=== PATIENT | female | born 1940 | race Caucasian/White ===

== ENCOUNTER 2016-08-23 09:09 | Emergency (ER) | payer MEDICARE ==
[2016-08-23 09:23] VITALS: BP 162/71
[2016-08-23] MEDS ORDERED: Albuterol/Ipratropium 3.0-0.5 MG/3 ML Neb Soln NEB ONE ×2 (09:48→12:46)
[2016-08-23] MEDS ORDERED: Sodium Chloride 0.9% 10 ML Syringe FLUSH PRN ×2 (10:19→11:18)
--- NOTE | 2016-08-23 10:22 | EDM.PDOC ---
ED HISTORY OF PRESENT ILLNESS - General Chief Complaint: Respiratory Problem Stated Complaint: SOB/HEART RACING Time Seen by Provider: 08/23/16 10:11 Source of Information: Reports: Patient History Limitations: Reports: No limitations - History of Present Illness INITIAL COMMENTS - FREE TEXT/NARRATIVE: Patient presents for evaluation and treatment of chest palpitations and shortness of breath. Patient reports that her symptoms started this morning. She also reports some tightness in her chest. She states that this has mostly resolved. She has a history of COPD and is normal at 2 L via nasal cannula at home. Upon arrival to the air oxygen sats of 75 on 2 L of oxygen. She was increased to 4 L which is on her oxygen sats into the low 90s. Patient also reports that she has been coughing for the last week. Her current symptoms include chest tightness, cough, shortness of breath, chest palpitations/ tachycardia. She denies any fevers, chills, nausea, vomiting, diaphoresis, waking or lower leg edema. Patient did have her influenza shot this year. She has not been seen thus far for her symptoms. - Related Data Allergies/ADRs: Allergies Allergy/AdvReac Type Severity Reaction Status Date / Time doxycycline Allergy Cannot Verified 08/23/16 09:23 Remember tiotropium Allergy Cannot Verified 08/23/16 09:23 [From Spiriva with Remember HandiHaler] tramadol [From Ultracet] Allergy Cannot Verified 08/23/16 09:23 Remember Home Meds: Home Meds Albuterol [Proventil Neb Soln] 1.25 mg NEB Q4HRRT PRN 08/23/16 [History] Albuterol [Proventil Neb Soln] 1.25 mg NEB QIDRT 08/23/16 [History] Albuterol/Ipratropium [Take Home: Albuterol/Ipratropium 4 GM Inhaler] 1 puff INH QID 08/23/16 [History] Azithromycin [IJP: Azithromycin] 250 mg PO ASDIRECTED #6 tab 08/23/16 [Rx] Budesonide 1 ampule IH BID 08/23/16 [History] Budesonide/Formoterol Fumarate [Symbicort 160-4.5 Mcg Inhaler] 2 puff IH DAILY 08/23/16 [History] Hydrochlorothiazide 25 mg PO DAILY 08/23/16 [History] Hydrocodone/Acetaminophen [Hydrocodon-Acetaminophn 10-325] 1 tab PO Q6H PRN [History] Ibuprofen [Motrin] 800 mg PO Q8H PRN 08/23/16 [History] LORazepam [Ativan] 0.5 mg PO TID 08/23/16 [History] Levothyroxine [Synthroid] 100 mcg PO ACBREAKFAST 08/23/16 [History] Metoprolol Tartrate [Lopressor] 0.5 tab PO BID 08/23/16 [History] Nystatin 1 applic TOP TID PRN 08/23/16 [History] Potassium Chloride 20 meq PO DAILY 08/23/16 [History] Prednisone [IJD: predniSONE] 40 mg PO WITHBREAKFAST #12 tab 08/23/16 [Rx] Past Medical History Respiratory History: Reports: COPD Gastrointestinal History: Reports: Diverticulosis - Past Surgical History GI Surgical History: Reports: Hernia repair/other Neurological Surgical History: Reports: Lumbar spine Social & Family History - Tobacco Use Smoking Status *Q: Former Smoker - Caffeine Use Caffeine Use: Reports: Coffee, Soda - Recreational Drug Use Recreational Drug Use: No ED ROS GENERAL - Review of Systems Review Of Systems: See Below Constitutional: Denies: fever, chills, diaphoresis Respiratory: Reports: Shortness of Breath, Cough. Denies: Sputum Cardiovascular: Reports: Chest pain, Palpitations. Denies: Edema GI/Abdominal: Denies: Nausea, Vomiting ED EXAM, GENERAL - Physical Exam Exam: See Below Exam Limited By: No limitations General Appearance: alert, WD/WN, no apparent distress, obese Respiratory/Chest: decreased breath sounds, wheezing (diffuse bilateral) Cardiovascular: normal peripheral pulses, regular rate, rhythm, no murmur Neurological: alert, oriented, normal cognition Psychiatric: normal affect, normal mood Skin Exam: Warm, Dry, Normal color EKG INTERPRETATION EKG Date: 08/23/16 Time: 22:00 Rhythm: NSR Rate (beats/min): 83 Cullen: normal P-wave: present QRS: normal ST-T: elevated (minimal in II and AVF) QT: normal EKG Interpretation Comments: NSR at 83 bpm. Left atrial enlargement. Decreased voltage in limb and precordial leads. Q waves in V1 and V2 - consider old aneroseptal LA. Minimal ST elevation in II and AVF. Reviewed by myself and Dr. Neves. Course - Vital Signs Last Recorded V/S: Last Vital Signs Temp 36.4 C 08/23/16 09:17 Pulse 90 08/23/16 09:17 Resp 14 08/23/16 09:17 BP 162/71 H 08/23/16 09:17 Pulse Ox 95 08/23/16 12:46 - Orders/Labs/Meds Labs: Laboratory Tests 08/23/16 08/23/16 08/23/16 Range/Units 09:40 09:40 09:40 WBC 15.59 H (3.98-10.04) K/mm3 RBC 4.34 (3.98-5.22) M/mm3 Hgb 12.8 (11.2-15.7) gm/L Hct 40.4 (34.1-44.9) % MCV 93.1 (79.4-94.8) fl MCH 29.5 (25.6-32.2) pg MCHC 31.7 L (32.2-35.5) g/dl RDW Std Deviation 56.5 H (36.4-46.3) fL Plt Count 780 H (182-369) K/mm3 MPV 9.6 (9.4-12.3) fl Neutrophils % (Manual) 73 H (40-60) % Band Neutrophils % 1 (0-10) % Lymphocytes % (Manual) 19 L (20-40) % Atypical Lymphs % 0 % Monocytes % (Manual) 4 (2-10) % Eosinophils % (Manual) 2 (0.7-5.8) % Basophils % (Manual) 1 (0.1-1.2) Platelet Estimate See note RBC Morph Comment Normal D-Dimer, Quantitative 1.20 H (0.19-0.59) mg/L Puncture Site ABG pH (7.35-7.45) ABG pCO2 (35.0-45.0) mmHg ABG pO2 (80.0-100.0) mmHg ABG HCO3 (22.0-26.0) meq/L ABG O2 Saturation (96.0-97.0) % ABG Base Excess (-2-2.0) Edgar Test A-a Gradient mmHg O2 Delivery Device Oxygen Flow Rate FiO2 (21.00-100.00) % Sodium 139 (136-145) mEq/L Potassium 3.8 (3.5-5.1) mEq/L Chloride 102 (98-107) mEq/L Carbon Dioxide 30 (21-32) mEq/L Anion Gap 10.8 (5-15) BUN 21 H (7-18) mg/dL Creatinine 1.2 H (0.55-1.02) mg/dL Est Cr Clr Drug Dosing 32.04 mL/min Estimated GFR (MDRD) 44 (>60) mL/min BUN/Creatinine Ratio 17.5 (14-18) Glucose 108 (83-115) mg/dL Calcium 10.1 (8.5-10.1) mg/dL Total Bilirubin 0.4 (0.2-1.0) mg/dL AST 25 (15-37) U/L ALT 34 (14-59) U/L Alkaline Phosphatase 75 (46-116) U/L CK-MB (CK-2) 1.8 (0-3.6) ng/ml Troponin I < 0.017 (0.00-0.056) ng/mL C-Reactive Protein 0.5 (<1.0) mg/dL B-Natriuretic Peptide (0-100) pg/mL Total Protein 7.9 (6.4-8.2) g/dl Albumin 3.5 (3.4-5.0) g/dl Globulin 4.4 gm/dL Albumin/Globulin Ratio 0.8 L (1-2) 08/23/16 08/23/16 Range/Units 09:40 13:34 WBC (3.98-10.04) K/mm3 RBC (3.98-5.22) M/mm3 Hgb (11.2-15.7) gm/L Hct (34.1-44.9) % MCV (79.4-94.8) fl MCH (25.6-32.2) pg MCHC (32.2-35.5) g/dl RDW Std Deviation (36.4-46.3) fL Plt Count (182-369) K/mm3 MPV (9.4-12.3) fl Neutrophils % (Manual) (40-60) % Band Neutrophils % (0-10) % Lymphocytes % (Manual) (20-40) % Atypical Lymphs % % Monocytes % (Manual) (2-10) % Eosinophils % (Manual) (0.7-5.8) % Basophils % (Manual) (0.1-1.2) Platelet Estimate RBC Morph Comment D-Dimer, Quantitative (0.19-0.59) mg/L Puncture Site Rt radial ABG pH 7.43 (7.35-7.45) ABG pCO2 42.2 (35.0-45.0) mmHg ABG pO2 64.0 L (80.0-100.0) mmHg ABG HCO3 27.3 H (22.0-26.0) meq/L ABG O2 Saturation 93.8 L (96.0-97.0) % ABG Base Excess 3.0 H (-2-2.0) Edgar Test Positive A-a Gradient 112 mmHg O2 Delivery Device Nasal cannula Oxygen Flow Rate 3.5 FiO2 34.00 (21.00-100.00) % Sodium (136-145) mEq/L Potassium (3.5-5.1) mEq/L Chloride (98-107) mEq/L Carbon Dioxide (21-32) mEq/L Anion Gap (5-15) BUN (7-18) mg/dL Creatinine (0.55-1.02) mg/dL Est Cr Clr Drug Dosing mL/min Estimated GFR (MDRD) (>60) mL/min BUN/Creatinine Ratio (14-18) Glucose (83-115) mg/dL Calcium (8.5-10.1) mg/dL Total Bilirubin (0.2-1.0) mg/dL AST (15-37) U/L ALT (14-59) U/L Alkaline Phosphatase (46-116) U/L CK-MB (CK-2) (0-3.6) ng/ml Troponin I (0.00-0.056) ng/mL C-Reactive Protein (<1.0) mg/dL B-Natriuretic Peptide 34 (0-100) pg/mL Total Protein (6.4-8.2) g/dl Albumin (3.4-5.0) g/dl Globulin gm/dL Albumin/Globulin Ratio (1-2) Meds: Medications Discontinued Medications Generic Name Dose Route Start Last Admin Trade Name Freq PRN Reason Stop Dose Admin Albuterol/Ipratropium 3 ml 08/23/16 09:48 08/23/16 09:52 Duoneb 3.0-0.5 Mg/3 Ml NEB 08/23/16 09:49 3 ml ONETIME ONE Administration Albuterol/Ipratropium 3 ml 08/23/16 12:46 08/23/16 13:28 Duoneb 3.0-0.5 Mg/3 Ml NEB 08/23/16 12:47 3 ml ONETIME ONE Administration Sodium Chloride 100 mls @ 80 mls/hr 08/23/16 11:30 08/23/16 11:40 Normal Saline IV 80 mls/hr ASDIRECTED RYAN Administration Sodium Chloride 500 mls @ 125 mls/hr 08/23/16 11:36 08/23/16 11:55 Normal Saline IV 08/23/16 15:35 125 mls/hr ONETIME ONE Administration Iopamidol 100 ml 08/23/16 11:18 08/23/16 11:40 Isovue-370 (76%) IVPUSH 08/23/16 11:19 100 ml ONETIME ONE Administration Prednisone 40 mg 08/23/16 14:11 08/23/16 14:53 Prednisone PO 08/23/16 14:12 40 mg ONETIME ONE Administration Sodium Chloride 10 ml 08/23/16 10:19 08/23/16 11:00 Saline Flush FLUSH 10 ml ASDIRECTED PRN Administration Keep Vein Open Sodium Chloride 10 ml 08/23/16 11:18 08/23/16 11:41 Saline Flush FLUSH 10 ml ONETIME PRN Administration IV FLUSH - Radiology Interpretation Free Text/Narrative:: chest xray shows cardiomegaly. No pulmonary congestion or consolidations appreciated Ct chest with contrast, PE study per Dr. Suggs: 1. No findings of PE 2. Incidental findings. CT Results Date: 08/23/16 - Re-Assessments/Exams Free Text/Narrative Re-Assessment/Exam: 08/23/16 14:52 ABGs are: pH of 7.43, pO2 of 64, pCO2 of 42.2 and HCO3 of 27.3 08/23/16 15:22 Patient's labs have returned. Influenza is negative White blood cell count is 15.59, hemoglobin is 12.8 platelets are 780. Sodium is 138, potassium 3.8 chloride is 102. Creatinine is 1.2.Glucose is 108. Troponin is less than 0.017. BNP is 34. CK-MB is 1.8. D-dimer is 1.2. CT pulmonary exam was obtained to further evaluate elevated d- dimer I reviewed the labs, EKG and imaging studies with the patient. She does not want to spend the night in the hospital. She would like to try outpatient therapy first. I do believe that she is having exacerbation of her COPD. Will prescribe some azithromycin and some prednisone. She may have to increase her oxygen temporarily. She has nebulizers and I will have her continue on these. Close followup with her primary care provider. Departure - Departure Time of Disposition: 15:22 Disposition: Home, Self-Care 01 Condition: fair Clinical Impression: COPD exacerbation Prescriptions: Azithromycin [IJP: Azithromycin] 250 mg PO ASDIRECTED #6 tab Prednisone [IJD: predniSONE] 40 mg PO WITHBREAKFAST #12 tab Instructions: Chronic Obstructive Pulmonary Disease Exacerbation, [id number] Referrals: Yesica Gutierrez VICE PRESIDENT OF COMMUNICATIONS [Primary Care Provider] - Forms: ED Department Discharge Additional Instructions: Take the azithromycin as prescribed. Take 2 tabs today followed by one tab days 2-5 for 5 days medication total. Take prednisone as prescribed. First dose was given here in the ER. Take 2 tablets or 40 mg daily for the next 6 days for 7 days the medication total. You may have to increase your oxygen to 3 or 4 liters while at home. Recommend he pick up driver a pulse oximeter. these are available at [employer] Oxygen saturation be around 92. Follow-up with your primary care provider on Sunday or Sunday. Please return to the ER immediately should your symptoms change or worsen.
[2016-08-23] MEDS ORDERED: Iopamidol 755 Mg/ML 100 ML Bottle IVPUSH ONE (11:18)
[2016-08-23] MEDS ORDERED: Sodium Chloride 0.9% 100 ML IV SCH (11:30)
[2016-08-23] MEDS ORDERED: Sodium Chloride 0.9% 500 ML IV ONE (11:36)
--- NOTE | 2016-08-23 13:27 | CT ---
CT chest Technique: Multiple axial sections were obtained through the chest. Intravenous contrast was utilized. Study has been performed as a pulmonary angiogram protocol. Findings: Pulmonary arteries are moderately well-opacified. No filling defects are appreciated to indicate pulmonary embolism. Normal size mediastinal lymph nodes are seen. Mild increased fat within the mediastinum is seen as a normal variant. Mild coronary artery calcification is seen. Heart is mildly enlarged. Small portion of the visualized upper abdominal structures shows questionable partially visualized gallstones. Lungs shows mild haziness most likely due to subsegmental areas of atelectasis. Lungs otherwise are clear. Bone window settings show scattered degenerative endplate spurring within the spine. Degenerative change noted within both shoulders. Impression: 1. No findings of pulmonary embolism. 2. Other incidental findings as described above. Diagnostic code #2
[2016-08-23] MEDS ORDERED: predniSONE 20 MG Tab PO ONE (14:11)
--- NOTE | 2016-08-24 09:51 | CR ---
Chest: Frontal and lateral views of the chest were obtained. Comparison: No previous chest x-ray except for subsequent chest CT performed later on the same day. Heart is mildly enlarged. Mild tortuosity of the thoracic aorta is seen. Lungs are clear. Mild degenerative change is scattered within the spine. Impression: 1. Nothing acute is seen. Other findings as noted above. Diagnostic code #2
== END 2016-08-23 16:15 | disposition home or self-care (01) ==
LOC: JD.ED 09:09
DX: J44.1 Chronic obstructive pulmonary disease with (acute) exacerbation (principal); Z98.890 Other specified postprocedural states; Z87.891 Personal history of nicotine dependence; Z79.899 Other long term (current) drug therapy; Z88.1 Allergy status to other antibiotic agents; Z88.5 Allergy status to narcotic agent; Z88.8 Allergy status to other drugs, medicaments and biological substances
CPT/HCPCS: 36415; 36600; 71020; 71275; 80053; 82553; 82803; 83880; 84484; 85025; 85379; 86140; 87804; 93005; 94640; 94664; 96360; 96361; 99285; A9270; J7030; J7040; J7050; Q9967; 99284

== ENCOUNTER 2016-09-17 21:58 | Inpatient (IN) | payer MEDICARE ==
--- NOTE | 2016-09-17 22:21 | EDM.PDOC ---
ED HISTORY OF PRESENT ILLNESS - General Chief Complaint: Respiratory Problem Stated Complaint: SOB Time Seen by Provider: 09/17/16 22:15 Source of Information: Reports: Patient History Limitations: Reports: No limitations - History of Present Illness INITIAL COMMENTS - FREE TEXT/NARRATIVE: 76-year-old female presents to the ED with increased dyspnea on minimal exertion over the last two days. Non productive cough. No chest pains. Uses 02 at home 3 L/min at all times. Uses multiple inhlares and nebulizer machine. Used Albuterol neb about 90 min prior to coming to the Ed with no real improvement. Has known mild CHF. Is on Lasix 20mg po od. Appetite is is good. No fever or chills. Dyspnea on minimal exertion. 02 sats were down to 86% just getting into the bed. 95% at rest on 3L/min per nasal cannula. She was fearful of lying down to sleep last night. Symptom Onset Date: 09/16/16 Timing/Duration: Reports: Hour(s):, Getting worse, Gradual onset Severity: moderate Location, General: Reports: chest Quality: Reports: Other (difficulty getting her air. ) Improves with: Reports: Rest Worsens with: Reports: Movement ( geting to the bathroom or geting dressed. ) Context, General: Denies: Lifting, Sick contact, Trauma, Other Associated Symptoms (General): Reports: cough (dry . ), malaise, shortness of breath, weakness. Denies: confusion, chest pain, cough w sputum, diaphoresis, fever/chills, headaches, loss of appetite, nausea/vomiting, rash, seizure, syncope Treatments AEROPHYSICIST: Reports: Breathing treatments - Related Data Allergies/ADRs: Allergies Allergy/AdvReac Type Severity Reaction Status Date / Time doxycycline Allergy Cannot Verified 09/17/16 22:07 Remember tiotropium Allergy Cannot Verified 09/17/16 22:07 [From Spiriva with Remember HandiHaler] tramadol [From Ultracet] Allergy Cannot Verified 09/17/16 22:07 Remember Home Meds: Home Meds Albuterol [Proventil Neb Soln] 1.25 mg NEB Q4HRRT PRN 08/23/16 [History] Albuterol [Proventil Neb Soln] 1.25 mg NEB QID 08/23/16 [History] Budesonide/Formoterol Fumarate [Symbicort 160-4.5 Mcg Inhaler] 2 puff IH DAILY 08/23/16 [History] Hydrocodone/Acetaminophen [Hydrocodon-Acetaminophn 10-325] 1 tab PO Q6H PRN [History] Levothyroxine [Synthroid] 100 mcg PO ACBREAKFAST 08/23/16 [History] Metoprolol Tartrate [Lopressor] 25 mg PO BID 08/23/16 [History] Potassium Chloride 20 meq PO DAILY 08/23/16 [History] Furosemide [Lasix] 20 mg PO DAILY 09/17/16 [History] Ipratropium/Albuterol Sulfate [Combivent Respimat Inhal [place]] 4 gm IH DAILY [History] Umeclidinium [place] [Incruse Ellipta] 62.5 mcg IH DAILY 09/17/16 [History] Past Medical History Respiratory History: Reports: COPD Gastrointestinal History: Reports: Diverticulosis Endocrine/Metabolic History: Reports: Hypothyroidism, Obesity/BMI 30+ - Past Surgical History GI Surgical History: Reports: Hernia repair/other Neurological Surgical History: Reports: Lumbar spine Social & Family History - Tobacco Use Smoking Status *Q: Former Smoker Used Tobacco, but Quit: Yes Month Tobacco Last Used: many years ago - Caffeine Use Caffeine Use: Reports: Coffee, Soda - Recreational Drug Use Recreational Drug Use: No - Living Situation & Occupation Living situation: Reports: alone Occupation: retired ED ROS GENERAL - Review of Systems Review Of Systems: See Below Constitutional: Reports: malaise, weakness, fatigue. Denies: fever, chills, decreased appetite, weight loss HEENT: Reports: No symptoms Respiratory: Reports: Shortness of Breath, Wheezing (occassional), Cough ( non productive. ). Denies: Pleuritic Chest Pain, Sputum, Hemoptysis Cardiovascular: Reports: Blood pressure problem (hypertension. ), Dyspnea on exertion, Edema (mild in her feet. ), Orthopnea. Denies: Chest pain, Claudication, Lightheadedness, Palpitations Endocrine: Reports: fatigue. Denies: high glucose GI/Abdominal: Reports: Decreased appetite, Distension. Denies: Abdominal pain, Anorexia, Black stool, Bloody stool, Difficulty swallowing, Flatus, Hematemesis , Hematochezia, Melena : Reports: frequency, incontinence (urge and stress components. ) Musculoskeletal: Reports: neck pain, shoulder pain, back pain, joint pain Skin: Reports: no symptoms Neurological: Reports: No Symptoms Psychiatric: Reports: No symptoms Hematologic/Lymphatic: Reports: no symptoms Immunologic: Reports: no symptoms ED EXAM, GENERAL - Physical Exam Exam: See Below Exam Limited By: No limitations General Appearance: alert, WD/WN, moderate distress (working fairly hard to get her air. ) Eye Exam: bilateral eye: normal inspection Ears: normal TMs Throat/Mouth: Normal inspection, Normal lips, Normal oropharynx Head: atraumatic, normocephalic Neck: normal inspection, supple, non-tender, full range of motion. No: carotid bruit, lymphadenopathy (L), lymphadenopathy (R) Respiratory/Chest: lungs clear, no accessory muscle use, decreased breath sounds (decreased to khang lowr 30 % of lung filelds. ), rales ( few Lt base. ). No: normal breath sounds, rhonchi, wheezing Cardiovascular: regular rate, rhythm, no murmur, no rub. No: no edema, JVD Peripheral Pulses: 1+: posterior tibial (L), posterior tibial (R), dorsalis pedis (L), dorsalis pedis (R) GI/Abdominal: soft, distended, other (t ) Back Exam: normal inspection, full range of motion. No: CVA tenderness (L), CVA tenderness (R) Extremities: normal inspection, normal range of motion, non-tender, pedal edema (1), joint swelling Neurological: alert, oriented, CN II-XII intact, normal cognition, normal gait Psychiatric: normal affect, normal mood Skin Exam: Warm, Dry, Intact, Normal color, No rash EKG INTERPRETATION EKG Date: 09/17/16 Time: 22:30 Rhythm: other (Occasional PVCs. Wandering baseline.) Rate (beats/min): 80 [place]: normal P-wave: enlarged (Biatrial enlargement.) QRS: other (Were way progression throughout. Decreased voltage in both limb and precordial leads.) ST-T: other (Wandering baseline precludes ability to utilize the ST segments for diagnosis.) QT: normal EKG Interpretation Comments: Disagree with the computer reading of acute inferior wall infarct. No evidence of infarction exists. Course - Vital Signs Last Recorded V/S: Last Vital Signs Temp 36.1 C 09/17/16 22:02 Pulse 84 09/17/16 22:02 Resp 17 09/17/16 22:02 BP 157/91 H 09/17/16 22:02 Pulse Ox 91 L 09/17/16 22:23 - Orders/Labs/Meds Orders: Active Orders 24 hr Category Date Time Status Admission Status [Patient Status] [ADT] Routine ADT 09/18/16 00:25 Active EKG Documentation Completion [RC] STAT Care 09/17/16 22:22 Active Oxygen Therapy [RC] ASDIRECTED Care 09/17/16 22:22 Active Peripheral IV Care [RC] . DIRECTED Care 09/17/16 22:22 Active RT Aerosol Therapy [RC] ASDIRECTED Care 09/17/16 22:23 Active Chest 1V Frontal [CR] Stat Exams 09/17/16 22:21 Taken Chest 1V Frontal [CR] Stat Exams 09/17/16 22:56 Taken Chest PE [Ang Chest] [CT] Stat Exams 09/17/16 23:00 Ordered Peripheral IV Insertion Adult [OM.PC] Stat Oth 09/17/16 22:22 Ordered Labs: Laboratory Tests 09/17/16 09/17/16 09/17/16 Range/Units 22:10 22:10 22:10 WBC 15.77 H (3.98-10.04) K/mm3 RBC 4.17 (3.98-5.22) M/mm3 Hgb 12.5 (11.2-15.7) gm/L Hct 39.1 (34.1-44.9) % MCV 93.8 (79.4-94.8) fl MCH 30.0 (25.6-32.2) pg MCHC 32.0 L (32.2-35.5) g/dl RDW Std Deviation 58.3 H (36.4-46.3) fL Plt Count 683 H (182-369) K/mm3 MPV 9.6 (9.4-12.3) fl Neutrophils % (Manual) 58 (40-60) % Band Neutrophils % 0 (0-10) % Lymphocytes % (Manual) 30 (20-40) % Atypical Lymphs % 0 % Monocytes % (Manual) 8 (2-10) % Eosinophils % (Manual) 4 (0.7-5.8) % Basophils % (Manual) 0 L (0.1-1.2) Platelet Estimate Increased Plt Morphology Comment See note Polychromasia 1+ slight Ovalocytes Rare Acanthocytes (Spur) Few Schistocytes Rare RBC Morph Comment Not Reportable PT 10.4 (8.0-13.0) SECONDS INR 0.96 D-Dimer, Quantitative (0.19-0.59) mg/L Sodium 139 (136-145) mEq/L Potassium 4.0 (3.5-5.1) mEq/L Chloride 103 (98-107) mEq/L Carbon Dioxide 27 (21-32) mEq/L Anion Gap 13.0 (5-15) BUN 18 (7-18) mg/dL Creatinine 1.2 H (0.55-1.02) mg/dL Est Cr Clr Drug Dosing TNP Estimated GFR (MDRD) 44 (>60) mL/min BUN/Creatinine Ratio 15.0 (14-18) Glucose 98 (83-115) mg/dL Calcium 9.9 (8.5-10.1) mg/dL Magnesium 1.9 (1.8-2.4) mg/dl Total Bilirubin 0.4 (0.2-1.0) mg/dL AST 18 (15-37) U/L ALT 25 (14-59) U/L Alkaline Phosphatase 84 (46-116) U/L CK-MB (CK-2) 2.0 (0-3.6) ng/ml Troponin I < 0.017 (0.00-0.056) ng/mL C-Reactive Protein 0.9 (<1.0) mg/dL B-Natriuretic Peptide (0-100) pg/mL Total Protein 7.7 (6.4-8.2) g/dl Albumin 3.5 (3.4-5.0) g/dl Globulin 4.2 gm/dL Albumin/Globulin Ratio 0.8 L (1-2) Urine Color (Yellow) Urine Appearance (Clear) Urine pH (5.0-8.0) Ur Specific [place] (1.005-1.030) Urine Protein (Negative) Urine Glucose (UA) (Negative) Urine Ketones (Negative) Urine Occult Blood (Negative) Urine Nitrite (Negative) Urine Bilirubin (Negative) Urine Urobilinogen (0.2-1.0) Ur Leukocyte Esterase (Negative) Urine RBC (0-5) /hpf Urine WBC (0-5) /hpf Ur Epithelial Cells (0-5) /hpf Urine Bacteria (FEW) /hpf Urine Mucus (FEW) /hpf 09/17/16 09/17/16 09/17/16 Range/Units 22:10 22:10 23:10 WBC (3.98-10.04) K/mm3 RBC (3.98-5.22) M/mm3 Hgb (11.2-15.7) gm/L Hct (34.1-44.9) % MCV (79.4-94.8) fl MCH (25.6-32.2) pg MCHC (32.2-35.5) g/dl RDW Std Deviation (36.4-46.3) fL Plt Count (182-369) K/mm3 MPV (9.4-12.3) fl Neutrophils % (Manual) (40-60) % Band Neutrophils % (0-10) % Lymphocytes % (Manual) (20-40) % Atypical Lymphs % % Monocytes % (Manual) (2-10) % Eosinophils % (Manual) (0.7-5.8) % Basophils % (Manual) (0.1-1.2) Platelet Estimate Plt Morphology Comment Polychromasia Ovalocytes Acanthocytes (Spur) Schistocytes RBC Morph Comment PT (8.0-13.0) SECONDS INR D-Dimer, Quantitative 0.99 H (0.19-0.59) mg/L Sodium (136-145) mEq/L Potassium (3.5-5.1) mEq/L Chloride (98-107) mEq/L Carbon Dioxide (21-32) mEq/L Anion Gap (5-15) BUN (7-18) mg/dL Creatinine (0.55-1.02) mg/dL Est Cr Clr Drug Dosing Estimated GFR (MDRD) (>60) mL/min BUN/Creatinine Ratio (14-18) Glucose (83-115) mg/dL Calcium (8.5-10.1) mg/dL Magnesium (1.8-2.4) mg/dl Total Bilirubin (0.2-1.0) mg/dL AST (15-37) U/L ALT (14-59) U/L Alkaline Phosphatase (46-116) U/L CK-MB (CK-2) (0-3.6) ng/ml Troponin I (0.00-0.056) ng/mL C-Reactive Protein (<1.0) mg/dL B-Natriuretic Peptide 38 (0-100) pg/mL Total Protein (6.4-8.2) g/dl Albumin (3.4-5.0) g/dl Globulin gm/dL Albumin/Globulin Ratio (1-2) Urine Color Light yellow (Yellow) Urine Appearance Clear (Clear) Urine pH 6.5 (5.0-8.0) Ur Specific [place] 1.015 (1.005-1.030) Urine Protein Negative (Negative) Urine Glucose (UA) Negative (Negative) Urine Ketones Negative (Negative) Urine Occult Blood Negative (Negative) Urine Nitrite Negative (Negative) Urine Bilirubin Negative (Negative) Urine Urobilinogen 0.2 (0.2-1.0) Ur Leukocyte Esterase Trace H (Negative) Urine RBC Not seen (0-5) /hpf Urine WBC 0-5 (0-5) /hpf Ur Epithelial Cells 0-5 (0-5) /hpf Urine Bacteria Rare (FEW) /hpf Urine Mucus Not seen (FEW) /hpf Meds: Medications Discontinued Medications Generic Name Dose Route Start Last Admin Trade Name Freq PRN Reason Stop Dose Admin Albuterol/Ipratropium 3 ml 09/17/16 22:23 09/17/16 22:39 Duoneb 3.0-0.5 Mg/3 Ml NEB 09/17/16 22:24 3 ml ONETIME ONE Administration Furosemide 40 mg 09/17/16 22:23 09/17/16 22:27 Lasix IVPUSH 09/17/16 22:24 40 mg NOW ONE Administration Sodium Chloride 1,000 mls @ 100 mls/hr 09/17/16 23:30 Normal Saline IV ASDIRECTED RYAN Iopamidol 100 ml 09/17/16 23:22 Isovue-370 (76%) IVPUSH 09/17/16 23:23 ONETIME ONE Methylprednisolone Sodium Succinate 125 mg 09/18/16 00:26 Solu-Medrol IVPUSH 09/18/16 00:27 ONETIME ONE Sodium Chloride 10 ml 09/17/16 22:22 09/17/16 22:23 Saline Flush FLUSH 10 ml ASDIRECTED PRN Administration Keep Vein Open - Radiology Interpretation Free Text/Narrative:: 76-year-old female presents to the ED with increased dyspnea on exertion the last two days. non productive cough. Perhaps slightly increased edema in her lower extremities. Dyspnea is much worse on minimal exertion. Lungs are clear on exam. Morbidluy obeses. 02 sts are 95% on 3L/min at rest. Desturates to 86% on minimal exertion--getting up from wheel chair to get into bed. Plan; CXR. Duoneb. Peripheral IV lock. Lasix 40mg IV. Routine labs to include cardiac markers and BNP and D-Dimer. - Re-Assessments/Exams Free Text/Narrative Re-Assessment/Exam: 09/17/16 22:54 chest x-ray done portably is of poor quality. It is underpenetrated. It appears that she has cardiomegaly and diffuse vascular congestion. An x-ray is going to attempt to repeat the x-ray. 09/17/16 23:05 second chest x-ray is no better the first. Hits is limited ability to visualize the lung mehta probably due to very large breasts I. soft tissue obstruction. D-dimer is positive at 0.99. And therefore going to have CT pulmonary angiogram carried out as no other reason to explain her elevated white count and she has an elevated platelet count which would place her at a slightly increased risk of clotting as well. White count is mildly elevated at 15.77 the differential is normal. Tends to be more stress response. Chemistry is otherwise completely normal. CRP is less than 0.9. BNP is normal at 38 with no signs of congestive failure cardiac markers are all normal. Then using is normal as well. Her chief problem is morbid obesity with aerophagia. 09/17/16 23:[address] pulmonary angiogram failed. Patient could not lie down long enough to to such a strong sense of dyspnea on the rbrandon. She did have a CT pulmonary angiogram done the end of August with a d-dimer of 1.2 and it proved to be negative for clot. She's never had a known DVT. I suspect she is short of breath because she is working hard to breathe in her abdomen is very distended with air as well as morbidly obese. I suspect she can' t lay down because the numbness persists or diaphragms up further making her increasingly short of breath at rest. Difficult to try and manage. She has no significant congestive heart failure changes. Steroids may help relieve some upper airway inflammation. I will speak to the hospitalist in this regard. 09/18/16 00:27 Dr. Vargas has accepted care of this patient and she will therefore be transferred to to med surgery floor as an inpatient. I will give her the initial dose of Solu-Medrol 125 mg IV in the department. She will need to be placed on Lovenox while hospitalized. Departure - Departure Time of Disposition: 00:27 Disposition: Admitted As Inpatient 67 Condition: poor Clinical Impression: Exacerbation of chronic obstructive pulmonary disease associated with volcanic smog exposure, Aerophagia Morbid obesity Qualifiers: Obesity type: due to excess calories Qualified Code(s): E66.01 - Morbid (severe ) obesity due to excess calories Referrals: Yesica Gutierrez TRAFFIC SURVEY TECHNICIAN [Primary Care Provider] - Forms: ED Department Discharge - My Orders Last 24 Hours: My Active Orders 09/17/16 22:21 Chest 1V Frontal [CR] Stat 09/17/16 22:22 EKG Documentation Completion [RC] STAT Oxygen Therapy [RC] ASDIRECTED Peripheral IV Care [RC] . DIRECTED Peripheral IV Insertion Adult [OM.PC] Stat 09/17/16 22:23 RT Aerosol Therapy [RC] ASDIRECTED 09/17/16 22:56 Chest 1V Frontal [CR] Stat 09/17/16 23:00 Chest PE [Ang Chest] [CT] Stat 09/18/16 00:25 Admission Status [Patient Status] [ADT] Routine - Assessment/Plan Last 24 Hours: My Active Orders 09/17/16 22:21 Chest 1V Frontal [CR] Stat 09/17/16 22:22 EKG Documentation Completion [RC] STAT Oxygen Therapy [RC] ASDIRECTED Peripheral IV Care [RC] . DIRECTED Peripheral IV Insertion Adult [OM.PC] Stat 09/17/16 22:23 RT Aerosol Therapy [RC] ASDIRECTED 09/17/16 22:56 Chest 1V Frontal [CR] Stat 09/17/16 23:00 Chest PE [Ang Chest] [CT] Stat 09/18/16 00:25 Admission Status [Patient Status] [ADT] Routine
[2016-09-17] MEDS ORDERED: Sodium Chloride 0.9% 10 ML Syringe FLUSH PRN (22:22)
[2016-09-17] MEDS ORDERED: Furosemide 40 MG/4 ML VIAL IVPUSH ONE (22:23)
[2016-09-17] MEDS ORDERED: Albuterol/Ipratropium 3.0-0.5 MG/3 ML Neb Soln NEB ONE (22:23)
[2016-09-17] MEDS ORDERED: Iopamidol 755 Mg/ML 100 ML Bottle IVPUSH ONE (23:22)
[2016-09-17] MEDS ORDERED: Sodium Chloride 0.9% 1,000 ML IV SCH (23:30)
[2016-09-18] MEDS ORDERED: methylPREDNISolone Sodium Succinate 125 MG/2 ML SDV IVPUSH ONE (00:26)
[2016-09-18] MEDS ORDERED: Sodium Chloride 0.9% 10 ML Syringe FLUSH PRN (01:42)
[2016-09-18] MEDS ORDERED: Temazepam 7.5 MG Cap PO PRN (01:42)
[2016-09-18] MEDS ORDERED: Albuterol 0.042% 1.25 MG/3 ML Neb Soln NEB PRN ×2 (04:04→10:53)
[2016-09-18] MEDS: Albuterol/Ipratropium 3.0-0.5 MG/3 ML Neb Soln NEB SCH ×4 (05:53→21:35)
[2016-09-18] MEDS ORDERED: Albuterol 0.042% 1.25 MG/3 ML Neb Soln NEB SCH ×5 (06:00→13:00)
--- NOTE | 2016-09-18 07:16 | CR ---
Chest: Frontal view of the chest was obtained. Comparison: Previous chest x-ray of 08/23/[address] of 08/23/16. Heart size and mediastinum are grossly unremarkable. Lungs not optimally seen but grossly clear. Bony structures are grossly intact. Impression: 1. Suboptimal study secondary to patient body habitus. Nothing acute is definitely seen. Diagnostic code #2
--- NOTE | 2016-09-18 07:16 | CR ---
Chest: Frontal view of the chest was obtained. Comparison: Previous chest x-ray performed earlier on the same day (10:26 PM). Study slightly better in quality but still suboptimal due to patient body habitus. Lungs are grossly clear. Heart size and mediastinum are grossly intact. Bony structures show no discrete abnormality. Impression: 1. Suboptimal study due to patient body habitus. Nothing acute is definitely seen. Diagnostic code #2
[2016-09-18] MEDS: methylPREDNISolone Sodium Succinate 125 MG/2 ML SDV IVPUSH SCH ×3 (08:10→20:38)
[2016-09-18] MEDS: Enoxaparin 40 MG/0.4 ML Syringe SUBCUT SCH (08:10)
[2016-09-18] MEDS: Acetaminophen/HYDROcodone 325-10 MG Tab PO PRN ×2 (11:51→20:39)
[2016-09-18] MEDS: Metoprolol Tartrate 25 MG Tab PO SCH ×2 (11:52→20:39)
[2016-09-18] MEDS: Furosemide 20 MG Tab PO SCH (11:52)
[2016-09-18] MEDS ORDERED: Albuterol/Ipratropium 3.0-0.5 MG/3 ML Neb Soln NEB SCH (13:00)
--- NOTE | 2016-09-18 13:44 | PCM.HP ---
H&P History of Present Illness - General Date of Service: 09/18/16 Admit Problem/Dx: Admission Diagnosis/Problem Admission Diagnosis/Problem COPD, Severe chronic obstructive pulmonary disease Source of Information: Patient, Provider History Limitations: Reports: No limitations - History of Present Illness Initial Comments - Free Text/Narative: 76 year old female who has had progressive shortness of breath with minimal activity. She reports a non productive cough, but denies fever and chills. She has noticed wheezing and becomes tired more quickly with minimal activity. Admits to orthopnea, but denies PND. Is extremely inactive and uses her walker to prop he up when she ambulates. Becomes tearful very quickly without being able to identify what has precipitated the response Onset of Symptoms: Reports: unknown/unsure Duration of Symptoms: Reports: Week(s):, Getting worse Location: Reports: chest Quality: Reports: Same as previous episode Severity: moderate Improves with: Reports: Medication Worsens with: Reports: None Associated Symptoms: Reports: cough, shortness of breath, weakness Low Back Pain Score (Numeric/FACES): 8 - Related Data Allergies/Adverse Reactions: Allergies Allergy/AdvReac Type Severity Reaction Status Date / Time doxycycline Allergy Cannot Verified 09/18/16 07:45 Remember tiotropium Allergy Cannot Verified 09/18/16 07:45 [From Spiriva with Remember HandiHaler] tramadol [From Ultracet] Allergy Cannot Verified 09/18/16 07:45 Remember Home Medications: Home Meds Albuterol [Proventil Neb Soln] 1.25 mg NEB Q4HRRT PRN 08/23/16 [History] Albuterol [Proventil Neb Soln] 1.25 mg NEB QID 08/23/16 [History] Budesonide/Formoterol Fumarate [Symbicort 160-4.5 Mcg Inhaler] 2 puff IH DAILY 08/23/16 [History] Hydrocodone/Acetaminophen [Hydrocodon-Acetaminophn 10-325] 1 tab PO Q6H PRN [History] Levothyroxine [Synthroid] 100 mcg PO ACBREAKFAST 08/23/16 [History] Metoprolol Tartrate [Lopressor] 25 mg PO BID 08/23/16 [History] Potassium Chloride 20 meq PO DAILY 08/23/16 [History] Furosemide [Lasix] 20 mg PO DAILY 09/17/16 [History] Ipratropium/Albuterol Sulfate [Combivent Respimat Inhal [place]] 4 gm IH DAILY [History] Umeclidinium Cookson [Incruse Ellipta] 62.5 mcg IH DAILY 09/17/16 [History] Past Medical History HEENT History: Reports: Impaired vision, Other (see below) Other HEENT History: wears glasses Respiratory History: Reports: COPD Gastrointestinal History: Reports: Diverticulosis Endocrine/Metabolic History: Reports: Hypothyroidism, Obesity/BMI 30+ - Past Surgical History HEENT Surgical History: Reports: None Respiratory Surgical History: Reports: None GI Surgical History: Reports: Hernia repair/other Neurological Surgical History: Reports: Lumbar spine Dermatological Surgical History: Reports: None Social & Family History - Family History Family Medical History: Noncontributory - Tobacco Use Smoking Status *Q: Former Smoker Packs/Tins Daily: 1 Used Tobacco, but Quit: No Month Tobacco Last Used: many years ago Tobacco Use Comment: pt states she started smoking at age 18 and has no idea how long ago she quit/ Second Hand Smoke Exposure: No - Caffeine Use Caffeine Use: Reports: None - Recreational Drug Use Recreational Drug Use: No - Living Situation & Occupation Living situation: Reports: alone Occupation: retired H&P Review of Systems - Review of Systems: Review Of Systems: See Below General: Reports: malaise, weakness, fatigue, weight gain HEENT: Reports: no symptoms Pulmonary: Reports: Shortness of Breath Cardiovascular: Reports: dyspnea on exertion, edema Gastrointestinal: Reports: No symptoms Genitourinary: Reports: no symptoms Musculoskeletal: Reports: no symptoms Skin: Reports: no symptoms Psychiatric: Reports: no symptoms Neurological: Reports: No Symptoms Hematologic/Lymphatic: Reports: no symptoms Immunologic: Reports: no symptoms Exam - Exam Exam: See Below - Vital Signs Vital Signs: Last Vital Signs Temp 36.5 C 09/18/16 11:50 Pulse 120 H 09/18/16 11:52 Resp 16 09/18/16 11:50 BP 121/55 L 09/18/16 11:52 Pulse Ox 93 L 09/18/16 11:50 Weight: 122.198 kg - Exam Quality Assessment: supplemental oxygen, DVT prophylaxis General: alert, oriented, cooperative, other (tearful) HEENT: Nares patent, Normal nasal septum, Posterior pharynx clear, Pupils equal , Pupils reactive Neck: supple, trachea midline Lungs: Normal respiratory effort Cardiovascular: regular rate Abdomen: normal bowel sounds, soft (Female) Exam: Deferred Rectal (Female) Exam: Deferred Back Exam: normal inspection Extremities: normal inspection Skin: warm Neurological: cranial nerves intact Neuro Extensive - Mental Status: alert, oriented x3 Neuro Extensive - Motor, Sensory, Reflexes: CN II-XII intact Psychiatric: alert, anxious, depressed - Patient Data Result Diagrams: 09/17/16 22:10 09/17/16 22:10 *Q Meaningful Use (ADM) - VTE *Q VTE Criteria *Q: - Stroke *Q Stroke Criteria *Q: - AMI *Q AMI Criteria *Q: - Problem List (1) Aerophagia SNOMED Code(s): 30202423 ICD Code: F45.8 - OTHER SOMATOFORM DISORDERS Status: Acute Current Visit : Yes (2) Exacerbation of chronic obstructive pulmonary disease associated with volcanic smog exposure SNOMED Code(s): 043419937 ICD Code: J44.1 - CHRONIC OBSTRUCTIVE PULMONARY DISEASE W (ACUTE) EXACERBATION; Z77.110 - CONTACT WITH AND (SUSPECTED) EXPOSURE TO AIR POLLUTION Status: Acute Current Visit: Yes (3) Morbid obesity SNOMED Code(s): 907061749, 60696623863785 ICD Code: E66.01 - MORBID (SEVERE) OBESITY DUE TO EXCESS CALORIES Status: Acute Current Visit: Yes Qualifiers: Obesity type: due to excess calories Qualified Code(s): E66.01 - Morbid ( severe) obesity due to excess calories (4) COPD exacerbation SNOMED Code(s): 531637273, 099375944 ICD Code: J44.1 - CHRONIC OBSTRUCTIVE PULMONARY DISEASE W (ACUTE) EXACERBATION Status: Acute Current Visit: No Problem List Initiated/Reviewed/Updated: Yes Orders Last 24hrs: Active Orders 24 hr Category Date Time Status CPAP Adult [RT BiPAP/CPAP] [RC] ASDIRECTED Care 09/18/16 01:31 Active Peripheral IV Care [RC] Q2HR Care 09/18/16 01:42 Active Consult to Pulmonary Rehabilitation [CONS] Routine Cons 09/18/16 10:40 Active Consult to Director Operating Room [CONS] Routine Cons 09/18/16 10:40 Active OT Evaluation and Treatment [CONS] Routine Cons 09/18/16 10:39 Active PT Evaluation and Treatment [CONS] Routine Cons 09/18/16 10:39 Active Consistent Carbohydrate Diet [DIET] Diet 09/18/16 Dinner Active Full Liquid Diet [DIET] Diet 09/18/16 Lunch Active CBC W/O DIFF,HEMOGRAM [HEME] MOTH@0700 Lab 09/21/16 07:00 Ordered CBC W/O DIFF,HEMOGRAM [HEME] MOTH@0700 Lab 09/25/16 07:00 Ordered CBC W/O DIFF,HEMOGRAM [HEME] MOTH@0700 Lab 09/28/16 07:00 Ordered CBC W/O DIFF,HEMOGRAM [HEME] MOTH@0700 Lab 10/02/16 07:00 Ordered CBC W/O DIFF,HEMOGRAM [HEME] MOTH@0700 Lab 10/05/16 07:00 Ordered CBC W/O DIFF,HEMOGRAM [HEME] MOTH@0700 Lab 10/09/16 07:00 Ordered CRP [C-REACTIVE PROTEIN] [CHEM] DAILY Lab 09/19/16 05:00 Ordered CRP [C-REACTIVE PROTEIN] [CHEM] DAILY Lab 09/20/16 05:00 Ordered CRP [C-REACTIVE PROTEIN] [CHEM] DAILY Lab 09/21/16 05:00 Ordered INFLUENZA A+B AG SCREEN [RM] Routine Lab 09/18/16 14:00 Uncollected LIPID PANEL [CHEM] Routine Lab 09/19/16 05:00 Ordered MAGNESIUM [CHEM] DAILY Lab 09/19/16 05:00 Ordered MAGNESIUM [CHEM] DAILY Lab 09/20/16 05:00 Ordered MAGNESIUM [CHEM] DAILY Lab 09/21/16 05:00 Ordered MYCOPLASMA PNEUMONIAE IGM AB [CHEM] Routine Lab 09/18/16 14:00 Ordered TSH [CHEM] DAILY Lab 09/19/16 05:00 Ordered TSH [CHEM] DAILY Lab 09/20/16 05:00 Ordered TSH [CHEM] DAILY Lab 09/21/16 05:00 Ordered Acetaminophen/HYDROcodone [Shirley 325-10 MG] Med 09/18/16 10:53 Active 1 tab PO Q6H PRN Albuterol [Proventil Neb Soln] Med 09/18/16 10:53 Active 1.25 mg NEB Q4HR PRN Albuterol/Ipratropium [DuoNeb 3.0-0.5 MG/3 ML] Med 09/18/16 16:00 Active 3 ml NEB QIDRT Enoxaparin [Lovenox] Med 09/18/16 09:00 Active 40 mg SUBCUT DAILY Furosemide [Lasix] Med 09/18/16 12:00 Active 20 mg PO DAILY Levothyroxine [Synthroid] Med 09/19/16 06:00 Active 100 mcg PO ACBREAKFAST Metoprolol Tartrate [Lopressor] Med 09/18/16 11:45 Active 25 mg PO BID Mometasone/Formoterol [Dulera 200-5 MCG] Med 09/19/16 09:00 Active 0 puff IH DAILY Pantoprazole [ProTONIX] Med 09/19/16 09:00 Active 40 mg PO DAILY Patient's Own Medication [Ptom] Med 09/19/16 09:00 Active 0 each INH DAILY Sodium Chloride 0.9% [Saline Flush] Med 09/18/16 01:42 Active 10 ml FLUSH ASDIRECTED PRN Temazepam [Restoril] Med 09/18/16 01:42 Active 7.5 mg PO BEDTIME PRN methylPREDNISolone Sod Succ [Solu-MEDROL] Med 09/18/16 08:00 Active 125 mg IVPUSH Q6H Peripheral IV Insertion Adult [OM.PC] Routine Oth 09/18/16 01:42 Ordered Code Status [Resuscitation Status] Routine Resus Stat 09/18/16 01:30 Ordered Medication Orders Hydrocodone Bitart/Acetaminophen (Shirley 325-10 Mg) 1 tab PO Q6H PRN PRN Reason: Pain Last Admin: 09/18/16 11:51 Dose: 1 tab Albuterol (Proventil Neb Soln) 1.25 mg NEB Q4HR PRN PRN Reason: Shortness of Breath Albuterol/Ipratropium (Duoneb 3.0-0.5 Mg/3 Ml) 3 ml NEB QIDRT RYAN Enoxaparin Sodium (Lovenox) 40 mg SUBCUT DAILY [facility] Last Admin: 09/18/16 08:10 Dose: 40 mg Furosemide (Lasix) 20 mg PO DAILY [facility] Last Admin: 09/18/16 11:52 Dose: 20 mg Levothyroxine Sodium (Synthroid) 100 mcg PO ACBREAKFAST RYAN Methylprednisolone Sodium Succinate (Solu-Medrol) 125 mg IVPUSH Q6H [facility] Last Admin: 09/18/16 08:10 Dose: 125 mg Metoprolol Tartrate (Lopressor) 25 mg PO BID [facility] Last Admin: 09/18/16 11:52 Dose: 25 mg Mometasone Furoate/Formoterol Fumar (Dulera 200-5 Mcg) 0 puff IH DAILY RYAN Pantoprazole Sodium (Protonix) 40 mg PO DAILY RYAN Umeclidinium Cookson (62.5 Mcg) 0 each INH DAILY RYAN Sodium Chloride (Saline Flush) 10 ml FLUSH ASDIRECTED PRN PRN Reason: Keep Vein Open Temazepam (Restoril) 7.5 mg PO BEDTIME PRN PRN Reason: Sleep Assessment/Plan Comment:: Impression: CHF, probable diastolic; needs clarification COPD exacerbation, on home O2 Morbid Obesity Deconditioned Anxiety Depression Chronic Hypothyroidism Plan: IV steroids/O2/ATBs Diurese Dietary Consult 2D echo re LVEF Review EMR DC plan for Assisted Living Psych Consult DVT/GI prophylaxis
[2016-09-19] MEDS: methylPREDNISolone Sodium Succinate 125 MG/2 ML SDV IVPUSH SCH ×4 (03:23→21:18)
[2016-09-19] MEDS: Albuterol/Ipratropium 3.0-0.5 MG/3 ML Neb Soln NEB SCH ×4 (06:14→20:44)
[2016-09-19] MEDS: Levothyroxine 100 MCG Tab PO SCH (06:47)
[2016-09-19] MEDS: Pantoprazole 40 MG Tab.CR PO SCH (08:02)
[2016-09-19] MEDS: Furosemide 20 MG Tab PO SCH (08:02)
[2016-09-19] MEDS: Enoxaparin 40 MG/0.4 ML Syringe SUBCUT SCH (08:02)
[2016-09-19] MEDS: Metoprolol Tartrate 25 MG Tab PO SCH ×2 (08:03→21:19)
[2016-09-19] MEDS: Formoterol/Mometasone 200-5 MCG 8.8 GM Inhaler IH SCH (10:27)
[2016-09-19] MEDS: UMECLIDINIUM BROMIDE 62.5 MCG INH SCH (11:41)
--- NOTE | 2016-09-19 12:39 | PCM.PN ---
- General Info Date of Service: 09/19/16 Subjective Update: Can not express her concerns and gets very tearful about anything that is asked. Functional Status: Reports: tolerating diet, ambulating (minimal), urinating - Review of Systems General: Reports: Weakness, Fatigue HEENT: Reports: no symptoms Pulmonary: Reports: shortness of breath Cardiovascular: Reports: No Symptoms Gastrointestinal: Reports: No symptoms Genitourinary: Reports: no symptoms Musculoskeletal: Reports: back pain Skin: Reports: no symptoms Neurological: Reports: No Symptoms Psychiatric: Reports: no symptoms - Patient Data Vitals - most recent: Last Vital Signs Temp 36.9 C 09/19/16 11:55 Pulse 103 H 09/19/16 11:55 Resp 16 09/19/16 11:55 BP 135/73 09/19/16 11:55 Pulse Ox 93 L 09/19/16 11:55 Weight - most recent: 122.198 kg I&O - last 24 hours: Intake & Output 09/18/16 09/19/16 09/19/16 22:59 06:59 14:59 Intake Total 930 500 120 Output Total 500 400 Balance 430 100 120 Lab Results last 24 hrs: Laboratory Results - last 24 hr 09/18/16 09/19/16 Range/Units 14:05 06:45 Magnesium 2.1 (1.8-2.4) mg/dl C-Reactive Protein 0.6 (<1.0) mg/dL Triglycerides 48 (<150) mg/dL Cholesterol 242 H (<200) mg/dL LDL Cholesterol Direct 166 H* (<100) mg/dL HDL Cholesterol 68.0 H (40-59) mg/dL TSH 3rd Generation 0.332 L (0.358-3.74) uIU/mL Mycoplasma pneumon IgM Negative (NEGATIVE) [place]awaf Results last 24 hrs: Microbiology 09/18/16 18:50 Influenza Type A Antigen Screen - Final Nasopharyngeal Swab - Nare, Right NEGATIVE INFLUENZA A VIRUS AG Influenza Type B Antigen Screen - Final NEGATIVE INFLUENZA B VIRUS AG Med Orders - Current: Current Medications Hydrocodone Bitart/Acetaminophen (Erin 325-10 Mg) 1 tab PO Q6H PRN PRN Reason: Pain Last Admin: 09/18/16 20:39 Dose: 1 tab Albuterol (Proventil Neb Soln) 1.25 mg NEB Q4HR PRN PRN Reason: Shortness of Breath Albuterol/Ipratropium (Duoneb 3.0-0.5 Mg/3 Ml) 3 ml NEB QIDRT [facility] Last Admin: 09/19/16 10:13 Dose: 3 ml Enoxaparin Sodium (Lovenox) 40 mg SUBCUT DAILY [facility] Last Admin: 09/19/16 08:02 Dose: 40 mg Furosemide (Lasix) 20 mg PO DAILY [facility] Last Admin: 09/19/16 08:02 Dose: 20 mg Levothyroxine Sodium (Synthroid) 100 mcg PO ACBREAKFAST [facility] Last Admin: 09/19/16 06:47 Dose: 100 mcg Methylprednisolone Sodium Succinate (Solu-Medrol) 125 mg IVPUSH Q6H [facility] Last Admin: 09/19/16 08:02 Dose: 125 mg Metoprolol Tartrate (Lopressor) 25 mg PO BID [facility] Last Admin: 09/19/16 08:03 Dose: 25 mg Mometasone Furoate/Formoterol Fumar (Dulera 200-5 Mcg) 0 puff IH DAILY [facility] Last Admin: 09/19/16 10:27 Dose: 2 puff Pantoprazole Sodium (Protonix) 40 mg PO DAILY [facility] Last Admin: 09/19/16 08:02 Dose: 40 mg Umeclidinium [place] (62.5 Mcg) 0 each INH DAILY [facility] Last Admin: 09/19/16 11:41 Dose: Not Given Simvastatin (Zocor) 20 mg PO BEDTIME [facility] Sodium Chloride (Saline Flush) 10 ml FLUSH ASDIRECTED PRN PRN Reason: Keep Vein Open Temazepam (Restoril) 7.5 mg PO BEDTIME PRN PRN Reason: Sleep Discontinued Medications Albuterol (Proventil Neb Soln) 1.25 mg NEB Q6HRRT [facility] Albuterol (Proventil Neb Soln) 1.25 mg NEB Q6HRRT [facility] Albuterol (Proventil Neb Soln) 1.25 mg NEB QIDRT [facility] Albuterol (Proventil Neb Soln) 1.25 mg NEB QIDRT RYAN Albuterol (Proventil Neb Soln) 1.25 mg NEB Q6HRRT PRN PRN Reason: Shortness of Breath Albuterol (Proventil Neb Soln) 1.25 mg NEB QID [facility] Albuterol/Ipratropium (Duoneb 3.0-0.5 Mg/3 Ml) 3 ml NEB ONETIME ONE Stop: 09/17/16 22:24 Last Admin: 09/17/16 22:39 Dose: 3 ml Albuterol/Ipratropium (Duoneb 3.0-0.5 Mg/3 Ml) 3 ml NEB Q4HR [facility] Last Admin: 09/18/16 09:20 Dose: 3 ml Albuterol/Ipratropium (Duoneb 3.0-0.5 Mg/3 Ml) 3 ml NEB QID [facility] Furosemide (Lasix) 40 mg IVPUSH NOW ONE Stop: 09/17/16 22:24 Last Admin: 09/17/16 22:27 Dose: 40 mg Sodium Chloride (Normal Saline) 1,000 mls @ 100 mls/hr IV ASDIRECTED [facility] Iopamidol (Isovue-370 (76%)) 100 ml IVPUSH ONETIME ONE Stop: 09/17/16 23:23 Last Admin: 09/18/16 02:21 Dose: Not Given Methylprednisolone Sodium Succinate (Solu-Medrol) 125 mg IVPUSH ONETIME ONE Stop: 09/18/16 00:27 Last Admin: 09/18/16 01:39 Dose: 125 mg Sodium Chloride (Saline Flush) 10 ml FLUSH ASDIRECTED PRN PRN Reason: Keep Vein Open Last Admin: 09/17/16 22:23 Dose: 10 ml - Exam Quality Assessment: supplemental oxygen, DVT prophylaxis General: alert, oriented, cooperative, no acute distress HEENT: Pupils equal, Pupils reactive, EOMI Neck: supple, trachea midline Lungs: Normal respiratory effort, Decreased breath sounds Cardiovascular: Regular Rate Abdomen: bowel sounds present, soft, no tenderness, no distension, other (obese) Back Exam: normal inspection Extremities: normal pulses Skin: warm Neurological: no new focal deficit Psy/Mental Status: alert, anxious, depressed - Problem List & Annotations (1) Aerophagia SNOMED Code(s): 86963030 Code(s): F45.8 - OTHER SOMATOFORM DISORDERS Status: Acute Current Visit: Yes (2) Exacerbation of chronic obstructive pulmonary disease associated with volcanic smog exposure SNOMED Code(s): 627908716 Code(s): J44.1 - CHRONIC OBSTRUCTIVE PULMONARY DISEASE W (ACUTE) EXACERBATION ; Z77.110 - CONTACT WITH AND (SUSPECTED) EXPOSURE TO AIR POLLUTION Status: Acute Current Visit: Yes (3) Morbid obesity SNOMED Code(s): 854949100, 39816714305227 Code(s): E66.01 - MORBID (SEVERE) OBESITY DUE TO EXCESS CALORIES Status: Acute Current Visit: Yes Qualifiers: Obesity type: due to excess calories Qualified Code(s): E66.01 - Morbid ( severe) obesity due to excess calories (4) COPD exacerbation SNOMED Code(s): 474848490, 768190590 Code(s): J44.1 - CHRONIC OBSTRUCTIVE PULMONARY DISEASE W (ACUTE) EXACERBATION Status: Acute Current Visit: No - Problem List Review Problem List Initiated/Reviewed/Updated: Yes - My Orders Last 24 Hours: My Active Orders 09/18/16 11:45 Metoprolol Tartrate [Lopressor] 25 mg PO BID 09/18/16 12:00 Furosemide [Lasix] 20 mg PO DAILY 09/18/16 14:16 [employer] Evaluation and Treatment [CONS] Routine 09/18/16 16:00 Albuterol/Ipratropium [DuoNeb 3.0-0.5 MG/3 ML] 3 ml NEB QIDRT 09/18/16 Dinner Consistent Carbohydrate Diet [DIET] 09/19/16 06:00 Levothyroxine [Synthroid] 100 mcg PO ACBREAKFAST 09/19/16 09:00 Mometasone/Formoterol [Dulera 200-5 MCG] 0 puff IH DAILY Pantoprazole [ProTONIX] 40 mg PO DAILY Patient's Own Medication [Ptom] 0 each INH DAILY 09/19/16 12:12 Consult to Physician [CONS] Routine 09/19/16 12:15 Notify Provider Consults [RC] ASDIRECTED 09/19/16 14:00 Echo Comp wo Cont [US] Routine 09/19/16 21:00 Simvastatin [Zocor] 20 mg PO BEDTIME 09/20/16 05:00 BASIC METABOLIC PANEL,BMP [CHEM] DAILY CBC WITH AUTO DIFF [HEME] DAILY CRP [C-REACTIVE PROTEIN] [CHEM] DAILY MAGNESIUM [CHEM] DAILY 09/21/16 05:00 BASIC METABOLIC PANEL,BMP [CHEM] DAILY CBC WITH AUTO DIFF [HEME] DAILY CRP [C-REACTIVE PROTEIN] [CHEM] DAILY MAGNESIUM [CHEM] DAILY 09/22/16 05:00 BASIC METABOLIC PANEL,BMP [CHEM] DAILY CBC WITH AUTO DIFF [HEME] DAILY - Plan Plan:: Impression: CHF, probable diastolic; needs clarification COPD exacerbation, on home O2 Morbid Obesity Deconditioned Anxiety Depression Chronic Hypothyroidism Plan: IV steroids/O2/ATBs Diurese Dietary Consult 2D echo re LVEF Review EMR Add Zithromax/Rocephin DC plan for Assisted Living Psych Consult re: Depression DVT/GI prophylaxis
[2016-09-19] MEDS: Acetaminophen/HYDROcodone 325-10 MG Tab PO PRN ×2 (14:32→21:18)
[2016-09-19] MEDS: cefTRIAXone 1 GM in Sodium Chloride 0.9% 100 ML IV SCH (16:13)
[2016-09-19] MEDS: Azithromycin 250 MG Tab PO SCH (16:13)
[2016-09-19] MEDS ORDERED: Simvastatin 20 MG Tab PO SCH (21:00)
[2016-09-20] MEDS: methylPREDNISolone Sodium Succinate 125 MG/2 ML SDV IVPUSH SCH (02:32)
[2016-09-20] MEDS: Albuterol/Ipratropium 3.0-0.5 MG/3 ML Neb Soln NEB SCH ×3 (05:55→15:52)
[2016-09-20] MEDS: Levothyroxine 100 MCG Tab PO SCH (06:13)
[2016-09-20] MEDS ORDERED: methylPREDNISolone Sodium Succinate 40 MG/1 ML SDV IVPUSH SCH (07:15)
[2016-09-20] MEDS ORDERED: Enoxaparin 30 MG/0.3 ML Syringe SUBCUT SCH (09:00)
[2016-09-20] MEDS ORDERED: FLUoxetine 10 MG Cap PO SCH (09:00)
[2016-09-20] MEDS ORDERED: Acetaminophen 325 MG Tab PO PRN (09:05)
[2016-09-20] MEDS: Metoprolol Tartrate 25 MG Tab PO SCH (09:09)
[2016-09-20] MEDS: Furosemide 20 MG Tab PO SCH (09:09)
[2016-09-20] MEDS: Pantoprazole 40 MG Tab.CR PO SCH (09:09)
[2016-09-20] MEDS: Azithromycin 250 MG Tab PO SCH (09:09)
--- NOTE | 2016-09-20 09:27 | PCM.PN ---
- General Info Date of Service: 09/20/16 - Patient Data Vitals - most recent: Last Vital Signs Temp 97.7 F 09/20/16 08:04 Pulse 92 09/20/16 09:09 Resp 18 09/20/16 08:04 BP 141/60 H 09/20/16 09:09 Pulse Ox 91 L 09/20/16 08:04 Weight - most recent: 270 lb 4.8 oz I&O - last 24 hours: Intake & Output 09/19/16 09/20/16 09/20/16 22:59 06:59 14:59 Intake Total 1420 300 Output Total 1500 900 Balance -80 -600 Lab Results last 24 hrs: Laboratory Results - last 24 hr 09/20/16 09/20/16 Range/Units 05:49 05:49 WBC 28.64 H (3.98-10.04) K/mm3 RBC 4.15 (3.98-5.22) M/mm3 Hgb 12.4 (11.2-15.7) gm/L Hct 38.5 (34.1-44.9) % MCV 92.8 (79.4-94.8) fl MCH 29.9 (25.6-32.2) pg MCHC 32.2 (32.2-35.5) g/dl RDW Std Deviation 59.1 H (36.4-46.3) fL Plt Count 688 H (182-369) K/mm3 MPV 9.7 (9.4-12.3) fl Neut % (Auto) 89.9 H (34.0-71.1) % Lymph % (Auto) 5.3 L (19.3-51.7) % [place] % (Auto) 4.4 L (4.7-12.5) % Eos % (Auto) 0 L (0.7-5.8) Baso % (Auto) 0.1 (0.1-1.2) % Neut # (Auto) 25.73 H (1.56-6.13) K/mm3 Lymph # (Auto) 1.53 (1.18-3.74) K/mm3 [place] # (Auto) 1.26 H (0.24-0.36) K/mm3 Eos # (Auto) 0.01 L (0.04-0.36) K/mm3 Baso # (Auto) 0.02 (0.01-0.08) K/mm3 Manual Slide Review Abnormal smear Sodium 137 (136-145) mEq/L Potassium 4.5 (3.5-5.1) mEq/L Chloride 102 (98-107) mEq/L Carbon Dioxide 28 (21-32) mEq/L Anion Gap 11.5 (5-15) BUN 41 H (7-18) mg/dL Creatinine 1.3 H (0.55-1.02) mg/dL Est Cr Clr Drug Dosing 29.57 mL/min Estimated GFR (MDRD) 40 (>60) mL/min BUN/Creatinine Ratio 31.5 H (14-18) Glucose 135 H (83-115) mg/dL Calcium 10.5 H (8.5-10.1) mg/dL Magnesium 2.3 (1.8-2.4) mg/dl C-Reactive Protein < 0.2 (<1.0) mg/dL Med Orders - Current: Current Medications Acetaminophen (Tylenol) 650 mg PO Q4H PRN PRN Reason: Pain Last Admin: 09/20/16 09:25 Dose: 650 mg Hydrocodone Bitart/Acetaminophen ([place] 325-10 Mg) 1 tab PO Q6H PRN PRN Reason: Pain Last Admin: 09/19/16 21:18 Dose: 1 tab Albuterol (Proventil Neb Soln) 1.25 mg NEB Q4HR PRN PRN Reason: Shortness of Breath Albuterol/Ipratropium (Duoneb 3.0-0.5 Mg/3 Ml) 3 ml NEB QIDRT [facility] Last Admin: 09/20/16 05:55 Dose: 3 ml Azithromycin (Zithromax) 500 mg PO DAILY [facility] Last Admin: 09/20/16 09:09 Dose: 500 mg Enoxaparin Sodium (Lovenox) 30 mg SUBCUT DAILY [facility] Last Admin: 09/20/16 08:59 Dose: 30 mg Fluoxetine HCl (Prozac) 10 mg PO DAILY [facility] Last Admin: 09/20/16 09:09 Dose: 10 mg Furosemide (Lasix) 20 mg PO DAILY [facility] Last Admin: 09/20/16 09:09 Dose: 20 mg Ceftriaxone Sodium 1 gm/ (Sodium Chloride) 100 mls @ 200 mls/hr IV Q24H [facility] Last Admin: 09/19/16 16:13 Dose: 200 mls/hr Levothyroxine Sodium (Synthroid) 100 mcg PO ACBREAKFAST [facility] Last Admin: 09/20/16 06:13 Dose: 100 mcg Methylprednisolone Sodium Succinate (Solu-Medrol) 80 mg IVPUSH Q12H [facility] Last Admin: 09/20/16 08:58 Dose: 80 mg Metoprolol Tartrate (Lopressor) 25 mg PO BID [facility] Last Admin: 09/20/16 09:09 Dose: 25 mg Mometasone Furoate/Formoterol Fumar (Dulera 200-5 Mcg) 0 puff IH DAILY [facility] Last Admin: 09/19/16 10:27 Dose: 2 puff Pantoprazole Sodium (Protonix) 40 mg PO DAILY [facility] Last Admin: 09/20/16 09:09 Dose: 40 mg Umeclidinium [place]ector (62.5 Mcg) 0 each INH DAILY [facility] Last Admin: 09/19/16 11:41 Dose: Not Given Simvastatin (Zocor) 20 mg PO BEDTIME [facility] Last Admin: 09/19/16 21:17 Dose: 20 mg Sodium Chloride (Saline Flush) 10 ml FLUSH ASDIRECTED PRN PRN Reason: Keep Vein Open Temazepam (Restoril) 7.5 mg PO BEDTIME PRN PRN Reason: Sleep Discontinued Medications Albuterol (Proventil Neb Soln) 1.25 mg NEB Q6HRRT [facility] Albuterol (Proventil Neb Soln) 1.25 mg NEB Q6HRRT [facility] Albuterol (Proventil Neb Soln) 1.25 mg NEB QIDRT [facility] Albuterol (Proventil Neb Soln) 1.25 mg NEB QIDRT [facility] Albuterol (Proventil Neb Soln) 1.25 mg NEB Q6HRRT PRN PRN Reason: Shortness of Breath Albuterol (Proventil Neb Soln) 1.25 mg NEB QID [facility] Albuterol/Ipratropium (Duoneb 3.0-0.5 Mg/3 Ml) 3 ml NEB ONETIME ONE Stop: 09/17/16 22:24 Last Admin: 09/17/16 22:39 Dose: 3 ml Albuterol/Ipratropium (Duoneb 3.0-0.5 Mg/3 Ml) 3 ml NEB Q4HR [facility] Last Admin: 09/18/16 09:20 Dose: 3 ml Albuterol/Ipratropium (Duoneb 3.0-0.5 Mg/3 Ml) 3 ml NEB QID [facility] Enoxaparin Sodium (Lovenox) 40 mg SUBCUT DAILY [facility] Last Admin: 09/19/16 08:02 Dose: 40 mg Furosemide (Lasix) 40 mg IVPUSH NOW ONE Stop: 09/17/16 22:24 Last Admin: 09/17/16 22:27 Dose: 40 mg Sodium Chloride (Normal Saline) 1,000 mls @ 100 mls/hr IV ASDIRECTED [facility] Iopamidol (Isovue-370 (76%)) 100 ml IVPUSH ONETIME ONE Stop: 09/17/16 23:23 Last Admin: 09/18/16 02:21 Dose: Not Given Methylprednisolone Sodium Succinate (Solu-Medrol) 125 mg IVPUSH ONETIME ONE Stop: 09/18/16 00:27 Last Admin: 09/18/16 01:39 Dose: 125 mg Methylprednisolone Sodium Succinate (Solu-Medrol) 125 mg IVPUSH Q6H [facility] Last Admin: 09/20/16 02:32 Dose: 125 mg Sodium Chloride (Saline Flush) 10 ml FLUSH ASDIRECTED PRN PRN Reason: Keep Vein Open Last Admin: 09/17/16 22:23 Dose: 10 ml - My Orders Last 24 Hours: My Active Orders 09/20/16 07:15 Chest 2V [CR] Routine methylPREDNISolone Sod Succ [Solu-MEDROL] 80 mg IVPUSH Q12H - Plan Plan:: Impression: CHF, probable diastolic; needs clarification COPD exacerbation, on home O2 Morbid Obesity Deconditioned Anxiety Depression Chronic Hypothyroidism Plan: IV steroids/O2/ATBs Diurese Dietary Consult 2D echo re LVEF Review EMR Add Zithromax/Rocephin DC plan for Assisted Living Psych Consult re: Depression DVT/GI prophylaxis
[2016-09-20] MEDS: Formoterol/Mometasone 200-5 MCG 8.8 GM Inhaler IH SCH (09:48)
--- NOTE | 2016-09-20 11:50 | CR ---
Chest: Two views of the chest were obtained. Comparison: Previous chest x-ray from 09/17/16. Heart is enlarged. Mild tortuosity of the thoracic aorta is seen. Pulmonary vessels may be slightly congested. Lungs otherwise are clear. Impression: 1. Cardiomegaly. Questionable mild pulmonary vascular congestion. Diagnostic code #3
--- NOTE | 2016-09-20 12:49 | CONS ---
CONSULTING PHYSICIAN: Andres Randle MD DATE OF CONSULTATION: 09/20/2016 This is a 60-minute inpatient clinical event. IDENTIFICATION: The patient is a 76-year-old female who was admitted through the inpatient Med/Surg Unit at [facility] in [place], [place], on 09/18/2016, secondary to COPD complications. She is seen for a psychiatric evaluation per consult. CHIEF COMPLAINT: "It was the breathing." HISTORY OF PRESENT ILLNESS: The patient is a 76-year-old female who reports that she has been struggling with increased breathing difficulties for the "past few months." She states also, beginning around that time, she has been experiencing some anxiety and panic. She is not sure whether to attribute this to her breathing complications or if it is borne out of something entirely different. The patient also is endorsing symptoms of depression and increased urges and tendencies to cry noting "I can cry at the drop of a hat." She states part of it is the fact that she is struggling with some loneliness, noting that her daughter and her son-in- law are often "gone to work and busy," and the patient is left at home with the 3 dogs, although, she does enjoy the dogs. She states that she recently received news from the psychosocial rehabilitation counselor that they are looking at perhaps putting her into a transitional living situation at "[facility]," there in [place], and this has been also upsetting to the patient. The patient is reporting good energy levels, good interest, good sleep patterns, and good appetite. She denies that she is isolative when she is back in the community, but she does acknowledge she has been feeling depressed and is open to any solutions that might help with this situation. She does feel that depression is worse than the anxiety and the panic. She denies that she is suicidal or homicidal. She denies any psychotic, delusional, or paranoid symptoms. She denies any illicit substance use complicating her clinical picture. She denies any excessive alcohol use complicating her clinical picture. MEDICATIONS: Psychiatric medications prior to admission, none. ALLERGIES: 1. Doxycycline. 2. Ipratropium bromide. 3. Tramadol. PAST MEDICAL HISTORY: COPD. REVIEW OF SYSTEMS: Aside from pulmonary, all other major organ systems are negative at this point in time for acute difficulties or complications. FAMILY PSYCHIATRIC AND CD HISTORY: The patient denies. PAST PSYCHIATRIC AND CD HISTORY: The patient denies any previous psychiatric hospitalizations or chemical dependency treatments. She is a nonsmoker for the past 15 years. Denies any past psychiatric medication history. SOCIAL HISTORY: The patient was born and raised in [facility]. She was , but has been a for the past number of years. She has 2 children from the marriage. She has been living in [place], [place], with her daughter and son-in-law. She has been in the [facility] area for the past 7 years total. Her daughter works out at [employer]. Her son-in-law works in the [employer]. Her biological son is back in [place], and he is also very supportive of the patient. The patient enjoys shopping, spending time with her dogs, and she identifies as Buddhism in terms of her zuleyma formation. MENTAL STATUS EXAM: The patient is a 76-year-old white female, in no apparent distress. Speech is of regular rate and rhythm. The patient is cognitively oriented x3. Psychomotor activities within normal limits. There are no abnormal motor movements or tics observed. Gait and station are not observed. This patient is seated for the inpatient psychiatric consult. Mood is depressed and anxious. Affect is cooperative overall for the purposes of the inpatient psychiatric consult, but consistent with stated mood. The patient does almost become tearful a couple of times at points during the consult. There is no behavioral or stated evidence of acute suicidal or homicidal ideation or acute psychotic delusional or paranoid symptoms. Thought processes are organized. There are no acute manic symptoms or loose associations evident. Judgment and insight appear unimpaired at this point in time. Motivation for help appears good. PHYSICAL EXAMINATION: VITAL SIGNS: 132/72, 96, 14, 98.1 degrees. IMPRESSION: [place] I: 1. Major depressive disorder, F32.2. 2. Anxiety disorder, not otherwise specified, F41.9. [place] II: None. [place] III: Chronic obstructive pulmonary disease. [place] IV: Severe. [place] V: 55 to 60. PLAN: 1. Begin trial of Prozac 10 mg q.a.m. to help with symptoms of depression and anxiety. 2. Recommend other medications and treatment planning per primary medical treatment team. 3. We will continue to follow up with the patient while she remains on the medical unit on an as-needed basis. 4. We will follow up with the patient sooner if there are any complications in the interim. 5. Recommend that when the patient is discharged to the community that she is scheduled for an outpatient psychiatric followup to assess her overall function and efficacy of her newly initiated psychiatric medication regimen. 6. The patient was apprised of benefits and side effects of her newly prescribed psychiatric medication regimen, and she acknowledges understanding of these facts and has no further questions by the end of the interview session. 7. Crisis plan is in place. [facility] /[id number]
--- NOTE | 2016-09-20 13:11 | PCM.DCSUM1 ---
<Jackleine June M - Last Filed: 09/20/16 13:20> Discharge Summary - Hospital Course Free Text/Narrative:: 76 year old female who has had progressive shortness of breath with minimal activity. She reports a non productive cough, but denies fever and chills. She has noticed wheezing and becomes tired more quickly with minimal activity. Admits to orthopnea, but denies PND. Is extremely inactive and uses her walker to prop he up when she ambulates. Becomes tearful very quickly without being able to identify what has precipitated the response. Hospitalist service is asked to admit for COPD exacerbation. Patient was admitted, hydrated, started on IV rocephin and zithromax for prophylactic CAP coverage and IV solumedrol, aggressive pulmonary toilet. Serial CXR's were obtained without development of PNA. Patient symptomatically improved, labs improved aside from WBC which jumped up, due to steroid treatment. Initially upon admission family requested patient be evaluated for SNF or SENIOR CARE however this decision changed during course of stay and patient and family plan for dc/return home with family at this time. During course of her stay, she was very tearful and frequently with sad and flat affect. Psychiatry, Dr. Randle was consulted who started her on Prozac 10mg daily. She was found to have elevated cholesterol, specifically with LDL of 166, she was started on Zocor. Echocardiogram was obtained, results pending at time of this document; will be forwarded to PCP for review at follow up visit. She has follow up scheduled with her Rn Review on Sunday of this week for recheck and test review. She should follow up with her PCP, JAIDA Joya early next week. - Discharge Data Discharge Date: 09/20/16 (admit date 09/18/16) Discharge Disposition: Home, Self-Care 01 Condition: Good - Patient Summary/Data Operative Procedure(s) Performed: None Complications: None Consults: Consultations 09/18/16 10:39 OT Evaluation and Treatment [CONS] Routine PT Evaluation and Treatment [CONS] Routine 09/18/16 10:40 Consult to Pulmonary Rehabilitation [CONS] Routine Consult to Assembly Line Robot Operator [CONS] Routine 09/18/16 14:16 SENIOR STRATEGY MANAGER Evaluation and Treatment [CONS] Routine 09/19/16 12:12 Consult to Physician [CONS] Routine Labs Pending at D/C: Echocardiogram results; will be forwarded to PCP for review at follow up visit Recommended Follow-up Testing/Procedures: Follow up with Pulmonology as scheduled; 09/22/16 Follow up with PCP, JAIDA Joya within 5-7 days of discharge. Planned Operative Procedure(s) after DC: None Hospital Course: As above - Patient Instructions Diet: Heart Healthy Diet Activity: As Tolerated Showering/Bathing: May Shower Notify Provider of: Fever, Increased Pain, Swelling and Redness, Nausea and/or Vomiting (worsening or increased shortness of breath, coughing, chest pain, palpitations, weakness) - Discharge Plan Prescriptions/Med Rec: Azithromycin [Zithromax] 250 mg PO DAILY #4 tablet FLUoxetine [PROzac] 10 mg PO DAILY #30 cap Prednisone [IJD: Prednisone] 10 mg PO DAILY #30 tab Simvastatin [Zocor] 20 mg PO BEDTIME #30 tablet Home Medications: Home Meds Albuterol [Proventil Neb Soln] 1.25 mg NEB Q4HRRT PRN 08/23/16 [History] Albuterol [Proventil Neb Soln] 1.25 mg NEB QID 08/23/16 [History] Budesonide/Formoterol Fumarate [Symbicort 160-4.5 Mcg Inhaler] 2 puff IH DAILY 08/23/16 [History] Hydrocodone/Acetaminophen [Hydrocodon-Acetaminophn 10-325] 1 tab PO Q6H PRN [History] Levothyroxine [Synthroid] 100 mcg PO ACBREAKFAST 08/23/16 [History] Metoprolol Tartrate [Lopressor] 25 mg PO BID 08/23/16 [History] Potassium Chloride 20 meq PO DAILY 08/23/16 [History] Furosemide [Lasix] 20 mg PO DAILY 09/17/16 [History] Ipratropium/Albuterol Sulfate [Combivent Respimat Inhal [place]] 4 gm IH DAILY [History] Umeclidinium [place] [Incruse Ellipta] 62.5 mcg IH DAILY 09/17/16 [History] Azithromycin [Zithromax] 250 mg PO DAILY #4 tablet 09/20/16 [Rx] FLUoxetine [PROzac] 10 mg PO DAILY #30 cap 09/20/16 [Rx] Prednisone [IJD: Prednisone] 10 mg PO DAILY #30 tab 09/20/16 [Rx] Simvastatin [Zocor] 20 mg PO BEDTIME #30 tablet 09/20/16 [Rx] Patient Handouts: Smoking Cessation, Tips for Success, [id number], Chronic Obstructive Pulmonary Disease, [id number], CPAP and BIPAP Information, Obesity , [id number] Forms: ED Department Discharge Referrals: Yesica Gutierrez NP [Primary Care Provider] - 09/25/16 8:30 am (Please see Yesica Gutierrez on Sunday at 8:30 AM on 09/26/16.) Leidy Copeland MD [Ordering Only Provider] - 09/22/16 11:00 am () - Discharge Summary/Plan Comment DC Time >30 min.: Yes (40 min) - Review of Systems General: Reports: No Symptoms HEENT: Reports: no symptoms Pulmonary: Reports: no symptoms, shortness of breath (chronic and at baseline), cough (improved to resolved) Cardiovascular: Reports: No Symptoms, Dyspnea on Exertion (chronic and at baseline) Gastrointestinal: Reports: No symptoms Genitourinary: Reports: no symptoms Musculoskeletal: Reports: no symptoms Skin: Reports: no symptoms Neurological: Reports: No Symptoms Psychiatric: Reports: no symptoms, depression (seems improved today; flat affect ) - Patient Data Vitals - Most Recent: Last Vital Signs Temp 97.9 F 09/20/16 11:47 Pulse 80 09/20/16 11:47 Resp 20 09/20/16 11:47 BP 129/61 09/20/16 11:47 Pulse Ox 93 L 09/20/16 11:47 Weight - Most Recent: 122.606 kg I&O - Last 24 hours: Intake & Output 09/19/16 09/20/16 09/20/16 22:59 06:59 14:59 Intake Total 1420 300 210 Output Total 1500 900 Balance -80 -600 210 Lab Results - Last 24 hrs: Laboratory Results - last 24 hr 09/20/16 09/20/16 Range/Units 05:49 05:49 WBC 28.64 H (3.98-10.04) K/mm3 RBC 4.15 (3.98-5.22) M/mm3 Hgb 12.4 (11.2-15.7) gm/L Hct 38.5 (34.1-44.9) % MCV 92.8 (79.4-94.8) fl MCH 29.9 (25.6-32.2) pg MCHC 32.2 (32.2-35.5) g/dl RDW Std Deviation 59.1 H (36.4-46.3) fL Plt Count 688 H (182-369) K/mm3 MPV 9.7 (9.4-12.3) fl Neut % (Auto) 89.9 H (34.0-71.1) % Lymph % (Auto) 5.3 L (19.3-51.7) % [place] % (Auto) 4.4 L (4.7-12.5) % Eos % (Auto) 0 L (0.7-5.8) Baso % (Auto) 0.1 (0.1-1.2) % Neut # (Auto) 25.73 H (1.56-6.13) K/mm3 Lymph # (Auto) 1.53 (1.18-3.74) K/mm3 [place] # (Auto) 1.26 H (0.24-0.36) K/mm3 Eos # (Auto) 0.01 L (0.04-0.36) K/mm3 Baso # (Auto) 0.02 (0.01-0.08) K/mm3 Manual Slide Review Abnormal smear Sodium 137 (136-145) mEq/L Potassium 4.5 (3.5-5.1) mEq/L Chloride 102 (98-107) mEq/L Carbon Dioxide 28 (21-32) mEq/L Anion Gap 11.5 (5-15) BUN 41 H (7-18) mg/dL Creatinine 1.3 H (0.55-1.02) mg/dL Est Cr Clr Drug Dosing 29.57 mL/min Estimated GFR (MDRD) 40 (>60) mL/min BUN/Creatinine Ratio 31.5 H (14-18) Glucose 135 H (83-115) mg/dL Calcium 10.5 H (8.5-10.1) mg/dL Magnesium 2.3 (1.8-2.4) mg/dl C-Reactive Protein < 0.2 (<1.0) mg/dL Med Orders - Current: Current Medications Acetaminophen (Tylenol) 650 mg PO Q4H PRN PRN Reason: Pain Last Admin: 09/20/16 09:25 Dose: 650 mg Hydrocodone Bitart/Acetaminophen ([place] 325-10 Mg) 1 tab PO Q6H PRN PRN Reason: Pain Last Admin: 09/19/16 21:18 Dose: 1 tab Albuterol (Proventil Neb Soln) 1.25 mg NEB Q4HR PRN PRN Reason: Shortness of Breath Albuterol/Ipratropium (Duoneb 3.0-0.5 Mg/3 Ml) 3 ml NEB QIDRT [facility] Last Admin: 09/20/16 09:48 Dose: 3 ml Azithromycin (Zithromax) 500 mg PO DAILY [facility] Last Admin: 09/20/16 09:09 Dose: 500 mg Enoxaparin Sodium (Lovenox) 30 mg SUBCUT DAILY [facility] Last Admin: 09/20/16 08:59 Dose: 30 mg Fluoxetine HCl (Prozac) 10 mg PO DAILY [facility] Last Admin: 09/20/16 09:09 Dose: 10 mg Furosemide (Lasix) 20 mg PO DAILY [facility] Last Admin: 09/20/16 09:09 Dose: 20 mg Ceftriaxone Sodium 1 gm/ (Sodium Chloride) 100 mls @ 200 mls/hr IV Q24H [facility] Last Admin: 09/19/16 16:13 Dose: 200 mls/hr Levothyroxine Sodium (Synthroid) 100 mcg PO ACBREAKFAST [facility] Last Admin: 09/20/16 06:13 Dose: 100 mcg Methylprednisolone Sodium Succinate (Solu-Medrol) 80 mg IVPUSH Q12H [facility] Last Admin: 09/20/16 08:58 Dose: 80 mg Metoprolol Tartrate (Lopressor) 25 mg PO BID [facility] Last Admin: 09/20/16 09:09 Dose: 25 mg Mometasone Furoate/Formoterol Fumar (Dulera 200-5 Mcg) 0 puff IH DAILY [facility] Last Admin: 09/20/16 09:48 Dose: 2 puff Pantoprazole Sodium (Protonix) 40 mg PO DAILY [facility] Last Admin: 09/20/16 09:09 Dose: 40 mg Umeclidinium [place] (62.5 Mcg) 0 each INH DAILY [facility] Last Admin: 09/19/16 11:41 Dose: Not Given Simvastatin (Zocor) 20 mg PO BEDTIME [facility] Last Admin: 09/19/16 21:17 Dose: 20 mg Sodium Chloride (Saline Flush) 10 ml FLUSH ASDIRECTED PRN PRN Reason: Keep Vein Open Temazepam (Restoril) 7.5 mg PO BEDTIME PRN PRN Reason: Sleep Discontinued Medications Albuterol (Proventil Neb Soln) 1.25 mg NEB Q6HRRT RYAN Albuterol (Proventil Neb Soln) 1.25 mg NEB Q6HRRT RYAN Albuterol (Proventil Neb Soln) 1.25 mg NEB QIDRT RYAN Albuterol (Proventil Neb Soln) 1.25 mg NEB QIDRT RYAN Albuterol (Proventil Neb Soln) 1.25 mg NEB Q6HRRT PRN PRN Reason: Shortness of Breath Albuterol (Proventil Neb Soln) 1.25 mg NEB QID RYAN Albuterol/Ipratropium (Duoneb 3.0-0.5 Mg/3 Ml) 3 ml NEB ONETIME ONE Stop: 09/17/16 22:24 Last Admin: 09/17/16 22:39 Dose: 3 ml Albuterol/Ipratropium (Duoneb 3.0-0.5 Mg/3 Ml) 3 ml NEB Q4HR [facility] Last Admin: 09/18/16 09:20 Dose: 3 ml Albuterol/Ipratropium (Duoneb 3.0-0.5 Mg/3 Ml) 3 ml NEB QID RYAN Enoxaparin Sodium (Lovenox) 40 mg SUBCUT DAILY [facility] Last Admin: 09/19/16 08:02 Dose: 40 mg Furosemide (Lasix) 40 mg IVPUSH NOW ONE Stop: 09/17/16 22:24 Last Admin: 09/17/16 22:27 Dose: 40 mg Sodium Chloride (Normal Saline) 1,000 mls @ 100 mls/hr IV ASDIRECTED [facility] Iopamidol (Isovue-370 (76%)) 100 ml IVPUSH ONETIME ONE Stop: 09/17/16 23:23 Last Admin: 09/18/16 02:21 Dose: Not Given Methylprednisolone Sodium Succinate (Solu-Medrol) 125 mg IVPUSH ONETIME ONE Stop: 09/18/16 00:27 Last Admin: 09/18/16 01:39 Dose: 125 mg Methylprednisolone Sodium Succinate (Solu-Medrol) 125 mg IVPUSH Q6H RYAN Last Admin: 09/20/16 02:32 Dose: 125 mg Sodium Chloride (Saline Flush) 10 ml FLUSH ASDIRECTED PRN PRN Reason: Keep Vein Open Last Admin: 09/17/16 22:23 Dose: 10 ml - Exam Quality Assessment: Reports: supplemental oxygen, DVT prophylaxis General: Reports: alert, oriented, cooperative, no acute distress HEENT: Reports: Pupils equal, Pupils reactive, EOMI, Mucous membr. moist/pink Neck: Reports: supple Lungs: Reports: Normal respiratory effort, Decreased breath sounds (throughout) , Wheezing (end expiration, scattered throughout). Denies: Crackles, Rales, Rhonchi Cardiovascular: Reports: Regular Rate, Regular Rhythm Abdomen: Reports: bowel sounds present, soft, no tenderness, no distension (Female) Exam: Deferred Rectal (Female) Exam: Deferred Back Exam: Reports: normal inspection Extremities: Reports: no calf tenderness, edema (trace to 1+ to ankles/pedal) Neurological: Reports: no new focal deficit Psy/Mental Status: Reports: alert, normal affect, normal mood, depressed (flat affect but improved today; not tearful and did not cry when talking today) *Q Meaningful Use (DIS) - VTE *Q VTE Criteria *Q: - Stroke *Q Stroke Criteria *Q: - AMI *Q AMI Criteria *Q: <Tracey Vargas - Last Filed: 09/20/16 18:44> Discharge Summary - Hospital Course Free Text/Narrative:: Depressed COPD patient improved during hospital; had a psych consult for depression. - Discharge Diagnosis/Problem(s) (1) Aerophagia SNOMED Code(s): 67987538 ICD Code: F45.8 - OTHER SOMATOFORM DISORDERS Status: Acute (2) Exacerbation of chronic obstructive pulmonary disease associated with volcanic smog exposure SNOMED Code(s): 730903905 ICD Code: J44.1 - CHRONIC OBSTRUCTIVE PULMONARY DISEASE W (ACUTE) EXACERBATION; Z77.110 - CONTACT WITH AND (SUSPECTED) EXPOSURE TO AIR POLLUTION Status: Acute (3) Morbid obesity SNOMED Code(s): 671586150, 27139718242607 ICD Code: E66.01 - MORBID (SEVERE) OBESITY DUE TO EXCESS CALORIES Status: Acute Qualifiers: Obesity type: due to excess calories Qualified Code(s): E66.01 - Morbid ( severe) obesity due to excess calories (4) COPD exacerbation SNOMED Code(s): 331867345, 514592897 ICD Code: J44.1 - CHRONIC OBSTRUCTIVE PULMONARY DISEASE W (ACUTE) EXACERBATION Status: Acute - Patient Summary/Data Consults: Consultations 09/18/16 10:39 OT Evaluation and Treatment [CONS] Routine PT Evaluation and Treatment [CONS] Routine 09/18/16 10:40 Consult to Pulmonary Rehabilitation [CONS] Routine Consult to Assembly Line Robot Operator [CONS] Routine 09/18/16 14:16 SENIOR STRATEGY MANAGER Evaluation and Treatment [CONS] Routine 09/19/16 12:12 Consult to Physician [CONS] Routine - Patient Data Vitals - Most Recent: Last Vital Signs Temp 36.6 C 09/20/16 15:48 Pulse 88 09/20/16 15:48 Resp 18 09/20/16 15:48 BP 144/57 H 09/20/16 15:48 Pulse Ox 93 L 09/20/16 15:52 I&O - Last 24 hours: Intake & Output 09/20/16 09/20/16 09/20/16 06:59 14:59 22:59 Intake Total 300 210 500 Output Total 900 750 Balance -600 210 -250 Lab Results - Last 24 hrs: Laboratory Results - last 24 hr 09/20/16 09/20/16 Range/Units 05:49 05:49 WBC 28.64 H (3.98-10.04) K/mm3 RBC 4.15 (3.98-5.22) M/mm3 Hgb 12.4 (11.2-15.7) gm/L Hct 38.5 (34.1-44.9) % MCV 92.8 (79.4-94.8) fl MCH 29.9 (25.6-32.2) pg MCHC 32.2 (32.2-35.5) g/dl RDW Std Deviation 59.1 H (36.4-46.3) fL Plt Count 688 H (182-369) K/mm3 MPV 9.7 (9.4-12.3) fl Neut % (Auto) 89.9 H (34.0-71.1) % Lymph % (Auto) 5.3 L (19.3-51.7) % [place] % (Auto) 4.4 L (4.7-12.5) % Eos % (Auto) 0 L (0.7-5.8) Baso % (Auto) 0.1 (0.1-1.2) % Neut # (Auto) 25.73 H (1.56-6.13) K/mm3 Lymph # (Auto) 1.53 (1.18-3.74) K/mm3 [place] # (Auto) 1.26 H (0.24-0.36) K/mm3 Eos # (Auto) 0.01 L (0.04-0.36) K/mm3 Baso # (Auto) 0.02 (0.01-0.08) K/mm3 Manual Slide Review Abnormal smear Sodium 137 (136-145) mEq/L Potassium 4.5 (3.5-5.1) mEq/L Chloride 102 (98-107) mEq/L Carbon Dioxide 28 (21-32) mEq/L Anion Gap 11.5 (5-15) BUN 41 H (7-18) mg/dL Creatinine 1.3 H (0.55-1.02) mg/dL Est Cr Clr Drug Dosing 29.57 mL/min Estimated GFR (MDRD) 40 (>60) mL/min BUN/Creatinine Ratio 31.5 H (14-18) Glucose 135 H (83-115) mg/dL Calcium 10.5 H (8.5-10.1) mg/dL Magnesium 2.3 (1.8-2.4) mg/dl C-Reactive Protein < 0.2 (<1.0) mg/dL Med Orders - Current: Current Medications Discontinued Medications Acetaminophen (Tylenol) 650 mg PO Q4H PRN PRN Reason: Pain Last Admin: 09/20/16 09:25 Dose: 650 mg Hydrocodone Bitart/Acetaminophen ([place] 325-10 Mg) 1 tab PO Q6H PRN PRN Reason: Pain Last Admin: 09/20/16 15:14 Dose: 1 tab Albuterol (Proventil Neb Soln) 1.25 mg NEB Q6HRRT RYAN Albuterol (Proventil Neb Soln) 1.25 mg NEB Q6HRRT RYAN Albuterol (Proventil Neb Soln) 1.25 mg NEB QIDRT [facility]YAN Albuterol (Proventil Neb Soln) 1.25 mg NEB QIDRT [facility]YAN Albuterol (Proventil Neb Soln) 1.25 mg NEB Q6HRRT PRN PRN Reason: Shortness of Breath Albuterol (Proventil Neb Soln) 1.25 mg NEB QID RAYN Albuterol (Proventil Neb Soln) 1.25 mg NEB Q4HR PRN PRN Reason: Shortness of Breath Albuterol/Ipratropium (Duoneb 3.0-0.5 Mg/3 Ml) 3 ml NEB ONETIME ONE Stop: 09/17/16 22:24 Last Admin: 09/17/16 22:39 Dose: 3 ml Albuterol/Ipratropium (Duoneb 3.0-0.5 Mg/3 Ml) 3 ml NEB Q4HR [facility] Last Admin: 09/18/16 09:20 Dose: 3 ml Albuterol/Ipratropium (Duoneb 3.0-0.5 Mg/3 Ml) 3 ml NEB QID [facility] Albuterol/Ipratropium (Duoneb 3.0-0.5 Mg/3 Ml) 3 ml NEB QIDRT [facility] Last Admin: 09/20/16 15:52 Dose: 3 ml Azithromycin (Zithromax) 500 mg PO DAILY [facility] Last Admin: 09/20/16 09:09 Dose: 500 mg Enoxaparin Sodium (Lovenox) 40 mg SUBCUT DAILY [facility] Last Admin: 09/19/16 08:02 Dose: 40 mg Enoxaparin Sodium (Lovenox) 30 mg SUBCUT DAILY [facility] Last Admin: 09/20/16 08:59 Dose: 30 mg Fluoxetine HCl (Prozac) 10 mg PO DAILY [facility] Last Admin: 09/20/16 09:09 Dose: 10 mg Furosemide (Lasix) 40 mg IVPUSH NOW ONE Stop: 09/17/16 22:24 Last Admin: 09/17/16 22:27 Dose: 40 mg Furosemide (Lasix) 20 mg PO DAILY [facility] Last Admin: 09/20/16 09:09 Dose: 20 mg Sodium Chloride (Normal Saline) 1,000 mls @ 100 mls/hr IV ASDIRECTED [facility] Ceftriaxone Sodium 1 gm/ (Sodium Chloride) 100 mls @ 200 mls/hr IV Q24H [facility] Last Admin: 09/20/16 15:14 Dose: 200 mls/hr Iopamidol (Isovue-370 (76%)) 100 ml IVPUSH ONETIME ONE Stop: 09/17/16 23:23 Last Admin: 09/18/16 02:21 Dose: Not Given Levothyroxine Sodium (Synthroid) 100 mcg PO ACBREAKFAST [facility] Last Admin: 09/20/16 06:13 Dose: 100 mcg Methylprednisolone Sodium Succinate (Solu-Medrol) 125 mg IVPUSH ONETIME ONE Stop: 09/18/16 00:27 Last Admin: 09/18/16 01:39 Dose: 125 mg Methylprednisolone Sodium Succinate (Solu-Medrol) 125 mg IVPUSH Q6H [facility] Last Admin: 09/20/16 02:32 Dose: 125 mg Methylprednisolone Sodium Succinate (Solu-Medrol) 80 mg IVPUSH Q12H [facility] Last Admin: 09/20/16 08:58 Dose: 80 mg Metoprolol Tartrate (Lopressor) 25 mg PO BID [facility] Last Admin: 09/20/16 09:09 Dose: 25 mg Mometasone Furoate/Formoterol Fumar (Dulera 200-5 Mcg) 0 puff IH DAILY [facility] Last Admin: 09/20/16 09:48 Dose: 2 puff Pantoprazole Sodium (Protonix) 40 mg PO DAILY [facility] Last Admin: 09/20/16 09:09 Dose: 40 mg Umeclidinium [place] (62.5 Mcg) 0 each INH DAILY [facility] Last Admin: 09/20/16 15:20 Dose: Not Given Simvastatin (Zocor) 20 mg PO BEDTIME [facility] Last Admin: 09/19/16 21:17 Dose: 20 mg Sodium Chloride (Saline Flush) 10 ml FLUSH ASDIRECTED PRN PRN Reason: Keep Vein Open Last Admin: 09/17/16 22:23 Dose: 10 ml Sodium Chloride (Saline Flush) 10 ml FLUSH ASDIRECTED PRN PRN Reason: Keep Vein Open Temazepam (Restoril) 7.5 mg PO BEDTIME PRN PRN Reason: Sleep *Q Meaningful Use (DIS) - VTE *Q VTE Criteria *Q: - Stroke *Q Stroke Criteria *Q: - AMI *Q AMI Criteria *Q:
[2016-09-20] MEDS: Acetaminophen/HYDROcodone 325-10 MG Tab PO PRN (15:14)
[2016-09-20] MEDS: cefTRIAXone 1 GM in Sodium Chloride 0.9% 100 ML IV SCH (15:14)
[2016-09-20] MEDS: UMECLIDINIUM BROMIDE 62.5 MCG INH SCH (15:20)
[2016-09-20 16:09] VITALS: BP 144/57
== END 2016-09-20 17:27 | disposition home or self-care (01) | DRG 191 ==
LOC: JD.ED 21:58 → JD.MS 09-18 00:25
PROVIDERS: ADMIT Internal Medicine Cardiovascular Disease; ATTEND Internal Medicine Cardiovascular Disease
DX: J44.1 Chronic obstructive pulmonary disease with (acute) exacerbation (principal); I50.30 Unspecified diastolic (congestive) heart failure; T75.89XA Other specified effects of external causes, initial encounter; X58.XXXA Exposure to other specified factors, initial encounter; F45.8 Other somatoform disorders; I50.9 Heart failure, unspecified; E66.01 Morbid (severe) obesity due to excess calories; Z68.30 Body mass index [BMI] 30.0-30.9, adult; F32.9 Major depressive disorder, single episode, unspecified; F41.9 Anxiety disorder, unspecified; E03.9 Hypothyroidism, unspecified; M62.81 Muscle weakness (generalized); Z87.891 Personal history of nicotine dependence; Z99.81 Dependence on supplemental oxygen; Z79.899 Other long term (current) drug therapy; Z88.1 Allergy status to other antibiotic agents; Z88.6 Allergy status to analgesic agent; Z88.8 Allergy status to other drugs, medicaments and biological substances
CPT/HCPCS: 36415; 71010 ×2; 80053; 81001; 82553; 83735; 83880; 84484; 85025; 85379; 85610; 86140; 93005; 94664; 99285; J1940; J7050; 71020; 71020-26; 80048; 80061; 84443; 86738; 87804; 93306; 94640; 94640-76; 94660; 94761; 96125-GN; 97110-GO; 97110-GP; 97116-GP; 97161-GP; 97166-GO; 97530-GO; 97535-GO; A9270-GY; J0696; J1650; J2920; J2930; J7030

== ENCOUNTER 2017-07-03 20:26 | Inpatient (IN) | payer MEDICARE, MEDICAID ==
[2017-07-03] MEDS ORDERED: HYDROmorphone 0.5 MG/0.5 ML Syringe IVPUSH ONE ×2 (20:47→22:42)
[2017-07-03] MEDS ORDERED: Sodium Chloride 0.9% 10 ML Syringe FLUSH PRN (20:47)
[2017-07-03] MEDS ORDERED: Sodium Chloride 0.9% 1,000 ML IV SCH (21:00)
--- NOTE | 2017-07-03 21:43 | EDM.PDOC ---
ED HPI GENERAL MEDICAL PROBLEM - General Chief Complaint: Upper Extremity Injury/Pain Stated Complaint: [facility] Time Seen by Provider: 07/03/17 20:31 Source of Information: Reports: Patient, RN Notes Reviewed - History of Present Illness INITIAL COMMENTS - FREE TEXT/NARRATIVE: 77-year-old lady fell this evening about 40 minutes ago injuring her left arm and right knee. It sounds like she caught her foot on a rug or carpet either entering or exiting her room, then tripped and fell. She lives at [facility]. Upon EMS arrival she was on the floor with very severe left upper arm pain, also right knee discomfort. She did not injure her head. No Headache nausea vomiting. No neck or major back discomfort. No chest pain or difficulty breathing. No pelvic or hip pain. She does have difficulty with obesity, history hypertension, hypothyroidism, COPD and she does use oxygen chronically. She also typically does use a walker to get around, apparently when she fell she had not been using her walker. Left Shoulder Pain Score (Numeric/FACES): 7 - Related Data Allergies Allergy/AdvReac Type Severity Reaction Status Date / Time doxycycline Allergy Cannot Verified 07/03/17 20:34 Remember tiotropium Allergy Cannot Verified 07/03/17 20:34 [From Spiriva with Remember HandiHaler] tramadol [From Ultracet] Allergy Cannot Verified 07/03/17 20:34 Remember Home Meds: Home Meds Budesonide/Formoterol Fumarate [Symbicort 160-4.5 Mcg Inhaler] 2 puff IH DAILY 08/23/16 [History] Hydrocodone/Acetaminophen [Hydrocodon-Acetaminophn 10-325] 1 tab PO TID [History] Potassium Chloride 20 meq PO DAILY 08/23/16 [History] Ipratropium/Albuterol Sulfate [Combivent Respimat Inhal [place]] 1 puff INH QID [History] FLUoxetine [PROzac] 10 mg PO DAILY #30 cap 09/20/16 [Rx] Albuterol [Proventil Neb Soln] 3 ml INH QID PRN 07/03/17 [History] Cholecalciferol (Vitamin D3) [Vitamin D3] 2,000 unit PO DAILY 07/03/17 [History] Cyanocobalamin (Vitamin B-12) [Vitamin B-12] 1,000 mcg PO DAILY 07/03/17 [ History] Furosemide [Lasix] 40 mg PO DAILY 07/03/17 [History] Gabapentin [Neurontin] 300 mg PO TID 07/03/17 [History] Hydrocodone/Acetaminophen [Hydrocodon-Acetaminophn 10-325] 1 tab PO BID PRN [History] Ibuprofen [Motrin] 800 mg PO DAILY PRN 07/03/17 [History] LORazepam [Ativan] 0.5 mg PO TID 07/03/17 [History] Levothyroxine [Synthroid] 88 mcg PO DAILY 07/03/17 [History] Nystatin 1 applic TOP TID PRN 07/03/17 [History] Orphenadrine [Norflex] 100 mg PO Q12H 07/03/17 [History] Propranolol [Inderal LA] 80 mg PO DAILY 07/03/17 [History] Roflumilast [Daliresp] 500 mcg PO DAILY 07/03/17 [History] Rosuvastatin [Crestor] 5 mg PO DAILY 07/03/17 [History] Umeclidinium [place] [Incruse Ellipta] 1 puff INH DAILY 07/03/17 [History] Past Medical History HEENT History: Reports: Impaired Vision, Other (See Below) Other HEENT History: wears glasses Respiratory History: Reports: COPD Gastrointestinal History: Reports: Diverticulosis Endocrine/Metabolic History: Reports: Hypothyroidism, Obesity/BMI 30+ - Past Surgical History Respiratory Surgical History: Reports: None GI Surgical History: Reports: Hernia Repair/Other Neurological Surgical History: Reports: Lumbar Spine Dermatological Surgical History: Reports: None Social & Family History - Family History Family Medical History: Noncontributory - Tobacco Use Smoking Status *Q: Former Smoker Packs/Tins Daily: 1 Used Tobacco, but Quit: No Month Tobacco Last Used: many years ago Second Hand Smoke Exposure: No - Caffeine Use Caffeine Use: Reports: None - Recreational Drug Use Recreational Drug Use: No - Living Situation & Occupation Living situation: Reports: Alone Occupation: Retired Review of Systems - Review of Systems Review Of Systems: See Below Constitutional: Denies: Chills, Fever Eyes: Reports: No Symptoms Ears: Reports: No Symptoms Nose: Reports: No Symptoms Mouth/Throat: Reports: No Symptoms Respiratory: Reports: Shortness of Breath (Chronically but not worse than usual) . Denies: Pleuritic Chest Pain, Cough Cardiovascular: Denies: Chest Pain GI/Abdominal: Denies: Abdominal Pain, Nausea, Vomiting Musculoskeletal: Reports: Shoulder Pain, Arm Pain (Left shoulder severe pain left upper arm), Joint Pain. Denies: Back Pain, Leg Pain (Right knee) Skin: Reports: No Symptoms Neurological: Denies: Numbness, Tingling, Weakness ED EXAM, GENERAL - Physical Exam Exam: See Below General Appearance: Alert, Moderate Distress Eye Exam: Bilateral Eye: PERRL Ears: Normal External Exam Nose: Normal Inspection Throat/Mouth: Normal Inspection, Normal Oropharynx Head: Atraumatic. No: Facial Swelling Neck: Supple, Non-Tender Respiratory/Chest: No Respiratory Distress, Lungs Clear. No: Rhonchi, Wheezing Cardiovascular: Regular Rate, Rhythm GI/Abdominal: Soft, Non-Tender Extremities: Leg Pain (There is tenderness of the right knee, moderate lateral tenderness, mild medial tenderness, she does have some pain with motion, knee joint is stable, no visible deformity), Other (There is tenderness of the right shoulder, shoulder is not swollen or bruised, quite severe tenderness of the left mid upper arm with palpable swelling and quite severe tenderness. Increased pain with any type of motion of the upper arm or shoulder.) Neurological: No Motor/Sensory Deficits Skin Exam: Warm, Intact, Normal Color Course - Vital Signs Last Recorded V/S: Last Vital Signs Temp 96.7 F 07/03/17 20:34 Pulse 71 07/03/17 20:34 Resp 15 07/03/17 20:34 BP 117/55 L 07/03/17 20:34 Pulse Ox 88 L 07/03/17 20:34 - Orders/Labs/Meds Orders: Active Orders 24 hr Category Date Time Status Peripheral IV Care [RC] . DIRECTED Care 07/03/17 20:47 Active Humerus Lt [CR] Stat Exams 07/03/17 20:49 Taken Knee Min 4V Rt [CR] Stat Exams 07/03/17 20:48 Taken Sodium Chloride 0.9% [Normal Saline] 1,000 ml Med 07/03/17 21:00 Active IV ASDIRECTED Sodium Chloride 0.9% [Saline Flush] Med 07/03/17 20:47 Active 10 ml FLUSH ASDIRECTED PRN Peripheral IV Insertion Adult [OM.PC] Stat Oth 07/03/17 20:47 Ordered Medication Orders Sodium Chloride (Normal Saline) 1,000 mls @ 150 mls/hr IV ASDIRECTED RYAN Last Admin: 07/03/17 21:22 Dose: 150 mls/hr Sodium Chloride (Saline Flush) 10 ml FLUSH ASDIRECTED PRN PRN Reason: Keep Vein Open Last Admin: 07/03/17 21:27 Dose: 10 ml Meds: Medications Generic Name Dose Route Start Last Admin Trade Name Freq PRN Reason Stop Dose Admin Sodium Chloride 1,000 mls @ 150 mls/hr 07/03/17 21:00 07/03/17 21:22 Normal Saline IV 150 mls/hr ASDIRECTED RYAN Administration Sodium Chloride 10 ml 07/03/17 20:47 07/03/17 21:27 Saline Flush FLUSH 10 ml ASDIRECTED PRN Administration Keep Vein Open Discontinued Medications Generic Name Dose Route Start Last Admin Trade Name Freq PRN Reason Stop Dose Admin Hydromorphone HCl 0.5 mg 07/03/17 20:47 07/03/17 21:24 Dilaudid IVPUSH 07/03/17 20:48 0.5 mg ONETIME ONE Administration - Re-Assessments/Exams Free Text/Narrative Re-Assessment/Exam: 07/03/17 22:14. X-rays of the left humerus do show midshaft fracture with some angulation and extension of fracture upward toward the neck of the humerus but not quite reaching that area. I have discussed this with Dr. Rainey, Orthopedist foundation relations manager. Treatment with be with shoulder Immobilizer. She is having too much pain and at this point unable to move, get up, walk without a lot of assistance. She needs to be somewhat independent to go back to the [facility] which is assisted living, not a Skilled Nursing. Will admit Observation status. Dr Rainey will be able to do an Ortho Consult tomorrow. Will need to see how she does to determine what type of ongoing care will be required. Departure - Departure Time of Disposition: 21:45 Disposition: Admitted As Inpatient 67 Condition: Fair Clinical Impression: Fall Qualifiers: Encounter type: initial encounter Qualified Code(s): W19.XXXA - Unspecified fall, initial encounter Fracture of humeral shaft, left, closed Qualifiers: Encounter type: initial encounter Fracture morphology: oblique Fracture alignment: displaced Qualified Code(s): S42.332A - Displaced oblique fracture of shaft of humerus, left arm, initial encounter for closed fracture - Discharge Information ED Communication - Discussed Case With (1) Discussed Case With (1): Admitting Provider (Meron, decision to admit at about 21:45.) - My Orders Last 24 Hours: My Active Orders 07/03/17 20:47 Peripheral IV Care [RC] . DIRECTED Sodium Chloride 0.9% [Saline Flush] 10 ml FLUSH ASDIRECTED PRN Peripheral IV Insertion Adult [OM.PC] Stat 07/03/17 20:48 Knee Min 4V Rt [CR] Stat 07/03/17 20:49 Humerus Lt [CR] Stat 07/03/17 21:00 Sodium Chloride 0.9% [Normal Saline] 1,000 ml IV ASDIRECTED - Assessment/Plan Last 24 Hours: My Active Orders 07/03/17 20:47 Peripheral IV Care [RC] . DIRECTED Sodium Chloride 0.9% [Saline Flush] 10 ml FLUSH ASDIRECTED PRN Peripheral IV Insertion Adult [OM.PC] Stat 07/03/17 20:48 Knee Min 4V Rt [CR] Stat 07/03/17 20:49 Humerus Lt [CR] Stat 07/03/17 21:00 Sodium Chloride 0.9% [Normal Saline] 1,000 ml IV ASDIRECTED
--- NOTE | 2017-07-03 22:29 | PCM.HP ---
H&P History of Present Illness - General Date of Service: 07/03/17 Admit Problem/Dx: Admission Diagnosis/Problem Admission Diagnosis/Problem Fracture of shaft of humerus Source of Information: Patient, Old Records, Provider, RN Notes Reviewed, Significant Other History Limitations: Reports: Altered Mental Status (lethargy), Physical Impairment - History of Present Illness Initial Comments - Free Text/Narative: This is a 77 yo elderly patient with past medical hx/o COPD, Hypothyroidism, Peripheral Neuropathy, Vitamin D Deficiency, Vitamin B12 Deficiency, BLAYNE, on CPAP, Chronic Pain Syndrome, Anxiety, and MDD who comes in for evaluation after a mechanical fall and was found to have left humerus mid-shaft fracture. Patient carries a history of impaired vision, morbid obesity with BMI of 47, on multiple opioid medications along with psychotropic agents. Patient denies any prodromal symptoms. She also carries a history of chronic pain syndrome but currently complaints mostly pain localized to her left shoulder. Patient lives at [facility] [place]. She was brought over by EMS after her traumatic fall. No labs were drawn upon presentation to the emergency department but her left shoulder x-ray shows middle and proximal diaphysis fracture of the humerus with angulation and displacement. Her right knee x-ray however reveals no acute abnormal findings. Dr. Rainey has been consulted by ED provider prior to coming to the floor for admission. Patient is being admitted for medical management of her left humerus fracture. She is full code. Left Shoulder Pain Score (Numeric/FACES): 7 - Related Data Allergies/Adverse Reactions: Allergies Allergy/AdvReac Type Severity Reaction Status Date / Time doxycycline Allergy Cannot Verified 07/03/17 20:34 Remember tiotropium Allergy Cannot Verified 07/03/17 20:34 [From Spiriva with Remember HandiHaler] tramadol [From Ultracet] Allergy Cannot Verified 07/03/17 20:34 Remember Home Medications: Home Meds Budesonide/Formoterol Fumarate [Symbicort 160-4.5 Mcg Inhaler] 2 puff IH BID [History] Hydrocodone/Acetaminophen [Hydrocodon-Acetaminophn 10-325] 1 tab PO TID [History] Potassium Chloride 20 meq PO DAILY 08/23/16 [History] Ipratropium/Albuterol Sulfate [Combivent Respimat Inhal [place]] 1 puff INH QID [History] FLUoxetine [PROzac] 10 mg PO DAILY #30 cap 09/20/16 [Rx] Albuterol [Proventil Neb Soln] 3 ml INH QID PRN 07/03/17 [History] Cholecalciferol (Vitamin D3) [Vitamin D3] 2,000 unit PO DAILY 07/03/17 [History] Cyanocobalamin (Vitamin B-12) [Vitamin B-12] 1,000 mcg PO DAILY 07/03/17 [ History] Furosemide [Lasix] 40 mg PO DAILY 07/03/17 [History] Gabapentin [Neurontin] 300 mg PO TID 07/03/17 [History] Hydrocodone/Acetaminophen [Hydrocodon-Acetaminophn 10-325] 1 tab PO BID PRN [History] Ibuprofen [Motrin] 800 mg PO DAILY PRN 07/03/17 [History] LORazepam [Ativan] 0.5 mg PO TID 07/03/17 [History] Levothyroxine [Synthroid] 88 mcg PO DAILY 07/03/17 [History] Nystatin 1 applic TOP TID PRN 07/03/17 [History] Orphenadrine [Norflex] 100 mg PO Q12H 07/03/17 [History] Propranolol [Inderal LA] 80 mg PO DAILY 07/03/17 [History] Roflumilast [Daliresp] 500 mcg PO DAILY 07/03/17 [History] Rosuvastatin [Crestor] 5 mg PO DAILY 07/03/17 [History] Umeclidinium [place] [Incruse Ellipta] 1 puff INH DAILY 07/03/17 [History] Past Medical History HEENT History: Reports: Impaired Vision, Other (See Below) Other HEENT History: wears glasses Respiratory History: Reports: COPD Gastrointestinal History: Reports: Diverticulosis Endocrine/Metabolic History: Reports: Hypothyroidism, Obesity/BMI 30+ - Past Surgical History Respiratory Surgical History: Reports: None GI Surgical History: Reports: Hernia Repair/Other Neurological Surgical History: Reports: Lumbar Spine Dermatological Surgical History: Reports: None Social & Family History - Family History Family Medical History: Noncontributory - Tobacco Use Smoking Status *Q: Former Smoker Packs/Tins Daily: 1 Used Tobacco, but Quit: No Month Tobacco Last Used: many years ago Second Hand Smoke Exposure: No - Caffeine Use Caffeine Use: Reports: None - Recreational Drug Use Recreational Drug Use: No - Living Situation & Occupation Living situation: Reports: Alone Occupation: Retired H&P Review of Systems - Review of Systems: Review Of Systems: See Below General: Denies: Fever, Chills, Malaise, Weakness, Fatigue HEENT: Reports: No Symptoms Pulmonary: Reports: Shortness of Breath (chronic). Denies: Pleuritic Chest Pain , Cough Cardiovascular: Denies: Chest Pain, Edema, Lightheadedness Gastrointestinal: Denies: Abdominal Pain, Nausea, Vomiting Genitourinary: Reports: No Symptoms Musculoskeletal: Reports: Shoulder Pain (left ), Back Pain, Other (right knee tenderness) Skin: Denies: Cyanosis, Mottled, Pallor, Diaphoresis, Rash Psychiatric: Denies: Depression, Anxiety, Hallucinations Neurological: Denies: Confusion, Difficulty Walking, Weakness, Gait Disturbance Hematologic/Lymphatic: Reports: No Symptoms Immunologic: Reports: No Symptoms Exam - Exam Exam: See Below - Vital Signs Vital Signs: Last Vital Signs Temp 35.9 C 07/03/17 20:34 Pulse 71 07/03/17 20:34 Resp 15 07/03/17 20:34 BP 117/55 L 07/03/17 20:34 Pulse Ox 88 L 07/03/17 20:34 Weight: 116.573 kg - Exam Quality Assessment: Supplemental Oxygen General: Alert, Oriented, Cooperative, Mild Distress, Lethargic, Other ( Morbidly Obese) HEENT: Conjunctiva Clear, Hearing Intact, Mucosa Moist & [place], Normal Nasal Septum, Posterior Pharynx Clear, Pupils Equal, Pupils Reactive Neck: Supple, Trachea Midline, +2 Carotid Pulse wo Bruit, Full Range of Motion, Other (short and thick) Lungs: Clear to Auscultation, Normal Respiratory Effort Cardiovascular: Regular Rate, Regular Rhythm GI/Abdominal Exam: Normal Bowel Sounds, Soft, Non-Tender, No Organomegaly, No Distention, No Abnormal Bruit, No Mass, Other (Obese) (Female) Exam: Deferred Rectal (Female) Exam: Deferred Back Exam: Normal Inspection, Decreased Range of Motion Extremities: Normal Inspection, Normal Range of Motion, Non-Tender, No Pedal Edema, Normal Capillary Refill, Other (right knee tenderness but good ROM; could not appreciate edema or erythema) Peripheral Pulses: 2+: Posterior Tibial (L), Posterior Tibial (R), Dorsalis Pedis (L), Dorsalis Pedis (R) Skin: Warm, Dry, Intact Neuro Extensive - Mental Status: Oriented x3, Normal Cognition, Memory Intact Neuro Extensive - Motor, Sensory, Reflexes: CN II-XII Intact (limited but grossly intact), Abnormal Gait Psychiatric: Alert, Normal Affect, Normal Mood - Patient Data Result Diagrams: 07/04/17 05:45 07/04/17 05:45 *Q Meaningful Use (ADM) - VTE *Q VTE Criteria *Q: - Stroke *Q Stroke Criteria *Q: - AMI *Q AMI Criteria *Q: Problem List Initiated/Reviewed/Updated: Yes Orders Last 24hrs: Active Orders 24 hr Category Date Time Status Admission Status [Patient Status] [ADT] Routine ADT 07/03/17 22:16 Active Medication Orders Sodium Chloride (Normal Saline) 1,000 mls @ 150 mls/hr IV ASDIRECTED RYAN Last Admin: 07/03/17 21:22 Dose: 150 mls/hr Sodium Chloride (Saline Flush) 10 ml FLUSH ASDIRECTED PRN PRN Reason: Keep Vein Open Last Admin: 07/03/17 21:27 Dose: 10 ml Assessment/Plan Comment:: Assessment/Plan: Acute: AMS/Lethargy - Received pain medication in ED +/- if she took her own home night time meds - Aspiration and Fall Precautions Left Humerus Fracture - 2/2 Mechanical Fall but most likely fell from over sedation (see routine home meds) - Risk Factors: Impaired Vision, Morbid Obesity, Abnormal Gait and On Numerous Hyptonic-Sedating Drugs - She is on the following home medications for chronic pain syndrome: [place] 10-325 mg 1 tab po TID, Gabapentin 300 mg po TID, Percocet 10-325 mg po BID PRN, Ativan 0.5 mg po TID PRN, Norflex 100 mg po Q12H and +/- Prozac 10 mg po daily - XR shows mid and proximal diaphysis fracture with some angulation and displacement by about a half shaft width - Case discussed with Dr. Rainey by ED provider - Dr. Rainey recommended immobilizer (sling and swathe) and will see her in AM - PT/OT consult in AM - Scheduled and PRN Pain Medications Very High Fall Risk - She is on multiple Opioids + Psychotropic Meds as noted above - Morbidly Obese affecting her functional status - Consider trimming down her pain regimen Morbid Obesity with BMI of 45.5 - Dietary consult for weight management Opioid Dependence - 2/2 Chronic Pain Syndrome - Consider Narcan on discharge Chronic: Impaired Vision COPD, Proventil, Daliresp, and Incruse Ellipta Hypothyroidism, on Synthroid Peripheral Neuropathy, on Neurontin Vitamin D Deficiency Vitamin B12 Deficiency BLAYNE, On CPAP Chronic Pain Syndrome Anxiety on Ativan MDD, on Prozac Plan: Admit to the floor Resume Some Home Meds Routine AM Labs Aspiration (Lethargy) and Fall Precautions PT/OT eval Daughter to bring in CPAP DVT/GI PPx: SCDs and H2B CM/SW for d/c planning Code status: full
[2017-07-03] MEDS ORDERED: Promethazine 12.5 MG in Sodium Chloride 0.9% 50 ML IV PRN (22:45)
[2017-07-03] MEDS ORDERED: Ondansetron 4 MG/2 ML SDV IV PRN (22:45)
[2017-07-03] MEDS ORDERED: LORazepam 2 MG/ML MDV IV PRN (22:45)
[2017-07-03] MEDS ORDERED: Bisacodyl 5 MG Tab PO PRN (22:45)
[2017-07-03] MEDS ORDERED: Albuterol/Ipratropium 3.0-0.5 MG/3 ML Neb Soln NEB PRN (22:45)
[2017-07-03] MEDS ORDERED: Acetaminophen 325 MG Tab PO PRN (22:45)
[2017-07-03] MEDS ORDERED: Temazepam 7.5 MG Cap PO PRN (22:45)
[2017-07-03] MEDS ORDERED: Polyethylene Glycol 3350 Powder 17 GM Packet PO PRN (22:45)
[2017-07-03] MEDS ORDERED: HYDROmorphone 0.5 MG/0.5 ML Syringe IVPUSH PRN (22:45)
[2017-07-03] MEDS ORDERED: Docusate Sodium 100 MG Cap PO PRN (22:45)
[2017-07-03] MEDS ORDERED: Nystatin Topical Powder 15 GM Bottle TOP PRN (22:52)
[2017-07-03] MEDS ORDERED: ALBUTEROL INH PRN (22:52)
--- NOTE | 2017-07-04 06:36 | CR ---
Left humerus: Two views of the left humerus were obtained. Fracture is identified within the mid and proximal diaphysis of the humerus with angulation and displacement by about one half shaft width. Bony structures are somewhat osteopenic. No additional abnormality is appreciated. Impression: 1. Mid and proximal humeral shaft fracture. Diagnostic code #3
--- NOTE | 2017-07-04 06:36 | CR ---
Right knee: Three views of the right knee were obtained. Comparison: No prior study. Fairly severe medial joint space narrowing is seen. Lateral joint space is preserved. Osteophytes are noted off the medial joint. No joint effusion is seen. No acute fracture or other bony abnormality is identified. Impression: 1. Medial joint degenerative change. 2. Nothing acute is appreciated on right knee exam. Diagnostic code #2
--- NOTE | 2017-07-04 07:27 | PCM.PN ---
- General Info Date of Service: 07/04/17 Admission Dx/Problem (Free Text): Admission Diagnosis/Problem Admission Diagnosis/Problem Fracture of shaft of humerus Subjective Update: Follow Up - Patient Data Vitals - Most Recent: Last Vital Signs Temp 36.2 C 07/04/17 05:25 Pulse 79 07/04/17 05:25 Resp 20 07/04/17 05:25 BP 140/81 07/04/17 05:25 Pulse Ox 93 L 07/04/17 05:25 Weight - Most Recent: 116.573 kg I&O - Last 24 Hours: Intake & Output 07/03/17 07/04/17 07/04/17 22:59 06:59 14:59 Intake Total 100 Balance 100 Lab Results Last 24 Hours: Laboratory Results - last 24 hr 07/03/17 07/04/17 07/04/17 Range/Units 22:55 05:45 05:45 WBC 21.27 H (3.98-10.04) K/mm3 RBC 4.06 (3.98-5.22) M/mm3 Hgb 12.1 (11.2-15.7) gm/L Hct 39.1 (34.1-44.9) % MCV 96.3 H (79.4-94.8) fl MCH 29.8 (25.6-32.2) pg MCHC 30.9 L (32.2-35.5) g/dl RDW Std Deviation 54.2 H (36.4-46.3) fL Plt Count 643 H (182-369) K/mm3 MPV 9.7 (9.4-12.3) fl Neut % (Auto) 75.3 H (34.0-71.1) % Lymph % (Auto) 13.4 L (19.3-51.7) % [place] % (Auto) 10.2 (4.7-12.5) % Eos % (Auto) 0.3 L (0.7-5.8) Baso % (Auto) 0.4 (0.1-1.2) % Neut # (Auto) 16.01 H (1.56-6.13) K/mm3 Lymph # (Auto) 2.86 (1.18-3.74) K/mm3 [place] # (Auto) 2.17 H (0.24-0.36) K/mm3 Eos # (Auto) 0.06 (0.04-0.36) K/mm3 Baso # (Auto) 0.09 H (0.01-0.08) K/mm3 Manual Slide Review Abnormal smear Sodium 141 (136-145) mEq/L Potassium 4.1 (3.5-5.1) mEq/L Chloride 106 (98-107) mEq/L Carbon Dioxide 29 (21-32) mEq/L Anion Gap 10.1 (5-15) BUN 14 (7-18) mg/dL Creatinine 1.1 H (0.55-1.02) mg/dL Est Cr Clr Drug Dosing 34.41 mL/min Estimated GFR (MDRD) 48 (>60) mL/min BUN/Creatinine Ratio 12.7 L (14-18) Glucose 117 H (83-115) mg/dL Calcium 9.8 (8.5-10.1) mg/dL Magnesium 2.2 (1.8-2.4) mg/dl MRSA (PCR) Negative Med Orders - Current: Current Medications Acetaminophen (Tylenol) 650 mg PO Q4H PRN PRN Reason: Pain (Mild 1-3)/fever Albuterol/Ipratropium (Duoneb 3.0-0.5 Mg/3 Ml) 3 ml NEB Q4H PRN PRN Reason: Shortness Of Breath/wheezing Bisacodyl (Dulcolax) 5 mg PO DAILY PRN PRN Reason: Constipation Docusate Sodium (Colace) 100 mg PO BID PRN PRN Reason: Constipation Hydromorphone HCl (Dilaudid) 0.5 mg IVPUSH Q2H PRN PRN Reason: Pain (severe 7-10) Promethazine HCl 12.5 mg/ (Sodium Chloride) 50.5 mls @ 100 mls/hr IV Q6H PRN PRN Reason: Nausea/Vomiting Lorazepam (Ativan) 0.5 mg IV Q6H PRN PRN Reason: Anxiety Non-Formulary Medication (Acetaminophen/Hydrocodone) 1 tab PO TID RYAN Non-Formulary Medication (Albuterol [Proventil Neb Soln]) 3 ml INH QID PRN PRN Reason: Shortness of Breath Non-Formulary Medication (Albuterol/Ipratropium) 1 puff INH QID RYAN Non-Formulary Medication (Budesonide/Formoterol Fumarate [Symbicort 160-4.5 Mcg Inhaler]) 2 puff IH DAILY RYAN Non-Formulary Medication (Cholecalciferol (Vitamin D3) [Vitamin D3]) 2,000 unit PO DAILY RYAN Non-Formulary Medication (Cyanocobalamin (Vitamin B-12) [Vitamin B-12]) 1,000 mcg PO DAILY RYAN Non-Formulary Medication (Fluoxetine [Prozac]) 10 mg PO DAILY RYAN Non-Formulary Medication (Furosemide [Lasix]) 40 mg PO DAILY RYAN Non-Formulary Medication (Gabapentin [Neurontin]) 300 mg PO TID RYAN Non-Formulary Medication (Lorazepam [Ativan]) 0.5 mg PO TID RYAN Non-Formulary Medication (Nystatin [Nystatin]) 1 applic TOP TID PRN PRN Reason: Itching Non-Formulary Medication (Orphenadrine [Norflex]) 100 mg PO Q12H RYAN Non-Formulary Medication (Potassium Chloride [Potassium Chloride]) 20 meq PO DAILY RYAN Non-Formulary Medication (Propranolol [Inderal La]) 80 mg PO DAILY RYAN Non-Formulary Medication (Roflumilast) 500 mcg PO DAILY RYAN Non-Formulary Medication (Rosuvastatin [Crestor]) 5 mg PO DAILY RYAN Non-Formulary Medication (Umeclidinium [place]) 1 puff INH DAILY RYAN Ondansetron HCl (Zofran) 4 mg IV Q6H PRN PRN Reason: Nausea/Vomiting Oxycodone/Acetaminophen (Percocet 325-5 Mg) 1 tab PO Q4H PRN PRN Reason: Pain (moderate 4-6) Polyethylene Glycol (Miralax) 17 gm PO DAILY PRN PRN Reason: Constipation Senna/Docusate Sodium (Senna Plus) 1 tab PO BID PRN PRN Reason: Constipation Sodium Chloride (Saline Flush) 10 ml FLUSH ASDIRECTED PRN PRN Reason: Keep Vein Open Last Admin: 07/03/17 21:27 Dose: 10 ml Temazepam (Restoril) 7.5 mg PO BEDTIME PRN PRN Reason: Sleep Discontinued Medications Hydromorphone HCl (Dilaudid) 0.5 mg IVPUSH ONETIME ONE Stop: 07/03/17 20:48 Last Admin: 07/03/17 21:24 Dose: 0.5 mg Hydromorphone HCl (Dilaudid) 0.5 mg IVPUSH ONETIME ONE Stop: 07/03/17 22:43 Last Admin: 07/03/17 22:48 Dose: 0.5 mg Sodium Chloride (Normal Saline) 1,000 mls @ 150 mls/hr IV ASDIRECTED [facility] Last Admin: 07/03/17 21:22 Dose: 150 mls/hr - My Orders Last 24 Hours: My Active Orders 07/03/17 22:45 Height and Weight [RC] 04 Intake and Output [RC] 04,16 Oxygen Therapy [RC] PRN Pulse Oximetry [RC] PRN Up With Assistance [RC] ASDIRECTED Up ad Trini [RC] ASDIRECTED VTE/DVT Education [RC] DAILY Vital Signs [RC] 09,15,21,03 Acetaminophen [Tylenol] 650 mg PO Q4H PRN Acetaminophen/oxyCODONE [Percocet 325-5 MG] 1 tab PO Q4H PRN Albuterol/Ipratropium [DuoNeb 3.0-0.5 MG/3 ML] 3 ml NEB Q4H PRN Bisacodyl [Dulcolax] 5 mg PO DAILY PRN Docusate Sodium [Colace] 100 mg PO BID PRN Docusate Sodium/Sennosides [Senna Plus] 1 tab PO BID PRN HYDROmorphone [Dilaudid] 0.5 mg IVPUSH Q2H PRN LORazepam [Ativan] 0.5 mg IV Q6H PRN Ondansetron [Zofran] 4 mg IV Q6H PRN Polyethylene Glycol 3350 [MiraLAX] 17 gm PO DAILY PRN Promethazine [Phenergan] 12.5 mg Sodium Chloride 0.9% [Normal Saline] 50 ml IV Q6H Temazepam [Restoril] 7.5 mg PO BEDTIME PRN Resuscitation Status Routine 07/03/17 22:47 Sequential Compression Device [OM.PC] Per Unit Routine 07/03/17 22:48 Antiembolic Devices [RC] QSHIFT RT Aerosol Therapy [RC] ASDIRECTED 07/03/17 22:49 Consult to Case Management [CONS] Routine Consult to Sandblaster Glass [CONS] Routine Consult to Physician [CONS] Routine Consult to Varnish Inspector [CONS] Routine Consult to Spiritual Care [CONS] Routine OT Evaluation and Treatment [CONS] Routine PT Evaluation and Treatment [CONS] Routine 07/03/17 22:51 Notify Provider Consults [RC] ASDIRECTED 07/03/17 22:52 Albuterol [Proventil Neb Soln] 3 ml INH QID PRN Nystatin [Nystatin] 1 applic TOP TID PRN 07/03/17 23:00 Orphenadrine [Norflex] 100 mg PO Q12H 07/03/17 Breakfast Heart Healthy Diet [DIET] 07/04/17 09:00 Acetaminophen/HYDROcodone 1 tab PO TID Albuterol/Ipratropium 1 puff INH QID Budesonide/Formoterol Fumarate [Symbicort 160-4.5 Mcg Inhaler] 2 puff IH DAILY Cholecalciferol (Vitamin D3) [Vitamin D3] 2,000 unit PO DAILY Cyanocobalamin (Vitamin B-12) [Vitamin B-12] 1,000 mcg PO DAILY FLUoxetine [PROzac] 10 mg PO DAILY Furosemide [Lasix] 40 mg PO DAILY Gabapentin [Neurontin] 300 mg PO TID LORazepam [Ativan] 0.5 mg PO TID Potassium Chloride [Potassium Chloride] 20 meq PO DAILY Propranolol [Inderal LA] 80 mg PO DAILY Roflumilast 500 mcg PO DAILY Rosuvastatin [Crestor] 5 mg PO DAILY Umeclidinium [place] 1 puff INH DAILY 07/05/17 05:11 BASIC METABOLIC PANEL,BMP [CHEM] AM CBC WITH AUTO DIFF [HEME] AM MAGNESIUM [CHEM] AM 07/06/17 05:11 BASIC METABOLIC PANEL,BMP [CHEM] AM CBC WITH AUTO DIFF [HEME] AM MAGNESIUM [CHEM] AM 07/07/17 05:11 BASIC METABOLIC PANEL,BMP [CHEM] AM CBC WITH AUTO DIFF [HEME] AM MAGNESIUM [CHEM] AM - Plan Plan:: Assessment/Plan: Acute: AMS/Lethargy - Received pain medication in ED +/- if she took her own home night time meds - Aspiration and Fall Precautions Left Humerus Fracture - 2/2 Mechanical Fall but most likely fell from over sedation (see routine home meds) - Risk Factors: Impaired Vision, Morbid Obesity, Abnormal Gait and On Numerous Hyptonic-Sedating Drugs - She is on the following home medications for chronic pain syndrome: [place] 10-325 mg 1 tab po TID, Gabapentin 300 mg po TID, Percocet 10-325 mg po BID PRN, Ativan 0.5 mg po TID PRN, Norflex 100 mg po Q12H and +/- Prozac 10 mg po daily - XR shows mid-shaft fracture with some angulation and extension of fracture upward toward the neck of the humerus - Case discussed with Dr. Rainey by ED provider - Dr. Rainey recommended immobilizer (sling and swathe) and will see her in AM - PT/OT consult in AM - Scheduled and PRN Pain Medications Very High Fall Risk - She is on multiple Opioids + Psychotropic Meds as noted above - Morbidly Obese affecting her functional status - Consider trimming down her pain regimen Morbid Obesity with BMI of 45.5 - Dietary consult for weight management Opioid Dependence - 2/2 Chronic Pain Syndrome - Consider Narcan on discharge Chronic: Impaired Vision COPD, Proventil, Daliresp, and Incruse Ellipta Hypothyroidism, on Synthroid Peripheral Neuropathy, on Neurontin Vitamin D Deficiency Vitamin B12 Deficiency BLAYNE, On CPAP Chronic Pain Syndrome Anxiety on Ativan MDD, on Prozac Plan: Admit to the floor Resume Some Home Meds Routine AM Labs Aspiration (Lethargy) and Fall Precautions PT/OT eval Daughter to bring in CPAP DVT/GI PPx: SCDs and H2B CM/SW for d/c planning Code status: full
[2017-07-04] MEDS: Orphenadrine 100 MG Tab.ER PO SCH ×3 (07:39→20:17)
[2017-07-04] MEDS: Cholecalciferol (Vitamin D3) 1,000 Unit Tab PO SCH (08:12)
[2017-07-04] MEDS: FLUOXETINE 10 MG PO SCH (08:13)
[2017-07-04] MEDS: Cyanocobalamin (Vitamin B12) 1,000 MCG Tab PO SCH (08:13)
[2017-07-04] MEDS: GABAPENTIN 300 MG PO SCH ×3 (08:14→20:29)
[2017-07-04] MEDS: LORazepam 0.5 MG Tab PO SCH ×3 (08:14→20:30)
[2017-07-04] MEDS: Furosemide 40 MG Tab PO SCH (08:14)
[2017-07-04] MEDS: Acetaminophen/oxyCODONE 325-5 MG Tab PO PRN (08:14)
[2017-07-04] MEDS: Potassium Chloride 20 MEQ Tab.ER (PTOM) PO SCH (08:15)
[2017-07-04] MEDS ORDERED: Rosuvastatin 10 MG Tab PO SCH (09:00)
[2017-07-04] MEDS: PROPRANOLOL 80 MG PO SCH (09:24)
--- NOTE | 2017-07-04 09:25 | PCM.PN ---
- General Info Date of Service: 07/04/17 Admission Dx/Problem (Free Text): Admission Diagnosis/Problem Admission Diagnosis/Problem Fracture of shaft of humerus Nancy is seen this morning resting comfortably in bed. States pain is tolerable if she does not move, she has sling and swath to lt arm. She is rt hand dominant. Pain medications are controlling pain at this time. She is up to BR with assist, pain increases to lt arm when up and moving about. Dr. Rainey has been consulted for Orthopedic input re: lt humeral shaft fx. Functional Status: Reports: Pain Controlled, Tolerating Diet, Ambulating, Urinating, Incentive Spirometry - Review of Systems General: Reports: Weakness HEENT: Reports: No Symptoms Pulmonary: Reports: No Symptoms. Denies: Shortness of Breath, Cough Cardiovascular: Reports: No Symptoms. Denies: Chest Pain Gastrointestinal: Reports: No Symptoms. Denies: Diarrhea, Nausea, Vomiting Genitourinary: Reports: No Symptoms Musculoskeletal: Reports: Shoulder Pain, Arm Pain Neurological: Reports: No Symptoms Psychiatric: Reports: No Symptoms - Patient Data Vitals - Most Recent: Last Vital Signs Temp 97.2 F 07/04/17 05:25 Pulse 79 07/04/17 05:25 Resp 20 07/04/17 05:25 BP 140/81 07/04/17 05:25 Pulse Ox 93 L 07/04/17 05:25 Weight - Most Recent: 257 lb I&O - Last 24 Hours: Intake & Output 07/03/17 07/04/17 07/04/17 22:59 06:59 14:59 Intake Total 100 Output Total 150 Balance 100 -150 Lab Results Last 24 Hours: Laboratory Results - last 24 hr 07/03/17 07/04/17 07/04/17 Range/Units 22:55 05:45 05:45 WBC 21.27 H (3.98-10.04) K/mm3 RBC 4.06 (3.98-5.22) M/mm3 Hgb 12.1 (11.2-15.7) gm/L Hct 39.1 (34.1-44.9) % MCV 96.3 H (79.4-94.8) fl MCH 29.8 (25.6-32.2) pg MCHC 30.9 L (32.2-35.5) g/dl RDW Std Deviation 54.2 H (36.4-46.3) fL Plt Count 643 H (182-369) K/mm3 MPV 9.7 (9.4-12.3) fl Neut % (Auto) 75.3 H (34.0-71.1) % Lymph % (Auto) 13.4 L (19.3-51.7) % [place] % (Auto) 10.2 (4.7-12.5) % Eos % (Auto) 0.3 L (0.7-5.8) Baso % (Auto) 0.4 (0.1-1.2) % Neut # (Auto) 16.01 H (1.56-6.13) K/mm3 Lymph # (Auto) 2.86 (1.18-3.74) K/mm3 [place] # (Auto) 2.17 H (0.24-0.36) K/mm3 Eos # (Auto) 0.06 (0.04-0.36) K/mm3 Baso # (Auto) 0.09 H (0.01-0.08) K/mm3 Manual Slide Review Abnormal smear Sodium 141 (136-145) mEq/L Potassium 4.1 (3.5-5.1) mEq/L Chloride 106 (98-107) mEq/L Carbon Dioxide 29 (21-32) mEq/L Anion Gap 10.1 (5-15) BUN 14 (7-18) mg/dL Creatinine 1.1 H (0.55-1.02) mg/dL Est Cr Clr Drug Dosing 34.41 mL/min Estimated GFR (MDRD) 48 (>60) mL/min BUN/Creatinine Ratio 12.7 L (14-18) Glucose 117 H (83-115) mg/dL Calcium 9.8 (8.5-10.1) mg/dL Magnesium 2.2 (1.8-2.4) mg/dl MRSA (PCR) Negative Med Orders - Current: Current Medications Acetaminophen (Tylenol) 650 mg PO Q4H PRN PRN Reason: Pain (Mild 1-3)/fever Hydrocodone Bitart/Acetaminophen ([place] 325-10 Mg) 1 tab PO TID RYAN Albuterol (Proventil Neb Soln) 2.5 mg INH QID PRN PRN Reason: Shortness of Breath Albuterol/Ipratropium (Duoneb 3.0-0.5 Mg/3 Ml) 3 ml NEB Q4H PRN PRN Reason: Shortness Of Breath/wheezing Bisacodyl (Dulcolax) 5 mg PO DAILY PRN PRN Reason: Constipation Budesonide/Formoterol Fumarate (Symbicort 160-4.5 Mcg) 0 gm INH DAILY [facility] Cholecalciferol (Vitamin D3) 2,000 units PO DAILY [facility] Last Admin: 07/04/17 08:12 Dose: 2,000 units Cyanocobalamin (Vitamin B12) 1,000 mcg PO DAILY [facility] Last Admin: 07/04/17 08:13 Dose: 1,000 mcg Docusate Sodium (Colace) 100 mg PO BID PRN PRN Reason: Constipation Fluoxetine HCl (Prozac) 10 mg PO DAILY [facility] Last Admin: 07/04/17 08:13 Dose: 10 mg Furosemide (Lasix) 40 mg PO DAILY [facility] Last Admin: 07/04/17 08:14 Dose: 40 mg Gabapentin (Neurontin) 300 mg PO TID [facility] Last Admin: 07/04/17 08:14 Dose: 300 mg Hydromorphone HCl (Dilaudid) 0.5 mg IVPUSH Q2H PRN PRN Reason: Pain (severe 7-10) Promethazine HCl 12.5 mg/ (Sodium Chloride) 50.5 mls @ 100 mls/hr IV Q6H PRN PRN Reason: Nausea/Vomiting Levothyroxine Sodium (Synthroid) 88 mcg PO DAILY [facility] Lorazepam (Ativan) 0.5 mg IV Q6H PRN PRN Reason: Anxiety Lorazepam (Ativan) 0.5 mg PO TID [facility] Last Admin: 07/04/17 08:14 Dose: 0.5 mg Nystatin (Nystop) 0 gm TOP TID PRN PRN Reason: Itching Ondansetron HCl (Zofran) 4 mg IV Q6H PRN PRN Reason: Nausea/Vomiting Orphenadrine Citrate (Norflex) 100 mg PO Q12H [facility] Last Admin: 07/04/17 08:13 Dose: 100 mg Oxycodone/Acetaminophen (Percocet 325-5 Mg) 1 tab PO Q4H PRN PRN Reason: Pain (moderate 4-6) Last Admin: 07/04/17 08:14 Dose: 1 tab Propranolol La 80mg ((Ptom)) 80 each PO DAILY [facility] Roflumilast 500 Mcg 0 each PO DAILY [facility] Incruse Ellipta 62. (5mg (Umeclidinium)) 0 each INH DAILY [facility] Polyethylene Glycol (Miralax) 17 gm PO DAILY PRN PRN Reason: Constipation Potassium Chloride (Klor-Con M20) 20 meq PO DAILY [facility] Last Admin: 07/04/17 08:15 Dose: 20 meq Rosuvastatin Calcium (Crestor) 5 mg PO DAILY [facility] Last Admin: 07/04/17 08:13 Dose: 5 mg Senna/Docusate Sodium (Senna Plus) 1 tab PO BID PRN PRN Reason: Constipation Sodium Chloride (Saline Flush) 10 ml FLUSH ASDIRECTED PRN PRN Reason: Keep Vein Open Last Admin: 07/03/17 21:27 Dose: 10 ml Temazepam (Restoril) 7.5 mg PO BEDTIME PRN PRN Reason: Sleep Discontinued Medications Hydromorphone HCl (Dilaudid) 0.5 mg IVPUSH ONETIME ONE Stop: 07/03/17 20:48 Last Admin: 07/03/17 21:24 Dose: 0.5 mg Hydromorphone HCl (Dilaudid) 0.5 mg IVPUSH ONETIME ONE Stop: 07/03/17 22:43 Last Admin: 07/03/17 22:48 Dose: 0.5 mg Sodium Chloride (Normal Saline) 1,000 mls @ 150 mls/hr IV ASDIRECTED [facility] Last Admin: 07/03/17 21:22 Dose: 150 mls/hr Albuterol/ (Ipratropium Inhaler) 0 each INH QID [facility] - Exam Quality Assessment: Supplemental Oxygen, DVT Prophylaxis General: Alert, Oriented, Cooperative, No Acute Distress HEENT: Pupils Equal, EOMI, Mucous Membr. Moist/[place] Neck: Supple Lungs: Normal Respiratory Effort, Decreased Breath Sounds Cardiovascular: Regular Rate, Regular Rhythm GI/Abdominal Exam: Normal Bowel Sounds, Soft, Non-Tender, Other (round/obese) (Female) Exam: Deferred Extremities: Other (left arm in sling/swath- CMS + and = bilat) Neurological: No New Focal Deficit Psy/Mental Status: Alert, Normal Affect, Normal Mood - Problem List & Annotations (1) Fall SNOMED Code(s): 7897933 Code(s): W19.XXXA - UNSPECIFIED FALL, INITIAL ENCOUNTER Status: Acute Priority: High Current Visit: Yes Qualifiers: Encounter type: initial encounter Qualified Code(s): W19.XXXA - Unspecified fall, initial encounter (2) Fracture of humeral shaft, left, closed SNOMED Code(s): 91483033 Code(s): S42.302A - UNSP FRACTURE OF SHAFT OF HUMERUS, LEFT ARM, INIT Status: Acute Priority: High Current Visit: Yes Qualifiers: Encounter type: initial encounter Fracture morphology: spiral Fracture alignment: displaced Qualified Code(s): S42.342A - Displaced spiral fracture of shaft of humerus, left arm, initial encounter for closed fracture (3) Morbid obesity SNOMED Code(s): 981000637 Code(s): E66.01 - MORBID (SEVERE) OBESITY DUE TO EXCESS CALORIES Status: Chronic Priority: Medium Current Visit: No (4) COPD (chronic obstructive pulmonary disease) SNOMED Code(s): 97924234 Code(s): J44.9 - CHRONIC OBSTRUCTIVE PULMONARY DISEASE, UNSPECIFIED Status : Chronic Priority: Medium Current Visit: No Qualifiers: COPD type: unspecified COPD Qualified Code(s): J44.9 - Chronic obstructive pulmonary disease, unspecified - Problem List Review Problem List Initiated/Reviewed/Updated: Yes - My Orders Last 24 Hours: My Active Orders 07/04/17 09:30 Levothyroxine [Synthroid] 88 mcg PO DAILY - Plan Plan:: Assessment/Plan: Acute: AMS/Lethargy---resolving, clear mentation this morning during our discussion - Received pain medication in ED +/- if she took her own home night time meds - Aspiration and Fall Precautions Left Humerus Fracture- spiral - 2/2 Mechanical Fall but most likely fell from over sedation (see routine home meds) - Risk Factors: Impaired Vision, Morbid Obesity, Abnormal Gait and On Numerous Hyptonic-Sedating Drugs; She is on the following home medications for chronic pain syndrome: [place] 10-325 mg 1 tab po TID, Gabapentin 300 mg po TID, Percocet 10-325 mg po BID PRN, Ativan 0.5 mg po TID PRN, Norflex 100 mg po Q12H and +/- Prozac 10 mg po daily - XR shows mid and proximal diaphysis fracture with some angulation and displacement by about a half shaft width - Case discussed with Dr. Rainey by ED provider; Dr. Rainey recommended immobilizer (sling and swathe) and will see her today. - PT/OT consult in AM - Scheduled and PRN Pain Medications--pain under good control at this time. Very High Fall Risk - She is on multiple Opioids + Psychotropic Meds as noted above - Morbidly Obese affecting her functional status - Consider trimming down her pain regimen Morbid Obesity with BMI of 45.5 - Dietary consult for weight management Opioid Dependence - 2/2 Chronic Pain Syndrome - Consider Narcan on discharge Chronic: Impaired Vision COPD, Proventil, Daliresp, and Incruse Ellipta, 3L/NC today at 99% this morning - wean when able Hypothyroidism, on Synthroid--TSH -.279, will check FT4 Peripheral Neuropathy, on Neurontin Vitamin D Deficiency Vitamin B12 Deficiency BLAYNE, On CPAP Chronic Pain Syndrome Anxiety on Ativan MDD, on Prozac Plan: Admit to the floor Resume Some Home Meds Routine AM Labs Aspiration (Lethargy) and Fall Precautions PT/OT eval Daughter to bring in CPAP DVT/GI PPx: SCDs and H2B CM/SW for d/c planning---Rehab vs home, awaiting recommendations and awaiting Orthopedic opinion from Dr. Rainey. Code status: full
[2017-07-04] MEDS: HYDROCODONE PO SCH ×3 (09:26→20:17)
[2017-07-04] MEDS: ACETAMINOPHEN PO SCH ×3 (09:26→20:17)
[2017-07-04] MEDS: BUDESONIDE INH SCH (09:40)
[2017-07-04] MEDS: FORMOTEROL INH SCH (09:40)
[2017-07-04] MEDS: INCRUSE ELLIPTA 62.5 MG INH SCH (09:40)
[2017-07-04] MEDS: Levothyroxine 88 MCG Tab (PTOM) PO SCH (10:05)
[2017-07-05] MEDS: Levothyroxine 88 MCG Tab (PTOM) PO SCH (06:35)
[2017-07-05] MEDS: HYDROCODONE PO SCH ×4 (08:12→20:18)
[2017-07-05] MEDS: ACETAMINOPHEN PO SCH ×4 (08:12→20:18)
[2017-07-05] MEDS: LORazepam 0.5 MG Tab PO SCH ×4 (08:16→20:19)
[2017-07-05] MEDS: Potassium Chloride 20 MEQ Tab.ER (PTOM) PO SCH (08:18)
[2017-07-05] MEDS: GABAPENTIN 300 MG PO SCH ×4 (08:19→20:20)
[2017-07-05] MEDS: Furosemide 40 MG Tab PO SCH (08:19)
[2017-07-05] MEDS: Orphenadrine 100 MG Tab.ER PO SCH ×2 (08:20→20:20)
[2017-07-05] MEDS: FLUOXETINE 10 MG PO SCH (08:21)
[2017-07-05] MEDS: PROPRANOLOL 80 MG PO SCH (08:22)
[2017-07-05] MEDS: ROSUVASTATIN 5 MG PO SCH (08:23)
[2017-07-05] MEDS: Cholecalciferol (Vitamin D3) 1,000 Unit Tab PO SCH (08:30)
[2017-07-05] MEDS: Cyanocobalamin (Vitamin B12) 1,000 MCG Tab PO SCH (08:30)
[2017-07-05] MEDS: FORMOTEROL INH SCH (08:34)
[2017-07-05] MEDS: INCRUSE ELLIPTA 62.5 MG INH SCH (08:34)
[2017-07-05] MEDS: BUDESONIDE INH SCH (08:34)
--- NOTE | 2017-07-05 10:52 | PCM.PN ---
- General Info Date of Service: 07/05/17 Admission Dx/Problem (Free Text): Nancy is seen this morning; resting comfortably in chair. She has just finished with PT/OT--recommeneds SNF at this time. Pain to lt arm is under good control and minimal "if I don't move my arm". No other new complaints today. VSS, afebrile, continues on supplemental oxygen. Functional Status: Reports: Pain Controlled, Tolerating Diet, Ambulating, Urinating, Incentive Spirometry - Review of Systems General: Reports: Weakness, Fatigue. Denies: Fever HEENT: Reports: No Symptoms Pulmonary: Reports: No Symptoms. Denies: Cough Cardiovascular: Reports: No Symptoms. Denies: Chest Pain, Palpitations Gastrointestinal: Reports: No Symptoms. Denies: Abdominal Pain, Diarrhea, Nausea, Vomiting Musculoskeletal: Reports: Shoulder Pain, Arm Pain Neurological: Reports: No Symptoms - Patient Data Vitals - Most Recent: Last Vital Signs Temp 98.1 F 07/05/17 08:51 Pulse 81 07/05/17 08:51 Resp 22 H 07/05/17 08:51 BP 125/74 07/05/17 08:51 Pulse Ox 92 L 07/05/17 08:51 Weight - Most Recent: 256 lb 3.2 oz I&O - Last 24 Hours: Intake & Output 07/04/17 07/05/17 07/05/17 22:59 06:59 14:59 Intake Total 920 450 Output Total 800 500 Balance 120 -50 Lab Results Last 24 Hours: Laboratory Results - last 24 hr 07/04/17 07/05/17 07/05/17 Range/Units 14:00 06:00 06:00 WBC 21.57 H (3.98-10.04) K/mm3 RBC 4.09 (3.98-5.22) M/mm3 Hgb 12.3 (11.2-15.7) gm/L Hct 38.9 (34.1-44.9) % MCV 95.1 H (79.4-94.8) fl MCH 30.1 (25.6-32.2) pg MCHC 31.6 L (32.2-35.5) g/dl RDW Std Deviation 53.2 H (36.4-46.3) fL Plt Count 623 H (182-369) K/mm3 MPV 10.1 (9.4-12.3) fl Neut % (Auto) 72.7 H (34.0-71.1) % Lymph % (Auto) 12.7 L (19.3-51.7) % [place] % (Auto) 13.3 H (4.7-12.5) % Eos % (Auto) 0.5 L (0.7-5.8) Baso % (Auto) 0.4 (0.1-1.2) % Neut # (Auto) 15.68 H (1.56-6.13) K/mm3 Lymph # (Auto) 2.74 (1.18-3.74) K/mm3 [place] # (Auto) 2.87 H (0.24-0.36) K/mm3 Eos # (Auto) 0.11 (0.04-0.36) K/mm3 Baso # (Auto) 0.08 (0.01-0.08) K/mm3 Manual Slide Review Abnormal smear Sodium 140 (136-145) mEq/L Potassium 3.9 (3.5-5.1) mEq/L Chloride 103 (98-107) mEq/L Carbon Dioxide 29 (21-32) mEq/L Anion Gap 11.9 (5-15) BUN 14 (7-18) mg/dL Creatinine 1.1 H (0.55-1.02) mg/dL Est Cr Clr Drug Dosing 34.41 mL/min Estimated GFR (MDRD) 48 (>60) mL/min BUN/Creatinine Ratio 12.7 L (14-18) Glucose 102 (83-115) mg/dL Calcium 9.9 (8.5-10.1) mg/dL Magnesium 2.1 (1.8-2.4) mg/dl Free T4 (0.76-1.46) ng/dL Urine Color Yellow (Yellow) Urine Appearance Clear (Clear) Urine pH 7.0 (5.0-8.0) Ur Specific [place] 1.020 (1.005-1.030) Urine Protein Negative (Negative) Urine Glucose (UA) Negative (Negative) Urine Ketones Negative (Negative) Urine Occult Blood Negative (Negative) Urine Nitrite Negative (Negative) Urine Bilirubin Negative (Negative) Urine Urobilinogen 1.0 (0.2-1.0) Ur Leukocyte Esterase Trace H (Negative) Urine RBC 0-5 (0-5) /hpf Urine WBC 0-5 (0-5) /hpf Ur Epithelial Cells 0-5 (0-5) /hpf Urine Bacteria Few (FEW) /hpf Hyaline Casts 0-5 (0-5) /lpf Urine Mucus Few (FEW) /hpf 07/05/17 Range/Units 09:48 WBC (3.98-10.04) K/mm3 RBC (3.98-5.22) M/mm3 Hgb (11.2-15.7) gm/L Hct (34.1-44.9) % MCV (79.4-94.8) fl MCH (25.6-32.2) pg MCHC (32.2-35.5) g/dl RDW Std Deviation (36.4-46.3) fL Plt Count (182-369) K/mm3 MPV (9.4-12.3) fl Neut % (Auto) (34.0-71.1) % Lymph % (Auto) (19.3-51.7) % [place] % (Auto) (4.7-12.5) % Eos % (Auto) (0.7-5.8) Baso % (Auto) (0.1-1.2) % Neut # (Auto) (1.56-6.13) K/mm3 Lymph # (Auto) (1.18-3.74) K/mm3 [place] # (Auto) (0.24-0.36) K/mm3 Eos # (Auto) (0.04-0.36) K/mm3 Baso # (Auto) (0.01-0.08) K/mm3 Manual Slide Review Sodium (136-145) mEq/L Potassium (3.5-5.1) mEq/L Chloride (98-107) mEq/L Carbon Dioxide (21-32) mEq/L Anion Gap (5-15) BUN (7-18) mg/dL Creatinine (0.55-1.02) mg/dL Est Cr Clr Drug Dosing mL/min Estimated GFR (MDRD) (>60) mL/min BUN/Creatinine Ratio (14-18) Glucose (83-115) mg/dL Calcium (8.5-10.1) mg/dL Magnesium (1.8-2.4) mg/dl Free T4 1.43 (0.76-1.46) ng/dL Urine Color (Yellow) Urine Appearance (Clear) Urine pH (5.0-8.0) Ur Specific [place] (1.005-1.030) Urine Protein (Negative) Urine Glucose (UA) (Negative) Urine Ketones (Negative) Urine Occult Blood (Negative) Urine Nitrite (Negative) Urine Bilirubin (Negative) Urine Urobilinogen (0.2-1.0) Ur Leukocyte Esterase (Negative) Urine RBC (0-5) /hpf Urine WBC (0-5) /hpf Ur Epithelial Cells (0-5) /hpf Urine Bacteria (FEW) /hpf Hyaline Casts (0-5) /lpf Urine Mucus (FEW) /hpf Med Orders - Current: Current Medications Acetaminophen (Tylenol) 650 mg PO Q4H PRN PRN Reason: Pain (Mild 1-3)/fever Hydrocodone Bitart/Acetaminophen (Enid 325-10 Mg) 1 tab PO TID [facility] Last Admin: 07/05/17 08:12 Dose: 1 tab Albuterol (Proventil Neb Soln) 2.5 mg INH QID PRN PRN Reason: Shortness of Breath Albuterol/Ipratropium (Duoneb 3.0-0.5 Mg/3 Ml) 3 ml NEB Q4H PRN PRN Reason: Shortness Of Breath/wheezing Bisacodyl (Dulcolax) 5 mg PO DAILY PRN PRN Reason: Constipation Budesonide/Formoterol Fumarate (Symbicort 160-4.5 Mcg) 0 gm INH DAILY [facility] Last Admin: 07/05/17 08:34 Dose: 2 puff Cholecalciferol (Vitamin D3) 2,000 units PO DAILY [facility] Last Admin: 07/05/17 08:30 Dose: 2,000 units Cyanocobalamin (Vitamin B12) 1,000 mcg PO DAILY [facility] Last Admin: 07/05/17 08:30 Dose: 1,000 mcg Docusate Sodium (Colace) 100 mg PO BID PRN PRN Reason: Constipation Last Admin: 07/05/17 08:24 Dose: 100 mg Fluoxetine HCl (Prozac) 10 mg PO DAILY [facility] Last Admin: 07/05/17 08:21 Dose: 10 mg Furosemide (Lasix) 40 mg PO DAILY [facility] Last Admin: 07/05/17 08:19 Dose: 40 mg Gabapentin (Neurontin) 300 mg PO TID [facility] Last Admin: 07/05/17 08:19 Dose: 300 mg Hydromorphone HCl (Dilaudid) 0.5 mg IVPUSH Q2H PRN PRN Reason: Pain (severe 7-10) Promethazine HCl 12.5 mg/ (Sodium Chloride) 50.5 mls @ 100 mls/hr IV Q6H PRN PRN Reason: Nausea/Vomiting Levothyroxine Sodium (Synthroid) 88 mcg PO ACBREAKFAST [facility] Last Admin: 07/05/17 06:35 Dose: 88 mcg Lorazepam (Ativan) 0.5 mg IV Q6H PRN PRN Reason: Anxiety Lorazepam (Ativan) 0.5 mg PO TID [facility] Last Admin: 07/05/17 08:16 Dose: 0.5 mg Nystatin (Nystop) 0 gm TOP TID PRN PRN Reason: Itching Ondansetron HCl (Zofran) 4 mg IV Q6H PRN PRN Reason: Nausea/Vomiting Orphenadrine Citrate (Norflex) 100 mg PO Q12H [facility] Last Admin: 07/05/17 08:20 Dose: 100 mg Oxycodone/Acetaminophen (Percocet 325-5 Mg) 1 tab PO Q4H PRN PRN Reason: Pain (moderate 4-6) Last Admin: 07/04/17 08:14 Dose: 1 tab Roflumilast 500 Mcg 0 each PO DAILY [facility] Last Admin: 07/05/17 08:23 Dose: 1 each Incruse Ellipta 62. (5mg (Umeclidinium)) 0 each INH DAILY [facility] Last Admin: 07/05/17 08:34 Dose: 1 each Rosuvastatin 5mg ( (Ptom)) 1 each PO DAILY [facility] Last Admin: 07/05/17 08:23 Dose: 1 each Propranolol La 80mg ((Ptom)) 1 each PO DAILY [facility] Polyethylene Glycol (Miralax) 17 gm PO DAILY PRN PRN Reason: Constipation Potassium Chloride (Klor-Con M20) 20 meq PO DAILY [facility] Last Admin: 07/05/17 08:18 Dose: 20 meq Senna/Docusate Sodium (Senna Plus) 1 tab PO BID PRN PRN Reason: Constipation Sodium Chloride (Saline Flush) 10 ml FLUSH ASDIRECTED PRN PRN Reason: Keep Vein Open Last Admin: 07/03/17 21:27 Dose: 10 ml Temazepam (Restoril) 7.5 mg PO BEDTIME PRN PRN Reason: Sleep Discontinued Medications Hydromorphone HCl (Dilaudid) 0.5 mg IVPUSH ONETIME ONE Stop: 07/03/17 20:48 Last Admin: 07/03/17 21:24 Dose: 0.5 mg Hydromorphone HCl (Dilaudid) 0.5 mg IVPUSH ONETIME ONE Stop: 07/03/17 22:43 Last Admin: 07/03/17 22:48 Dose: 0.5 mg Sodium Chloride (Normal Saline) 1,000 mls @ 150 mls/hr IV ASDIRECTED [facility] Last Admin: 07/03/17 21:22 Dose: 150 mls/hr Albuterol/ (Ipratropium Inhaler) 0 each INH QID [facility] Last Admin: 07/04/17 09:44 Dose: Not Given Propranolol La 80mg ((Ptom)) 80 each PO DAILY [facility] Last Admin: 07/05/17 08:22 Dose: 80 each Rosuvastatin Calcium (Crestor) 5 mg PO DAILY [facility] Last Admin: 07/04/17 08:13 Dose: 5 mg - Exam Quality Assessment: Supplemental Oxygen, DVT Prophylaxis General: Alert, Oriented, Cooperative, No Acute Distress HEENT: Pupils Equal, EOMI, Mucous Membr. Moist/[place] Neck: Supple Lungs: Normal Respiratory Effort, Decreased Breath Sounds Cardiovascular: Regular Rate, Regular Rhythm GI/Abdominal Exam: Normal Bowel Sounds, Soft, Other (round/obese) (Female) Exam: Deferred Extremities: Other (lt arm in sling/swathe. CMS is + and = bilat. Good yard inspector strength bilat, 4/5 and =. ) Peripheral Pulses: 2+: Radial (L), Radial (R) Neurological: No New Focal Deficit Psy/Mental Status: Alert, Normal Affect, Normal Mood - Problem List & Annotations (1) Fall SNOMED Code(s): 2431486 Code(s): W19.XXXA - UNSPECIFIED FALL, INITIAL ENCOUNTER Status: Acute Priority: High Current Visit: Yes Qualifiers: Encounter type: initial encounter Qualified Code(s): W19.XXXA - Unspecified fall, initial encounter (2) Fracture of humeral shaft, left, closed SNOMED Code(s): 82909974 Code(s): S42.302A - UNSP FRACTURE OF SHAFT OF HUMERUS, LEFT ARM, INIT Status: Acute Priority: High Current Visit: Yes Qualifiers: Encounter type: initial encounter Fracture morphology: spiral Fracture alignment: displaced Qualified Code(s): S42.342A - Displaced spiral fracture of shaft of humerus, left arm, initial encounter for closed fracture (3) Morbid obesity SNOMED Code(s): 665074572 Code(s): E66.01 - MORBID (SEVERE) OBESITY DUE TO EXCESS CALORIES Status: Chronic Priority: Medium Current Visit: No (4) COPD (chronic obstructive pulmonary disease) SNOMED Code(s): 72672880 Code(s): J44.9 - CHRONIC OBSTRUCTIVE PULMONARY DISEASE, UNSPECIFIED Status : Chronic Priority: Medium Current Visit: No Qualifiers: COPD type: unspecified COPD Qualified Code(s): J44.9 - Chronic obstructive pulmonary disease, unspecified (5) Leukocytosis SNOMED Code(s): 235751632 Code(s): D72.829 - ELEVATED WHITE BLOOD CELL COUNT, UNSPECIFIED Status: Acute Priority: High Current Visit: Yes Qualifiers: Leukocytosis type: unspecified Qualified Code(s): D72.829 - Elevated white blood cell count, unspecified - Problem List Review Problem List Initiated/Reviewed/Updated: Yes - My Orders Last 24 Hours: My Active Orders 07/05/17 09:21 Chest 1V Frontal [CR] Routine 07/05/17 09:22 Blood Culture x2 Reflex Set [OM.PC] Stat 07/05/17 09:35 CULTURE BLOOD [BC] Stat 07/05/17 09:48 CULTURE BLOOD [BC] Stat - Plan Plan:: Assessment/Plan: Acute: Left Humerus Fracture- spiral - 2/2 Mechanical Fall but most likely fell from over sedation (see routine home meds) - Risk Factors: Impaired Vision, Morbid Obesity, Abnormal Gait and On Numerous Hyptonic-Sedating Drugs; She is on the following home medications for chronic pain syndrome: Enid 10-325 mg 1 tab po TID, Gabapentin 300 mg po TID, Percocet 10-325 mg po BID PRN, Ativan 0.5 mg po TID PRN, Norflex 100 mg po Q12H and +/- Prozac 10 mg po daily - XR shows mid and proximal diaphysis fracture with some angulation and displacement by about a half shaft width - Case discussed with Dr. Rainey by ED provider; Dr. Rainey recommended immobilizer (sling and swathe) Per discussion with Ortho Team; recommendations is for nonsurgical treatment as above; follow up with orthopedics in 2 weeks for recheck. - PT/OT consult -- recommendations for SNF as of this morning. - Scheduled and PRN Pain Medications--pain under good control at this time. Leukocytosis -WBC 21.27-->21.57 -? stress reaction, afebrile, other VSS. No c/o dysuria; UA negative yesterday, no cough or URI s/s. -Evaluate for infectious causes: BC x 2 this morning and CXR to be obtained. -Cont to follow with am labs Very High Fall Risk - She is on multiple Opioids + Psychotropic Meds as noted above - Morbidly Obese affecting her functional status - Consider trimming down her pain regimen Morbid Obesity with BMI of 45.5 - Dietary consult for weight management Opioid Dependence - 2/2 Chronic Pain Syndrome - Consider Narcan on discharge Resolved: AMS/Lethargy---resolving/resolved - Received pain medication in ED +/- if she took her own home night time meds - Aspiration and Fall Precautions Chronic: Impaired Vision COPD, Proventil, Daliresp, and Incruse Ellipta, Supplemental O2 PRN Hypothyroidism, on Synthroid--TSH -0.279, FT4 obtained and is normal at 1.43; recommend recheck thyroid function studies in 1-2 months with PCP. Peripheral Neuropathy, on Neurontin Vitamin D Deficiency- cont supplement Vitamin B12 Deficiency- cont supplement BLAYNE, On CPAP Chronic Pain Syndrome Anxiety on Ativan- stable MDD, on Prozac- stable Plan: Admit to the floor Resume Some Home Meds Routine AM Labs Aspiration (Lethargy) and Fall Precautions PT/OT eval Daughter to bring in CPAP DVT/GI PPx: SCDs and H2B CM/SW for d/c planning---Rehab vs home, therapy recommends SNF at this time; SW to discuss with patient. LOS 1-2 more days then DC. Code status: full PCP is JAIDA Gilliland with [facility]
--- NOTE | 2017-07-05 12:09 | CR ---
Chest: Portable view of the chest was obtained. Comparison: Prior chest x-ray of 09/20/16. Slight scarring is seen within the left base. Heart is mildly enlarged. Tortuous thoracic aorta is seen. Atherosclerotic change is noted within the aorta. No acute pulmonary densities are seen. Bony structures are osteopenic. Impression: 1. Incidental findings. Nothing acute is appreciated on portable chest x-ray. Diagnostic code #2
[2017-07-06] MEDS: Levothyroxine 88 MCG Tab (PTOM) PO SCH (06:20)
--- NOTE | 2017-07-06 07:10 | PCM.PN ---
- General Info Date of Service: 07/06/17 Admission Dx/Problem (Free Text): Pain to lt arm is under good control and minimal "if I don't move my arm". No other new complaints today. VSS, afebrile, continues on supplemental oxygen. Functional Status: Reports: Pain Controlled, Tolerating Diet, Ambulating, Urinating, Incentive Spirometry - Review of Systems General: Reports: No Symptoms HEENT: Reports: No Symptoms Pulmonary: Reports: No Symptoms Cardiovascular: Reports: No Symptoms Gastrointestinal: Reports: No Symptoms Genitourinary: Reports: No Symptoms Musculoskeletal: Reports: Shoulder Pain, Arm Pain Neurological: Reports: No Symptoms - Patient Data Vitals - Most Recent: Last Vital Signs Temp 98.6 F 07/06/17 04:30 Pulse 82 07/06/17 04:30 Resp 19 07/06/17 04:30 BP 134/80 07/06/17 04:30 Pulse Ox 93 L 07/06/17 04:30 Weight - Most Recent: 252 lb 6.4 oz I&O - Last 24 Hours: Intake & Output 07/05/17 07/06/17 07/06/17 22:59 06:59 14:59 Intake Total 200 350 Output Total 900 Balance -700 350 Lab Results Last 24 Hours: Laboratory Results - last 24 hr 07/06/17 07/06/17 Range/Units 06:05 06:05 WBC 24.42 H (3.98-10.04) K/mm3 RBC 4.04 (3.98-5.22) M/mm3 Hgb 12.2 (11.2-15.7) gm/L Hct 38.4 (34.1-44.9) % MCV 95.0 H (79.4-94.8) fl MCH 30.2 (25.6-32.2) pg MCHC 31.8 L (32.2-35.5) g/dl RDW Std Deviation 53.2 H (36.4-46.3) fL Plt Count 565 H (182-369) K/mm3 MPV 10.1 (9.4-12.3) fl Neut % (Auto) 71.5 H (34.0-71.1) % Lymph % (Auto) 12.9 L (19.3-51.7) % [place] % (Auto) 13.4 H (4.7-12.5) % Eos % (Auto) 1.1 (0.7-5.8) Baso % (Auto) 0.4 (0.1-1.2) % Neut # (Auto) 17.46 H (1.56-6.13) K/mm3 Lymph # (Auto) 3.15 (1.18-3.74) K/mm3 [place] # (Auto) 3.28 H (0.24-0.36) K/mm3 Eos # (Auto) 0.26 (0.04-0.36) K/mm3 Baso # (Auto) 0.09 H (0.01-0.08) K/mm3 Sodium 138 (136-145) mEq/L Potassium 4.1 (3.5-5.1) mEq/L Chloride 102 (98-107) mEq/L Carbon Dioxide 30 (21-32) mEq/L Anion Gap 10.1 (5-15) BUN 20 H (7-18) mg/dL Creatinine 1.2 H (0.55-1.02) mg/dL Est Cr Clr Drug Dosing 31.54 mL/min Estimated GFR (MDRD) 44 (>60) mL/min BUN/Creatinine Ratio 16.7 (14-18) Glucose 98 (83-115) mg/dL Calcium 10.0 (8.5-10.1) mg/dL Magnesium 2.2 (1.8-2.4) mg/dl Med Orders - Current: Current Medications Acetaminophen (Tylenol) 650 mg PO Q4H PRN PRN Reason: Pain (Mild 1-3)/fever Hydrocodone Bitart/Acetaminophen ([place] 325-10 Mg) 1 tab PO TID [facility] Last Admin: 07/05/17 20:18 Dose: 1 tab Albuterol (Proventil Neb Soln) 2.5 mg INH QID PRN PRN Reason: Shortness of Breath Albuterol/Ipratropium (Duoneb 3.0-0.5 Mg/3 Ml) 3 ml NEB Q4H PRN PRN Reason: Shortness Of Breath/wheezing Bisacodyl (Dulcolax) 5 mg PO DAILY PRN PRN Reason: Constipation Budesonide/Formoterol Fumarate (Symbicort 160-4.5 Mcg) 0 gm INH DAILY [facility] Last Admin: 07/05/17 08:34 Dose: 2 puff Cholecalciferol (Vitamin D3) 2,000 units PO DAILY [facility] Last Admin: 07/05/17 08:30 Dose: 2,000 units Cyanocobalamin (Vitamin B12) 1,000 mcg PO DAILY [facility] Last Admin: 07/05/17 08:30 Dose: 1,000 mcg Docusate Sodium (Colace) 100 mg PO BID PRN PRN Reason: Constipation Last Admin: 07/05/17 08:24 Dose: 100 mg Fluoxetine HCl (Prozac) 10 mg PO DAILY [facility] Last Admin: 07/05/17 08:21 Dose: 10 mg Furosemide (Lasix) 40 mg PO DAILY [facility] Last Admin: 07/05/17 08:19 Dose: 40 mg Gabapentin (Neurontin) 300 mg PO TID [facility] Last Admin: 07/05/17 20:20 Dose: 300 mg Hydromorphone HCl (Dilaudid) 0.5 mg IVPUSH Q2H PRN PRN Reason: Pain (severe 7-10) Promethazine HCl 12.5 mg/ (Sodium Chloride) 50.5 mls @ 100 mls/hr IV Q6H PRN PRN Reason: Nausea/Vomiting Levothyroxine Sodium (Synthroid) 88 mcg PO ACBREAKFAST [facility] Last Admin: 07/06/17 06:20 Dose: 88 mcg Lorazepam (Ativan) 0.5 mg IV Q6H PRN PRN Reason: Anxiety Lorazepam (Ativan) 0.5 mg PO TID [facility] Last Admin: 07/05/17 20:19 Dose: 0.5 mg Nystatin (Nystop) 0 gm TOP TID PRN PRN Reason: Itching Ondansetron HCl (Zofran) 4 mg IV Q6H PRN PRN Reason: Nausea/Vomiting Orphenadrine Citrate (Norflex) 100 mg PO Q12H [facility] Last Admin: 07/05/17 20:20 Dose: 100 mg Oxycodone/Acetaminophen (Percocet 325-5 Mg) 1 tab PO Q4H PRN PRN Reason: Pain (moderate 4-6) Last Admin: 07/04/17 08:14 Dose: 1 tab Roflumilast 500 Mcg 0 each PO DAILY [facility] Last Admin: 07/05/17 08:23 Dose: 1 each Incruse Ellipta 62. (5mg (Umeclidinium)) 0 each INH DAILY [facility] Last Admin: 07/05/17 08:34 Dose: 1 each Rosuvastatin 5mg ( (Ptom)) 1 each PO DAILY [facility] Last Admin: 07/05/17 08:23 Dose: 1 each Propranolol La 80mg ((Ptom)) 1 each PO DAILY [facility] Polyethylene Glycol (Miralax) 17 gm PO DAILY PRN PRN Reason: Constipation Potassium Chloride (Klor-Con M20) 20 meq PO DAILY [facility] Last Admin: 07/05/17 08:18 Dose: 20 meq Senna/Docusate Sodium (Senna Plus) 1 tab PO BID PRN PRN Reason: Constipation Sodium Chloride (Saline Flush) 10 ml FLUSH ASDIRECTED PRN PRN Reason: Keep Vein Open Last Admin: 07/03/17 21:27 Dose: 10 ml Temazepam (Restoril) 7.5 mg PO BEDTIME PRN PRN Reason: Sleep Discontinued Medications Hydromorphone HCl (Dilaudid) 0.5 mg IVPUSH ONETIME ONE Stop: 07/03/17 20:48 Last Admin: 07/03/17 21:24 Dose: 0.5 mg Hydromorphone HCl (Dilaudid) 0.5 mg IVPUSH ONETIME ONE Stop: 07/03/17 22:43 Last Admin: 07/03/17 22:48 Dose: 0.5 mg Sodium Chloride (Normal Saline) 1,000 mls @ 150 mls/hr IV ASDIRECTED [facility] Last Admin: 07/03/17 21:22 Dose: 150 mls/hr Albuterol/ (Ipratropium Inhaler) 0 each INH QID [facility] Last Admin: 07/04/17 09:44 Dose: Not Given Propranolol La 80mg ((Ptom)) 80 each PO DAILY [facility] Last Admin: 07/05/17 08:22 Dose: 80 each Rosuvastatin Calcium (Crestor) 5 mg PO DAILY [facility] Last Admin: 07/04/17 08:13 Dose: 5 mg - Exam Quality Assessment: Supplemental Oxygen, DVT Prophylaxis General: Alert, Oriented, Cooperative, No Acute Distress HEENT: Pupils Equal, EOMI, Mucous Membr. Moist/[place] Neck: Supple Lungs: Normal Respiratory Effort, Decreased Breath Sounds Cardiovascular: Regular Rate, Regular Rhythm GI/Abdominal Exam: Normal Bowel Sounds, Soft, Non-Tender (Female) Exam: Deferred Extremities: Other (early ecchymosis forming to lt humerus; shouler immobilizer in place to lt arm, states is more comfortable than sling and swathe) Peripheral Pulses: 2+: Radial (L), Radial (R), Dorsalis Pedis (L), Dorsalis Pedis (R) Neurological: No New Focal Deficit Psy/Mental Status: Alert, Normal Affect, Normal Mood - Problem List & Annotations (1) Fall SNOMED Code(s): 2654484 Code(s): W19.XXXA - UNSPECIFIED FALL, INITIAL ENCOUNTER Status: Acute Priority: High Current Visit: Yes Qualifiers: Encounter type: initial encounter Qualified Code(s): W19.XXXA - Unspecified fall, initial encounter (2) Fracture of humeral shaft, left, closed SNOMED Code(s): 22342988 Code(s): S42.302A - UNSP FRACTURE OF SHAFT OF HUMERUS, LEFT ARM, INIT Status: Acute Priority: High Current Visit: Yes Qualifiers: Encounter type: initial encounter Fracture morphology: spiral Fracture alignment: displaced Qualified Code(s): S42.342A - Displaced spiral fracture of shaft of humerus, left arm, initial encounter for closed fracture (3) Morbid obesity SNOMED Code(s): 844708246 Code(s): E66.01 - MORBID (SEVERE) OBESITY DUE TO EXCESS CALORIES Status: Chronic Priority: Medium Current Visit: No (4) COPD (chronic obstructive pulmonary disease) SNOMED Code(s): 54087442 Code(s): J44.9 - CHRONIC OBSTRUCTIVE PULMONARY DISEASE, UNSPECIFIED Status : Chronic Priority: Medium Current Visit: No Qualifiers: COPD type: unspecified COPD Qualified Code(s): J44.9 - Chronic obstructive pulmonary disease, unspecified (5) Leukocytosis SNOMED Code(s): 196369008 Code(s): D72.829 - ELEVATED WHITE BLOOD CELL COUNT, UNSPECIFIED Status: Acute Priority: High Current Visit: Yes Qualifiers: Leukocytosis type: unspecified Qualified Code(s): D72.829 - Elevated white blood cell count, unspecified - Problem List Review Problem List Initiated/Reviewed/Updated: Yes - Plan Plan:: Assessment/Plan: Acute: Left Humerus Fracture- spiral - 2/2 Mechanical Fall but most likely fell from over sedation (see routine home meds) - Risk Factors: Impaired Vision, Morbid Obesity, Abnormal Gait and On Numerous Hyptonic-Sedating Drugs; She is on the following home medications for chronic pain syndrome: [place] 10-325 mg 1 tab po TID, Gabapentin 300 mg po TID, Percocet 10-325 mg po BID PRN, Ativan 0.5 mg po TID PRN, Norflex 100 mg po Q12H and +/- Prozac 10 mg po daily - XR shows mid and proximal diaphysis fracture with some angulation and displacement by about a half shaft width - Case discussed with Dr. Rainey by ED provider; Dr. Rainey recommended immobilizer (sling and swathe) Per discussion with Ortho Team; recommendations is for nonsurgical treatment as above; follow up with orthopedics in 2 weeks for recheck. - PT/OT consult -- recommendations for SNF as of this morning. - Scheduled and PRN Pain Medications--pain under good control at this time. Leukocytosis -WBC 21.27-->21.57--25K -? stress reaction, afebrile, other VSS. No c/o dysuria; UA negative yesterday, no cough or URI s/s. -Evaluate for infectious causes: BC x 2 and CXR to be obtained. Both negative -Add CRP today, is 11.5, will trend over the weekend -Reviewed case with Dr. Chance this morning; may need Hematology eval as outpatient after discharge -Cont to follow with am labs Very High Fall Risk - She is on multiple Opioids + Psychotropic Meds as noted above - Morbidly Obese affecting her functional status - Consider trimming down her pain regimen Morbid Obesity with BMI of 45.5 - Dietary consult for weight management Opioid Dependence - 2/2 Chronic Pain Syndrome - Consider Narcan on discharge Resolved: AMS/Lethargy---resolving/resolved - Received pain medication in ED +/- if she took her own home night time meds - Aspiration and Fall Precautions Chronic: Impaired Vision COPD, Proventil, Daliresp, and Incruse Ellipta, Supplemental O2 PRN Hypothyroidism, on Synthroid--TSH -0.279, FT4 obtained and is normal at 1.43; recommend recheck thyroid function studies in 1-2 months with PCP. Peripheral Neuropathy, on Neurontin Vitamin D Deficiency- cont supplement Vitamin B12 Deficiency- cont supplement BLAYNE, On CPAP Chronic Pain Syndrome Anxiety on Ativan--chronic- stable, no increased anxiety thus far during her stay MDD--chronic, on Prozac- stable--moods have been pleasant, stable, not sad or weepy thus far during her stay. Plan: Admit to the floor Resume Some Home Meds Routine AM Labs Aspiration (Lethargy) and Fall Precautions PT/OT eval Daughter to bring in CPAP DVT/GI PPx: SCDs and H2B CM/SW for d/c planning---Rehab vs home, therapy recommends SNF at this time; SW to discuss with patient. Applications to local SNF's as patient in agreement. LOS >96 hours pending SNF acceptance and now triggered level 2 screening for MDD history--- this is a stable problem and not of concern as of yet during this admission. Code status: full PCP is JAIDA Gilliland with [facility]
[2017-07-06] MEDS: HYDROCODONE PO SCH ×3 (08:24→21:59)
[2017-07-06] MEDS: ACETAMINOPHEN PO SCH ×3 (08:24→21:59)
[2017-07-06] MEDS: LORazepam 0.5 MG Tab PO SCH ×3 (08:27→22:00)
[2017-07-06] MEDS: GABAPENTIN 300 MG PO SCH ×3 (08:28→22:00)
[2017-07-06] MEDS: Orphenadrine 100 MG Tab.ER PO SCH ×2 (08:28→21:59)
[2017-07-06] MEDS: Cholecalciferol (Vitamin D3) 1,000 Unit Tab PO SCH (08:28)
[2017-07-06] MEDS: Cyanocobalamin (Vitamin B12) 1,000 MCG Tab PO SCH (08:28)
[2017-07-06] MEDS: FLUOXETINE 10 MG PO SCH (08:28)
[2017-07-06] MEDS: Furosemide 40 MG Tab PO SCH (08:28)
[2017-07-06] MEDS: Potassium Chloride 20 MEQ Tab.ER (PTOM) PO SCH (08:28)
[2017-07-06] MEDS: INCRUSE ELLIPTA 62.5 MG INH SCH (08:31)
[2017-07-06] MEDS: FORMOTEROL INH SCH (08:32)
[2017-07-06] MEDS: BUDESONIDE INH SCH (08:32)
[2017-07-06] MEDS: PROPRANOLOL 80 MG PO SCH (08:34)
[2017-07-06] MEDS: ROSUVASTATIN 5 MG PO SCH (08:35)
[2017-07-06] MEDS ORDERED: Levofloxacin/Dextrose 5%-Water 500 MG in Premix Bag 1 BAG IV ONE (13:30)
--- NOTE | 2017-07-06 17:33 | PCM.SN ---
- Free Text/Narrative Note: Lab informed us that her blood cultures are pos for GC with 25% pairs and clusters and could not r/o contamination. In the setting of leukocytosis with increased WBC level fo 24k and CRP of 11.5, we will go head presumed she has bacteremia until proven otherwise. She does no look septic on clinical examination. We will start broad spectrum antibiotic of IV Levaquin 500 mg daily first dose now to cover for both GPC and GN organism and repeat blood cultures after 24 hrs of initial treatment.
[2017-07-06] MEDS ORDERED: Vancomycin 1 GM, Vancomycin 500 MG in Sodium Chloride 0.9% 500 ML IV SCH (17:45)
[2017-07-06] MEDS ORDERED: Vancomycin 1 GM, Vancomycin 500 MG in Sodium Chloride 0.9% 500 ML IV ONE (18:00)
[2017-07-06] MEDS ORDERED: Vancomycin 1 GM, Vancomycin 250 MG in Sodium Chloride 0.9% 250 ML IV SCH (18:00)
[2017-07-06] MEDS ORDERED: Sodium Chloride 0.9% 1,000 ML IV SCH (18:30)
[2017-07-07] MEDS: Levothyroxine 88 MCG Tab (PTOM) PO SCH (05:24)
--- NOTE | 2017-07-07 08:18 | PCM.PN ---
- General Info Date of Service: 07/07/17 Admission Dx/Problem (Free Text): Right Humerus Fracture Subjective Update: Follow Up Functional Status: Reports: Pain Controlled, Tolerating Diet, Ambulating, Urinating. Denies: New Symptoms - Review of Systems General: Denies: Fever, Weakness, Fatigue, Malaise, Chills HEENT: Reports: No Symptoms Pulmonary: Denies: Shortness of Breath Cardiovascular: Denies: Chest Pain Gastrointestinal: Denies: Abdominal Pain, Nausea, Vomiting Genitourinary: Reports: No Symptoms Musculoskeletal: Reports: No Symptoms Skin: Denies: Cyanosis, Mottled, Pallor, Diaphoresis Neurological: Reports: Gait Disturbance. Denies: Confusion, Difficulty Walking , Weakness Psychiatric: Denies: Depression, Anxiety, Agitation, Hallucinations Systems Review Comment:: No overnight or acute issues. She slept pretty goos. Her pain is controlled and reports no new complaints. She remains afebrile and her WBC is now down to 21. 72 from 24.42. - Patient Data Vitals - Most Recent: Last Vital Signs Temp 36.6 C 07/07/17 07:46 Pulse 81 07/07/17 07:46 Resp 24 H 07/07/17 07:46 BP 131/78 07/07/17 07:46 Pulse Ox 90 L 07/07/17 07:46 Weight - Most Recent: 114.85 kg I&O - Last 24 Hours: Intake & Output 07/06/17 07/07/17 07/07/17 22:59 06:59 14:59 Intake Total 650 1222 Output Total 500 400 Balance 150 822 Lab Results Last 24 Hours: Laboratory Results - last 24 hr 07/06/17 07/07/17 07/07/17 Range/Units 06:05 05:53 05:53 WBC 21.72 H (3.98-10.04) K/mm3 RBC 3.75 L (3.98-5.22) M/mm3 Hgb 11.3 (11.2-15.7) gm/L Hct 35.9 (34.1-44.9) % MCV 95.7 H (79.4-94.8) fl MCH 30.1 (25.6-32.2) pg MCHC 31.5 L (32.2-35.5) g/dl RDW Std Deviation 53.4 H (36.4-46.3) fL Plt Count 535 H (182-369) K/mm3 MPV 10.4 (9.4-12.3) fl Neut % (Auto) 67.9 (34.0-71.1) % Lymph % (Auto) 15.0 L (19.3-51.7) % [place] % (Auto) 14.1 H (4.7-12.5) % Eos % (Auto) 1.4 (0.7-5.8) Baso % (Auto) 0.5 (0.1-1.2) % Neut # (Auto) 14.74 H (1.56-6.13) K/mm3 Lymph # (Auto) 3.26 (1.18-3.74) K/mm3 [place] # (Auto) 3.07 H (0.24-0.36) K/mm3 Eos # (Auto) 0.31 (0.04-0.36) K/mm3 Baso # (Auto) 0.11 H (0.01-0.08) K/mm3 Manual Slide Review Abnormal smear Sodium 139 (136-145) mEq/L Potassium 3.7 (3.5-5.1) mEq/L Chloride 103 (98-107) mEq/L Carbon Dioxide 27 (21-32) mEq/L Anion Gap 12.7 (5-15) BUN 25 H (7-18) mg/dL Creatinine 1.1 H (0.55-1.02) mg/dL Est Cr Clr Drug Dosing 34.41 mL/min Estimated GFR (MDRD) 48 (>60) mL/min BUN/Creatinine Ratio 22.7 H (14-18) Glucose 90 (83-115) mg/dL Calcium 9.9 (8.5-10.1) mg/dL Magnesium 2.1 (1.8-2.4) mg/dl C-Reactive Protein 11.5 H* 12.0 H* (<1.0) mg/dL Med Orders - Current: Current Medications Acetaminophen (Tylenol) 650 mg PO Q4H PRN PRN Reason: Pain (Mild 1-3)/fever Hydrocodone Bitart/Acetaminophen ([place] 325-10 Mg) 1 tab PO TID [facility] Last Admin: 07/06/17 21:59 Dose: 1 tab Albuterol (Proventil Neb Soln) 2.5 mg INH QID PRN PRN Reason: Shortness of Breath Albuterol/Ipratropium (Duoneb 3.0-0.5 Mg/3 Ml) 3 ml NEB Q4H PRN PRN Reason: Shortness Of Breath/wheezing Bisacodyl (Dulcolax) 5 mg PO DAILY PRN PRN Reason: Constipation Budesonide/Formoterol Fumarate (Symbicort 160-4.5 Mcg) 0 gm INH DAILY [facility] Last Admin: 07/06/17 08:32 Dose: 2 puff Cholecalciferol (Vitamin D3) 2,000 units PO DAILY [facility] Last Admin: 07/06/17 08:28 Dose: 2,000 units Cyanocobalamin (Vitamin B12) 1,000 mcg PO DAILY [facility] Last Admin: 07/06/17 08:28 Dose: 1,000 mcg Docusate Sodium (Colace) 100 mg PO BID PRN PRN Reason: Constipation Last Admin: 07/05/17 08:24 Dose: 100 mg Fluoxetine HCl (Prozac) 10 mg PO DAILY [facility] Last Admin: 07/06/17 08:28 Dose: 10 mg Furosemide (Lasix) 40 mg PO DAILY [facility] Last Admin: 07/06/17 08:28 Dose: 40 mg Gabapentin (Neurontin) 300 mg PO TID [facility] Last Admin: 07/06/17 22:00 Dose: 300 mg Hydromorphone HCl (Dilaudid) 0.5 mg IVPUSH Q2H PRN PRN Reason: Pain (severe 7-10) Promethazine HCl 12.5 mg/ (Sodium Chloride) 50.5 mls @ 100 mls/hr IV Q6H PRN PRN Reason: Nausea/Vomiting Levofloxacin/Dextrose 250 mg/ (Premix) 50 mls @ 50 mls/hr IV Q24H [facility] Vancomycin HCl 1 gm/Vancomycin HCl 250 mg/ Sodium Chloride 250 mls @ 166.667 mls/hr IV Q24H [facility] Levothyroxine Sodium (Synthroid) 88 mcg PO ACBREAKFAST [facility] Last Admin: 07/07/17 05:24 Dose: 88 mcg Lorazepam (Ativan) 0.5 mg IV Q6H PRN PRN Reason: Anxiety Lorazepam (Ativan) 0.5 mg PO TID [facility] Last Admin: 07/06/17 22:00 Dose: 0.5 mg Nystatin (Nystop) 0 gm TOP TID PRN PRN Reason: Itching Ondansetron HCl (Zofran) 4 mg IV Q6H PRN PRN Reason: Nausea/Vomiting Orphenadrine Citrate (Norflex) 100 mg PO Q12H [facility] Last Admin: 07/06/17 21:59 Dose: 100 mg Oxycodone/Acetaminophen (Percocet 325-5 Mg) 1 tab PO Q4H PRN PRN Reason: Pain (moderate 4-6) Last Admin: 07/04/17 08:14 Dose: 1 tab Roflumilast 500 Mcg 0 each PO DAILY [facility] Last Admin: 07/06/17 08:40 Dose: 1 each Incruse Ellipta 62. (5mg (Umeclidinium)) 0 each INH DAILY [facility] Last Admin: 07/06/17 08:31 Dose: 1 each Rosuvastatin 5mg ( (Ptom)) 1 each PO DAILY [facility] Last Admin: 07/06/17 08:35 Dose: 1 each Propranolol La 80mg ((Ptom)) 1 each PO DAILY [facility] Last Admin: 07/06/17 08:34 Dose: 1 each Polyethylene Glycol (Miralax) 17 gm PO DAILY PRN PRN Reason: Constipation Potassium Chloride (Klor-Con M20) 20 meq PO DAILY [facility] Last Admin: 07/06/17 08:28 Dose: 20 meq Senna/Docusate Sodium (Senna Plus) 1 tab PO BID PRN PRN Reason: Constipation Sodium Chloride (Saline Flush) 10 ml FLUSH ASDIRECTED PRN PRN Reason: Keep Vein Open Last Admin: 07/03/17 21:27 Dose: 10 ml Temazepam (Restoril) 7.5 mg PO BEDTIME PRN PRN Reason: Sleep Vancomycin HCl (Pharmacy To Dose - Vancomycin) 1 dose .XX ASDIRECTED [facility] Discontinued Medications Hydromorphone HCl (Dilaudid) 0.5 mg IVPUSH ONETIME ONE Stop: 07/03/17 20:48 Last Admin: 07/03/17 21:24 Dose: 0.5 mg Hydromorphone HCl (Dilaudid) 0.5 mg IVPUSH ONETIME ONE Stop: 07/03/17 22:43 Last Admin: 07/03/17 22:48 Dose: 0.5 mg Sodium Chloride (Normal Saline) 1,000 mls @ 150 mls/hr IV ASDIRECTED [facility] Last Admin: 07/03/17 21:22 Dose: 150 mls/hr Levofloxacin/Dextrose 500 mg/ (Premix) 100 mls @ 100 mls/hr IV ONETIME ONE Stop: 07/06/17 14:29 Last Admin: 07/06/17 14:05 Dose: 100 mls/hr Vancomycin HCl 1 gm/Vancomycin HCl 500 mg/ Sodium Chloride 500 mls @ 125 mls/ hr IV Q24H [facility] Vancomycin HCl 1 gm/Vancomycin HCl 250 mg/ Sodium Chloride 250 mls @ 166.667 mls/hr IV Q24H [facility] Vancomycin HCl 1 gm/Vancomycin HCl 500 mg/ Sodium Chloride 500 mls @ 250 mls/ hr IV ONETIME ONE Stop: 07/06/17 19:59 Last Admin: 07/06/17 19:34 Dose: 250 mls/hr Sodium Chloride (Normal Saline) 1,000 mls @ 75 mls/hr IV ASDIRECTED [facility] Stop: 07/07/17 07:49 Last Admin: 07/06/17 19:35 Dose: 75 mls/hr Albuterol/ (Ipratropium Inhaler) 0 each INH QID [facility] Last Admin: 07/04/17 09:44 Dose: Not Given Propranolol La 80mg ((Ptom)) 80 each PO DAILY [facility] Last Admin: 07/05/17 08:22 Dose: 80 each Rosuvastatin Calcium (Crestor) 5 mg PO DAILY [facility] Last Admin: 07/04/17 08:13 Dose: 5 mg - Exam General: Alert, Oriented, Cooperative, No Acute Distress, Other (Morbidly Obese) HEENT: Pupils Equal, Pupils Reactive, EOMI, Mucous Membr. Moist/[place] Neck: Supple, Trachea Midline, No JVD, No Thyromegaly, Other (short and thick) Lungs: Clear to Auscultation, Normal Respiratory Effort Cardiovascular: Regular Rate, Regular Rhythm GI/Abdominal Exam: Normal Bowel Sounds, Soft, Non-Tender, No Organomegaly, No Distention, No Abnormal Bruit, No Mass, Other (Obese) (Female) Exam: Deferred Back Exam: Normal Inspection, Decreased Range of Motion Extremities: Normal Inspection, Normal Range of Motion, Non-Tender, No Pedal Edema, Normal Capillary Refill, Limited Range of Motion (right arm), Other ( right arm immobilizer) Peripheral Pulses: 2+: Dorsalis Pedis (L), Dorsalis Pedis (R) Skin: Warm, Dry, Intact Neurological: No New Focal Deficit. No: Normal Gait Psy/Mental Status: Alert, Normal Affect, Normal Mood - Problem List Review Problem List Initiated/Reviewed/Updated: Yes - My Orders Last 24 Hours: My Active Orders 07/06/17 17:45 Vancomycin Pharmacy to Dose [Pharmacy to Dose - Vancomycin] 1 dose .XX ASDIRECTED 07/07/17 13:30 Levofloxacin/Dextrose 5%-Water [Levaquin in D5W 250 MG/50 ML] 250 mg Premix Bag 1 bag IV Q24H 07/07/17 18:00 Vancomycin 1 gm Vancomycin 250 mg Sodium Chloride 0.9% [Normal Saline] 250 ml IV Q24H 07/08/17 05:11 CRP [C-REACTIVE PROTEIN] [CHEM] AM 07/09/17 05:11 CRP [C-REACTIVE PROTEIN] [CHEM] AM 07/10/17 05:11 CRP [C-REACTIVE PROTEIN] [CHEM] AM 07/11/17 05:11 CRP [C-REACTIVE PROTEIN] [CHEM] AM - Plan Plan:: Assessment/Plan: Acute: Left Humerus Fracture- spiral, Stable - 2/2 Mechanical Fall but most likely fell from over sedation (see routine home meds) - Risk Factors: Impaired Vision, Morbid Obesity, Abnormal Gait and On Numerous Hyptonic-Sedating Drugs; She is on the following home medications for chronic pain syndrome: [place] 10-325 mg 1 tab po TID, Gabapentin 300 mg po TID, Percocet 10-325 mg po BID PRN, Ativan 0.5 mg po TID PRN, Norflex 100 mg po Q12H and +/- Prozac 10 mg po daily - XR shows mid and proximal diaphysis fracture with some angulation and displacement by about a half shaft width - Case discussed with Dr. Rainey by ED provider; Dr. Rainey recommended immobilizer (sling and swathe) Per discussion with Ortho Team; recommendations is for nonsurgical treatment as above; follow up with orthopedics in 2 weeks for recheck. - PT/OT consult -- recommendations for SNF - Scheduled and PRN Pain Medications--pain under good control at this time. Probable Bacteremia - Pos for GPC; cannot r/o contamination per Microbiology - Afebrile with improved WBC level -Continue IV Levaquin/Vancomycin for antibiotic coverage - Will do skin/whole body survey and repeat UA - No need for repeat CXR-she is asymptomatic - Repeat blood culture x2 today Leukocytosis, Improved - WBC 21.27-->21.57--25K--> 21.72 - She is not on steroids - ? stress reaction, afebrile, other VSS. No c/o dysuria; UA negative yesterday, no cough or URI s/s. - Evaluate for infectious causes: BC x 2 and CXR to be obtained. Both negative - Add CRP today, is 11.5--> 12, continue to monitor - Reviewed case with Dr. Chance this morning; may need Hematology eval as outpatient after discharge - Cont to follow with am labs Very High Fall Risk - She is on multiple Opioids + Psychotropic Meds as noted above - Morbidly Obese affecting her functional status - Consider trimming down her pain regimen Morbid Obesity with BMI of 45.5 - Dietary consult for weight management Opioid Dependence - 2/2 Chronic Pain Syndrome - Consider Narcan on discharge Resolved: AMS/Lethargy---resolving/resolved - Received pain medication in ED +/- if she took her own home night time meds - Aspiration and Fall Precautions Chronic: Impaired Vision COPD, Proventil, Daliresp, and Incruse Ellipta, Supplemental O2 PRN Hypothyroidism, on Synthroid--TSH -0.279, FT4 obtained and is normal at 1.43; recommend recheck thyroid function studies in 1-2 months with PCP. Peripheral Neuropathy, on Neurontin Vitamin D Deficiency- cont supplement Vitamin B12 Deficiency- cont supplement BLAYNE, On CPAP Chronic Pain Syndrome Anxiety on Ativan--chronic- stable, no increased anxiety thus far during her stay MDD--chronic, on Prozac- stable--moods have been pleasant, stable, not sad or weepy thus far during her stay. Plan: She remains clinically stable Continue current treatment Routine AM Labs Aspiration and Fall Precautions Continue PT/OT Encourage to ambulate as tolerated DVT/GI PPx: SCDs and H2B CM/SW for d/c planning---SNF placement with level 2 screening 2/2 hx/o MDD Code status: full PCP is JAIDA Gilliland with [facility]. LOS >96 hours pending SNF acceptance and resolution of probable bacteremia
[2017-07-07] MEDS: GABAPENTIN 300 MG PO SCH ×3 (08:20→21:14)
[2017-07-07] MEDS: FLUOXETINE 10 MG PO SCH (08:20)
[2017-07-07] MEDS: Furosemide 40 MG Tab PO SCH (08:21)
[2017-07-07] MEDS: HYDROCODONE PO SCH ×3 (08:21→21:15)
[2017-07-07] MEDS: ACETAMINOPHEN PO SCH ×3 (08:21→21:15)
[2017-07-07] MEDS: Cyanocobalamin (Vitamin B12) 1,000 MCG Tab PO SCH (08:21)
[2017-07-07] MEDS: Orphenadrine 100 MG Tab.ER PO SCH ×2 (08:21→21:15)
[2017-07-07] MEDS: Cholecalciferol (Vitamin D3) 1,000 Unit Tab PO SCH (08:22)
[2017-07-07] MEDS: Potassium Chloride 20 MEQ Tab.ER (PTOM) PO SCH (08:22)
[2017-07-07] MEDS: LORazepam 0.5 MG Tab PO SCH ×3 (08:23→21:14)
[2017-07-07] MEDS: PROPRANOLOL 80 MG PO SCH (08:25)
[2017-07-07] MEDS: ROSUVASTATIN 5 MG PO SCH (08:26)
[2017-07-07] MEDS: INCRUSE ELLIPTA 62.5 MG INH SCH (10:05)
[2017-07-07] MEDS: FORMOTEROL INH SCH (10:06)
[2017-07-07] MEDS: BUDESONIDE INH SCH (10:06)
[2017-07-07] MEDS: Levofloxacin/Dextrose 5%-Water 250 MG in Premix Bag 1 BAG IV SCH (12:50)
[2017-07-07] MEDS ORDERED: Vancomycin 1 GM, Vancomycin 250 MG in Sodium Chloride 0.9% 250 ML IV SCH (18:00)
--- NOTE | 2017-07-08 00:09 | PCM.PN ---
- General Info Date of Service: 07/08/17 Admission Dx/Problem (Free Text): Right Humerus Fracture Subjective Update: Follow Up Functional Status: Reports: Pain Controlled, Tolerating Diet, Urinating. Denies : New Symptoms - Review of Systems General: Denies: Fever, Weakness, Fatigue, Malaise, Chills HEENT: Reports: No Symptoms Pulmonary: Denies: Shortness of Breath Cardiovascular: Denies: Chest Pain Gastrointestinal: Denies: Abdominal Pain, Nausea, Vomiting Genitourinary: Reports: No Symptoms Musculoskeletal: Reports: No Symptoms Skin: Denies: Cyanosis, Mottled, Pallor, Diaphoresis, Bruising Neurological: Reports: Gait Disturbance. Denies: Confusion, Difficulty Walking , Weakness Psychiatric: Denies: Depression, Anxiety, Agitation, Hallucinations Systems Review Comment:: No overnight or acute issues. She slept pretty good last night. She is essentially the same clinically. Her WBC is now at 20.42 and remains afebrile. She has no complaints this morning. - Patient Data Vitals - Most Recent: Last Vital Signs Temp 36.6 C 07/07/17 19:35 Pulse 72 07/07/17 19:35 Resp 19 07/07/17 19:35 BP 108/53 L 07/07/17 19:35 Pulse Ox 95 07/07/17 22:00 Weight - Most Recent: 114.85 kg I&O - Last 24 Hours: Intake & Output 07/07/17 07/07/17 07/08/17 14:59 22:59 06:59 Intake Total 120 1520 Output Total 600 Balance 120 920 Lab Results Last 24 Hours: Laboratory Results - last 24 hr 07/07/17 07/07/17 07/07/17 Range/Units 05:53 05:53 13:30 WBC 21.72 H (3.98-10.04) K/mm3 RBC 3.75 L (3.98-5.22) M/mm3 Hgb 11.3 (11.2-15.7) gm/L Hct 35.9 (34.1-44.9) % MCV 95.7 H (79.4-94.8) fl MCH 30.1 (25.6-32.2) pg MCHC 31.5 L (32.2-35.5) g/dl RDW Std Deviation 53.4 H (36.4-46.3) fL Plt Count 535 H (182-369) K/mm3 MPV 10.4 (9.4-12.3) fl Neut % (Auto) 67.9 (34.0-71.1) % Lymph % (Auto) 15.0 L (19.3-51.7) % [place] % (Auto) 14.1 H (4.7-12.5) % Eos % (Auto) 1.4 (0.7-5.8) Baso % (Auto) 0.5 (0.1-1.2) % Neut # (Auto) 14.74 H (1.56-6.13) K/mm3 Lymph # (Auto) 3.26 (1.18-3.74) K/mm3 [place] # (Auto) 3.07 H (0.24-0.36) K/mm3 Eos # (Auto) 0.31 (0.04-0.36) K/mm3 Baso # (Auto) 0.11 H (0.01-0.08) K/mm3 Manual Slide Review Abnormal smear Sodium 139 (136-145) mEq/L Potassium 3.7 (3.5-5.1) mEq/L Chloride 103 (98-107) mEq/L Carbon Dioxide 27 (21-32) mEq/L Anion Gap 12.7 (5-15) BUN 25 H (7-18) mg/dL Creatinine 1.1 H (0.55-1.02) mg/dL Est Cr Clr Drug Dosing 34.41 mL/min Estimated GFR (MDRD) 48 (>60) mL/min BUN/Creatinine Ratio 22.7 H (14-18) Glucose 90 (83-115) mg/dL Calcium 9.9 (8.5-10.1) mg/dL Magnesium 2.1 (1.8-2.4) mg/dl C-Reactive Protein 12.0 H* (<1.0) mg/dL Urine Color Yellow (Yellow) Urine Appearance Clear (Clear) Urine pH 6.0 (5.0-8.0) Ur Specific [place] 1.020 (1.005-1.030) Urine Protein Negative (Negative) Urine Glucose (UA) Negative (Negative) Urine Ketones Negative (Negative) Urine Occult Blood Negative (Negative) Urine Nitrite Negative (Negative) Urine Bilirubin Negative (Negative) Urine Urobilinogen 1.0 (0.2-1.0) Ur Leukocyte Esterase Trace H (Negative) Urine RBC 0-5 (0-5) /hpf Urine WBC 0-5 (0-5) /hpf Ur Epithelial Cells 10-20 H (0-5) /hpf Urine Bacteria Few (FEW) /hpf Hyaline Casts 5-10 H (0-5) /lpf Urine Mucus Not seen (FEW) /hpf Med Orders - Current: Current Medications Acetaminophen (Tylenol) 650 mg PO Q4H PRN PRN Reason: Pain (Mild 1-3)/fever Hydrocodone Bitart/Acetaminophen ([place] 325-10 Mg) 1 tab PO TID [facility] Last Admin: 07/07/17 21:15 Dose: 1 tab Albuterol (Proventil Neb Soln) 2.5 mg INH QID PRN PRN Reason: Shortness of Breath Albuterol/Ipratropium (Duoneb 3.0-0.5 Mg/3 Ml) 3 ml NEB Q4H PRN PRN Reason: Shortness Of Breath/wheezing Bisacodyl (Dulcolax) 5 mg PO DAILY PRN PRN Reason: Constipation Budesonide/Formoterol Fumarate (Symbicort 160-4.5 Mcg) 0 gm INH DAILY [facility] Last Admin: 07/07/17 10:06 Dose: 2 puff Cholecalciferol (Vitamin D3) 2,000 units PO DAILY [facility] Last Admin: 07/07/17 08:22 Dose: 2,000 units Cyanocobalamin (Vitamin B12) 1,000 mcg PO DAILY [facility] Last Admin: 07/07/17 08:21 Dose: 1,000 mcg Docusate Sodium (Colace) 100 mg PO BID PRN PRN Reason: Constipation Last Admin: 07/05/17 08:24 Dose: 100 mg Fluoxetine HCl (Prozac) 10 mg PO DAILY [facility] Last Admin: 07/07/17 08:20 Dose: 10 mg Furosemide (Lasix) 40 mg PO DAILY [facility] Last Admin: 07/07/17 08:21 Dose: 40 mg Gabapentin (Neurontin) 300 mg PO TID [facility] Last Admin: 07/07/17 21:14 Dose: 300 mg Hydromorphone HCl (Dilaudid) 0.5 mg IVPUSH Q2H PRN PRN Reason: Pain (severe 7-10) Promethazine HCl 12.5 mg/ (Sodium Chloride) 50.5 mls @ 100 mls/hr IV Q6H PRN PRN Reason: Nausea/Vomiting Levofloxacin/Dextrose 250 mg/ (Premix) 50 mls @ 50 mls/hr IV Q24H [facility] Last Admin: 07/07/17 12:50 Dose: 50 mls/hr Vancomycin HCl 1 gm/Vancomycin HCl 250 mg/ Sodium Chloride 250 mls @ 166.667 mls/hr IV Q24H [facility] Last Admin: 07/07/17 18:52 Dose: 166.667 mls/hr Levothyroxine Sodium (Synthroid) 88 mcg PO ACBREAKFAST [facility] Last Admin: 07/07/17 05:24 Dose: 88 mcg Lorazepam (Ativan) 0.5 mg IV Q6H PRN PRN Reason: Anxiety Lorazepam (Ativan) 0.5 mg PO TID [facility] Last Admin: 07/07/17 21:14 Dose: 0.5 mg Nystatin (Nystop) 0 gm TOP TID PRN PRN Reason: Itching Ondansetron HCl (Zofran) 4 mg IV Q6H PRN PRN Reason: Nausea/Vomiting Orphenadrine Citrate (Norflex) 100 mg PO Q12H [facility] Last Admin: 07/07/17 21:15 Dose: 100 mg Oxycodone/Acetaminophen (Percocet 325-5 Mg) 1 tab PO Q4H PRN PRN Reason: Pain (moderate 4-6) Last Admin: 07/04/17 08:14 Dose: 1 tab Roflumilast 500 Mcg 0 each PO DAILY [facility] Last Admin: 07/07/17 08:25 Dose: 1 each Incruse Ellipta 62. (5mg (Umeclidinium)) 0 each INH DAILY [facility] Last Admin: 07/07/17 10:05 Dose: 1 each Rosuvastatin 5mg ( (Ptom)) 1 each PO DAILY [facility] Last Admin: 07/07/17 08:26 Dose: 1 each Propranolol [place] 80mg ((Ptom)) 1 each PO DAILY [facility] Last Admin: 07/07/17 08:25 Dose: 1 each Polyethylene Glycol (Miralax) 17 gm PO DAILY PRN PRN Reason: Constipation Potassium Chloride (Klor-Con M20) 20 meq PO DAILY [facility] Last Admin: 07/07/17 08:22 Dose: 20 meq Senna/Docusate Sodium (Senna Plus) 1 tab PO BID PRN PRN Reason: Constipation Sodium Chloride (Saline Flush) 10 ml FLUSH ASDIRECTED PRN PRN Reason: Keep Vein Open Last Admin: 07/03/17 21:27 Dose: 10 ml Temazepam (Restoril) 7.5 mg PO BEDTIME PRN PRN Reason: Sleep Vancomycin HCl (Pharmacy To Dose - Vancomycin) 1 dose .XX ASDIRECTED [facility] Discontinued Medications Hydromorphone HCl (Dilaudid) 0.5 mg IVPUSH ONETIME ONE Stop: 07/03/17 20:48 Last Admin: 07/03/17 21:24 Dose: 0.5 mg Hydromorphone HCl (Dilaudid) 0.5 mg IVPUSH ONETIME ONE Stop: 07/03/17 22:43 Last Admin: 07/03/17 22:48 Dose: 0.5 mg Sodium Chloride (Normal Saline) 1,000 mls @ 150 mls/hr IV ASDIRECTED [facility] Last Admin: 07/03/17 21:22 Dose: 150 mls/hr Levofloxacin/Dextrose 500 mg/ (Premix) 100 mls @ 100 mls/hr IV ONETIME ONE Stop: 07/06/17 14:29 Last Admin: 07/06/17 14:05 Dose: 100 mls/hr Vancomycin HCl 1 gm/Vancomycin HCl 500 mg/ Sodium Chloride 500 mls @ 125 mls/ hr IV Q24H [facility] Vancomycin HCl 1 gm/Vancomycin HCl 250 mg/ Sodium Chloride 250 mls @ 166.667 mls/hr IV Q24H [facility] Vancomycin HCl 1 gm/Vancomycin HCl 500 mg/ Sodium Chloride 500 mls @ 250 mls/ hr IV ONETIME ONE Stop: 07/06/17 19:59 Last Admin: 07/06/17 19:34 Dose: 250 mls/hr Sodium Chloride (Normal Saline) 1,000 mls @ 75 mls/hr IV ASDIRECTED [facility] Stop: 07/07/17 07:49 Last Admin: 07/06/17 19:35 Dose: 75 mls/hr Vancomycin HCl 1 gm/ Sodium (Chloride) 250 mls @ 250 mls/hr IV Q24H [facility] Albuterol/ (Ipratropium Inhaler) 0 each INH QID [facility] Last Admin: 07/04/17 09:44 Dose: Not Given Propranolol [place] 80mg ((Ptom)) 80 each PO DAILY [facility] Last Admin: 07/05/17 08:22 Dose: 80 each Rosuvastatin Calcium (Crestor) 5 mg PO DAILY [facility] Last Admin: 07/04/17 08:13 Dose: 5 mg - Exam General: Alert, Oriented, Cooperative, No Acute Distress, Other (Morbidly Obese) HEENT: Pupils Equal, Pupils Reactive, EOMI, Mucous Membr. Moist/[place]: Supple, Trachea Midline, No JVD, No Thyromegaly, Other (short and thick) Lungs: Clear to Auscultation, Normal Respiratory Effort Cardiovascular: Regular Rate, Regular Rhythm GI/Abdominal Exam: Normal Bowel Sounds, Soft, Non-Tender, No Organomegaly, No Distention, No Abnormal Bruit, No Mass, Other (Obese) (Female) Exam: Deferred Back Exam: Normal Inspection, Decreased Range of Motion Extremities: Normal Inspection, Normal Range of Motion, Non-Tender, No Pedal Edema, Normal Capillary Refill, Other (Ringht hand with immobilizer) Peripheral Pulses: 2+: Dorsalis Pedis (L), Dorsalis Pedis (R) Skin: Warm, Dry, Intact Neurological: No New Focal Deficit Psy/Mental Status: Alert, Normal Affect, Normal Mood - Problem List Review Problem List Initiated/Reviewed/Updated: Yes - My Orders Last 24 Hours: My Active Orders 07/07/17 12:47 Blood Culture x2 Reflex Set [OM.PC] Stat 07/07/17 13:30 CULTURE URINE [RM] Routine Levofloxacin/Dextrose 5%-Water [Levaquin in D5W 250 MG/50 ML] 250 mg Premix Bag 1 bag IV Q24H 07/07/17 17:22 CULTURE BLOOD [BC] Timed 07/07/17 17:36 CULTURE BLOOD [BC] Timed 07/07/17 18:00 Vancomycin 1 gm Vancomycin 250 mg Sodium Chloride 0.9% [Normal Saline] 250 ml IV Q24H 07/08/17 05:11 CRP [C-REACTIVE PROTEIN] [CHEM] AM 07/09/17 05:11 CRP [C-REACTIVE PROTEIN] [CHEM] AM 07/10/17 05:11 CRP [C-REACTIVE PROTEIN] [CHEM] AM 07/11/17 05:11 CRP [C-REACTIVE PROTEIN] [CHEM] AM - Plan Plan:: Assessment/Plan: Acute: Left Humerus Fracture- spiral, Stable - 2/2 Mechanical Fall but most likely fell from over sedation (see routine home meds) - Risk Factors: Impaired Vision, Morbid Obesity, Abnormal Gait and On Numerous Hyptonic-Sedating Drugs; She is on the following home medications for chronic pain syndrome: [place] 10-325 mg 1 tab po TID, Gabapentin 300 mg po TID, Percocet 10-325 mg po BID PRN, Ativan 0.5 mg po TID PRN, Norflex 100 mg po Q12H and +/- Prozac 10 mg po daily - XR shows mid and proximal diaphysis fracture with some angulation and displacement by about a half shaft width - Case discussed with Dr. Rainey by ED provider; Dr. Rainey recommended immobilizer (sling and swathe) Per discussion with Ortho Team; recommendations is for nonsurgical treatment as above; follow up with orthopedics in 2 weeks for recheck. - PT/OT consult -- recommendations for SNF - Scheduled and PRN Pain Medications--pain under good control at this time. Probable Bacteremia - Pos for GPC; cannot r/o contamination per Microbiology - Afebrile with improved WBC level - Continue IV Levaquin/Vancomycin for antibiotic coverage - Skin/whole body survey- was benign and repeat UA was negative - No need for repeat CXR-she is asymptomatic - Repeat blood culture x 2: awaiting final results Leukocytosis, Improved - WBC 21.27-->21.57--25K--> 21.72---> 20.42 - She is not on steroids - ? stress reaction, afebrile, other VSS. No c/o dysuria; UA negative yesterday, no cough or URI s/s. - Evaluate for infectious causes: BC x 2 and CXR to be obtained. Both negative - CRP 11.5--> 12--> now 8.8, continue to monitor - Reviewed case with Dr. Chance this morning; may need Hematology eval as outpatient after discharge - Cont to follow with am labs Very High Fall Risk - She is on multiple Opioids + Psychotropic Meds as noted above - Morbidly Obese affecting her functional status - Consider trimming down her pain regimen Morbid Obesity with BMI of 45.5 - Dietary consult for weight management Opioid Dependence - 2/2 Chronic Pain Syndrome - Consider Narcan on discharge Resolved: AMS/Lethargy---resolving/resolved - Received pain medication in ED +/- if she took her own home night time meds - Aspiration and Fall Precautions Chronic: Impaired Vision COPD, Proventil, Daliresp, and Incruse Ellipta, Supplemental O2 PRN Hypothyroidism, on Synthroid--TSH -0.279, FT4 obtained and is normal at 1.43; recommend recheck thyroid function studies in 1-2 months with PCP. Peripheral Neuropathy, on Neurontin Vitamin D Deficiency- cont supplement Vitamin B12 Deficiency- cont supplement BLAYNE, On CPAP Chronic Pain Syndrome Anxiety on Ativan--chronic- stable, no increased anxiety thus far during her stay MDD--chronic, on Prozac- stable--moods have been pleasant, stable, not sad or weepy thus far during her stay. Plan: She is essentially the same as yesterday Continue current treatment Routine AM Labs Aspiration and Fall Precautions Continue PT/OT Encourage to ambulate as tolerated DVT/GI PPx: SCDs and H2B CM/SW for d/c planning---SNF placement with level 2 screening 2/2 hx/o MDD Code status: full PCP is JAIDA Gilliland with [facility]. LOS > 96 hours pending SNF acceptance and resolution of probable bacteremia
[2017-07-08] MEDS: Levothyroxine 88 MCG Tab (PTOM) PO SCH (06:11)
[2017-07-08] MEDS ORDERED: Magnesium Hydroxide 400 MG/5 ML Susp 30 ML Cup PO ONE (06:25)
[2017-07-08] MEDS: FORMOTEROL INH SCH (09:02)
[2017-07-08] MEDS: BUDESONIDE INH SCH (09:02)
[2017-07-08] MEDS: INCRUSE ELLIPTA 62.5 MG INH SCH (09:02)
[2017-07-08] MEDS: Cyanocobalamin (Vitamin B12) 1,000 MCG Tab PO SCH (09:35)
[2017-07-08] MEDS: Potassium Chloride 20 MEQ Tab.ER (PTOM) PO SCH (09:35)
[2017-07-08] MEDS: FLUOXETINE 10 MG PO SCH (09:35)
[2017-07-08] MEDS: GABAPENTIN 300 MG PO SCH ×3 (09:35→20:42)
[2017-07-08] MEDS: Cholecalciferol (Vitamin D3) 1,000 Unit Tab PO SCH (09:35)
[2017-07-08] MEDS: Orphenadrine 100 MG Tab.ER PO SCH ×2 (09:35→20:42)
[2017-07-08] MEDS: LORazepam 0.5 MG Tab PO SCH ×3 (09:36→20:41)
[2017-07-08] MEDS: Furosemide 40 MG Tab PO SCH (09:36)
[2017-07-08] MEDS: ACETAMINOPHEN PO SCH ×3 (09:37→20:42)
[2017-07-08] MEDS: HYDROCODONE PO SCH ×3 (09:37→20:42)
[2017-07-08] MEDS: ROSUVASTATIN 5 MG PO SCH (09:38)
[2017-07-08] MEDS: PROPRANOLOL 80 MG PO SCH (09:38)
[2017-07-08] MEDS: Levofloxacin/Dextrose 5%-Water 250 MG in Premix Bag 1 BAG IV SCH (13:02)
[2017-07-08] MEDS ORDERED: Vancomycin 1 GM, Vancomycin 250 MG in Sodium Chloride 0.9% 250 ML IV SCH (18:00)
[2017-07-09] MEDS: Levothyroxine 88 MCG Tab (PTOM) PO SCH (05:31)
[2017-07-09] MEDS: Furosemide 40 MG Tab PO SCH (08:23)
[2017-07-09] MEDS: Orphenadrine 100 MG Tab.ER PO SCH ×2 (08:23→20:50)
[2017-07-09] MEDS: ACETAMINOPHEN PO SCH ×3 (08:24→20:51)
[2017-07-09] MEDS: Cholecalciferol (Vitamin D3) 1,000 Unit Tab PO SCH (08:24)
[2017-07-09] MEDS: GABAPENTIN 300 MG PO SCH ×3 (08:24→20:50)
[2017-07-09] MEDS: Cyanocobalamin (Vitamin B12) 1,000 MCG Tab PO SCH (08:24)
[2017-07-09] MEDS: HYDROCODONE PO SCH ×3 (08:24→20:51)
[2017-07-09] MEDS: Potassium Chloride 20 MEQ Tab.ER (PTOM) PO SCH (08:25)
[2017-07-09] MEDS: FLUOXETINE 10 MG PO SCH (08:25)
[2017-07-09] MEDS: LORazepam 0.5 MG Tab PO SCH ×3 (08:31→20:51)
[2017-07-09] MEDS: PROPRANOLOL 80 MG PO SCH (08:33)
[2017-07-09] MEDS: ROSUVASTATIN 5 MG PO SCH (08:34)
[2017-07-09] MEDS: INCRUSE ELLIPTA 62.5 MG INH SCH (09:18)
[2017-07-09] MEDS: FORMOTEROL INH SCH (09:18)
[2017-07-09] MEDS: BUDESONIDE INH SCH (09:18)
--- NOTE | 2017-07-09 09:23 | PCM.PN ---
- General Info Date of Service: 07/09/17 Admission Dx/Problem (Free Text): Right Humerus Fracture Nancy is seen this morning sitting up in chair eating breakfast this morning. Left arm is in immobilizer. States pain is "there", pain medications is helping. No other new concerns. DC plan is pending SNF placement. Functional Status: Reports: Pain Controlled, Tolerating Diet, Ambulating, Urinating - Review of Systems General: Reports: No Symptoms HEENT: Reports: No Symptoms Pulmonary: Reports: No Symptoms, Other (chronic O2 therapy) Cardiovascular: Reports: No Symptoms Gastrointestinal: Reports: No Symptoms Genitourinary: Reports: No Symptoms Musculoskeletal: Reports: Arm Pain (left humerus) - Patient Data Vitals - Most Recent: Last Vital Signs Temp 97.5 F 07/09/17 07:43 Pulse 77 07/09/17 07:43 Resp 18 07/09/17 07:43 BP 100/73 07/09/17 07:43 Pulse Ox 96 07/09/17 07:43 Weight - Most Recent: 253 lb 14.4 oz I&O - Last 24 Hours: Intake & Output 07/08/17 07/09/17 07/09/17 22:59 06:59 14:59 Intake Total 797 1250 Output Total 800 800 Balance -3 450 Lab Results Last 24 Hours: Laboratory Results - last 24 hr 07/08/17 07/08/17 07/09/17 Range/Units 05:41 05:41 06:11 WBC 20.42 H (3.98-10.04) K/mm3 RBC 3.72 L (3.98-5.22) M/mm3 Hgb 11.2 (11.2-15.7) gm/L Hct 35.4 (34.1-44.9) % MCV 95.2 H (79.4-94.8) fl MCH 30.1 (25.6-32.2) pg MCHC 31.6 L (32.2-35.5) g/dl RDW Std Deviation 53.0 H (36.4-46.3) fL Plt Count 555 H (182-369) K/mm3 MPV 10.6 (9.4-12.3) fl Neut % (Auto) 68.5 (34.0-71.1) % Lymph % (Auto) 13.4 L (19.3-51.7) % [place] % (Auto) 12.7 H (4.7-12.5) % Eos % (Auto) 3.3 (0.7-5.8) Baso % (Auto) 0.7 (0.1-1.2) % Neut # (Auto) 13.97 H (1.56-6.13) K/mm3 Lymph # (Auto) 2.74 (1.18-3.74) K/mm3 [place] # (Auto) 2.60 H (0.24-0.36) K/mm3 Eos # (Auto) 0.68 H (0.04-0.36) K/mm3 Baso # (Auto) 0.14 H (0.01-0.08) K/mm3 Manual Slide Review Abnormal smear Sodium 135 L 140 (136-145) mEq/L Potassium 3.7 3.6 (3.5-5.1) mEq/L Chloride 102 104 (98-107) mEq/L Carbon Dioxide 26 29 (21-32) mEq/L Anion Gap 10.7 10.6 (5-15) BUN 24 H 20 H (7-18) mg/dL Creatinine 1.1 H 1.1 H (0.55-1.02) mg/dL Est Cr Clr Drug Dosing 34.41 34.41 mL/min Estimated GFR (MDRD) 48 48 (>60) mL/min BUN/Creatinine Ratio 21.8 H 18.2 H (14-18) Glucose 103 102 (83-115) mg/dL Calcium 9.5 9.8 (8.5-10.1) mg/dL C-Reactive Protein 6.1 H* (<1.0) mg/dL 07/09/17 Range/Units 06:11 WBC 19.35 H (3.98-10.04) K/mm3 RBC 3.65 L (3.98-5.22) M/mm3 Hgb 11.0 L (11.2-15.7) gm/L Hct 34.9 (34.1-44.9) % MCV 95.6 H (79.4-94.8) fl MCH 30.1 (25.6-32.2) pg MCHC 31.5 L (32.2-35.5) g/dl RDW Std Deviation 53.7 H (36.4-46.3) fL Plt Count 598 H (182-369) K/mm3 MPV 10.3 (9.4-12.3) fl Neut % (Auto) 63.7 (34.0-71.1) % Lymph % (Auto) 17.3 L (19.3-51.7) % [place] % (Auto) 12.9 H (4.7-12.5) % Eos % (Auto) 3.7 (0.7-5.8) Baso % (Auto) 0.8 (0.1-1.2) % Neut # (Auto) 12.34 H (1.56-6.13) K/mm3 Lymph # (Auto) 3.35 (1.18-3.74) K/mm3 [place] # (Auto) 2.49 H (0.24-0.36) K/mm3 Eos # (Auto) 0.71 H (0.04-0.36) K/mm3 Baso # (Auto) 0.15 H (0.01-0.08) K/mm3 Manual Slide Review Abnormal smear Sodium (136-145) mEq/L Potassium (3.5-5.1) mEq/L Chloride (98-107) mEq/L Carbon Dioxide (21-32) mEq/L Anion Gap (5-15) BUN (7-18) mg/dL Creatinine (0.55-1.02) mg/dL Est Cr Clr Drug Dosing mL/min Estimated GFR (MDRD) (>60) mL/min BUN/Creatinine Ratio (14-18) Glucose (83-115) mg/dL Calcium (8.5-10.1) mg/dL C-Reactive Protein (<1.0) mg/dL Nawaf Results Last 24 Hours: Microbiology 07/07/17 13:30 Urine Culture - Final Urine, Clean Catch MIXED SIDDHARTHA SUGGESTIVE OF CONTAMINATION. 07/07/17 17:36 Aerobic Blood Culture - Preliminary Blood - Venous - Lab Draw NO GROWTH AFTER 1 DAY Anaerobic Blood Culture - Preliminary NO GROWTH AFTER 1 DAY 07/07/17 17:22 Aerobic Blood Culture - Preliminary Blood - Venous NO GROWTH AFTER 1 DAY Anaerobic Blood Culture - Preliminary NO GROWTH AFTER 1 DAY Med Orders - Current: Current Medications Acetaminophen (Tylenol) 650 mg PO Q4H PRN PRN Reason: Pain (Mild 1-3)/fever Hydrocodone Bitart/Acetaminophen (Cuney 325-10 Mg) 1 tab PO TID [facility] Last Admin: 07/09/17 08:24 Dose: 1 tab Albuterol (Proventil Neb Soln) 2.5 mg INH QID PRN PRN Reason: Shortness of Breath Albuterol/Ipratropium (Duoneb 3.0-0.5 Mg/3 Ml) 3 ml NEB Q4H PRN PRN Reason: Shortness Of Breath/wheezing Bisacodyl (Dulcolax) 5 mg PO DAILY PRN PRN Reason: Constipation Budesonide/Formoterol Fumarate (Symbicort 160-4.5 Mcg) 0 gm INH DAILY [facility] Last Admin: 07/08/17 09:02 Dose: 2 puff Cholecalciferol (Vitamin D3) 2,000 units PO DAILY [facility] Last Admin: 07/09/17 08:24 Dose: 2,000 units Cyanocobalamin (Vitamin B12) 1,000 mcg PO DAILY [facility] Last Admin: 07/09/17 08:24 Dose: 1,000 mcg Docusate Sodium (Colace) 100 mg PO BID PRN PRN Reason: Constipation Last Admin: 07/05/17 08:24 Dose: 100 mg Fluoxetine HCl (Prozac) 10 mg PO DAILY [facility] Last Admin: 07/09/17 08:25 Dose: 10 mg Furosemide (Lasix) 40 mg PO DAILY [facility] Last Admin: 07/09/17 08:23 Dose: 40 mg Gabapentin (Neurontin) 300 mg PO TID [facility] Last Admin: 07/09/17 08:24 Dose: 300 mg Hydromorphone HCl (Dilaudid) 0.5 mg IVPUSH Q2H PRN PRN Reason: Pain (severe 7-10) Promethazine HCl 12.5 mg/ (Sodium Chloride) 50.5 mls @ 100 mls/hr IV Q6H PRN PRN Reason: Nausea/Vomiting Levofloxacin (Levaquin) 250 mg PO Q24H [facility] Levothyroxine Sodium (Synthroid) 88 mcg PO ACBREAKFAST [facility] Last Admin: 07/09/17 05:31 Dose: 88 mcg Lorazepam (Ativan) 0.5 mg IV Q6H PRN PRN Reason: Anxiety Lorazepam (Ativan) 0.5 mg PO TID [facility] Last Admin: 07/09/17 08:31 Dose: 0.5 mg Nystatin (Nystop) 0 gm TOP TID PRN PRN Reason: Itching Ondansetron HCl (Zofran) 4 mg IV Q6H PRN PRN Reason: Nausea/Vomiting Orphenadrine Citrate (Norflex) 100 mg PO Q12H [facility] Last Admin: 07/09/17 08:23 Dose: 100 mg Oxycodone/Acetaminophen (Percocet 325-5 Mg) 1 tab PO Q4H PRN PRN Reason: Pain (moderate 4-6) Last Admin: 07/04/17 08:14 Dose: 1 tab Roflumilast 500 Mcg 0 each PO DAILY [facility] Last Admin: 07/09/17 08:33 Dose: 1 each Incruse Ellipta 62. (5mg (Umeclidinium)) 0 each INH DAILY [facility] Last Admin: 07/08/17 09:02 Dose: 1 each Rosuvastatin 5mg ( (Ptom)) 1 each PO DAILY [facility] Last Admin: 07/09/17 08:34 Dose: 1 each Propranolol La 80mg ((Ptom)) 1 each PO DAILY [facility] Last Admin: 07/09/17 08:33 Dose: 1 each Polyethylene Glycol (Miralax) 17 gm PO DAILY PRN PRN Reason: Constipation Potassium Chloride (Klor-Con M20) 20 meq PO DAILY [facility] Last Admin: 07/09/17 08:25 Dose: 20 meq Senna/Docusate Sodium (Senna Plus) 1 tab PO BID PRN PRN Reason: Constipation Sodium Chloride (Saline Flush) 10 ml FLUSH ASDIRECTED PRN PRN Reason: Keep Vein Open Last Admin: 07/03/17 21:27 Dose: 10 ml Temazepam (Restoril) 7.5 mg PO BEDTIME PRN PRN Reason: Sleep Discontinued Medications Hydromorphone HCl (Dilaudid) 0.5 mg IVPUSH ONETIME ONE Stop: 07/03/17 20:48 Last Admin: 07/03/17 21:24 Dose: 0.5 mg Hydromorphone HCl (Dilaudid) 0.5 mg IVPUSH ONETIME ONE Stop: 07/03/17 22:43 Last Admin: 07/03/17 22:48 Dose: 0.5 mg Sodium Chloride (Normal Saline) 1,000 mls @ 150 mls/hr IV ASDIRECTED [facility] Last Admin: 07/03/17 21:22 Dose: 150 mls/hr Levofloxacin/Dextrose 500 mg/ (Premix) 100 mls @ 100 mls/hr IV ONETIME ONE Stop: 07/06/17 14:29 Last Admin: 07/06/17 14:05 Dose: 100 mls/hr Levofloxacin/Dextrose 250 mg/ (Premix) 50 mls @ 50 mls/hr IV Q24H [facility] Last Admin: 07/08/17 13:02 Dose: 50 mls/hr Vancomycin HCl 1 gm/Vancomycin HCl 500 mg/ Sodium Chloride 500 mls @ 125 mls/ hr IV Q24H [facility] Vancomycin HCl 1 gm/Vancomycin HCl 250 mg/ Sodium Chloride 250 mls @ 166.667 mls/hr IV Q24H [facility] Vancomycin HCl 1 gm/Vancomycin HCl 250 mg/ Sodium Chloride 250 mls @ 166.667 mls/hr IV Q24H [facility] Last Admin: 07/07/17 18:52 Dose: 166.667 mls/hr Vancomycin HCl 1 gm/Vancomycin HCl 500 mg/ Sodium Chloride 500 mls @ 250 mls/ hr IV ONETIME ONE Stop: 07/06/17 19:59 Last Admin: 07/06/17 19:34 Dose: 250 mls/hr Sodium Chloride (Normal Saline) 1,000 mls @ 75 mls/hr IV ASDIRECTED [facility] Stop: 07/07/17 07:49 Last Admin: 07/06/17 19:35 Dose: 75 mls/hr Vancomycin HCl 1 gm/ Sodium (Chloride) 250 mls @ 250 mls/hr IV Q24H [facility] Vancomycin HCl 1 gm/Vancomycin HCl 250 mg/ Sodium Chloride 250 mls @ 166.667 mls/hr IV Q24H [facility] Last Admin: 07/08/17 17:48 Dose: 166.667 mls/hr Magnesium Hydroxide (Milk Of Magnesia) 30 ml PO ONETIME ONE Stop: 07/08/17 06:26 Last Admin: 07/08/17 06:32 Dose: 30 ml Albuterol/ (Ipratropium Inhaler) 0 each INH QID [facility] Last Admin: 07/04/17 09:44 Dose: Not Given Propranolol La 80mg ((Ptom)) 80 each PO DAILY [facility] Last Admin: 02/01/18 08:22 Dose: 80 each Rosuvastatin Calcium (Crestor) 5 mg PO DAILY [facility] Last Admin: 07/04/17 08:13 Dose: 5 mg Vancomycin HCl (Pharmacy To Dose - Vancomycin) 1 dose .XX ASDIRECTED RYAN - Exam Quality Assessment: Supplemental Oxygen, DVT Prophylaxis General: Alert, Oriented, Cooperative, No Acute Distress HEENT: Pupils Equal, EOMI, Mucous Membr. Moist/[place] Neck: Supple Lungs: Clear to Auscultation, Normal Respiratory Effort, Decreased Breath Sounds (bases) Cardiovascular: Regular Rate, Regular Rhythm GI/Abdominal Exam: Normal Bowel Sounds, Soft, Non-Tender, Other (round/obese) (Female) Exam: Deferred Extremities: No Pedal Edema, Normal Capillary Refill, Other (SCD's present bilat ) Peripheral Pulses: 2+: Dorsalis Pedis (L), Dorsalis Pedis (R) Neurological: No New Focal Deficit Psy/Mental Status: Alert, Normal Affect, Normal Mood - Problem List & Annotations (1) Fall SNOMED Code(s): 4557919 Code(s): W19.XXXA - UNSPECIFIED FALL, INITIAL ENCOUNTER Status: Acute Priority: High Current Visit: Yes Qualifiers: Encounter type: initial encounter Qualified Code(s): W19.XXXA - Unspecified fall, initial encounter (2) Fracture of humeral shaft, left, closed SNOMED Code(s): 08308475 Code(s): S42.302A - UNSP FRACTURE OF SHAFT OF HUMERUS, LEFT ARM, INIT Status: Acute Priority: High Current Visit: Yes Qualifiers: Encounter type: initial encounter Fracture morphology: spiral Fracture alignment: displaced Qualified Code(s): S42.342A - Displaced spiral fracture of shaft of humerus, left arm, initial encounter for closed fracture (3) Morbid obesity SNOMED Code(s): 401044841 Code(s): E66.01 - MORBID (SEVERE) OBESITY DUE TO EXCESS CALORIES Status: Chronic Priority: Medium Current Visit: No (4) COPD (chronic obstructive pulmonary disease) SNOMED Code(s): 56351176 Code(s): J44.9 - CHRONIC OBSTRUCTIVE PULMONARY DISEASE, UNSPECIFIED Status : Chronic Priority: Medium Current Visit: No Qualifiers: COPD type: unspecified COPD Qualified Code(s): J44.9 - Chronic obstructive pulmonary disease, unspecified (5) Leukocytosis SNOMED Code(s): 810464306 Code(s): D72.829 - ELEVATED WHITE BLOOD CELL COUNT, UNSPECIFIED Status: Acute Priority: High Current Visit: Yes Qualifiers: Leukocytosis type: unspecified Qualified Code(s): D72.829 - Elevated white blood cell count, unspecified - Problem List Review Problem List Initiated/Reviewed/Updated: Yes - My Orders Last 24 Hours: My Active Orders 07/09/17 13:00 Levofloxacin [Levaquin] 250 mg PO Q24H - Plan Plan:: Assessment/Plan: Acute: Left Humerus Fracture- spiral, Stable - 2/2 Mechanical Fall but most likely fell from over sedation (see routine home meds) - Risk Factors: Impaired Vision, Morbid Obesity, Abnormal Gait and On Numerous Hyptonic-Sedating Drugs; She is on the following home medications for chronic pain syndrome: Cuney 10-325 mg 1 tab po TID, Gabapentin 300 mg po TID, Percocet 10-325 mg po BID PRN, Ativan 0.5 mg po TID PRN, Norflex 100 mg po Q12H and +/- Prozac 10 mg po daily - XR shows mid and proximal diaphysis fracture with some angulation and displacement by about a half shaft width - Case discussed with Dr. Rainey by ED provider; Dr. Rainey recommended immobilizer (sling and swathe) Per discussion with Ortho Team; recommendations is for nonsurgical treatment as above; follow up with orthopedics in 2 weeks for recheck. - PT/OT consult -- recommendations for SNF - Scheduled and PRN Pain Medications--pain under good control at this time. Probable Bacteremia - Pos for GPC; cannot r/o contamination per Microbiology - Afebrile with improved WBC level but still elevated - Continue IV Levaquin/Vancomycin for antibiotic coverage--Repeat BC negative , will DC vanco and transition to PO levaquin 250mg daily - Skin/whole body survey- was benign and repeat UA was negative - One view CXR obtained and is negative. - Repeat blood culture x 2: negative Leukocytosis, Improved - WBC 21.27-->21.57--25K--> 21.72---> 20.42--19K - She is not on steroids; she is aspleenic - ? stress reaction, afebrile, other VSS. No c/o dysuria; UA negative yesterday, no cough or URI s/s. - Evaluate for infectious causes: BC x 2 and CXR to be obtained. Both negative - CRP 11.5--> 12--> now 8.8, continue to monitor - Reviewed case with Dr. Chance this morning; may need Hematology eval as outpatient after discharge - Cont to follow with am labs Very High Fall Risk - She is on multiple Opioids + Psychotropic Meds as noted above - Morbidly Obese affecting her functional status - Consider trimming down her pain regimen Morbid Obesity with BMI of 45.5 - Dietary consult for weight management Opioid Dependence - 2/2 Chronic Pain Syndrome - Consider Narcan on discharge Resolved: AMS/Lethargy---resolving/resolved - Received pain medication in ED +/- if she took her own home night time meds - Aspiration and Fall Precautions Chronic: Impaired Vision COPD, Proventil, Daliresp, and Incruse Ellipta, Supplemental O2 PRN Hypothyroidism, on Synthroid--TSH -0.279, FT4 obtained and is normal at 1.43; recommend recheck thyroid function studies in 1-2 months with PCP. Peripheral Neuropathy, on Neurontin Vitamin D Deficiency- cont supplement Vitamin B12 Deficiency- cont supplement BLAYNE, On CPAP Chronic Pain Syndrome Anxiety on Ativan--chronic- stable, no increased anxiety thus far during her stay MDD--chronic, on Prozac- stable--moods have been pleasant, stable, not sad or weepy thus far during her stay. Plan: She is essentially the same - pain is controlled. Continue current treatment Routine AM Labs Aspiration and Fall Precautions Continue PT/OT Encourage to ambulate as tolerated DVT/GI PPx: SCDs and H2B CM/SW for d/c planning---SNF placement with level 2 screening 2/2 hx/o MDD Code status: full PCP is JAIDA Gilliland with [facility]. LOS > 96 hours pending SNF acceptance and resolution of probable bacteremia
[2017-07-09] MEDS: Acetaminophen/oxyCODONE 325-5 MG Tab PO PRN (09:41)
[2017-07-09] MEDS: Levofloxacin 250 MG Tab PO SCH (12:38)
[2017-07-10] MEDS: Levothyroxine 88 MCG Tab (PTOM) PO SCH (05:44)
[2017-07-10] MEDS: HYDROCODONE PO SCH ×3 (08:39→21:05)
[2017-07-10] MEDS: ACETAMINOPHEN PO SCH ×3 (08:39→21:05)
[2017-07-10] MEDS: Cyanocobalamin (Vitamin B12) 1,000 MCG Tab PO SCH (08:40)
[2017-07-10] MEDS: Cholecalciferol (Vitamin D3) 1,000 Unit Tab PO SCH (08:40)
[2017-07-10] MEDS: Furosemide 40 MG Tab PO SCH (08:41)
[2017-07-10] MEDS: GABAPENTIN 300 MG PO SCH ×3 (08:41→21:05)
[2017-07-10] MEDS: Orphenadrine 100 MG Tab.ER PO SCH ×2 (08:41→21:06)
[2017-07-10] MEDS: Potassium Chloride 20 MEQ Tab.ER (PTOM) PO SCH (08:41)
[2017-07-10] MEDS: PROPRANOLOL 80 MG PO SCH (08:42)
[2017-07-10] MEDS: FLUOXETINE 10 MG PO SCH (08:42)
[2017-07-10] MEDS: ROSUVASTATIN 5 MG PO SCH (08:43)
[2017-07-10] MEDS: LORazepam 0.5 MG Tab PO SCH ×3 (08:43→21:05)
[2017-07-10] MEDS: FORMOTEROL INH SCH (08:45)
[2017-07-10] MEDS: BUDESONIDE INH SCH (08:45)
[2017-07-10] MEDS: INCRUSE ELLIPTA 62.5 MG INH SCH (08:45)
--- NOTE | 2017-07-10 09:56 | PCM.CONS ---
H&P History of Present Illness - General Date of Service: 07/04/17 Admit Problem/Dx: Right Humerus Fracture Nancy is seen this morning sitting up in chair eating breakfast this morning. Left arm is in immobilizer. States pain is "there", pain medications is helping. No other new concerns. DC plan is pending SNF placement. Source of Information: Patient, Provider History Limitations: Reports: No Limitations - History of Present Illness Initial Comments - Free Text/Narative: This is a 77 year old right hand dominant female who comes in to the hospital after a fall at the assisted living center. Patient states she had right knee pain as well as immediate left humerus pain. Patient was brought to the ED where she was found to have a left humeral shaft fracture. She was subsequently admitted as she was unsafe to return to assisted living and having difficulty with pain. She denies previous pain or injury to the left arm before this fall. She states she is low demand and uses a walker for ambulation most of the time. She states her right knee pain is not as bad today. Left Shoulder Pain Score (Numeric/FACES): 7 - Related Data Allergies/Adverse Reactions: Allergies Allergy/AdvReac Type Severity Reaction Status Date / Time doxycycline Allergy Cannot Verified 07/03/17 20:34 Remember tiotropium Allergy Cannot Verified 07/03/17 20:34 [From Spiriva with Remember HandiHaler] tramadol [From Ultracet] Allergy Cannot Verified 07/03/17 20:34 Remember Home Medications: Home Meds Budesonide/Formoterol Fumarate [Symbicort 160-4.5 Mcg Inhaler] 2 puff IH BID [History] Hydrocodone/Acetaminophen [Hydrocodon-Acetaminophn 10-325] 1 tab PO TID [History] Potassium Chloride 20 meq PO DAILY 08/23/16 [History] Ipratropium/Albuterol Sulfate [Combivent Respimat Inhal [place]] 1 puff INH QID [History] FLUoxetine [PROzac] 10 mg PO DAILY #30 cap 09/20/16 [Rx] Albuterol [Proventil Neb Soln] 3 ml INH QID PRN 07/03/17 [History] Cholecalciferol (Vitamin D3) [Vitamin D3] 2,000 unit PO DAILY 07/03/17 [History] Cyanocobalamin (Vitamin B-12) [Vitamin B-12] 1,000 mcg PO DAILY 07/03/17 [ History] Furosemide [Lasix] 40 mg PO DAILY 07/03/17 [History] Gabapentin [Neurontin] 300 mg PO TID 07/03/17 [History] Hydrocodone/Acetaminophen [Hydrocodon-Acetaminophn 10-325] 1 tab PO BID PRN [History] Ibuprofen [Motrin] 800 mg PO DAILY PRN 07/03/17 [History] LORazepam [Ativan] 0.5 mg PO TID 07/03/17 [History] Levothyroxine [Synthroid] 88 mcg PO DAILY 07/03/17 [History] Nystatin 1 applic TOP TID PRN 07/03/17 [History] Orphenadrine [Norflex] 100 mg PO Q12H 07/03/17 [History] Propranolol [Inderal LA] 80 mg PO DAILY 07/03/17 [History] Roflumilast [Daliresp] 500 mcg PO DAILY 07/03/17 [History] Rosuvastatin [Crestor] 5 mg PO DAILY 07/03/17 [History] Umeclidinium [place] [Incruse Ellipta] 1 puff INH DAILY 07/03/17 [History] Past Medical History HEENT History: Reports: Impaired Vision, Other (See Below) Other HEENT History: wears glasses Cardiovascular History: Reports: Hypertension Respiratory History: Reports: COPD Gastrointestinal History: Reports: Diverticulosis Genitourinary History: Reports: None Musculoskeletal History: Reports: Arthritis, Back Pain, Chronic Neurological History: Reports: Migraines Psychiatric History: Reports: Anxiety, Depression Endocrine/Metabolic History: Reports: Hypothyroidism, Obesity/BMI 30+ Hematologic History: Reports: B12 Deficiency Immunologic History: Reports: None Dermatologic History: Reports: Other (See Below) Other Dermatologic History: dry skin - Infectious Disease History Infectious Disease History: Reports: Shingles - Past Surgical History Respiratory Surgical History: Reports: None GI Surgical History: Reports: Hernia Repair/Other Neurological Surgical History: Reports: Lumbar Spine Dermatological Surgical History: Reports: None Social & Family History - Family History Family Medical History: Noncontributory - Tobacco Use Smoking Status *Q: Former Smoker Years of Tobacco use: 30 Packs/Tins Daily: 1 Used Tobacco, but Quit: No Month Tobacco Last Used: many years ago Second Hand Smoke Exposure: No - Caffeine Use Caffeine Use: Reports: None - Recreational Drug Use Recreational Drug Use: No - Living Situation & Occupation Living situation: Reports: Alone Occupation: Retired H&P Review of Systems - Review of Systems: Review Of Systems: ROS reveals no pertinent complaints other than HPI. Exam - Exam Exam: See Below - Vital Signs Vital Signs: Last Vital Signs Temp 36.6 C 07/10/17 08:37 Pulse 84 07/10/17 08:37 Resp 21 H 07/10/17 08:37 BP 133/88 07/10/17 08:37 Pulse Ox 93 L 07/10/17 08:45 Weight: 115.53 kg - Exam Physical Exam Comments:: LUE: patient has no tenderness to palpation to the left clavicle, positive tenderness diffusely to the left humerus, no elbow tenderness, able to flex and extend the IP joint of thumb, abduct and adduct the fingers and oppose the thumb , NVI to the axillary, median ,ulnar and radial nerves, 2+ distal radial pulses RLE: no pain with log roll right hip, no tenderness at todays visit - Patient Data Lab Results Last 24 hrs: Laboratory Results - last 24 hr 07/10/17 07/10/17 Range/Units 05:39 05:39 WBC 18.18 H (3.98-10.04) K/mm3 RBC 3.64 L (3.98-5.22) M/mm3 Hgb 11.0 L (11.2-15.7) gm/L Hct 34.8 (34.1-44.9) % MCV 95.6 H (79.4-94.8) fl MCH 30.2 (25.6-32.2) pg MCHC 31.6 L (32.2-35.5) g/dl RDW Std Deviation 53.0 H (36.4-46.3) fL Plt Count 607 H (182-369) K/mm3 MPV 10.5 (9.4-12.3) fl Neut % (Auto) 63.0 (34.0-71.1) % Lymph % (Auto) 17.5 L (19.3-51.7) % [place] % (Auto) 12.3 (4.7-12.5) % Eos % (Auto) 4.6 (0.7-5.8) Baso % (Auto) 0.9 (0.1-1.2) % Neut # (Auto) 11.46 H (1.56-6.13) K/mm3 Lymph # (Auto) 3.19 (1.18-3.74) K/mm3 [place] # (Auto) 2.23 H (0.24-0.36) K/mm3 Eos # (Auto) 0.83 H (0.04-0.36) K/mm3 Baso # (Auto) 0.17 H (0.01-0.08) K/mm3 Manual Slide Review Abnormal smear Sodium 137 (136-145) mEq/L Potassium 3.7 (3.5-5.1) mEq/L Chloride 103 (98-107) mEq/L Carbon Dioxide 28 (21-32) mEq/L Anion Gap 9.7 (5-15) BUN 19 H (7-18) mg/dL Creatinine 1.0 (0.55-1.02) mg/dL Est Cr Clr Drug Dosing 37.85 mL/min Estimated GFR (MDRD) 54 (>60) mL/min BUN/Creatinine Ratio 19.0 H (14-18) Glucose 98 (83-115) mg/dL Calcium 9.8 (8.5-10.1) mg/dL C-Reactive Protein 5.8 H* (<1.0) mg/dL Result Diagrams: 07/10/17 05:39 07/10/17 05:39 Nawaf Results Last 24 hrs: Microbiology 07/07/17 17:36 Aerobic Blood Culture - Preliminary Blood - Venous - Lab Draw NO GROWTH AFTER 2 DAYS Anaerobic Blood Culture - Preliminary NO GROWTH AFTER 2 DAYS 07/07/17 17:22 Aerobic Blood Culture - Preliminary Blood - Venous NO GROWTH AFTER 2 DAYS Anaerobic Blood Culture - Preliminary NO GROWTH AFTER 2 DAYS 07/07/17 13:30 Urine Culture - Final Urine, Clean Catch MIXED SIDDHARTHA SUGGESTIVE OF CONTAMINATION. Consult PN Assessment/Plan Procedures: Procedures AIRWAY INHALATION TREATMENT (09/18/16) ASSAY OF MAGNESIUM (09/18/16) ASSAY OF NATRIURETIC PEPTIDE (09/18/16) ASSAY OF TROPONIN QUANT (09/18/16) ASSAY THYROID STIM HORMONE (09/18/16) BLOOD GASES ANY COMBINATION (08/23/16) C-REACTIVE PROTEIN (09/18/16) CHEST X-RAY 1 VIEW FRONTAL (09/18/16) CHEST X-RAY 2VW FRONTAL&LATL (09/18/16) COGNITIVE TEST BY HC PRO (09/18/16) COMPLETE CBC W/AUTO DIFF WBC (09/18/16) COMPREHEN METABOLIC PANEL (09/18/16) CREATINE MB FRACTION (09/18/16) CT ANGIOGRAPHY CHEST (08/23/16) ELECTROCARDIOGRAM TRACING (09/18/16) EMERGENCY DEPT VISIT (09/18/16) EVALUATE PT USE OF INHALER (09/18/16) FIBRIN DEGRADATION QUANT (09/18/16) GAIT TRAINING THERAPY (09/18/16) HYDRATE IV INFUSION ADD-ON (08/23/16) HYDRATION IV INFUSION INIT (08/23/16) INFLUENZA ASSAY W/OPTIC (09/18/16) LIPID PANEL (09/18/16) MEASURE BLOOD OXYGEN LEVEL (09/18/16) METABOLIC PANEL TOTAL CA (09/18/16) MYCOPLASMA ANTIBODY (09/18/16) OT EVAL MOD COMPLEX 45 MIN (09/18/16) POS AIRWAY PRESSURE CPAP (09/18/16) PROTHROMBIN TIME (09/18/16) PT EVAL LOW COMPLEX 20 MIN (09/18/16) ROUTINE VENIPUNCTURE (09/18/16) SELF CARE MNGMENT TRAINING (09/18/16) THERAPEUTIC ACTIVITIES (09/18/16) THERAPEUTIC EXERCISES (09/18/16) TTE W/DOPPLER COMPLETE (09/18/16) URINALYSIS AUTO W/SCOPE (09/18/16) WITHDRAWAL OF ARTERIAL BLOOD (08/23/16) Problem List Initiated/Reviewed/Updated: Yes Plan: A: left humeral shaft fracture P: At this time I discussed with the patient that she has a humeral shaft fracture and that secondary to her body habitus it can be difficult to treat these with a brace. I also discussed the extensive surgery that would be involved with fixation of this fracture. At this time patients states she does not want surgery if at all possible. At this time patient will be placed in a shoulder immobilizer and be fitted for a Patterson brace to the left humerus in the next week. Patient is in agreement with this plan and will follow up with us in clinic next Sunday and have her brace fitted then.
--- NOTE | 2017-07-10 11:14 | PCM.PN ---
- General Info Date of Service: 07/10/17 Admission Dx/Problem (Free Text): Right Humerus Fracture Nancy is seen this morning sitting up in chair doing well. Pain to lt arm is present but tolerable and improved since immobilizer placed. She will be fitted for special brace today as recommended by Dr. Rainey with Orthopedics. No new symptoms or findings otherwise today. Disposition is pending level 2 screening at this time for SNF. Functional Status: Reports: Pain Controlled, Tolerating Diet, Ambulating, Urinating, Incentive Spirometry - Review of Systems General: Reports: Weakness, Fatigue HEENT: Reports: No Symptoms Pulmonary: Reports: No Symptoms, Shortness of Breath (chronic but unchanged) Cardiovascular: Reports: No Symptoms Gastrointestinal: Reports: No Symptoms Musculoskeletal: Reports: Arm Pain Neurological: Reports: No Symptoms Psychiatric: Reports: No Symptoms - Patient Data Vitals - Most Recent: Last Vital Signs Temp 97.9 F 07/10/17 08:37 Pulse 84 07/10/17 08:37 Resp 21 H 07/10/17 08:37 BP 133/88 07/10/17 08:37 Pulse Ox 93 L 07/10/17 08:45 Weight - Most Recent: 254 lb 11.2 oz I&O - Last 24 Hours: Intake & Output 07/09/17 07/10/17 07/10/17 22:59 06:59 14:59 Intake Total 800 200 Output Total 1200 400 Balance -400 -200 Lab Results Last 24 Hours: Laboratory Results - last 24 hr 07/10/17 07/10/17 Range/Units 05:39 05:39 WBC 18.18 H (3.98-10.04) K/mm3 RBC 3.64 L (3.98-5.22) M/mm3 Hgb 11.0 L (11.2-15.7) gm/L Hct 34.8 (34.1-44.9) % MCV 95.6 H (79.4-94.8) fl MCH 30.2 (25.6-32.2) pg MCHC 31.6 L (32.2-35.5) g/dl RDW Std Deviation 53.0 H (36.4-46.3) fL Plt Count 607 H (182-369) K/mm3 MPV 10.5 (9.4-12.3) fl Neut % (Auto) 63.0 (34.0-71.1) % Lymph % (Auto) 17.5 L (19.3-51.7) % Owen % (Auto) 12.3 (4.7-12.5) % Eos % (Auto) 4.6 (0.7-5.8) Baso % (Auto) 0.9 (0.1-1.2) % Neut # (Auto) 11.46 H (1.56-6.13) K/mm3 Lymph # (Auto) 3.19 (1.18-3.74) K/mm3 Owen # (Auto) 2.23 H (0.24-0.36) K/mm3 Eos # (Auto) 0.83 H (0.04-0.36) K/mm3 Baso # (Auto) 0.17 H (0.01-0.08) K/mm3 Manual Slide Review Abnormal smear Sodium 137 (136-145) mEq/L Potassium 3.7 (3.5-5.1) mEq/L Chloride 103 (98-107) mEq/L Carbon Dioxide 28 (21-32) mEq/L Anion Gap 9.7 (5-15) BUN 19 H (7-18) mg/dL Creatinine 1.0 (0.55-1.02) mg/dL Est Cr Clr Drug Dosing 37.85 mL/min Estimated GFR (MDRD) 54 (>60) mL/min BUN/Creatinine Ratio 19.0 H (14-18) Glucose 98 (83-115) mg/dL Calcium 9.8 (8.5-10.1) mg/dL C-Reactive Protein 5.8 H* (<1.0) mg/dL Nawaf Results Last 24 Hours: Microbiology 07/07/17 17:36 Aerobic Blood Culture - Preliminary Blood - Venous - Lab Draw NO GROWTH AFTER 2 DAYS Anaerobic Blood Culture - Preliminary NO GROWTH AFTER 2 DAYS 07/07/17 17:22 Aerobic Blood Culture - Preliminary Blood - Venous NO GROWTH AFTER 2 DAYS Anaerobic Blood Culture - Preliminary NO GROWTH AFTER 2 DAYS 07/07/17 13:30 Urine Culture - Final Urine, Clean Catch MIXED SIDDHARTHA SUGGESTIVE OF CONTAMINATION. Med Orders - Current: Current Medications Acetaminophen (Tylenol) 650 mg PO Q4H PRN PRN Reason: Pain (Mild 1-3)/fever Hydrocodone Bitart/Acetaminophen ([place] 325-10 Mg) 1 tab PO TID [facility] Last Admin: 07/10/17 08:39 Dose: 1 tab Albuterol (Proventil Neb Soln) 2.5 mg INH QID PRN PRN Reason: Shortness of Breath Albuterol/Ipratropium (Duoneb 3.0-0.5 Mg/3 Ml) 3 ml NEB Q4H PRN PRN Reason: Shortness Of Breath/wheezing Bisacodyl (Dulcolax) 5 mg PO DAILY PRN PRN Reason: Constipation Budesonide/Formoterol Fumarate (Symbicort 160-4.5 Mcg) 0 gm INH DAILY [facility] Last Admin: 07/10/17 08:45 Dose: 2 puff Cholecalciferol (Vitamin D3) 2,000 units PO DAILY [facility] Last Admin: 07/10/17 08:40 Dose: 2,000 units Cyanocobalamin (Vitamin B12) 1,000 mcg PO DAILY [facility] Last Admin: 07/10/17 08:40 Dose: 1,000 mcg Docusate Sodium (Colace) 100 mg PO BID PRN PRN Reason: Constipation Last Admin: 07/05/17 08:24 Dose: 100 mg Fluoxetine HCl (Prozac) 10 mg PO DAILY [facility] Last Admin: 07/10/17 08:42 Dose: 10 mg Furosemide (Lasix) 40 mg PO DAILY [facility] Last Admin: 07/10/17 08:41 Dose: 40 mg Gabapentin (Neurontin) 300 mg PO TID [facility] Last Admin: 07/10/17 08:41 Dose: 300 mg Hydromorphone HCl (Dilaudid) 0.5 mg IVPUSH Q2H PRN PRN Reason: Pain (severe 7-10) Promethazine HCl 12.5 mg/ (Sodium Chloride) 50.5 mls @ 100 mls/hr IV Q6H PRN PRN Reason: Nausea/Vomiting Levofloxacin (Levaquin) 250 mg PO Q24H [facility] Last Admin: 07/09/17 12:38 Dose: 250 mg Levothyroxine Sodium (Synthroid) 88 mcg PO ACBREAKFAST [facility] Last Admin: 07/10/17 05:44 Dose: 88 mcg Lorazepam (Ativan) 0.5 mg IV Q6H PRN PRN Reason: Anxiety Lorazepam (Ativan) 0.5 mg PO TID [facility] Last Admin: 07/10/17 08:43 Dose: 0.5 mg Nystatin (Nystop) 0 gm TOP TID PRN PRN Reason: Itching Ondansetron HCl (Zofran) 4 mg IV Q6H PRN PRN Reason: Nausea/Vomiting Orphenadrine Citrate (Norflex) 100 mg PO Q12H [facility] Last Admin: 07/10/17 08:41 Dose: 100 mg Oxycodone/Acetaminophen (Percocet 325-5 Mg) 1 tab PO Q4H PRN PRN Reason: Pain (moderate 4-6) Last Admin: 07/09/17 09:41 Dose: 1 tab Roflumilast 500 Mcg 0 each PO DAILY [facility] Last Admin: 07/10/17 08:42 Dose: 1 each Incruse Ellipta 62. (5mg (Umeclidinium)) 0 each INH DAILY [facility] Last Admin: 07/10/17 08:45 Dose: 1 each Rosuvastatin 5mg ( (Ptom)) 1 each PO DAILY [facility] Last Admin: 07/10/17 08:43 Dose: 1 each Propranolol La 80mg ((Ptom)) 1 each PO DAILY [facility] Last Admin: 07/10/17 08:42 Dose: 1 each Polyethylene Glycol (Miralax) 17 gm PO DAILY PRN PRN Reason: Constipation Potassium Chloride (Klor-Con M20) 20 meq PO DAILY [facility] Last Admin: 07/10/17 08:41 Dose: 20 meq Senna/Docusate Sodium (Senna Plus) 1 tab PO BID PRN PRN Reason: Constipation Sodium Chloride (Saline Flush) 10 ml FLUSH ASDIRECTED PRN PRN Reason: Keep Vein Open Last Admin: 07/03/17 21:27 Dose: 10 ml Temazepam (Restoril) 7.5 mg PO BEDTIME PRN PRN Reason: Sleep Discontinued Medications Hydromorphone HCl (Dilaudid) 0.5 mg IVPUSH ONETIME ONE Stop: 07/03/17 20:48 Last Admin: 07/03/17 21:24 Dose: 0.5 mg Hydromorphone HCl (Dilaudid) 0.5 mg IVPUSH ONETIME ONE Stop: 07/03/17 22:43 Last Admin: 07/03/17 22:48 Dose: 0.5 mg Sodium Chloride (Normal Saline) 1,000 mls @ 150 mls/hr IV ASDIRECTED [facility] Last Admin: 07/03/17 21:22 Dose: 150 mls/hr Levofloxacin/Dextrose 500 mg/ (Premix) 100 mls @ 100 mls/hr IV ONETIME ONE Stop: 07/06/17 14:29 Last Admin: 07/06/17 14:05 Dose: 100 mls/hr Levofloxacin/Dextrose 250 mg/ (Premix) 50 mls @ 50 mls/hr IV Q24H [facility] Last Admin: 07/08/17 13:02 Dose: 50 mls/hr Vancomycin HCl 1 gm/Vancomycin HCl 500 mg/ Sodium Chloride 500 mls @ 125 mls/ hr IV Q24H [facility] Vancomycin HCl 1 gm/Vancomycin HCl 250 mg/ Sodium Chloride 250 mls @ 166.667 mls/hr IV Q24H [facility] Vancomycin HCl 1 gm/Vancomycin HCl 250 mg/ Sodium Chloride 250 mls @ 166.667 mls/hr IV Q24H [facility] Last Admin: 07/07/17 18:52 Dose: 166.667 mls/hr Vancomycin HCl 1 gm/Vancomycin HCl 500 mg/ Sodium Chloride 500 mls @ 250 mls/ hr IV ONETIME ONE Stop: 07/06/17 19:59 Last Admin: 07/06/17 19:34 Dose: 250 mls/hr Sodium Chloride (Normal Saline) 1,000 mls @ 75 mls/hr IV ASDIRECTED [facility] Stop: 07/07/17 07:49 Last Admin: 07/06/17 19:35 Dose: 75 mls/hr Vancomycin HCl 1 gm/ Sodium (Chloride) 250 mls @ 250 mls/hr IV Q24H [facility] Vancomycin HCl 1 gm/Vancomycin HCl 250 mg/ Sodium Chloride 250 mls @ 166.667 mls/hr IV Q24H [facility] Last Admin: 07/08/17 17:48 Dose: 166.667 mls/hr Magnesium Hydroxide (Milk Of Magnesia) 30 ml PO ONETIME ONE Stop: 07/08/17 06:26 Last Admin: 07/08/17 06:32 Dose: 30 ml Albuterol/ (Ipratropium Inhaler) 0 each INH QID [facility] Last Admin: 07/04/17 09:44 Dose: Not Given Propranolol La 80mg ((Ptom)) 80 each PO DAILY [facility] Last Admin: 07/05/17 08:22 Dose: 80 each Rosuvastatin Calcium (Crestor) 5 mg PO DAILY [facility] Last Admin: 07/04/17 08:13 Dose: 5 mg Vancomycin HCl (Pharmacy To Dose - Vancomycin) 1 dose .XX ASDIRECTED RYAN - Exam Quality Assessment: Supplemental Oxygen (chronic 2-3 L/NC), DVT Prophylaxis General: Alert, Oriented, Cooperative, No Acute Distress HEENT: Pupils Equal, EOMI, Mucous Membr. Moist/[place] Neck: Supple Lungs: Normal Respiratory Effort, Decreased Breath Sounds (bases) Cardiovascular: Regular Rate, Regular Rhythm GI/Abdominal Exam: Normal Bowel Sounds, Soft, Other (round, obese) (Female) Exam: Deferred Extremities: Other (immobilizer present to lt arm, fading deep purple ecchymosis present to lt mid humerus. CMS + and = bilat to UE) Peripheral Pulses: 2+: Radial (L), Radial (R) Neurological: No New Focal Deficit Psy/Mental Status: Alert, Normal Affect, Normal Mood - Problem List & Annotations (1) Fall SNOMED Code(s): 5351037 Code(s): W19.XXXA - UNSPECIFIED FALL, INITIAL ENCOUNTER Status: Acute Priority: High Current Visit: Yes Qualifiers: Encounter type: initial encounter Qualified Code(s): W19.XXXA - Unspecified fall, initial encounter (2) Fracture of humeral shaft, left, closed SNOMED Code(s): 02923372 Code(s): S42.302A - UNSP FRACTURE OF SHAFT OF HUMERUS, LEFT ARM, INIT Status: Acute Priority: High Current Visit: Yes Qualifiers: Encounter type: initial encounter Fracture morphology: spiral Fracture alignment: displaced Qualified Code(s): S42.342A - Displaced spiral fracture of shaft of humerus, left arm, initial encounter for closed fracture (3) Morbid obesity SNOMED Code(s): 547554521 Code(s): E66.01 - MORBID (SEVERE) OBESITY DUE TO EXCESS CALORIES Status: Chronic Priority: Medium Current Visit: No (4) COPD (chronic obstructive pulmonary disease) SNOMED Code(s): 31097728 Code(s): J44.9 - CHRONIC OBSTRUCTIVE PULMONARY DISEASE, UNSPECIFIED Status : Chronic Priority: Medium Current Visit: No Qualifiers: COPD type: unspecified COPD Qualified Code(s): J44.9 - Chronic obstructive pulmonary disease, unspecified (5) Leukocytosis SNOMED Code(s): 125493191 Code(s): D72.829 - ELEVATED WHITE BLOOD CELL COUNT, UNSPECIFIED Status: Acute Priority: High Current Visit: Yes Qualifiers: Leukocytosis type: unspecified Qualified Code(s): D72.829 - Elevated white blood cell count, unspecified - Problem List Review Problem List Initiated/Reviewed/Updated: Yes - My Orders Last 24 Hours: My Active Orders 07/09/17 13:00 Levofloxacin [Levaquin] 250 mg PO Q24H - Plan Plan:: Assessment/Plan: Acute: Left Humerus Fracture- spiral, Stable - 2/2 Mechanical Fall but most likely fell from over sedation (see routine home meds) - Risk Factors: Impaired Vision, Morbid Obesity, Abnormal Gait and On Numerous Hyptonic-Sedating Drugs; She is on the following home medications for chronic pain syndrome: [place] 10-325 mg 1 tab po TID, Gabapentin 300 mg po TID, Percocet 10-325 mg po BID PRN, Ativan 0.5 mg po TID PRN, Norflex 100 mg po Q12H and +/- Prozac 10 mg po daily - XR shows mid and proximal diaphysis fracture with some angulation and displacement by about a half shaft width - Case discussed with Dr. Rainey by ED provider; Dr. Rainey recommended immobilizer (sling and swathe) Per discussion with Ortho Team; recommendations is for nonsurgical treatment as above; follow up with orthopedics in 2 weeks for recheck. Will be fitted with custom brace by prosthetics today per discussion with Dr. Rainey earlier this morning. - PT/OT consult -- recommendations for SNF - Scheduled and PRN Pain Medications--pain under good control at this time. Probable Bacteremia---resolved - Pos for GPC; cannot r/o contamination per Microbiology---Repeat BC negative. - Afebrile with improved WBC level but still elevated - Continue IV Levaquin/Vancomycin for antibiotic coverage--Repeat BC negative , will DC vanco and transition to PO levaquin 250mg daily - Skin/whole body survey- was benign and repeat UA was negative - One view CXR obtained and is negative. - Repeat blood culture x 2: negative Leukocytosis, Improved - WBC 21.27-->21.57--25K--> 21.72---> 20.42--19K-->18K - She is not on steroids; she is aspleenic - ? stress reaction, afebrile, other VSS. No c/o dysuria; UA negative yesterday, no cough or URI s/s. - Evaluate for infectious causes: BC x 2 and CXR to be obtained. Both negative - CRP 11.5--> 12--> now 8.8, continue to monitor -->trending down, is 5 today but still elevated. Will cont with PO levaquin 250mg daily. - Reviewed case with Dr. Chance this morning; may need Hematology eval as outpatient after discharge - Cont to follow with am labs Very High Fall Risk - She is on multiple Opioids + Psychotropic Meds as noted above - Morbidly Obese affecting her functional status - Consider trimming down her pain regimen Morbid Obesity with BMI of 45.5 - Dietary consult for weight management Opioid Dependence - 2/2 Chronic Pain Syndrome - Consider Narcan on discharge Resolved: AMS/Lethargy---resolving/resolved - Received pain medication in ED +/- if she took her own home night time meds - Aspiration and Fall Precautions Chronic: Impaired Vision COPD, Proventil, Daliresp, and Incruse Ellipta, Supplemental O2 PRN Hypothyroidism, on Synthroid--TSH -0.279, FT4 obtained and is normal at 1.43; recommend recheck thyroid function studies in 1-2 months with PCP. Peripheral Neuropathy, on Neurontin Vitamin D Deficiency- cont supplement Vitamin B12 Deficiency- cont supplement BLAYNE, On CPAP Chronic Pain Syndrome Anxiety on Ativan--chronic- stable, no increased anxiety thus far during her stay MDD--chronic, on Prozac- stable--moods have been pleasant, stable, not sad or weepy thus far during her stay. Plan: She is essentially the same - pain is controlled. Continue current treatment Routine AM Labs Aspiration and Fall Precautions Continue PT/OT Encourage to ambulate as tolerated DVT/GI PPx: SCDs and H2B CM/SW for d/c planning---SNF placement with level 2 screening 2/2 hx/o MDD Code status: full PCP is JAIDA Gilliland with [facility]. LOS > 96 hours pending SNF acceptance and resolution of probable bacteremia
[2017-07-10] MEDS: Levofloxacin 250 MG Tab PO SCH (13:42)
--- NOTE | 2017-07-10 20:18 | PCM.SN ---
- Free Text/Narrative Note: Was alerted by nursing that Nancy's hand and arm have had significant swelling since her arm brace was placed. Significant swelling was noted to hand and forearm. It also appeared as though the brace was putting significant pressure on her inner upper arm. Patient denied any significant pain. No broken skin was noted. Brace was released. arm was elevated utilizing pillows. Pulse was unable to be located before and after loosening due to significant swelling however good color was noted to entire lower extremity and sensation was intact. Nursing will re-apply immobilizer once patient alerts them that she needs to use the restroom. Dr. Chance, hospitalist was notified of findings.
[2017-07-11] MEDS: Acetaminophen/oxyCODONE 325-5 MG Tab PO PRN (00:41)
[2017-07-11] MEDS: Levothyroxine 88 MCG Tab (PTOM) PO SCH (05:53)
--- NOTE | 2017-07-11 06:32 | PCM.DCSUM1 ---
Discharge Summary - Hospital Course Free Text/Narrative:: This is a 77 yo elderly patient with past medical hx/o COPD, Hypothyroidism, Peripheral Neuropathy, Vitamin D Deficiency, Vitamin B12 Deficiency, BLAYNE, on CPAP, Chronic Pain Syndrome, Anxiety, and MDD who comes in for evaluation after a mechanical fall and was found to have left humerus mid-shaft fracture. Patient carries a history of impaired vision, morbid obesity with BMI of 47, on multiple opioid medications along with psychotropic agents. Patient denies any prodromal symptoms. She also carries a history of chronic pain syndrome but currently complaints mostly pain localized to her left shoulder. Patient lives at [facility]. She was brought over by EMS after her traumatic fall. No labs were drawn upon presentation to the emergency department but her left shoulder x-ray shows middle and proximal diaphysis fracture of the humerus with angulation and displacement. Her right knee x-ray however reveals no acute abnormal findings. Dr. Rainey has been consulted by ED provider prior to coming to the floor for admission. Patient is being admitted for medical management of her left humerus fracture. She is full code. - Discharge Data Discharge Date: 07/11/17 (admit date 07/05/17) Discharge Disposition: DC/Tfer to SNF 03 Condition: Good - Discharge Diagnosis/Problem(s) (1) Fall SNOMED Code(s): 2862847 ICD Code: W19.XXXA - UNSPECIFIED FALL, INITIAL ENCOUNTER Status: Acute Priority: High Current Visit: Yes Qualifiers: Encounter type: initial encounter Qualified Code(s): W19.XXXA - Unspecified fall, initial encounter (2) Fracture of humeral shaft, left, closed SNOMED Code(s): 33209456 ICD Code: S42.302A - UNSP FRACTURE OF SHAFT OF HUMERUS, LEFT ARM, INIT Status: Acute Priority: High Current Visit: Yes Qualifiers: Encounter type: initial encounter Fracture morphology: spiral Fracture alignment: displaced Qualified Code(s): S42.342A - Displaced spiral fracture of shaft of humerus, left arm, initial encounter for closed fracture (3) Morbid obesity SNOMED Code(s): 829484557 ICD Code: E66.01 - MORBID (SEVERE) OBESITY DUE TO EXCESS CALORIES Status: Chronic Priority: Medium Current Visit: No (4) COPD (chronic obstructive pulmonary disease) SNOMED Code(s): 68448192 ICD Code: J44.9 - CHRONIC OBSTRUCTIVE PULMONARY DISEASE, UNSPECIFIED Status : Chronic Priority: Medium Current Visit: No Qualifiers: COPD type: unspecified COPD Qualified Code(s): J44.9 - Chronic obstructive pulmonary disease, unspecified (5) Leukocytosis SNOMED Code(s): 175352902 ICD Code: D72.829 - ELEVATED WHITE BLOOD CELL COUNT, UNSPECIFIED Status: Acute Priority: High Current Visit: Yes Qualifiers: Leukocytosis type: unspecified Qualified Code(s): D72.829 - Elevated white blood cell count, unspecified - Patient Summary/Data Operative Procedure(s) Performed: None Complications: None Consults: Orthopedics- 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 -OT to evaluate brace placement 0xgyen at 3 L NC at all times (patient has this at home already) Patient may need ever walker per PT (orders have been signed and placed in chart if patient does not go to senior living this will need to be faxed to [employer]) CPAP to be worn with sleep per prior settings. Follow up with Dr. Rainey, Orthopedics in 2 weeks Follow up with PCP within one week of discharge. Planned Operative Procedure(s) after DC: None Hospital Course: Assessment/Plan: Acute: Left Humerus Fracture- spiral, Stable - 2/2 Mechanical Fall but most likely fell from over sedation (see routine home meds) - Risk Factors: Impaired Vision, Morbid Obesity, Abnormal Gait and On Numerous Hyptonic-Sedating Drugs; She is on the following home medications for chronic pain syndrome: Allgood 10-325 mg 1 tab po TID, Gabapentin 300 mg po TID, Percocet 10-325 mg po BID PRN, Ativan 0.5 mg po TID PRN, Norflex 100 mg po Q12H and +/- Prozac 10 mg po daily - XR shows mid and proximal diaphysis fracture with some angulation and displacement by about a half shaft width - Case discussed with Dr. Rainey by ED provider; Dr. Rainey recommended immobilizer (sling and swathe) Per discussion with Ortho Team; recommendations is for nonsurgical treatment as above; follow up with orthopedics in 2 weeks for recheck. Will be fitted with custom brace by prosthetics today per discussion with Dr. Rainey earlier this morning. - PT/OT consult -- recommendations for SNF - Scheduled and PRN Pain Medications--pain under good control at this time. Probable Bacteremia---resolved - Pos for GPC; cannot r/o contamination per Microbiology---Repeat BC negative. - Afebrile with improved WBC level but still elevated - Continue IV Levaquin/Vancomycin for antibiotic coverage--Repeat BC negative , will DC vanco and transition to PO levaquin 250mg daily - Skin/whole body survey- was benign and repeat UA was negative - One view CXR obtained and is negative. - Repeat blood culture x 2: negative Leukocytosis, Improved - WBC 21.27-->21.57--25K--> 21.72---> 20.42--19K-->18K - She is not on steroids; she is aspleenic - ? stress reaction, afebrile, other VSS. No c/o dysuria; UA negative yesterday, no cough or URI s/s. - Evaluate for infectious causes: BC x 2 and CXR to be obtained. Both negative - CRP 11.5--> 12--> now 8.8, continue to monitor -->trending down, is 5 today but still elevated. Will cont with PO levaquin 250mg daily. - Reviewed case with Dr. Chance this morning; may need Hematology eval as outpatient after discharge - Cont to follow with am labs Very High Fall Risk - She is on multiple Opioids + Psychotropic Meds as noted above - Morbidly Obese affecting her functional status - Consider trimming down her pain regimen Morbid Obesity with BMI of 45.5 - Dietary consult for weight management Opioid Dependence - 2/2 Chronic Pain Syndrome - Consider Narcan on discharge Resolved: AMS/Lethargy---resolving/resolved - Received pain medication in ED +/- if she took her own home night time meds - Aspiration and Fall Precautions Chronic: Impaired Vision COPD, Proventil, Daliresp, and Incruse Ellipta, Supplemental O2 PRN Hypothyroidism, on Synthroid--TSH -0.279, FT4 obtained and is normal at 1.43; recommend recheck thyroid function studies in 1-2 months with PCP. Peripheral Neuropathy, on Neurontin Vitamin D Deficiency- cont supplement Vitamin B12 Deficiency- cont supplement BLAYNE, On CPAP Chronic Pain Syndrome Anxiety on Ativan--chronic- stable, no increased anxiety thus far during her stay MDD--chronic, on Prozac- stable--moods have been pleasant, stable, not sad or weepy thus far during her stay. Plan: She is essentially the same - pain is controlled. Continue current treatment Routine AM Labs Aspiration and Fall Precautions Continue PT/OT Encourage to ambulate as tolerated DVT/GI PPx: SCDs and H2B CM/SW for d/c planning---SNF placement with level 2 screening 2/2 hx/o MDD Code status: full PCP is JAIDA Gilliland with [facility]. LOS > 96 hours pending SNF acceptance and resolution of probable bacteremia - Patient Instructions Diet: Heart Healthy Diet, Drink 8-10+ Glasses/Day Activity: As Tolerated (recommend ambuation TID) Driving: Do Not Drive Showering/Bathing: May Shower Notify Provider of: Fever, Increased Pain, Nausea and/or Vomiting - Discharge Plan Prescriptions/Med Rec: Acetaminophen/oxyCODONE [Percocet 325-5 MG] 1 tab PO Q4H PRN #40 tablet PRN Reason: Pain (Moderate 4-6) Home Medications: Home Meds Budesonide/Formoterol Fumarate [Symbicort 160-4.5 Mcg Inhaler] 2 puff IH BID [History] Hydrocodone/Acetaminophen [Hydrocodon-Acetaminophn 10-325] 1 tab PO TID [History] Potassium Chloride 20 meq PO DAILY 08/23/16 [History] Ipratropium/Albuterol Sulfate [Combivent Respimat Inhal [place]] 1 puff INH QID [History] FLUoxetine [PROzac] 10 mg PO DAILY #30 cap 09/20/16 [Rx] Albuterol [Proventil Neb Soln] 3 ml INH QID PRN 07/03/17 [History] Cholecalciferol (Vitamin D3) [Vitamin D3] 2,000 unit PO DAILY 07/03/17 [History] Cyanocobalamin (Vitamin B-12) [Vitamin B-12] 1,000 mcg PO DAILY 07/03/17 [ History] Furosemide [Lasix] 40 mg PO DAILY 07/03/17 [History] Gabapentin [Neurontin] 300 mg PO TID 07/03/17 [History] LORazepam [Ativan] 0.5 mg PO TID 07/03/17 [History] Levothyroxine [Synthroid] 88 mcg PO DAILY 07/03/17 [History] Nystatin 1 applic TOP TID PRN 07/03/17 [History] Orphenadrine [Norflex] 100 mg PO Q12H 07/03/17 [History] Propranolol [Inderal LA] 80 mg PO DAILY 07/03/17 [History] Roflumilast [Daliresp] 500 mcg PO DAILY 07/03/17 [History] Rosuvastatin [Crestor] 5 mg PO DAILY 07/03/17 [History] Umeclidinium [place] [Incruse Ellipta] 1 puff INH DAILY 07/03/17 [History] Acetaminophen/oxyCODONE [Percocet 325-5 MG] 1 tab PO Q4H PRN #40 tablet [Rx] Docusate Sodium [Colace] 100 mg PO BID PRN cap 07/11/17 [Rx] Ibuprofen [Motrin] 800 mg PO BID PRN #0 07/11/17 [Rx] Patient Handouts: Humerus Fracture Treated With Immobilization, [id number], Fall Prevention in the Home Referrals: Yesica Gutierrez NP [Primary Care Provider] - Jaron Rainey MD [Physician] - 07/10/17 9:00 am - Discharge Summary/Plan Comment DC Time >30 min.: Yes (45 min) - General Info Date of Service: 07/11/17 Admission Dx/Problem (Free Text: Right Humerus Fracture Nancy is seen this morning sitting up in chair doing well. Pain to lt arm is present but tolerable and improved since immobilizer placed. She was fitted for special brace yesterday as recommended by Dr. Rainey with Orthopedics. No new symptoms or findings otherwise today. Disposition is pending level 2 screening at this time for SNF. Functional Status: Reports: Pain Controlled, Tolerating Diet, Ambulating, Urinating. Denies: New Symptoms - Review of Systems General: Reports: Weakness, Fatigue HEENT: Reports: No Symptoms Pulmonary: Reports: No Symptoms. Denies: Cough Cardiovascular: Reports: No Symptoms. Denies: Chest Pain Gastrointestinal: Reports: No Symptoms. Denies: Abdominal Pain, Diarrhea, Nausea Musculoskeletal: Reports: Arm Pain, Other (swelling to lt hand) Neurological: Reports: No Symptoms Psychiatric: Reports: No Symptoms - Patient Data Vitals - Most Recent: Last Vital Signs Temp 98.2 F 07/11/17 03:53 Pulse 77 07/11/17 03:53 Resp 16 07/11/17 03:53 BP 141/54 H 07/11/17 03:53 Pulse Ox 92 L 07/11/17 03:53 Weight - Most Recent: 254 lb 1.6 oz I&O - Last 24 hours: Intake & Output 07/10/17 07/10/17 07/11/17 14:59 22:59 06:59 Intake Total 120 1220 480 Output Total 450 800 Balance 120 770 -320 Lab Results - Last 24 hrs: Laboratory Results - last 24 hr 07/10/17 07/10/17 Range/Units 05:39 05:39 WBC 18.18 H (3.98-10.04) K/mm3 RBC 3.64 L (3.98-5.22) M/mm3 Hgb 11.0 L (11.2-15.7) gm/L Hct 34.8 (34.1-44.9) % MCV 95.6 H (79.4-94.8) fl MCH 30.2 (25.6-32.2) pg MCHC 31.6 L (32.2-35.5) g/dl RDW Std Deviation 53.0 H (36.4-46.3) fL Plt Count 607 H (182-369) K/mm3 MPV 10.5 (9.4-12.3) fl Neut % (Auto) 63.0 (34.0-71.1) % Lymph % (Auto) 17.5 L (19.3-51.7) % [place] % (Auto) 12.3 (4.7-12.5) % Eos % (Auto) 4.6 (0.7-5.8) Baso % (Auto) 0.9 (0.1-1.2) % Neut # (Auto) 11.46 H (1.56-6.13) K/mm3 Lymph # (Auto) 3.19 (1.18-3.74) K/mm3 [place] # (Auto) 2.23 H (0.24-0.36) K/mm3 Eos # (Auto) 0.83 H (0.04-0.36) K/mm3 Baso # (Auto) 0.17 H (0.01-0.08) K/mm3 Manual Slide Review Abnormal smear Sodium 137 (136-145) mEq/L Potassium 3.7 (3.5-5.1) mEq/L Chloride 103 (98-107) mEq/L Carbon Dioxide 28 (21-32) mEq/L Anion Gap 9.7 (5-15) BUN 19 H (7-18) mg/dL Creatinine 1.0 (0.55-1.02) mg/dL Est Cr Clr Drug Dosing 37.85 mL/min Estimated GFR (MDRD) 54 (>60) mL/min BUN/Creatinine Ratio 19.0 H (14-18) Glucose 98 (83-115) mg/dL Calcium 9.8 (8.5-10.1) mg/dL C-Reactive Protein 5.8 H* (<1.0) mg/dL CONNIE Results - Last 24 hrs: Microbiology 07/07/17 17:36 Aerobic Blood Culture - Preliminary Blood - Venous - Lab Draw NO GROWTH AFTER 3 DAYS Anaerobic Blood Culture - Preliminary NO GROWTH AFTER 3 DAYS 07/07/17 17:22 Aerobic Blood Culture - Preliminary Blood - Venous NO GROWTH AFTER 3 DAYS Anaerobic Blood Culture - Preliminary NO GROWTH AFTER 3 DAYS Med Orders - Current: Current Medications Acetaminophen (Tylenol) 650 mg PO Q4H PRN PRN Reason: Pain (Mild 1-3)/fever Hydrocodone Bitart/Acetaminophen (Allgood 325-10 Mg) 1 tab PO TID [facility] Last Admin: 07/10/17 21:05 Dose: 1 tab Albuterol (Proventil Neb Soln) 2.5 mg INH QID PRN PRN Reason: Shortness of Breath Albuterol/Ipratropium (Duoneb 3.0-0.5 Mg/3 Ml) 3 ml NEB Q4H PRN PRN Reason: Shortness Of Breath/wheezing Bisacodyl (Dulcolax) 5 mg PO DAILY PRN PRN Reason: Constipation Budesonide/Formoterol Fumarate (Symbicort 160-4.5 Mcg) 0 gm INH DAILY [facility] Last Admin: 07/10/17 08:45 Dose: 2 puff Cholecalciferol (Vitamin D3) 2,000 units PO DAILY [facility] Last Admin: 07/10/17 08:40 Dose: 2,000 units Cyanocobalamin (Vitamin B12) 1,000 mcg PO DAILY [facility] Last Admin: 07/10/17 08:40 Dose: 1,000 mcg Docusate Sodium (Colace) 100 mg PO BID PRN PRN Reason: Constipation Last Admin: 07/05/17 08:24 Dose: 100 mg Fluoxetine HCl (Prozac) 10 mg PO DAILY [facility] Last Admin: 07/10/17 08:42 Dose: 10 mg Furosemide (Lasix) 40 mg PO DAILY [facility] Last Admin: 07/10/17 08:41 Dose: 40 mg Gabapentin (Neurontin) 300 mg PO TID [facility] Last Admin: 07/10/17 21:05 Dose: 300 mg Hydromorphone HCl (Dilaudid) 0.5 mg IVPUSH Q2H PRN PRN Reason: Pain (severe 7-10) Promethazine HCl 12.5 mg/ (Sodium Chloride) 50.5 mls @ 100 mls/hr IV Q6H PRN PRN Reason: Nausea/Vomiting Levofloxacin (Levaquin) 250 mg PO Q24H [facility] Last Admin: 07/10/17 13:42 Dose: 250 mg Levothyroxine Sodium (Synthroid) 88 mcg PO ACBREAKFAST [facility] Last Admin: 07/11/17 05:53 Dose: 88 mcg Lorazepam (Ativan) 0.5 mg IV Q6H PRN PRN Reason: Anxiety Lorazepam (Ativan) 0.5 mg PO TID [facility] Last Admin: 07/10/17 21:05 Dose: 0.5 mg Nystatin (Nystop) 0 gm TOP TID PRN PRN Reason: Itching Ondansetron HCl (Zofran) 4 mg IV Q6H PRN PRN Reason: Nausea/Vomiting Orphenadrine Citrate (Norflex) 100 mg PO Q12H [facility] Last Admin: 07/10/17 21:06 Dose: 100 mg Oxycodone/Acetaminophen (Percocet 325-5 Mg) 1 tab PO Q4H PRN PRN Reason: Pain (moderate 4-6) Last Admin: 07/11/17 00:41 Dose: 1 tab Roflumilast 500 Mcg 0 each PO DAILY [facility] Last Admin: 07/10/17 08:42 Dose: 1 each Incruse Ellipta 62. (5mg (Umeclidinium)) 0 each INH DAILY [facility] Last Admin: 07/10/17 08:45 Dose: 1 each Rosuvastatin 5mg ( (Ptom)) 1 each PO DAILY [facility] Last Admin: 07/10/17 08:43 Dose: 1 each Propranolol [place] 80mg ((Ptom)) 1 each PO DAILY [facility] Last Admin: 07/10/17 08:42 Dose: 1 each Polyethylene Glycol (Miralax) 17 gm PO DAILY PRN PRN Reason: Constipation Potassium Chloride (Klor-Con M20) 20 meq PO DAILY [facility] Last Admin: 07/10/17 08:41 Dose: 20 meq Senna/Docusate Sodium (Senna Plus) 1 tab PO BID PRN PRN Reason: Constipation Sodium Chloride (Saline Flush) 10 ml FLUSH ASDIRECTED PRN PRN Reason: Keep Vein Open Last Admin: 07/03/17 21:27 Dose: 10 ml Temazepam (Restoril) 7.5 mg PO BEDTIME PRN PRN Reason: Sleep Discontinued Medications Hydromorphone HCl (Dilaudid) 0.5 mg IVPUSH ONETIME ONE Stop: 07/03/17 20:48 Last Admin: 07/03/17 21:24 Dose: 0.5 mg Hydromorphone HCl (Dilaudid) 0.5 mg IVPUSH ONETIME ONE Stop: 07/03/17 22:43 Last Admin: 07/03/17 22:48 Dose: 0.5 mg Sodium Chloride (Normal Saline) 1,000 mls @ 150 mls/hr IV ASDIRECTED [facility] Last Admin: 07/03/17 21:22 Dose: 150 mls/hr Levofloxacin/Dextrose 500 mg/ (Premix) 100 mls @ 100 mls/hr IV ONETIME ONE Stop: 07/06/17 14:29 Last Admin: 07/06/17 14:05 Dose: 100 mls/hr Levofloxacin/Dextrose 250 mg/ (Premix) 50 mls @ 50 mls/hr IV Q24H [facility] Last Admin: 07/08/17 13:02 Dose: 50 mls/hr Vancomycin HCl 1 gm/Vancomycin HCl 500 mg/ Sodium Chloride 500 mls @ 125 mls/ hr IV Q24H [facility] Vancomycin HCl 1 gm/Vancomycin HCl 250 mg/ Sodium Chloride 250 mls @ 166.667 mls/hr IV Q24H [facility] Vancomycin HCl 1 gm/Vancomycin HCl 250 mg/ Sodium Chloride 250 mls @ 166.667 mls/hr IV Q24H [facility] Last Admin: 07/07/17 18:52 Dose: 166.667 mls/hr Vancomycin HCl 1 gm/Vancomycin HCl 500 mg/ Sodium Chloride 500 mls @ 250 mls/ hr IV ONETIME ONE Stop: 07/06/17 19:59 Last Admin: 07/06/17 19:34 Dose: 250 mls/hr Sodium Chloride (Normal Saline) 1,000 mls @ 75 mls/hr IV ASDIRECTED [facility] Stop: 07/07/17 07:49 Last Admin: 07/06/17 19:35 Dose: 75 mls/hr Vancomycin HCl 1 gm/ Sodium (Chloride) 250 mls @ 250 mls/hr IV Q24H [facility] Vancomycin HCl 1 gm/Vancomycin HCl 250 mg/ Sodium Chloride 250 mls @ 166.667 mls/hr IV Q24H [facility] Last Admin: 07/08/17 17:48 Dose: 166.667 mls/hr Magnesium Hydroxide (Milk Of Magnesia) 30 ml PO ONETIME ONE Stop: 07/08/17 06:26 Last Admin: 07/08/17 06:32 Dose: 30 ml Albuterol/ (Ipratropium Inhaler) 0 each INH QID [facility] Last Admin: 07/04/17 09:44 Dose: Not Given Propranolol [place] 80mg ((Ptom)) 80 each PO DAILY [facility] Last Admin: 07/05/17 08:22 Dose: 80 each Rosuvastatin Calcium (Crestor) 5 mg PO DAILY [facility] Last Admin: 07/04/17 08:13 Dose: 5 mg Vancomycin HCl (Pharmacy To Dose - Vancomycin) 1 dose .XX ASDIRECTED [facility] - Exam Quality Assessment: Reports: Supplemental Oxygen, DVT Prophylaxis General: Reports: Alert, Oriented, Cooperative, No Acute Distress HEENT: Reports: Pupils Equal, EOMI, Mucous Membr. Moist/[place] Neck: Reports: Supple Lungs: Reports: Clear to Auscultation, Normal Respiratory Effort, Decreased Breath Sounds (bases) Cardiovascular: Reports: Regular Rate, Regular Rhythm GI/Abdominal Exam: Normal Bowel Sounds, Soft, Non-Tender, Other (round/obese) (Female) Exam: Deferred Rectal (Female) Exam: Deferred Extremities: Other (left arm in brace- hand is swollen. CMS is + and = bilat. ecchymosis noted to humeral shaft) Skin: Reports: Warm, Dry, Intact Neurological: Reports: No New Focal Deficit Psy/Mental Status: Reports: Alert, Normal Affect, Normal Mood *Q Meaningful Use (DIS) - VTE *Q VTE Criteria *Q: - Stroke *Q Stroke Criteria *Q: - AMI *Q AMI Criteria *Q:
[2017-07-11] MEDS: INCRUSE ELLIPTA 62.5 MG INH SCH (08:35)
[2017-07-11] MEDS: BUDESONIDE INH SCH (08:35)
[2017-07-11] MEDS: FORMOTEROL INH SCH (08:35)
[2017-07-11] MEDS: Potassium Chloride 20 MEQ Tab.ER (PTOM) PO SCH (09:31)
[2017-07-11] MEDS: GABAPENTIN 300 MG PO SCH (09:32)
[2017-07-11] MEDS: Orphenadrine 100 MG Tab.ER PO SCH (09:32)
[2017-07-11] MEDS: ACETAMINOPHEN PO SCH (09:32)
[2017-07-11] MEDS: Cyanocobalamin (Vitamin B12) 1,000 MCG Tab PO SCH (09:32)
[2017-07-11] MEDS: Cholecalciferol (Vitamin D3) 1,000 Unit Tab PO SCH (09:32)
[2017-07-11] MEDS: HYDROCODONE PO SCH (09:32)
[2017-07-11] MEDS: Furosemide 40 MG Tab PO SCH (09:33)
[2017-07-11] MEDS: FLUOXETINE 10 MG PO SCH (09:33)
[2017-07-11] MEDS: PROPRANOLOL 80 MG PO SCH (09:34)
[2017-07-11] MEDS: LORazepam 0.5 MG Tab PO SCH (09:34)
[2017-07-11] MEDS: ROSUVASTATIN 5 MG PO SCH (09:35)
[2017-07-11 11:35] VITALS: BP 115/99
[2017-07-11] MEDS: Levofloxacin 250 MG Tab PO SCH (12:12)
== END 2017-07-11 13:05 | DRG 563 ==
LOC: JD.ED 20:26 → JD.MS 22:00 → OBSVTOIN 07-05 14:39 → JD.MS 07-05 14:54
PROVIDERS: ADMIT Internal Medicine; ATTEND Internal Medicine
DX: S42.332A Displaced oblique fracture of shaft of humerus, left arm, initial encounter for closed fracture (principal); Z68.42 Body mass index [BMI] 45.0-49.9, adult; F11.20 Opioid dependence, uncomplicated; D72.89 Other specified disorders of white blood cells; R78.81 Bacteremia; W01.0XXA Fall on same level from slipping, tripping and stumbling without subsequent striking against object, initial encounter; D72.829 Elevated white blood cell count, unspecified; J06.9 Acute upper respiratory infection, unspecified; Y92.098 Other place in other non-institutional residence as the place of occurrence of the external cause; I10 Essential (primary) hypertension; E03.9 Hypothyroidism, unspecified; J44.9 Chronic obstructive pulmonary disease, unspecified; G62.9 Polyneuropathy, unspecified; E53.8 Deficiency of other specified B group vitamins; E55.9 Vitamin D deficiency, unspecified; G47.33 Obstructive sleep apnea (adult) (pediatric); G89.4 Chronic pain syndrome; F41.9 Anxiety disorder, unspecified; F32.9 Major depressive disorder, single episode, unspecified; E66.01 Morbid (severe) obesity due to excess calories; H54.7 Unspecified visual loss; R41.82 Altered mental status, unspecified; Z91.81 History of falling; Z87.891 Personal history of nicotine dependence; Z88.1 Allergy status to other antibiotic agents; Z88.8 Allergy status to other drugs, medicaments and biological substances; Z99.81 Dependence on supplemental oxygen; Z79.899 Other long term (current) drug therapy
CPT/HCPCS: 36415 ×2; 71045; 73060; 73564; 80048 ×2; 81001; 83735 ×2; 84439; 84443; 85025 ×2; 87040 ×2; 87641; 94640 ×3; 94664; 94760; 96361; 96374; 97110 ×2; 97116; 97162; 97166; 97530 ×7; 99285; A9270 ×33; J1170 ×2; J7040; J7050; 86140; 87086; 96376; 97140-GO; G0378; J1956; J3370

== ENCOUNTER 2018-01-25 23:38 | Inpatient (IN) | payer MEDICARE, MEDICAID ==
--- NOTE | 2018-01-26 00:24 | EDM.PDOC ---
ED HPI GENERAL MEDICAL PROBLEM - General Chief Complaint: Respiratory Problem Stated Complaint: [facility] Time Seen by Provider: 01/25/18 23:48 Source of Information: Reports: Patient, Prison Records History Limitations: Reports: No Limitations - History of Present Illness INITIAL COMMENTS - FREE TEXT/NARRATIVE: This is a 77-year-old female. She is from [place]. Yesterday she was having increasing shortness of breath and noted that when she would get up to try to walk she would get more short of breath. It has continued to get worse today where she is actually short of breath while sitting. The senior living noted that she had a pulse ox in the upper 80s on her normal 3 L/m nasal cannula so they put her up to 6 L/m by nasal cannula and the pulse ox went up to 94%. She does have a history of congestive heart failure, COPD and asthma. They gave her a breathing treatment at [place] but the patient says it didn't really help. The patient is morbidly obese. She is a full code. She states she' s had no fever no chills no cough. She has noted some increased wheezing over the last 48 hours. She's had no nausea vomiting or diarrhea. - Related Data Allergies Allergy/AdvReac Type Severity Reaction Status Date / Time doxycycline Allergy Cannot Verified 07/03/17 20:34 Remember tiotropium Allergy Cannot Verified 07/03/17 20:34 [From Spiriva with Remember HandiHaler] tramadol [From Ultracet] Allergy Cannot Verified 07/03/17 20:34 Remember Home Meds: Home Meds Budesonide/Formoterol Fumarate [Symbicort 160-4.5 Mcg Inhaler] 2 puff IH BID [History] Hydrocodone/Acetaminophen [Hydrocodon-Acetaminophn 10-325] 1 tab PO TID [History] Potassium Chloride 20 meq PO DAILY 08/23/16 [History] Ipratropium/Albuterol Sulfate [Combivent Respimat 20-100 Mcg] 1 puff INH QID [History] FLUoxetine [PROzac] 10 mg PO DAILY #30 cap 09/20/16 [Rx] Albuterol [Proventil Neb Soln] 3 ml INH QID PRN 07/03/17 [History] Cholecalciferol (Vitamin D3) [Vitamin D3] 2,000 unit PO DAILY 07/03/17 [History] Cyanocobalamin (Vitamin B-12) [Vitamin B-12] 1,000 mcg PO DAILY 07/03/17 [ History] Furosemide [Lasix] 40 mg PO DAILY 07/03/17 [History] Gabapentin [Neurontin] 300 mg PO TID 07/03/17 [History] LORazepam [Ativan] 0.5 mg PO TID 07/03/17 [History] Levothyroxine [Synthroid] 88 mcg PO DAILY 07/03/17 [History] Roflumilast [Daliresp] 500 mcg PO DAILY 07/03/17 [History] Rosuvastatin [Crestor] 5 mg PO DAILY 07/03/17 [History] Umeclidinium [place] [Incruse Ellipta] 1 puff INH DAILY 07/03/17 [History] Ibuprofen [Motrin] 800 mg PO BID PRN #0 07/11/17 [Rx] Docusate Sodium [Colace] 100 mg PO BID 01/25/18 [History] Metoprolol Succinate [Toprol Xl] 50 mg PO DAILY 01/25/18 [History] guaiFENesin [Mucinex] 600 mg PO BID 01/25/18 [History] guaiFENesin/Dextromethorphan [Tussin Dm Cough Syrup] 5 ml PO QID PRN 01/25/18 [ History] oxyCODONE HCl/Acetaminophen [Percocet 5-325 mg Tablet] 1 each PO BID 01/25/18 [ History] oxyCODONE HCl/Acetaminophen [Percocet 5-325 mg Tablet] 1 each PO Q4H PRN [History] Past Medical History HEENT History: Reports: Impaired Vision, Other (See Below) Other HEENT History: wears glasses Cardiovascular History: Reports: Heart Failure, Hypertension, SOB on Exertion Respiratory History: Reports: COPD, SOB Gastrointestinal History: Reports: Diverticulosis Genitourinary History: Reports: None Musculoskeletal History: Reports: Arthritis, Back Pain, Chronic Neurological History: Reports: Migraines Psychiatric History: Reports: Anxiety, Depression Endocrine/Metabolic History: Reports: Hypothyroidism, Obesity/BMI 30+ Hematologic History: Reports: B12 Deficiency Immunologic History: Reports: None Dermatologic History: Reports: Other (See Below) Other Dermatologic History: dry skin - Infectious Disease History Infectious Disease History: Reports: Shingles - Past Surgical History Head Surgeries/Procedures: Reports: None Respiratory Surgical History: Reports: None GI Surgical History: Reports: Hernia Repair/Other Neurological Surgical History: Reports: Lumbar Spine Dermatological Surgical History: Reports: None Social & Family History - Family History Family Medical History: Noncontributory - Tobacco Use Smoking Status *Q: Former Smoker Used Tobacco, but Quit: Yes Month/Year Tobacco Last Used: many years ago - Caffeine Use Caffeine Use: Reports: None - Recreational Drug Use Recreational Drug Use: No - Living Situation & Occupation Living situation: Reports: Alone Occupation: Retired ED ROS GENERAL - Review of Systems Review Of Systems: See Below Constitutional: Reports: Weakness. Denies: Fever, Chills HEENT: Reports: Other (Chronic runny nose from the oxygen) Respiratory: Reports: Shortness of Breath, Wheezing. Denies: Cough Cardiovascular: Denies: Chest Pain Endocrine: Reports: No Symptoms GI/Abdominal: Denies: Abdominal Pain, Diarrhea, Nausea, Vomiting : Reports: No Symptoms Musculoskeletal: Reports: No Symptoms, Other (Puffy peripheral edema in the lower extremities) Skin: Reports: No Symptoms Neurological: Reports: No Symptoms Psychiatric: Reports: No Symptoms ED EXAM, GENERAL - Physical Exam Exam: See Below Exam Limited By: No Limitations General Appearance: Alert, WD/WN, No Apparent Distress Eye Exam: Bilateral Eye: Normal Inspection Ears: Normal External Exam, Normal Canal, Normal TMs Nose: Normal Inspection Throat/Mouth: Normal Inspection, Normal Lips, Normal Voice, No Airway Compromise Head: Normocephalic Neck: Supple Respiratory/Chest: No Respiratory Distress, Other (She has an occasional expiratory wheeze noted in the upper lung mehta, I could not hear the lower lung mehta very well but there appeared to be some mild crackles) Cardiovascular: Regular Rate, Rhythm, No Murmur GI/Abdominal: Soft, Non-Tender, Other (Morbid obesity) Back Exam: Decreased Range of Motion Extremities: Normal Inspection, Pedal Edema, Other (This is puffy pedal edema about 1+ seems to go skilled nursing up her lower leg bilaterally) Neurological: Alert, Oriented Psychiatric: Normal Affect, Normal Mood Skin Exam: Warm, Dry EKG INTERPRETATION EKG Date: 01/26/18 Time: 12:23 EKG Interpretation Comments: EKG shows a sinus rhythm area there is no acute ST or T-wave changes noted there is no ischemic changes noted. She does have low voltage noted in precordial leads. Course - Vital Signs Last Recorded V/S: Last Vital Signs Temp 98.6 F 01/25/18 23:43 Pulse 102 H 01/25/18 23:43 Resp 22 H 01/25/18 23:43 BP 144/54 H 01/25/18 23:43 Pulse Ox 90 L 01/26/18 01:58 - Orders/Labs/Meds Orders: Active Orders 24 hr Category Date Time Status EKG 12 Lead [EKG Documentation Completion] [RC] STAT Care 01/26/18 00:02 Active Insert Trevizo Catheter [Insert Urinary Catheter] [OM.PC] Care 01/26/18 01:45 Ordered Q24H RT Aerosol Therapy [RC] ASDIRECTED Care 01/26/18 01:58 Active Urinary Catheter Assessment [RC] ASDIRECTED Care 01/26/18 02:10 Active Chest 2V [CR] Stat Exams 01/26/18 00:00 Taken CULTURE BLOOD [BC] Stat Lab 01/26/18 01:40 Received CULTURE BLOOD [BC] Stat Lab 01/26/18 01:45 Received CULTURE URINE [RM] Stat Lab 01/26/18 01:55 Received Levofloxacin/Dextrose 5%-Water [Levaquin in D5W 750 MG/ Med 01/26/18 01:58 Active 150 ML] 750 mg Premix Bag 1 bag IV ONETIME cefTRIAXone [Rocephin] 2 gm Med 01/26/18 01:58 Active Sodium Chloride 0.9% [Normal Saline] 100 ml IV ONETIME Blood Culture x2 Reflex Set [OM.PC] Stat Oth 01/26/18 01:26 Ordered Medication Orders Ceftriaxone Sodium 2 gm/ (Sodium Chloride) 100 mls @ 100 mls/hr IV ONETIME ONE Stop: 01/26/18 02:57 Last Admin: 01/26/18 02:08 Dose: 100 mls/hr Levofloxacin/Dextrose 750 mg/ (Premix) 150 mls @ 100 mls/hr IV ONETIME ONE Stop: 01/26/18 03:27 Last Admin: 01/26/18 02:08 Dose: 100 mls/hr Labs: Laboratory Tests 08/25/18 08/25/18 08/25/18 Range/Units 00:55 00:55 00:55 WBC 37.83 H (3.98-10.04) K/mm3 RBC 4.00 (3.98-5.22) M/mm3 Hgb 11.6 (11.2-15.7) gm/L Hct 36.5 (34.1-44.9) % MCV 91.3 (79.4-94.8) fl MCH 29.0 (25.6-32.2) pg MCHC 31.8 L (32.2-35.5) g/dl RDW Std Deviation 60.7 H (36.4-46.3) fL Plt Count 722 H (182-369) K/mm3 MPV 9.7 (9.4-12.3) fl Neut % (Auto) 78.5 H (34.0-71.1) % Lymph % (Auto) 7.7 L (19.3-51.7) % [place] % (Auto) 12.2 (4.7-12.5) % Eos % (Auto) 0.3 L (0.7-5.8) Baso % (Auto) 0.3 (0.1-1.2) % Neut # (Auto) 29.71 H (1.56-6.13) K/mm3 Lymph # (Auto) 2.91 (1.18-3.74) K/mm3 [place] # (Auto) 4.60 H (0.24-0.36) K/mm3 Eos # (Auto) 0.13 (0.04-0.36) K/mm3 Baso # (Auto) 0.12 H (0.01-0.08) K/mm3 Manual Slide Review Abnormal smear Sodium 136 (136-145) mEq/L Potassium 4.4 (3.5-5.1) mEq/L Chloride 101 (98-107) mEq/L Carbon Dioxide 26 (21-32) mEq/L Anion Gap 13.4 (5-15) BUN 19 H (7-18) mg/dL Creatinine 1.3 H (0.55-1.02) mg/dL Est Cr Clr Drug Dosing 29.12 mL/min Estimated GFR (MDRD) 40 (>60) mL/min BUN/Creatinine Ratio 14.6 (14-18) Glucose 116 H (83-115) mg/dL Lactic Acid (0.4-2.0) mmol/L Calcium 10.1 (8.5-10.1) mg/dL Total Bilirubin 0.6 (0.2-1.0) mg/dL AST 28 (15-37) U/L ALT 25 (14-59) U/L Alkaline Phosphatase 160 H (46-116) U/L Troponin I < 0.017 (0.00-0.056) ng/mL C-Reactive Protein (<1.0) mg/dL NT-Pro-B Natriuret Pep 502 H (0-450) pg/mL Total Protein 7.6 (6.4-8.2) g/dl Albumin 2.8 L (3.4-5.0) g/dl Globulin 4.8 gm/dL Albumin/Globulin Ratio 0.6 L (1-2) Urine Color (Yellow) Urine Appearance (Clear) Urine pH (5.0-8.0) Ur Specific [place] (1.005-1.030) Urine Protein (Negative) Urine Glucose (UA) (Negative) Urine Ketones (Negative) Urine Occult Blood (Negative) Urine Nitrite (Negative) Urine Bilirubin (Negative) Urine Urobilinogen (0.2-1.0) Ur Leukocyte Esterase (Negative) Urine RBC (0-5) /hpf Urine WBC (0-5) /hpf Ur Epithelial Cells (0-5) /hpf Urine Bacteria (FEW) /hpf Urine Mucus (FEW) /hpf 01/26/18 01/26/18 01/26/18 Range/Units 00:55 01:40 01:55 WBC (3.98-10.04) K/mm3 RBC (3.98-5.22) M/mm3 Hgb (11.2-15.7) gm/L Hct (34.1-44.9) % MCV (79.4-94.8) fl MCH (25.6-32.2) pg MCHC (32.2-35.5) g/dl RDW Std Deviation (36.4-46.3) fL Plt Count (182-369) K/mm3 MPV (9.4-12.3) fl Neut % (Auto) (34.0-71.1) % Lymph % (Auto) (19.3-51.7) % [place] % (Auto) (4.7-12.5) % Eos % (Auto) (0.7-5.8) Baso % (Auto) (0.1-1.2) % Neut # (Auto) (1.56-6.13) K/mm3 Lymph # (Auto) (1.18-3.74) K/mm3 [place] # (Auto) (0.24-0.36) K/mm3 Eos # (Auto) (0.04-0.36) K/mm3 Baso # (Auto) (0.01-0.08) K/mm3 Manual Slide Review Sodium (136-145) mEq/L Potassium (3.5-5.1) mEq/L Chloride (98-107) mEq/L Carbon Dioxide (21-32) mEq/L Anion Gap (5-15) BUN (7-18) mg/dL Creatinine (0.55-1.02) mg/dL Est Cr Clr Drug Dosing mL/min Estimated GFR (MDRD) (>60) mL/min BUN/Creatinine Ratio (14-18) Glucose (83-115) mg/dL Lactic Acid 1.3 (0.4-2.0) mmol/L Calcium (8.5-10.1) mg/dL Total Bilirubin (0.2-1.0) mg/dL AST (15-37) U/L ALT (14-59) U/L Alkaline Phosphatase (46-116) U/L Troponin I (0.00-0.056) ng/mL C-Reactive Protein 23.6 H* (<1.0) mg/dL NT-Pro-B Natriuret Pep (0-450) pg/mL Total Protein (6.4-8.2) g/dl Albumin (3.4-5.0) g/dl Globulin gm/dL Albumin/Globulin Ratio (1-2) Urine Color Yellow (Yellow) Urine Appearance Clear (Clear) Urine pH 7.0 (5.0-8.0) Ur Specific [place] 1.010 (1.005-1.030) Urine Protein Negative (Negative) Urine Glucose (UA) Negative (Negative) Urine Ketones Negative (Negative) Urine Occult Blood 1+ H (Negative) Urine Nitrite Negative (Negative) Urine Bilirubin Negative (Negative) Urine Urobilinogen 2.0 H (0.2-1.0) Ur Leukocyte Esterase Negative (Negative) Urine RBC 0-5 (0-5) /hpf Urine WBC 0-5 (0-5) /hpf Ur Epithelial Cells 0-5 (0-5) /hpf Urine Bacteria Not seen (FEW) /hpf Urine Mucus Not seen (FEW) /hpf Meds: Medications Generic Name Dose Route Start Last Admin Trade Name Freq PRN Reason Stop Dose Admin Ceftriaxone Sodium 2 gm/ 100 mls @ 100 mls/hr 01/26/18 01:58 01/26/18 02:08 Sodium Chloride IV 01/26/18 02:57 100 mls/hr ONETIME ONE Administration Levofloxacin/Dextrose 750 mg/ 150 mls @ 100 mls/hr 01/26/18 01:58 01/26/18 02 :08 Premix IV 01/26/18 03:27 100 mls/hr ONETIME ONE Administration Discontinued Medications Generic Name Dose Route Start Last Admin Trade Name Freq PRN Reason Stop Dose Admin Albuterol/Ipratropium 3 ml 01/26/18 01:58 01/26/18 02:05 Duoneb 3.0-0.5 Mg/3 Ml NEB 01/26/18 01:59 3 ml ONETIME ONE Administration - Radiology Interpretation Free Text/Narrative:: Chest x-ray suggests that she has possibly congestive failure or that is a infiltrate in her lung bases. - Re-Assessments/Exams Free Text/Narrative Re-Assessment/Exam: 01/26/18 01:44 The patient's white count came back at 37,000, her BNP was essentially normal as well as her troponin. I do not believe that she is in congestive heart failure at this time and I believe she has a pneumonia on her chest x-ray. I'll obtain blood cultures and lactic acid and a urine and a urine culture. Once we have that obtained we'll give her 2 g of Rocephin and give her some Levaquin IV. 01/26/18 02:33 The patient is doing okay in the ER her pulse ox drops periodically requiring a breathing treatment. I spoke to Dr. Chance indicating that I believe she has a pneumonia with a white count of 37,000. Her BNP was 502 not suggesting congestive heart failure. Lactic acid was 1.3 not suggesting sepsis. Her C- reactive protein was 23.6. Her pulse ox is been running in the low 90s and with a breathing treatment will get up to 95 or 96% her blood pressure is been 129/ 67 or above the entire time she has been here and her platelets are 722,000. She is artery gotten 2 blood cultures as well as a urine and urine culture. Her urine was completely normal. We have given her 2 g of Rocephin and [address] Chance will admit her to the ICU since she is a full code and continue evaluation and treatment. Departure - Departure Time of Disposition: 02:35 Disposition: Admitted As Inpatient 67 Condition: Poor Clinical Impression: Hypoxemia, Elevated C-reactive protein, Thrombocytosis Pneumonia Qualifiers: Pneumonia type: due to unspecified organism Laterality: bilateral Lung location : unspecified part of lung Qualified Code(s): J18.9 - Pneumonia, unspecified organism Leukocytosis Qualifiers: Leukocytosis type: bandemia Qualified Code(s): D72.825 - Bandemia - Discharge Information Additional Instructions: Dr. Chance will admit the patient to the ICU for further evaluation and treatment ED Communication - ED Communication Date/Time Date: 01/26/18 Time Called: 02:35 - Discussed Case With (1) Discussed Case With (1): Admitting Provider Person/s Notified (1): Steve Chance (He will admit for further evaluation) - My Orders Last 24 Hours: My Active Orders 01/26/18 00:00 Chest 2V [CR] Stat 01/26/18 00:02 EKG 12 Lead [EKG Documentation Completion] [RC] STAT 01/26/18 01:26 Blood Culture x2 Reflex Set [OM.PC] Stat 01/26/18 01:40 CULTURE BLOOD [BC] Stat 01/26/18 01:45 Insert Trevizo Catheter [Insert Urinary Catheter] [OM.PC] Q24H CULTURE BLOOD [BC] Stat 01/26/18 01:55 CULTURE URINE [RM] Stat 01/26/18 01:58 RT Aerosol Therapy [RC] ASDIRECTED Levofloxacin/Dextrose 5%-Water [Levaquin in D5W 750 MG/150 ML] 750 mg Premix Bag 1 bag IV ONETIME cefTRIAXone [Rocephin] 2 gm Sodium Chloride 0.9% [Normal Saline] 100 ml IV ONETIME 01/26/18 02:10 Urinary Catheter Assessment [RC] ASDIRECTED - Assessment/Plan Last 24 Hours: My Active Orders 01/26/18 00:00 Chest 2V [CR] Stat 01/26/18 00:02 EKG 12 Lead [EKG Documentation Completion] [RC] STAT 01/26/18 01:26 Blood Culture x2 Reflex Set [OM.PC] Stat 01/26/18 01:40 CULTURE BLOOD [BC] Stat 01/26/18 01:45 Insert Trevizo Catheter [Insert Urinary Catheter] [OM.PC] Q24H CULTURE BLOOD [BC] Stat 01/26/18 01:55 CULTURE URINE [RM] Stat 01/26/18 01:58 RT Aerosol Therapy [RC] ASDIRECTED Levofloxacin/Dextrose 5%-Water [Levaquin in D5W 750 MG/150 ML] 750 mg Premix Bag 1 bag IV ONETIME cefTRIAXone [Rocephin] 2 gm Sodium Chloride 0.9% [Normal Saline] 100 ml IV ONETIME 01/26/18 02:10 Urinary Catheter Assessment [RC] ASDIRECTED
[2018-01-26] MEDS ORDERED: Albuterol/Ipratropium 3.0-0.5 MG/3 ML Neb Soln NEB ONE (01:58)
[2018-01-26] MEDS ORDERED: cefTRIAXone 2 GM in Sodium Chloride 0.9% 100 ML IV ONE (01:58)
[2018-01-26] MEDS ORDERED: Levofloxacin/Dextrose 5%-Water 750 MG in Premix Bag 1 BAG IV ONE (01:58)
[2018-01-26] MEDS: Sodium Chloride 0.9% 1,000 ML IV SCH ×2 (03:58→13:51)
[2018-01-26] MEDS: Albuterol/Ipratropium 3.0-0.5 MG/3 ML Neb Soln NEB PRN ×3 (06:17→17:38)
[2018-01-26] MEDS ORDERED: guaiFENesin/Dextromethorphan 100-10 MG/5 ML Soln 5 ML Cup PO PRN (06:42)
--- NOTE | 2018-01-26 06:42 | PCM.HP ---
H&P History of Present Illness - General Date of Service: 01/26/18 Admit Problem/Dx: Admission Diagnosis/Problem Admission Diagnosis/Problem Pneumonia Source of Information: Patient, Family, Old Records, Provider, RN Notes Reviewed History Limitations: Reports: Respiratory Distress - History of Present Illness Initial Comments - Free Text/Narative: This is a 77 yo elderly white female with past medical hx/o Impaired Vision, HTN , HF Preserved EF 67% 09/19/2016, COPD, SOB on Exertion, OA/DJD, BLAYNE on CPAP, Chronic Back Pain, Hypothyroidism, B12 Deficiency, Peripheral Neuropathy, Chronic Pain Syndrome, Chronic Thrombocythemia, Migraines, Anxiety, Depression who comes in to the emergency department for evaluation of increasing shortness of breath that started a couple days ago. She lives in [place] and reports possible sick contact. Patient carries a history of chronic respiratory failure. She is normally on 3 L nasal cannula but on presentation she was on 6 L to maintain an O2 sat of 94%. According to the patient, she received initial treatment at the facility but her symptom did not improve. She actually got worse and reports increased wheezing and shortness of breath. Her initial workup in emergency department shows a CBC remarkable for WBC of 37.83, MCHC of 31.8, RDW of 16.7, Platelet count of 722, neutrophils of 78.5%, lymphocytes of 7.7%, and eosinophils of 0.3%. Her chemistry is significant for BUN of 19, creatinine of 1.3, glucose of 116, alkaline phosphatase of 160, CRP of 23.6, proBNP of 502, and albumin of 2.8. Her UDS is negative for UTI. Chest x -ray shows bilateral opacification but poor in quality. Patient was admitted oxygen equipment preparer hours to the unit for treatment of healthcare associated pneumonia and COPD exacerbation. She is full code. - Related Data Allergies/Adverse Reactions: Allergies Allergy/AdvReac Type Severity Reaction Status Date / Time doxycycline Allergy Cannot Verified 07/03/17 20:34 Remember tiotropium Allergy Cannot Verified 07/03/17 20:34 [From Spiriva with Remember HandiHaler] tramadol [From Ultracet] Allergy Cannot Verified 07/03/17 20:34 Remember Home Medications: Home Meds Budesonide/Formoterol Fumarate [Symbicort 160-4.5 Mcg Inhaler] 2 puff IH BID [History] Hydrocodone/Acetaminophen [Hydrocodon-Acetaminophn 10-325] 1 tab PO TID [History] Potassium Chloride 20 meq PO DAILY 08/23/16 [History] Ipratropium/Albuterol Sulfate [Combivent Respimat 20-100 Mcg] 1 puff INH QID [History] FLUoxetine [PROzac] 10 mg PO DAILY #30 cap 09/20/16 [Rx] Albuterol [Proventil Neb Soln] 3 ml INH QID PRN 07/03/17 [History] Cholecalciferol (Vitamin D3) [Vitamin D3] 2,000 unit PO DAILY 07/03/17 [History] Cyanocobalamin (Vitamin B-12) [Vitamin B-12] 1,000 mcg PO DAILY 07/03/17 [ History] Furosemide [Lasix] 40 mg PO DAILY 07/03/17 [History] Gabapentin [Neurontin] 300 mg PO TID 07/03/17 [History] LORazepam [Ativan] 0.5 mg PO TID 07/03/17 [History] Levothyroxine [Synthroid] 88 mcg PO DAILY 07/03/17 [History] Roflumilast [Daliresp] 500 mcg PO DAILY 07/03/17 [History] Rosuvastatin [Crestor] 5 mg PO DAILY 07/03/17 [History] Umeclidinium [place] [Incruse Ellipta] 1 puff INH DAILY 07/03/17 [History] Ibuprofen [Motrin] 800 mg PO BID PRN #0 07/11/17 [Rx] Docusate Sodium [Colace] 100 mg PO BID 01/25/18 [History] Metoprolol Succinate [Toprol Xl] 50 mg PO DAILY 01/25/18 [History] guaiFENesin [Mucinex] 600 mg PO BID 01/25/18 [History] guaiFENesin/Dextromethorphan [Tussin Dm Cough Syrup] 5 ml PO QID PRN 01/25/18 [ History] oxyCODONE HCl/Acetaminophen [Percocet 5-325 mg Tablet] 1 each PO BID 01/25/18 [ History] oxyCODONE HCl/Acetaminophen [Percocet 5-325 mg Tablet] 1 each PO Q4H PRN [History] Past Medical History HEENT History: Reports: Impaired Vision, Other (See Below) Other HEENT History: wears glasses Cardiovascular History: Reports: Heart Failure, Hypertension, SOB on Exertion Respiratory History: Reports: COPD, SOB Gastrointestinal History: Reports: Diverticulosis Genitourinary History: Reports: None Musculoskeletal History: Reports: Arthritis, Back Pain, Chronic Neurological History: Reports: Migraines Psychiatric History: Reports: Anxiety, Depression Endocrine/Metabolic History: Reports: Hypothyroidism, Obesity/BMI 30+ Hematologic History: Reports: B12 Deficiency Immunologic History: Reports: None Dermatologic History: Reports: Other (See Below) Other Dermatologic History: dry skin - Infectious Disease History Infectious Disease History: Reports: Shingles - Past Surgical History Head Surgeries/Procedures: Reports: None Respiratory Surgical History: Reports: None GI Surgical History: Reports: Hernia Repair/Other Neurological Surgical History: Reports: Lumbar Spine Dermatological Surgical History: Reports: None Social & Family History - Family History Family Medical History: Noncontributory - Tobacco Use Smoking Status *Q: Never Smoker Used Tobacco, but Quit: Yes Month/Year Tobacco Last Used: many years ago Second Hand Smoke Exposure: No - Caffeine Use Caffeine Use: Reports: None - Recreational Drug Use Recreational Drug Use: No - Living Situation & Occupation Living situation: Reports: Alone Occupation: Retired H&P Review of Systems - Review of Systems: Review Of Systems: See Below General: Reports: Weakness, Fatigue. Denies: Fever, Chills HEENT: Reports: No Symptoms, Sinus Congestion Pulmonary: Reports: Shortness of Breath, Wheezing, Cough. Denies: Pleuritic Chest Pain, Sputum Cardiovascular: Reports: Edema. Denies: Chest Pain, Dyspnea on Exertion, Lightheadedness Gastrointestinal: Denies: Abdominal Pain, Decreased Appetite, Nausea, Vomiting Musculoskeletal: Reports: No Symptoms Skin: Denies: Cyanosis, Diaphoresis, Bruising, Rash, Erythema Psychiatric: Denies: Confusion, Depression, Anxiety, Agitation, Hallucinations Neurological: Reports: Gait Disturbance. Denies: Confusion, Difficulty Walking , Weakness Hematologic/Lymphatic: Reports: No Symptoms Immunologic: Reports: No Symptoms Exam - Exam Exam: See Below - Vital Signs Vital Signs: Last Vital Signs Temp 37.0 C 01/25/18 23:43 Pulse 102 H 01/25/18 23:43 Resp 21 H 01/26/18 04:16 BP 144/54 H 01/25/18 23:43 Pulse Ox 90 L 01/26/18 06:22 Weight: 115.212 kg - Exam Quality Assessment: Supplemental Oxygen General: Alert, Oriented, Cooperative, Mild Distress, Other (Morbidly Obese) HEENT: Conjunctiva Clear, EACs Clear, EOMI, Hearing Intact, Mucosa Moist & [place] , Nares Patent, Normal Nasal Septum, Posterior Pharynx Clear, Pupils Equal, Pupils Reactive Neck: Supple, Trachea Midline, +2 Carotid Pulse wo Bruit Lungs: Normal Respiratory Effort, Decreased Breath Sounds, Wheezing Cardiovascular: Regular Rate, Regular Rhythm GI/Abdominal Exam: Normal Bowel Sounds, Soft, Non-Tender, No Organomegaly, No Distention, No Abnormal Bruit, No Mass, Other (Obese) (Female) Exam: Deferred Rectal (Female) Exam: Deferred Back Exam: Normal Inspection, Decreased Range of Motion Extremities: Normal Inspection, Normal Range of Motion, Non-Tender, No Pedal Edema, Normal Capillary Refill Peripheral Pulses: 2+: Posterior Tibial (L), Posterior Tibial (R), Dorsalis Pedis (L), Dorsalis Pedis (R) Skin: Warm, Dry, Intact Neuro Extensive - Mental Status: Oriented x3, Normal Cognition, Memory Intact Neuro Extensive - Motor, Sensory, Reflexes: CN II-XII Intact (limited due to shortness of breath), Abnormal Gait Psychiatric: Alert, Normal Affect, Normal Mood - Patient Data Lab Results Last 24 hrs: Laboratory Results - last 24 hr 01/26/18 01/26/18 01/26/18 Range/Units 00:55 00:55 00:55 WBC 37.83 H (3.98-10.04) K/mm3 RBC 4.00 (3.98-5.22) M/mm3 Hgb 11.6 (11.2-15.7) gm/L Hct 36.5 (34.1-44.9) % MCV 91.3 (79.4-94.8) fl MCH 29.0 (25.6-32.2) pg MCHC 31.8 L (32.2-35.5) g/dl RDW Std Deviation 60.7 H (36.4-46.3) fL Plt Count 722 H (182-369) K/mm3 MPV 9.7 (9.4-12.3) fl Neut % (Auto) 78.5 H (34.0-71.1) % Lymph % (Auto) 7.7 L (19.3-51.7) % [place] % (Auto) 12.2 (4.7-12.5) % Eos % (Auto) 0.3 L (0.7-5.8) Baso % (Auto) 0.3 (0.1-1.2) % Neut # (Auto) 29.71 H (1.56-6.13) K/mm3 Lymph # (Auto) 2.91 (1.18-3.74) K/mm3 [place] # (Auto) 4.60 H (0.24-0.36) K/mm3 Eos # (Auto) 0.13 (0.04-0.36) K/mm3 Baso # (Auto) 0.12 H (0.01-0.08) K/mm3 Manual Slide Review Abnormal smear Sodium 136 (136-145) mEq/L Potassium 4.4 (3.5-5.1) mEq/L Chloride 101 (98-107) mEq/L Carbon Dioxide 26 (21-32) mEq/L Anion Gap 13.4 (5-15) BUN 19 H (7-18) mg/dL Creatinine 1.3 H (0.55-1.02) mg/dL Est Cr Clr Drug Dosing 29.12 mL/min Estimated GFR (MDRD) 40 (>60) mL/min BUN/Creatinine Ratio 14.6 (14-18) Glucose 116 H (83-115) mg/dL Lactic Acid (0.4-2.0) mmol/L Calcium 10.1 (8.5-10.1) mg/dL Total Bilirubin 0.6 (0.2-1.0) mg/dL AST 28 (15-37) U/L ALT 25 (14-59) U/L Alkaline Phosphatase 160 H (46-116) U/L Troponin I < 0.017 (0.00-0.056) ng/mL C-Reactive Protein (<1.0) mg/dL NT-Pro-B Natriuret Pep 502 H (0-450) pg/mL Total Protein 7.6 (6.4-8.2) g/dl Albumin 2.8 L (3.4-5.0) g/dl Globulin 4.8 gm/dL Albumin/Globulin Ratio 0.6 L (1-2) Urine Color (Yellow) Urine Appearance (Clear) Urine pH (5.0-8.0) Ur Specific [place] (1.005-1.030) Urine Protein (Negative) Urine Glucose (UA) (Negative) Urine Ketones (Negative) Urine Occult Blood (Negative) Urine Nitrite (Negative) Urine Bilirubin (Negative) Urine Urobilinogen (0.2-1.0) Ur Leukocyte Esterase (Negative) Urine RBC (0-5) /hpf Urine WBC (0-5) /hpf Ur Epithelial Cells (0-5) /hpf Urine Bacteria (FEW) /hpf Urine Mucus (FEW) /hpf MRSA (PCR) 01/26/18 01/26/18 01/26/18 Range/Units 00:55 01:40 01:55 WBC (3.98-10.04) K/mm3 RBC (3.98-5.22) M/mm3 Hgb (11.2-15.7) gm/L Hct (34.1-44.9) % MCV (79.4-94.8) fl MCH (25.6-32.2) pg MCHC (32.2-35.5) g/dl RDW Std Deviation (36.4-46.3) fL Plt Count (182-369) K/mm3 MPV (9.4-12.3) fl Neut % (Auto) (34.0-71.1) % Lymph % (Auto) (19.3-51.7) % [place] % (Auto) (4.7-12.5) % Eos % (Auto) (0.7-5.8) Baso % (Auto) (0.1-1.2) % Neut # (Auto) (1.56-6.13) K/mm3 Lymph # (Auto) (1.18-3.74) K/mm3 [place] # (Auto) (0.24-0.36) K/mm3 Eos # (Auto) (0.04-0.36) K/mm3 Baso # (Auto) (0.01-0.08) K/mm3 Manual Slide Review Sodium (136-145) mEq/L Potassium (3.5-5.1) mEq/L Chloride (98-107) mEq/L Carbon Dioxide (21-32) mEq/L Anion Gap (5-15) BUN (7-18) mg/dL Creatinine (0.55-1.02) mg/dL Est Cr Clr Drug Dosing mL/min Estimated GFR (MDRD) (>60) mL/min BUN/Creatinine Ratio (14-18) Glucose (83-115) mg/dL Lactic Acid 1.3 (0.4-2.0) mmol/L Calcium (8.5-10.1) mg/dL Total Bilirubin (0.2-1.0) mg/dL AST (15-37) U/L ALT (14-59) U/L Alkaline Phosphatase (46-116) U/L Troponin I (0.00-0.056) ng/mL C-Reactive Protein 23.6 H* (<1.0) mg/dL NT-Pro-B Natriuret Pep (0-450) pg/mL Total Protein (6.4-8.2) g/dl Albumin (3.4-5.0) g/dl Globulin gm/dL Albumin/Globulin Ratio (1-2) Urine Color Yellow (Yellow) Urine Appearance Clear (Clear) Urine pH 7.0 (5.0-8.0) Ur Specific [place] 1.010 (1.005-1.030) Urine Protein Negative (Negative) Urine Glucose (UA) Negative (Negative) Urine Ketones Negative (Negative) Urine Occult Blood 1+ H (Negative) Urine Nitrite Negative (Negative) Urine Bilirubin Negative (Negative) Urine Urobilinogen 2.0 H (0.2-1.0) Ur Leukocyte Esterase Negative (Negative) Urine RBC 0-5 (0-5) /hpf Urine WBC 0-5 (0-5) /hpf Ur Epithelial Cells 0-5 (0-5) /hpf Urine Bacteria Not seen (FEW) /hpf Urine Mucus Not seen (FEW) /hpf MRSA (PCR) 01/26/18 01/26/18 Range/Units 04:20 06:09 WBC 37.89 H (3.98-10.04) K/mm3 RBC 3.83 L (3.98-5.22) M/mm3 Hgb 11.0 L (11.2-15.7) gm/L Hct 35.3 (34.1-44.9) % MCV 92.2 (79.4-94.8) fl MCH 28.7 (25.6-32.2) pg MCHC 31.2 L (32.2-35.5) g/dl RDW Std Deviation 60.9 H (36.4-46.3) fL Plt Count 724 H (182-369) K/mm3 MPV 9.9 (9.4-12.3) fl Neut % (Auto) 81.1 H (34.0-71.1) % Lymph % (Auto) 6.7 L (19.3-51.7) % [place] % (Auto) 11.3 (4.7-12.5) % Eos % (Auto) 0.1 L (0.7-5.8) Baso % (Auto) 0.2 (0.1-1.2) % Neut # (Auto) 30.70 H (1.56-6.13) K/mm3 Lymph # (Auto) 2.55 (1.18-3.74) K/mm3 [place] # (Auto) 4.29 H (0.24-0.36) K/mm3 Eos # (Auto) 0.02 L (0.04-0.36) K/mm3 Baso # (Auto) 0.09 H (0.01-0.08) K/mm3 Manual Slide Review Sodium (136-145) mEq/L Potassium (3.5-5.1) mEq/L Chloride (98-107) mEq/L Carbon Dioxide (21-32) mEq/L Anion Gap (5-15) BUN (7-18) mg/dL Creatinine (0.55-1.02) mg/dL Est Cr Clr Drug Dosing mL/min Estimated GFR (MDRD) (>60) mL/min BUN/Creatinine Ratio (14-18) Glucose (83-115) mg/dL Lactic Acid (0.4-2.0) mmol/L Calcium (8.5-10.1) mg/dL Total Bilirubin (0.2-1.0) mg/dL AST (15-37) U/L ALT (14-59) U/L Alkaline Phosphatase (46-116) U/L Troponin I (0.00-0.056) ng/mL C-Reactive Protein (<1.0) mg/dL NT-Pro-B Natriuret Pep (0-450) pg/mL Total Protein (6.4-8.2) g/dl Albumin (3.4-5.0) g/dl Globulin gm/dL Albumin/Globulin Ratio (1-2) Urine Color (Yellow) Urine Appearance (Clear) Urine pH (5.0-8.0) Ur Specific [place] (1.005-1.030) Urine Protein (Negative) Urine Glucose (UA) (Negative) Urine Ketones (Negative) Urine Occult Blood (Negative) Urine Nitrite (Negative) Urine Bilirubin (Negative) Urine Urobilinogen (0.2-1.0) Ur Leukocyte Esterase (Negative) Urine RBC (0-5) /hpf Urine WBC (0-5) /hpf Ur Epithelial Cells (0-5) /hpf Urine Bacteria (FEW) /hpf Urine Mucus (FEW) /hpf MRSA (PCR) Negative Result Diagrams: 01/27/18 05:39 01/27/18 05:39 Problem List Initiated/Reviewed/Updated: Yes Orders Last 24hrs: Active Orders 24 hr Category Date Time Status Admission Status [Patient Status] [ADT] Routine ADT 01/26/18 02:42 Active Activity as Tolerated [RC] .Routine Care 01/26/18 03:19 Active Insert Trevizo Catheter [Insert Urinary Catheter] [OM.PC] Care 01/26/18 01:45 Ordered Q24H Oxygen Therapy [RC] ASDIRECTED Care 01/26/18 03:19 Active RT Aerosol Therapy [RC] ASDIRECTED Care 01/26/18 03:21 Active RT BiPAP/CPAP [RC] ASDIRECTED Care 01/26/18 04:38 Active RT Chest Physiotherapy [RC] ASDIRECTED Care 01/26/18 06:23 Active RT Incentive Spirometry [RC] Q1HWA Care 01/26/18 06:23 Active Urinary Catheter Assessment [RC] Q4HR Care 01/26/18 02:10 Active Heart Healthy Diet [DIET] Diet 01/26/18 Breakfast Active Chest 2V [CR] Stat Exams 01/26/18 00:00 Taken BASIC METABOLIC PANEL,BMP [CHEM] Routine Lab 01/26/18 06:09 Received CBC WITH AUTO DIFF [HEME] Routine Lab 01/26/18 06:09 Results CULTURE BLOOD [BC] Stat Lab 01/26/18 01:40 Received CULTURE BLOOD [BC] Stat Lab 01/26/18 01:45 Received CULTURE URINE [RM] Stat Lab 01/26/18 01:55 Received LACTIC ACID [CHEM] Routine Lab 01/26/18 06:09 Received Albuterol/Ipratropium [DuoNeb 3.0-0.5 MG/3 ML] Med 01/26/18 03:20 Active 3 ml NEB Q4HRRT PRN Sodium Chloride 0.9% [Normal Saline] 1,000 ml Med 01/26/18 03:30 Active IV ASDIRECTED Blood Culture x2 Reflex Set [OM.PC] Stat Oth 01/26/18 01:26 Ordered RT Acapella [RESPCARE] Routine Oth 01/26/18 06:23 Active Code Status [Resuscitation Status] Routine Resus Stat 01/26/18 04:12 Ordered Medication Orders Albuterol/Ipratropium (Duoneb 3.0-0.5 Mg/3 Ml) 3 ml NEB Q4HRRT PRN PRN Reason: Shortness of Breath Last Admin: 01/26/18 06:17 Dose: 3 ml Sodium Chloride (Normal Saline) 1,000 mls @ 100 mls/hr IV ASDIRECTED RYAN Last Admin: 01/26/18 03:58 Dose: 100 mls/hr Assessment/Plan Comment:: Assessment/Plan: Acute: HCAP - She lives in [place] - Reports sick contact at the facility - Afebrile but had been coughing; feels congested but not able to get anything out - CXR shows bilateral opacification although no good quality; repeat CXR in 48 hrs - WBC is 37.83K and CRP is 23.6 - Received IV Rocephin and Levaquin in ED - Will d/c Rocephin and start her on IV Zosyn since she has an underlying pulmonary insufficiency - Decongestant/Expectorant, Serial CXR, IS and FV as directed - Sputum Cx, Blood Cx, Mycoplasma/Strep pneumonia Ag tests COPD Exacerbation - Audible wheezing but able to speak w/o difficulty - IV Steroids, Bronchodilators, IV Magnesium and Supplemental O2 Morbid Obesity with BMI of 46.5 - Dietary consult for weight management - Advised to lose weigh Chronic: Impaired Vision, HTN, HF Preserved EF 67% 09/19/2016, COPD, SOB on Exertion, OA/DJD, BLAYNE on CPAP, Chronic Back Pain, Hypothyroidism, B12 Deficiency , Peripheral Neuropathy, Chronic Pain Syndrome, Chronic Thrombocythemia, Migraines, Anxiety, Depression Plan: Patient was admitted oxygen equipment preparer hours to ICU Resume Some Home Meds Routine AM Labs RT/PT/OT consult High Fall Risk DVT/GI PPx SW/CM for D/c planning Additional orders as above Code status: 1 Met daughter at bedside and discussed health information with her, of course with patient's approval. She was updated about mom's current diagnoses, clinical status and treatment plan.
[2018-01-26] MEDS ORDERED: Promethazine 12.5 MG in Sodium Chloride 0.9% 50 ML IV PRN (06:48)
[2018-01-26] MEDS ORDERED: Ondansetron 4 MG/2 ML SDV IV PRN (06:48)
[2018-01-26] MEDS ORDERED: Bisacodyl 5 MG Tab PO PRN (06:48)
[2018-01-26] MEDS ORDERED: Morphine 2 MG/ML Syringe IVPUSH PRN (06:48)
[2018-01-26] MEDS ORDERED: Polyethylene Glycol 3350 Powder 17 GM Packet PO PRN (06:48)
[2018-01-26] MEDS ORDERED: Piperacillin/Tazobactam 4.5 GM in Sodium Chloride 0.9% 100 ML IV ONE (07:00)
[2018-01-26] MEDS: Acetaminophen/oxyCODONE 325-5 MG Tab PO PRN (07:00)
[2018-01-26] MEDS ORDERED: methylPREDNISolone Sodium Succinate 125 MG/2 ML SDV IVPUSH ONE (07:30)
[2018-01-26] MEDS ORDERED: Acetaminophen 325 MG Tab PO PRN (08:11)
[2018-01-26] MEDS: Formoterol/Mometasone 200-5 MCG 8.8 GM Inhaler IH SCH ×5 (08:15→20:13)
[2018-01-26] MEDS: Saccharomyces Boulardii (Probiotic) 250 MG Cap PO SCH ×3 (08:27→21:00)
[2018-01-26] MEDS: Levothyroxine 88 MCG Tab PO SCH (08:28)
[2018-01-26] MEDS: Gabapentin 300 MG Cap PO SCH ×3 (08:28→21:00)
[2018-01-26] MEDS: LORazepam 0.5 MG Tab PO SCH ×3 (08:28→21:00)
[2018-01-26] MEDS ORDERED: IPRATROPIUM INH SCH (09:00)
[2018-01-26] MEDS ORDERED: guaiFENesin 600 MG Tab.ER PO SCH (09:00)
[2018-01-26] MEDS ORDERED: Acetaminophen/HYDROcodone 325-10 MG Tab PO SCH (09:00)
[2018-01-26] MEDS ORDERED: ALBUTEROL INH SCH (09:00)
[2018-01-26] MEDS ORDERED: Non-Formulary Medication 1 Each (Budesonide/Formoterol Fumarate [Symbicort 160-4.5 Mcg Inh IH SCH (09:00)
[2018-01-26] MEDS: Cyanocobalamin (Vitamin B12) 1,000 MCG Tab PO SCH (09:39)
[2018-01-26] MEDS: Furosemide 40 MG Tab PO SCH (09:39)
[2018-01-26] MEDS: FLUoxetine 10 MG Cap PO SCH (09:39)
[2018-01-26] MEDS: Docusate Sodium 100 MG Cap PO SCH ×2 (09:39→21:00)
[2018-01-26] MEDS: Rosuvastatin 10 MG Tab PO SCH (09:40)
[2018-01-26] MEDS: Potassium Chloride 20 MEQ Tab.ER PO SCH (09:40)
[2018-01-26] MEDS: Cholecalciferol (Vitamin D3) 1,000 Unit Tab PO SCH (09:41)
[2018-01-26] MEDS: Acetaminophen/oxyCODONE 325-5 MG Tab PO SCH ×2 (09:41→21:01)
[2018-01-26] MEDS: Metoprolol Succinate 50 MG Tab.ER PO SCH (09:42)
[2018-01-26] MEDS: Enoxaparin 40 MG/0.4 ML Syringe SUBCUT SCH ×2 (09:48→21:01)
[2018-01-26] MEDS: UMECLIDINIUM BROMIDE INH SCH (10:03)
[2018-01-26] MEDS: Roflumilast 500 MCG **PTOM PO SCH (10:03)
[2018-01-26] MEDS: methylPREDNISolone Sodium Succinate 40 MG/1 ML SDV IVPUSH SCH ×2 (13:54→20:59)
[2018-01-26] MEDS: Acetaminophen/HYDROcodone 325-10 MG Tab PO SCH ×2 (13:54→18:25)
[2018-01-26] MEDS: Piperacillin/Tazobactam 4.5 GM in Sodium Chloride 0.9% 100 ML IV SCH ×2 (14:54→22:39)
[2018-01-26] MEDS: ALBUTEROL INH SCH ×2 (15:46→20:13)
[2018-01-26] MEDS: IPRATROPIUM INH SCH ×2 (15:46→20:13)
[2018-01-26] MEDS ORDERED: Bumetanide 1 MG/4 ML MDV IVPUSH ONE (17:50)
[2018-01-26] MEDS: guaiFENesin 600 MG Tab.ER PO SCH (21:00)
[2018-01-26] MEDS ORDERED: Albuterol 0.083% 2.5 MG/3 ML Neb Soln NEB PRN (22:00)
[2018-01-27] MEDS: Acetaminophen/oxyCODONE 325-5 MG Tab PO PRN (02:49)
[2018-01-27] MEDS: methylPREDNISolone Sodium Succinate 40 MG/1 ML SDV IVPUSH SCH ×2 (06:42→13:38)
[2018-01-27] MEDS: Levothyroxine 88 MCG Tab PO SCH (06:42)
[2018-01-27] MEDS: Saccharomyces Boulardii (Probiotic) 250 MG Cap PO SCH ×3 (06:42→21:19)
[2018-01-27] MEDS: Acetaminophen/HYDROcodone 325-10 MG Tab PO SCH ×3 (06:42→18:33)
[2018-01-27] MEDS: Piperacillin/Tazobactam 4.5 GM in Sodium Chloride 0.9% 100 ML IV SCH ×3 (06:43→22:19)
[2018-01-27] MEDS: IPRATROPIUM INH SCH ×4 (07:13→20:09)
[2018-01-27] MEDS: ALBUTEROL INH SCH ×4 (07:13→20:09)
[2018-01-27] MEDS: Formoterol/Mometasone 200-5 MCG 8.8 GM Inhaler IH SCH ×2 (09:30→20:08)
[2018-01-27] MEDS: UMECLIDINIUM BROMIDE INH SCH (09:30)
[2018-01-27] MEDS: Cholecalciferol (Vitamin D3) 1,000 Unit Tab PO SCH (09:46)
[2018-01-27] MEDS: guaiFENesin 600 MG Tab.ER PO SCH ×2 (09:46→21:20)
[2018-01-27] MEDS: Cyanocobalamin (Vitamin B12) 1,000 MCG Tab PO SCH (09:46)
[2018-01-27] MEDS: Docusate Sodium 100 MG Cap PO SCH ×2 (09:47→21:20)
[2018-01-27] MEDS: Gabapentin 300 MG Cap PO SCH ×3 (09:47→21:23)
[2018-01-27] MEDS: Rosuvastatin 10 MG Tab PO SCH (09:47)
[2018-01-27] MEDS: Potassium Chloride 20 MEQ Tab.ER PO SCH (09:48)
[2018-01-27] MEDS: LORazepam 0.5 MG Tab PO SCH ×3 (09:48→21:20)
[2018-01-27] MEDS: Furosemide 40 MG Tab PO SCH (09:49)
[2018-01-27] MEDS: Acetaminophen/oxyCODONE 325-5 MG Tab PO SCH ×2 (09:49→21:23)
--- NOTE | 2018-01-27 09:49 | PCM.PN ---
- General Info Date of Service: 01/27/18 Admission Dx/Problem (Free Text): Admission Diagnosis/Problem Admission Diagnosis/Problem Pneumonia Subjective Update: Follow Up Functional Status: Reports: Pain Controlled, Tolerating Diet, Ambulating, Urinating. Denies: New Symptoms - Review of Systems General: Denies: Fever, Weakness, Fatigue, Malaise HEENT: Reports: No Symptoms Pulmonary: Reports: Cough, Sputum (but better) Cardiovascular: Denies: Chest Pain, Dyspnea on Exertion, Lightheadedness Gastrointestinal: Denies: Abdominal Pain, Decreased Appetite, Nausea, Vomiting Genitourinary: Reports: No Symptoms Musculoskeletal: Reports: No Symptoms Skin: Denies: Cyanosis, Pallor, Diaphoresis Neurological: Reports: Gait Disturbance. Denies: Confusion, Difficulty Walking , Weakness Psychiatric: Denies: Depression, Anxiety, Agitation, Hallucinations Systems Review Comment:: No overnight or acute issues. She looks way better this AM. She states "I feel better". She is now back on 3L NC-baseline supplemental O2. She remains afebrile with much improved WBC level of 34.13. Her CRP is slightly up at 25 from 23.6 yesterday. She reports no complaints. - Patient Data Vitals - Most Recent: Last Vital Signs Temp 36.6 C 01/27/18 07:58 Pulse 81 01/27/18 07:58 Resp 20 01/27/18 07:58 BP 122/49 L 01/27/18 08:14 Pulse Ox 94 L 01/27/18 09:31 Weight - Most Recent: 114.895 kg I&O - Last 24 Hours: Intake & Output 01/26/18 01/27/18 01/27/18 22:59 06:59 14:59 Intake Total 2456 900 650 Output Total 1075 475 Balance 1381 230 650 Lab Results Last 24 Hours: Laboratory Results - last 24 hr 01/27/18 01/27/18 Range/Units 05:39 05:39 WBC 34.13 H (3.98-10.04) K/mm3 RBC 3.89 L (3.98-5.22) M/mm3 Hgb 11.1 L (11.2-15.7) gm/L Hct 35.4 (34.1-44.9) % MCV 91.0 (79.4-94.8) fl MCH 28.5 (25.6-32.2) pg MCHC 31.4 L (32.2-35.5) g/dl RDW Std Deviation 60.7 H (36.4-46.3) fL Plt Count 785 H (182-369) K/mm3 MPV 10.2 (9.4-12.3) fl Neut % (Auto) 87.0 H (34.0-71.1) % Lymph % (Auto) 6.6 L (19.3-51.7) % [place] % (Auto) 5.5 (4.7-12.5) % Eos % (Auto) 0 L (0.7-5.8) Baso % (Auto) 0.1 (0.1-1.2) % Neut # (Auto) 29.70 H (1.56-6.13) K/mm3 Lymph # (Auto) 2.26 (1.18-3.74) K/mm3 [place] # (Auto) 1.88 H (0.24-0.36) K/mm3 Eos # (Auto) 0.00 L (0.04-0.36) K/mm3 Baso # (Auto) 0.03 (0.01-0.08) K/mm3 Manual Slide Review Abnormal smear Sodium 139 (136-145) mEq/L Potassium 3.9 (3.5-5.1) mEq/L Chloride 105 (98-107) mEq/L Carbon Dioxide 25 (21-32) mEq/L Anion Gap 12.9 (5-15) BUN 19 H (7-18) mg/dL Creatinine 1.2 H (0.55-1.02) mg/dL Est Cr Clr Drug Dosing 31.54 mL/min Estimated GFR (MDRD) 44 (>60) mL/min BUN/Creatinine Ratio 15.8 (14-18) Glucose 117 H (83-115) mg/dL Calcium 10.4 H (8.5-10.1) mg/dL Magnesium 2.1 (1.8-2.4) mg/dl C-Reactive Protein 25.0 H* (<1.0) mg/dL [place] Results Last 24 Hours: Microbiology 01/26/18 09:52 Gram Stain - Final Sputum - Expectorated Sputum Culture - Preliminary 01/26/18 01:45 Aerobic Blood Culture - Preliminary Blood - Venous - Lab Draw NO GROWTH AFTER 1 DAY Anaerobic Blood Culture - Preliminary NO GROWTH AFTER 1 DAY 01/26/18 01:40 Aerobic Blood Culture - Preliminary Blood - Venous NO GROWTH AFTER 1 DAY Anaerobic Blood Culture - Final Med Orders - Current: Current Medications Acetaminophen (Tylenol) 650 mg PO Q6H PRN PRN Reason: Pain (mild 1-3) Last Admin: 01/26/18 08:28 Dose: 650 mg Hydrocodone Bitart/Acetaminophen ([place] 325-10 Mg) 1 tab PO TID@0700,1300,1900 [facility] Last Admin: 01/27/18 06:42 Dose: Not Given Albuterol (Proventil Neb Soln) 2.5 mg NEB Q4H PRN PRN Reason: Shortness of Breath Bisacodyl (Dulcolax) 5 mg PO DAILY PRN PRN Reason: Constipation Cholecalciferol (Vitamin D3) 2,000 units PO DAILY [facility] Last Admin: 01/26/18 09:41 Dose: 2,000 units Cyanocobalamin (Vitamin B12) 1,000 mcg PO DAILY [facility] Last Admin: 01/26/18 09:39 Dose: 1,000 mcg Docusate Sodium (Colace) 100 mg PO BID [facility] Last Admin: 01/26/18 21:00 Dose: 100 mg Enoxaparin Sodium (Lovenox) 40 mg SUBCUT BID [facility] Last Admin: 01/26/18 21:01 Dose: 40 mg Fluoxetine HCl (Prozac) 10 mg PO DAILY [facility] Last Admin: 01/26/18 09:39 Dose: 10 mg Furosemide (Lasix) 40 mg PO DAILY [facility] Last Admin: 01/26/18 09:39 Dose: 40 mg Gabapentin (Neurontin) 300 mg PO TID [facility] Last Admin: 01/26/18 21:00 Dose: 300 mg Guaifenesin (Mucinex) 1,200 mg PO BID [facility] Last Admin: 01/26/18 21:00 Dose: 1,200 mg Guaifenesin/Phenylephrine HCl (Robitussin Dm) 5 ml PO QID PRN PRN Reason: Cough Sodium Chloride (Normal Saline) 1,000 mls @ 15 mls/hr IV ASDIRECTED [facility] Last Infusion: 01/26/18 18:24 Dose: 15 mls/hr Promethazine HCl 12.5 mg/ (Sodium Chloride) 50.5 mls @ 100 mls/hr IV Q6H PRN PRN Reason: Nausea/Vomiting Levofloxacin/Dextrose 750 mg/ (Premix) 150 mls @ 100 mls/hr IV Q48H [facility] Piperacillin Sod/Tazobactam (Sod 4.5 gm/ Sodium Chloride) 100 mls @ 25 mls/hr IV Q8H [facility] Last Admin: 01/27/18 06:43 Dose: 25 mls/hr Levothyroxine Sodium (Synthroid) 88 mcg PO ACBRK [facility] Last Admin: 01/27/18 06:42 Dose: 88 mcg Lorazepam (Ativan) 0.5 mg PO TID [facility] Last Admin: 01/26/18 21:00 Dose: 0.5 mg Methylprednisolone Sodium Succinate (Solu-Medrol) 60 mg IVPUSH TID@0700,1400, 2100 [facility] Last Admin: 01/27/18 06:42 Dose: 60 mg Metoprolol Succinate (Toprol Xl) 50 mg PO DAILY [facility] Last Admin: 01/26/18 09:42 Dose: 50 mg Mometasone Furoate/Formoterol Fumar (Dulera 200-5 Mcg) 0 puff IH BID [facility] Last Admin: 01/27/18 09:30 Dose: 2 puff Ondansetron HCl (Zofran) 4 mg IV Q6H PRN PRN Reason: Nausea/Vomiting Oxycodone/Acetaminophen (Percocet 325-5 Mg) 1 tab PO Q4H PRN PRN Reason: Pain Last Admin: 01/27/18 02:49 Dose: 1 tab Oxycodone/Acetaminophen (Percocet 325-5 Mg) 1 tab PO BID [facility] Last Admin: 01/26/18 21:01 Dose: Not Given Roflumilast 500 Mcg (Ptom) 500 each PO DAILY [facility] Last Admin: 01/26/18 10:03 Dose: Not Given Umeclidinium [place] (1 Puff Ptom) 1 each INH DAILY [facility] Last Admin: 01/27/18 09:30 Dose: 1 each Albuterol/Ipratropium 1 Puff * *Ptom 1 each INH QIDRT [facility] Last Admin: 01/27/18 09:30 Dose: 1 each Polyethylene Glycol (Miralax) 17 gm PO DAILY PRN PRN Reason: Constipation Potassium Chloride (Klor-Con M20) 20 meq PO DAILY [facility] Last Admin: 01/26/18 09:40 Dose: 20 meq Rosuvastatin Calcium (Crestor) 5 mg PO DAILY [facility] Last Admin: 01/26/18 09:40 Dose: 5 mg Saccharomyces Boulardii (Florastor) 250 mg PO TID@0700,1400,2100 [facility] Last Admin: 01/27/18 06:42 Dose: 250 mg Senna/Docusate Sodium (Senna Plus) 1 tab PO BID PRN PRN Reason: Constipation Discontinued Medications Hydrocodone Bitart/Acetaminophen ([place] 325-10 Mg) 1 tab PO TID [facility] Last Admin: 01/26/18 10:03 Dose: Not Given Albuterol/Ipratropium (Duoneb 3.0-0.5 Mg/3 Ml) 3 ml NEB ONETIME ONE Stop: 01/26/18 01:59 Last Admin: 01/26/18 02:05 Dose: 3 ml Albuterol/Ipratropium (Duoneb 3.0-0.5 Mg/3 Ml) 3 ml NEB Q4HRRT PRN PRN Reason: Shortness of Breath Last Admin: 01/26/18 17:38 Dose: 3 ml Bumetanide (Bumex) 0.5 mg IVPUSH ONETIME ONE Stop: 01/26/18 17:51 Last Admin: 01/26/18 18:16 Dose: 0.5 mg Guaifenesin (Mucinex) 600 mg PO BID [facility] Last Admin: 01/26/18 09:40 Dose: 600 mg Ceftriaxone Sodium 2 gm/ (Sodium Chloride) 100 mls @ 100 mls/hr IV ONETIME ONE Stop: 01/26/18 02:57 Last Admin: 01/26/18 02:08 Dose: 100 mls/hr Levofloxacin/Dextrose 750 mg/ (Premix) 150 mls @ 100 mls/hr IV ONETIME ONE Stop: 01/26/18 03:27 Last Admin: 01/26/18 02:08 Dose: 100 mls/hr Piperacillin Sod/Tazobactam (Sod 4.5 gm/ Sodium Chloride) 100 mls @ 200 mls/hr IV ONETIME ONE Stop: 01/26/18 07:29 Last Admin: 01/26/18 07:58 Dose: 200 mls/hr Magnesium Sulfate/Dextrose 1 (gm/ Premix) 100 mls @ 100 mls/hr IV ONETIME ONE Stop: 01/26/18 08:07 Last Admin: 01/26/18 07:57 Dose: 100 mls/hr Methylprednisolone Sodium Succinate (Solu-Medrol) 125 mg IVPUSH ONETIME ONE Stop: 01/26/18 07:31 Last Admin: 01/26/18 07:59 Dose: 125 mg Mometasone Furoate/Formoterol Fumar (Dulera 200-5 Mcg) 2 puff IH BIDRT [facility] Last Admin: 01/26/18 08:15 Dose: 2 puff Morphine Sulfate (Morphine) 1 mg IVPUSH Q3H PRN PRN Reason: Other Stop: 01/27/18 06:50 Albuterol/Ipratropium 1 Puff * *Ptom 1 each INH QID [facility] Last Admin: 01/26/18 10:03 Dose: Not Given - Exam Quality Assessment: Supplemental Oxygen General: Alert, Oriented, Cooperative, No Acute Distress, Other (Morbidly Obese) HEENT: Pupils Equal, Pupils Reactive, EOMI, Mucous Membr. Moist/[place] Neck: Supple, Trachea Midline, No JVD, No Thyromegaly, Other (short and thick) Lungs: Normal Respiratory Effort, Decreased Breath Sounds. No: Wheezing Cardiovascular: Regular Rate, Regular Rhythm GI/Abdominal Exam: Normal Bowel Sounds, Soft, Non-Tender, No Organomegaly, No Distention, No Abnormal Bruit, No Mass (Female) Exam: Deferred Back Exam: Normal Inspection, Decreased Range of Motion Extremities: Normal Inspection, Normal Range of Motion, Non-Tender, No Pedal Edema, Normal Capillary Refill Skin: Warm, Dry, Intact Neurological: No New Focal Deficit. No: Normal Gait Psy/Mental Status: Alert, Normal Affect, Normal Mood - Problem List Review Problem List Initiated/Reviewed/Updated: Yes - My Orders Last 24 Hours: My Active Orders 01/26/18 09:00 Acetaminophen/oxyCODONE [Percocet 325-5 MG] 1 tab PO BID Cholecalciferol (Vitamin D3) [Vitamin D3] 2,000 units PO DAILY Cyanocobalamin (Vitamin B12) [Vitamin B12] 1,000 mcg PO DAILY Docusate Sodium [Colace] 100 mg PO BID Enoxaparin [Lovenox] 40 mg SUBCUT BID FLUoxetine [PROzac] 10 mg PO DAILY Furosemide [Lasix] 40 mg PO DAILY Gabapentin [Neurontin] 300 mg PO TID LORazepam [Ativan] 0.5 mg PO TID Metoprolol Succinate [Toprol XL] 50 mg PO DAILY Mometasone/Formoterol [Dulera 200-5 MCG] 0 puff IH BID Patient's Own Medication [Ptom] 1 each INH DAILY Patient's Own Medication [Ptom] 500 each PO DAILY Potassium Chloride [Klor-Con M20] 20 meq PO DAILY Rosuvastatin [Crestor] 5 mg PO DAILY 01/26/18 09:52 CULTURE SPUTUM + SMEAR [RM] Stat 01/26/18 13:00 Acetaminophen/HYDROcodone [[place] 325-10 MG] 1 tab PO TID@0700,1300,1900 01/26/18 14:00 methylPREDNISolone Sod Succ [Solu-MEDROL] 60 mg IVPUSH TID@0700,1400,2100 01/26/18 15:00 Piperacillin/Tazobactam [Zosyn] 4.5 gm Sodium Chloride 0.9% [Normal Saline] 100 ml IV Q8H 01/26/18 16:00 Patient's Own Medication [Ptom] 1 each INH QIDRT 01/26/18 21:00 guaiFENesin [Mucinex] 1,200 mg PO BID 01/26/18 22:00 Albuterol [Proventil Neb Soln] 2.5 mg NEB Q4H PRN 01/28/18 02:00 Levofloxacin/Dextrose 5%-Water [Levaquin in D5W 750 MG/150 ML] 750 mg Premix Bag 1 bag IV Q48H 01/28/18 05:11 BASIC METABOLIC PANEL,BMP [CHEM] AM C-REACTIVE PROTEIN [CHEM] AM CBC WITH AUTO DIFF [HEME] AM MAGNESIUM [CHEM] AM 01/29/18 05:11 BASIC METABOLIC PANEL,BMP [CHEM] AM C-REACTIVE PROTEIN [CHEM] AM CBC WITH AUTO DIFF [HEME] AM MAGNESIUM [CHEM] AM 01/30/18 05:11 BASIC METABOLIC PANEL,BMP [CHEM] AM C-REACTIVE PROTEIN [CHEM] AM CBC WITH AUTO DIFF [HEME] AM MAGNESIUM [CHEM] AM 01/31/18 05:11 BASIC METABOLIC PANEL,BMP [CHEM] AM C-REACTIVE PROTEIN [CHEM] AM MAGNESIUM [CHEM] AM 02/01/18 05:11 BASIC METABOLIC PANEL,BMP [CHEM] AM C-REACTIVE PROTEIN [CHEM] AM MAGNESIUM [CHEM] AM - Plan Plan:: Assessment/Plan: Acute: HCAP - She lives in [place] - Reports sick contact at the facility - Afebrile but had been coughing; feels congested but not able to get anything out - CXR shows bilateral opacification although no good quality; repeat CXR in 48 hrs - WBC is 37.83K--> 34.13 and CRP is 23.6--> 25 - Received IV Rocephin and Levaquin in ED - Continue IV Zosyn and Levaquin daily - Decongestant/Expectorant, Serial CXR, IS and FV as directed - Sputum Cx and Strep pneumonia Ag-pending - Blood Cx and Mycoplasma Ag were both negative COPD Exacerbation, Improved - Audible wheezing but able to speak w/o difficulty - IV Steroids, Bronchodilators, IV Magnesium and Supplemental O2 - Continue above treatment but reduced steroids frequency Morbid Obesity with BMI of 46.5 - Dietary consult for weight management - Advised to lose weigh UA Pos for GNR (Not UTI) - UA is negative to suggest UTI (not sure why culture was ordered) - She is asymptomatic - Has arita cather but to moirbid obesity and mobility issues given that she is getting diuretic - She requested to keep arita catheter in for now but d/c in AM Chronic: Impaired Vision, HTN, HF Preserved EF 67% 09/19/2016, COPD, SOB on Exertion, OA/DJD, BLAYNE on CPAP, Chronic Back Pain, Hypothyroidism, B12 Deficiency , Peripheral Neuropathy, Chronic Pain Syndrome, Chronic Thrombocythemia, Migraines, Anxiety, Depression Plan: She is clinically stable. She looks significantly better today Continue current treatment Routine AM Labs Continue RT/PT/OT High Fall Risk Cut down frequency of IV steroids DVT/GI PPx SW/CM for D/c planning Encourage to use FV/IS as tolerated Additional orders as above Code status: 1 Updated daughter at bedside about mom's current diagnoses, clinical status and treatment plan. She tells me, mom had her spleen removed in the past and that her platelet level is normally on the high side.
[2018-01-27] MEDS: Metoprolol Succinate 50 MG Tab.ER PO SCH (09:50)
[2018-01-27] MEDS: FLUoxetine 10 MG Cap PO SCH (09:50)
[2018-01-27] MEDS: Enoxaparin 40 MG/0.4 ML Syringe SUBCUT SCH ×2 (09:50→21:19)
[2018-01-27] MEDS: Roflumilast 500 MCG **PTOM PO SCH (11:43)
[2018-01-27] MEDS ORDERED: Bumetanide 1 MG/4 ML MDV IVPUSH ONE (16:42)
[2018-01-27] MEDS ORDERED: methylPREDNISolone Sodium Succinate 40 MG/1 ML SDV IVPUSH SCH (21:00)
[2018-01-27] MEDS: Temazepam 15 MG Cap PO PRN (21:24)
[2018-01-28] MEDS ORDERED: Levofloxacin/Dextrose 5%-Water 750 MG in Premix Bag 1 BAG IV SCH (02:00)
[2018-01-28] MEDS: ALBUTEROL INH SCH ×4 (06:13→20:37)
[2018-01-28] MEDS: IPRATROPIUM INH SCH ×4 (06:13→20:37)
[2018-01-28] MEDS: Acetaminophen/HYDROcodone 325-10 MG Tab PO SCH ×3 (06:40→18:13)
[2018-01-28] MEDS: Saccharomyces Boulardii (Probiotic) 250 MG Cap PO SCH ×3 (06:40→20:09)
[2018-01-28] MEDS: Levothyroxine 88 MCG Tab PO SCH (06:40)
[2018-01-28] MEDS: Piperacillin/Tazobactam 4.5 GM in Sodium Chloride 0.9% 100 ML IV SCH ×2 (06:41→15:32)
[2018-01-28] MEDS: Cholecalciferol (Vitamin D3) 1,000 Unit Tab PO SCH (08:35)
[2018-01-28] MEDS: Cyanocobalamin (Vitamin B12) 1,000 MCG Tab PO SCH (08:35)
[2018-01-28] MEDS: Potassium Chloride 20 MEQ Tab.ER PO SCH (08:36)
[2018-01-28] MEDS: Furosemide 40 MG Tab PO SCH (08:36)
[2018-01-28] MEDS: Metoprolol Succinate 50 MG Tab.ER PO SCH (08:37)
[2018-01-28] MEDS: Gabapentin 300 MG Cap PO SCH ×3 (08:37→20:11)
[2018-01-28] MEDS: guaiFENesin 600 MG Tab.ER PO SCH ×2 (08:37→20:09)
[2018-01-28] MEDS: FLUoxetine 10 MG Cap PO SCH (08:37)
[2018-01-28] MEDS: LORazepam 0.5 MG Tab PO SCH ×3 (08:37→20:10)
--- NOTE | 2018-01-28 08:37 | CR ---
Chest: Two views of the chest were obtained. Comparison: Prior chest x-ray of 07/05/17. Basilar lung markings are increased which appear to be chronic. No acute parenchymal change is seen. Heart size is slightly enlarged. Bony structures appear within normal limits for the patient's age. Impression: 1. Increased basilar lung markings believed to be chronic. Stable cardiomegaly. 2. Nothing acute is definitely appreciated. Diagnostic code #2
[2018-01-28] MEDS: Docusate Sodium 100 MG Cap PO SCH ×2 (08:38→20:09)
[2018-01-28] MEDS: Enoxaparin 40 MG/0.4 ML Syringe SUBCUT SCH ×2 (08:38→20:09)
[2018-01-28] MEDS: Rosuvastatin 10 MG Tab PO SCH (08:38)
[2018-01-28] MEDS: Acetaminophen/oxyCODONE 325-5 MG Tab PO SCH ×2 (08:38→20:11)
[2018-01-28] MEDS: Roflumilast 500 MCG **PTOM PO SCH (08:42)
[2018-01-28] MEDS: UMECLIDINIUM BROMIDE INH SCH (08:59)
[2018-01-28] MEDS: Formoterol/Mometasone 200-5 MCG 8.8 GM Inhaler IH SCH ×2 (08:59→20:36)
--- NOTE | 2018-01-28 11:50 | PCM.PN ---
- General Info Date of Service: 01/28/18 Admission Dx/Problem (Free Text): Admission Diagnosis/Problem Admission Diagnosis/Problem Pneumonia Subjective Update: In to see Nancy. She is lying in bed. Discussed plan of care and progress thus far. She has no concerns or complaints. No nursing concerns. She is med/surg status. WBC and CRP had both trended down. Blood cultures are negative. Functional Status: Reports: Pain Controlled, Tolerating Diet, Ambulating, Urinating (arita catheter to be pulled ). Denies: New Symptoms - Review of Systems General: Reports: Weakness (improving). Denies: Fever, Fatigue, Malaise, Chills HEENT: Reports: No Symptoms Pulmonary: Reports: Cough (improving), Sputum (improving ). Denies: Shortness of Breath Cardiovascular: Reports: Dyspnea on Exertion. Denies: Chest Pain, Palpitations Gastrointestinal: Reports: No Symptoms. Denies: Abdominal Pain, Constipation, Diarrhea, Nausea, Vomiting Genitourinary: Reports: No Symptoms Musculoskeletal: Reports: No Symptoms Skin: Reports: No Symptoms Neurological: Reports: No Symptoms Psychiatric: Reports: No Symptoms - Patient Data Vitals - Most Recent: Last Vital Signs Temp 97.8 F 01/28/18 02:41 Pulse 77 01/28/18 08:42 Resp 21 H 01/28/18 08:42 BP 130/77 01/28/18 08:42 Pulse Ox 94 L 01/28/18 08:42 Weight - Most Recent: 254 lb 12.8 oz I&O - Last 24 Hours: Intake & Output 01/27/18 01/28/18 01/28/18 22:59 06:59 14:59 Intake Total 900 809 160 Output Total 1200 550 Balance -300 259 160 Lab Results Last 24 Hours: Laboratory Results - last 24 hr 01/28/18 01/28/18 Range/Units 05:30 05:30 WBC 31.51 H (3.98-10.04) K/mm3 RBC 3.85 L (3.98-5.22) M/mm3 Hgb 11.1 L (11.2-15.7) gm/L Hct 34.9 (34.1-44.9) % MCV 90.6 (79.4-94.8) fl MCH 28.8 (25.6-32.2) pg MCHC 31.8 L (32.2-35.5) g/dl RDW Std Deviation 60.6 H (36.4-46.3) fL Plt Count 831 H (182-369) K/mm3 MPV 10.2 (9.4-12.3) fl Neut % (Auto) 84.7 H (34.0-71.1) % Lymph % (Auto) 6.9 L (19.3-51.7) % Bucks % (Auto) 7.3 (4.7-12.5) % Eos % (Auto) 0 L (0.7-5.8) Baso % (Auto) 0.1 (0.1-1.2) % Neut # (Auto) 26.68 H (1.56-6.13) K/mm3 Lymph # (Auto) 2.16 (1.18-3.74) K/mm3 Bucks # (Auto) 2.31 H (0.24-0.36) K/mm3 Eos # (Auto) 0.00 L (0.04-0.36) K/mm3 Baso # (Auto) 0.03 (0.01-0.08) K/mm3 Manual Slide Review Abnormal smear Sodium 141 (136-145) mEq/L Potassium 3.8 (3.5-5.1) mEq/L Chloride 106 (98-107) mEq/L Carbon Dioxide 24 (21-32) mEq/L Anion Gap 14.8 (5-15) BUN 24 H (7-18) mg/dL Creatinine 1.3 H (0.55-1.02) mg/dL Est Cr Clr Drug Dosing 29.12 mL/min Estimated GFR (MDRD) 40 (>60) mL/min BUN/Creatinine Ratio 18.5 H (14-18) Glucose 116 H (83-115) mg/dL Calcium 10.4 H (8.5-10.1) mg/dL Magnesium 2.1 (1.8-2.4) mg/dl C-Reactive Protein 12.9 H* (<1.0) mg/dL Nawaf Results Last 24 Hours: Microbiology 01/26/18 09:52 Gram Stain - Final Sputum - Expectorated Sputum Culture - Final Niharika Albicans 01/26/18 01:45 Aerobic Blood Culture - Preliminary Blood - Venous - Lab Draw NO GROWTH AFTER 2 DAYS Anaerobic Blood Culture - Preliminary NO GROWTH AFTER 2 DAYS 01/26/18 01:40 Aerobic Blood Culture - Preliminary Blood - Venous NO GROWTH AFTER 2 DAYS Anaerobic Blood Culture - Final 01/26/18 01:55 Urine Culture - Preliminary Urine, Catheterized Gram Negative Rods Med Orders - Current: Current Medications Acetaminophen (Tylenol) 650 mg PO Q6H PRN PRN Reason: Pain (mild 1-3) Last Admin: 01/26/18 08:28 Dose: 650 mg Hydrocodone Bitart/Acetaminophen ([place] 325-10 Mg) 1 tab PO TID@0700,1300,1900 [facility] Last Admin: 01/28/18 06:40 Dose: 1 tab Albuterol (Proventil Neb Soln) 2.5 mg NEB Q4H PRN PRN Reason: Shortness of Breath Last Admin: 01/27/18 18:28 Dose: 2.5 mg Bisacodyl (Dulcolax) 5 mg PO DAILY PRN PRN Reason: Constipation Cholecalciferol (Vitamin D3) 2,000 units PO DAILY [facility] Last Admin: 01/28/18 08:35 Dose: 2,000 units Cyanocobalamin (Vitamin B12) 1,000 mcg PO DAILY [facility] Last Admin: 01/28/18 08:35 Dose: 1,000 mcg Docusate Sodium (Colace) 100 mg PO BID [facility] Last Admin: 01/28/18 08:38 Dose: Not Given Enoxaparin Sodium (Lovenox) 40 mg SUBCUT BID [facility] Last Admin: 01/28/18 08:38 Dose: 40 mg Fluoxetine HCl (Prozac) 10 mg PO DAILY [facility] Last Admin: 01/28/18 08:37 Dose: 10 mg Furosemide (Lasix) 40 mg PO DAILY [facility] Last Admin: 01/28/18 08:36 Dose: 40 mg Gabapentin (Neurontin) 300 mg PO TID [facility] Last Admin: 01/28/18 08:37 Dose: 300 mg Guaifenesin (Mucinex) 1,200 mg PO BID [facility] Last Admin: 01/28/18 08:37 Dose: 1,200 mg Guaifenesin/Phenylephrine HCl (Robitussin Dm) 5 ml PO QID PRN PRN Reason: Cough Sodium Chloride (Normal Saline) 1,000 mls @ 15 mls/hr IV ASDIRECTED [facility] Last Infusion: 01/26/18 18:24 Dose: 15 mls/hr Promethazine HCl 12.5 mg/ (Sodium Chloride) 50.5 mls @ 100 mls/hr IV Q6H PRN PRN Reason: Nausea/Vomiting Levofloxacin/Dextrose 750 mg/ (Premix) 150 mls @ 100 mls/hr IV Q48H [facility] Last Admin: 01/28/18 02:40 Dose: 100 mls/hr Piperacillin Sod/Tazobactam (Sod 4.5 gm/ Sodium Chloride) 100 mls @ 25 mls/hr IV Q8H [facility] Last Admin: 01/28/18 06:41 Dose: 25 mls/hr Levothyroxine Sodium (Synthroid) 88 mcg PO ACBRK [facility] Last Admin: 01/28/18 06:40 Dose: 88 mcg Lorazepam (Ativan) 0.5 mg PO TID [facility] Last Admin: 01/28/18 08:37 Dose: 0.5 mg Metoprolol Succinate (Toprol Xl) 50 mg PO DAILY [facility] Last Admin: 01/28/18 08:37 Dose: 50 mg Mometasone Furoate/Formoterol Fumar (Dulera 200-5 Mcg) 0 puff IH BID [facility] Last Admin: 01/28/18 08:59 Dose: 2 puff Ondansetron HCl (Zofran) 4 mg IV Q6H PRN PRN Reason: Nausea/Vomiting Oxycodone/Acetaminophen (Percocet 325-5 Mg) 1 tab PO Q4H PRN PRN Reason: Pain Last Admin: 01/27/18 02:49 Dose: 1 tab Oxycodone/Acetaminophen (Percocet 325-5 Mg) 1 tab PO BID [facility] Last Admin: 01/28/18 08:38 Dose: Not Given Roflumilast 500 Mcg (Ptom) 500 each PO DAILY [facility] Last Admin: 01/28/18 08:42 Dose: Not Given Umeclidinium [place] (1 Puff Ptom) 1 each INH DAILY [facility] Last Admin: 01/28/18 08:59 Dose: 1 each Albuterol/Ipratropium 1 Puff * *Ptom 1 each INH QIDRT [facility] Last Admin: 01/28/18 08:59 Dose: 1 each Polyethylene Glycol (Miralax) 17 gm PO DAILY PRN PRN Reason: Constipation Potassium Chloride (Klor-Con M20) 20 meq PO DAILY [facility] Last Admin: 01/28/18 08:36 Dose: 20 meq Rosuvastatin Calcium (Crestor) 5 mg PO DAILY [facility] Last Admin: 01/28/18 08:38 Dose: 5 mg Saccharomyces Boulardii (Florastor) 250 mg PO TID@0700,1400,2100 [facility] Last Admin: 01/28/18 06:40 Dose: 250 mg Senna/Docusate Sodium (Senna Plus) 1 tab PO BID PRN PRN Reason: Constipation Temazepam (Restoril) 15 mg PO BEDTIME PRN PRN Reason: Sleep Last Admin: 01/27/18 21:24 Dose: 15 mg Discontinued Medications Hydrocodone Bitart/Acetaminophen ([place] 325-10 Mg) 1 tab PO TID [facility] Last Admin: 01/26/18 10:03 Dose: Not Given Albuterol/Ipratropium (Duoneb 3.0-0.5 Mg/3 Ml) 3 ml NEB ONETIME ONE Stop: 01/26/18 01:59 Last Admin: 01/26/18 02:05 Dose: 3 ml Albuterol/Ipratropium (Duoneb 3.0-0.5 Mg/3 Ml) 3 ml NEB Q4HRRT PRN PRN Reason: Shortness of Breath Last Admin: 01/26/18 17:38 Dose: 3 ml Bumetanide (Bumex) 0.5 mg IVPUSH ONETIME ONE Stop: 01/26/18 17:51 Last Admin: 01/26/18 18:16 Dose: 0.5 mg Bumetanide (Bumex) 0.5 mg IVPUSH ONETIME ONE Stop: 01/27/18 16:43 Last Admin: 01/27/18 16:55 Dose: 0.5 mg Guaifenesin (Mucinex) 600 mg PO BID [facility] Last Admin: 01/26/18 09:40 Dose: 600 mg Ceftriaxone Sodium 2 gm/ (Sodium Chloride) 100 mls @ 100 mls/hr IV ONETIME ONE Stop: 01/26/18 02:57 Last Admin: 01/26/18 02:08 Dose: 100 mls/hr Levofloxacin/Dextrose 750 mg/ (Premix) 150 mls @ 100 mls/hr IV ONETIME ONE Stop: 01/26/18 03:27 Last Admin: 01/26/18 02:08 Dose: 100 mls/hr Piperacillin Sod/Tazobactam (Sod 4.5 gm/ Sodium Chloride) 100 mls @ 200 mls/hr IV ONETIME ONE Stop: 01/26/18 07:29 Last Admin: 01/26/18 07:58 Dose: 200 mls/hr Magnesium Sulfate/Dextrose 1 (gm/ Premix) 100 mls @ 100 mls/hr IV ONETIME ONE Stop: 01/26/18 08:07 Last Admin: 01/26/18 07:57 Dose: 100 mls/hr Methylprednisolone Sodium Succinate (Solu-Medrol) 60 mg IVPUSH TID@0700,1400, 2100 [facility] Last Admin: 01/27/18 13:38 Dose: 60 mg Methylprednisolone Sodium Succinate (Solu-Medrol) 125 mg IVPUSH ONETIME ONE Stop: 01/26/18 07:31 Last Admin: 01/26/18 07:59 Dose: 125 mg Methylprednisolone Sodium Succinate (Solu-Medrol) 60 mg IVPUSH BID [facility] Stop: 01/27/18 21:01 Last Admin: 01/27/18 21:21 Dose: 60 mg Mometasone Furoate/Formoterol Fumar (Dulera 200-5 Mcg) 2 puff IH BIDRT [facility] Last Admin: 01/26/18 08:15 Dose: 2 puff Morphine Sulfate (Morphine) 1 mg IVPUSH Q3H PRN PRN Reason: Other Stop: 01/27/18 06:50 Albuterol/Ipratropium 1 Puff * *Ptom 1 each INH QID [facility] Last Admin: 01/26/18 10:03 Dose: Not Given - Exam Quality Assessment: Supplemental Oxygen, Urine Catheter (to be removed today ), DVT Prophylaxis General: Alert, Oriented, Cooperative, No Acute Distress HEENT: Pupils Equal, Pupils Reactive, EOMI, Mucous Membr. Moist/[place] Neck: Supple, Trachea Midline, No JVD Lungs: Clear to Auscultation, Normal Respiratory Effort, Decreased Breath Sounds. No: Rales, Rhonchi, Wheezing Cardiovascular: Regular Rate, Regular Rhythm GI/Abdominal Exam: Normal Bowel Sounds, Soft, Non-Tender, No Distention (Female) Exam: Deferred Back Exam: Normal Inspection, Full Range of Motion Extremities: Normal Inspection, Normal Range of Motion, Non-Tender, Normal Capillary Refill, Pedal Edema Peripheral Pulses: 1+: Posterior Tibial (R), Dorsalis Pedis (L), Dorsalis Pedis (R), 2+: Radial (L), Radial (R) Skin: Warm, Dry, Intact Neurological: No New Focal Deficit Psy/Mental Status: Alert, Normal Affect, Normal Mood - Problem List & Annotations (1) Elevated C-reactive protein SNOMED Code(s): 092739565163243 Code(s): R79.82 - ELEVATED C-REACTIVE PROTEIN (CRP) Status: Acute Priority: High Current Visit: Yes (2) Hypoxemia SNOMED Code(s): 197797097 Code(s): R09.02 - HYPOXEMIA Status: Acute Priority: High Current Visit : Yes (3) Leukocytosis SNOMED Code(s): 489019276, 202690525 Code(s): D72.829 - ELEVATED WHITE BLOOD CELL COUNT, UNSPECIFIED Status: Acute Priority: High Current Visit: Yes Qualifiers: Leukocytosis type: bandemia Qualified Code(s): D72.825 - Bandemia (4) Pneumonia SNOMED Code(s): 048614721 Code(s): J18.9 - PNEUMONIA, UNSPECIFIED ORGANISM Status: Acute Priority: High Current Visit: Yes Qualifiers: Pneumonia type: due to unspecified organism Laterality: bilateral Lung location: unspecified part of lung Qualified Code(s): J18.9 - Pneumonia, unspecified organism (5) Thrombocytosis SNOMED Code(s): 6121427 Code(s): D47.3 - ESSENTIAL (HEMORRHAGIC) THROMBOCYTHEMIA Status: Chronic Priority: Medium Current Visit: Yes (6) COPD exacerbation SNOMED Code(s): 124203296812133 Code(s): J44.1 - CHRONIC OBSTRUCTIVE PULMONARY DISEASE W (ACUTE) EXACERBATION Status: Acute Priority: High Current Visit: Yes (7) Morbid obesity with BMI of 45.0-49.9, adult SNOMED Code(s): 638507908 Code(s): E66.01 - MORBID (SEVERE) OBESITY DUE TO EXCESS CALORIES; Z68.42 - BODY MASS INDEX (BMI) 45.0-49.9, ADULT Status: Acute Priority: High Current Visit: Yes - Problem List Review Problem List Initiated/Reviewed/Updated: Yes - My Orders Last 24 Hours: My Active Orders 01/28/18 11:18 DC Arita Catheter [Urinary Catheter Removal] [RC] Per Unit Routine - Plan Plan:: Assessment/Plan: Acute: HCAP - She lives in [place] - Reports sick contact at the facility - Afebrile but had been coughing; feels congested but not able to get anything out - CXR shows bilateral opacification although no good quality; repeat CXR shows nothing acute - WBC is 37.83K--> 34.13-->31.51 and CRP is 23.6--> 25-->12.9 - Received IV Rocephin and Levaquin in ED - Continue IV Zosyn and Levaquin daily - Decongestant/Expectorant, Serial CXR, IS and FV as directed - Sputum Cx pending - Strep pneumonia Ag - negative - Blood Cx and Mycoplasma Ag were both negative COPD Exacerbation, Improved - Audible wheezing but able to speak w/o difficulty - IV Steroids, Bronchodilators, IV Magnesium and Supplemental O2 - Continue above treatment but reduced steroids frequency Morbid Obesity with BMI of 46.5 - Dietary consult for weight management - Advised to lose weigh UA Pos for Klebsiella (Not UTI) - UA is negative to suggest UTI (not sure why culture was ordered) - She is asymptomatic - Has arita cather but to moirbid obesity and mobility issues given that she is getting diuretic - She requested to keep arita catheter in for now but d/c in AM Chronic: Impaired Vision, HTN, HF Preserved EF 67% 09/19/2016, COPD, SOB on Exertion, OA/DJD, BLAYNE on CPAP, Chronic Back Pain, Hypothyroidism, B12 Deficiency , Peripheral Neuropathy, Chronic Pain Syndrome, Chronic Thrombocythemia, Migraines, Anxiety, Depression Plan: She is clinically stable. She continues to improve. 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
--- NOTE | 2018-01-28 13:19 | CR ---
Chest: Two views of the chest were obtained. Comparison: Prior chest x-ray of 01/26/18. Heart is enlarged. Lung markings are increased which appear to be chronic. No acute parenchymal change is appreciated. Bony structures appear within normal limits for the patient's age. Impression: 1. Cardiomegaly. Chronic increased lung markings. Nothing acute is definitely seen. Diagnostic code #2
[2018-01-28] MEDS: Sodium Chloride 0.9% 1,000 ML IV SCH (18:12)
[2018-01-28] MEDS: Temazepam 15 MG Cap PO PRN (21:39)
[2018-01-29] MEDS: Levothyroxine 88 MCG Tab PO SCH (06:08)
[2018-01-29] MEDS: Saccharomyces Boulardii (Probiotic) 250 MG Cap PO SCH ×3 (06:08→20:19)
[2018-01-29] MEDS: Acetaminophen/HYDROcodone 325-10 MG Tab PO SCH ×3 (06:09→19:25)
[2018-01-29] MEDS: IPRATROPIUM INH SCH ×4 (06:23→20:27)
[2018-01-29] MEDS: ALBUTEROL INH SCH ×4 (06:23→20:27)
--- NOTE | 2018-01-29 08:09 | PCM.PN ---
- General Info Date of Service: 01/29/18 Admission Dx/Problem (Free Text): Admission Diagnosis/Problem Admission Diagnosis/Problem Pneumonia Subjective Update: In to see Nancy. She feels much better. He SOB has improved and her cough is nearly gone. She is back to her baseline O2. She has reportedly been having diarrhea since she got here. C. Diff is negative. This is likely due to antibiotic. Will start imodium for a short while. Will switch to PO antibiotic. Likely discharge tomorrow. Labs continue to improve. Functional Status: Reports: Pain Controlled, Tolerating Diet, Ambulating, Urinating, Incentive Spirometry, Other (acapella ). Denies: New Symptoms - Review of Systems General: Reports: Weakness (improving ). Denies: Fever, Fatigue, Malaise HEENT: Reports: No Symptoms Pulmonary: Reports: Shortness of Breath (improved, almost to baseline ), Cough ( improved ), Sputum (improved ) Cardiovascular: Reports: Dyspnea on Exertion (baseline ). Denies: Chest Pain, Palpitations Gastrointestinal: Reports: Diarrhea, Nausea, Vomiting. Denies: Abdominal Pain, Constipation Genitourinary: Reports: No Symptoms Musculoskeletal: Reports: No Symptoms Skin: Reports: No Symptoms Neurological: Reports: No Symptoms Psychiatric: Reports: No Symptoms - Patient Data Vitals - Most Recent: Last Vital Signs Temp 97 F 01/29/18 03:00 Pulse 73 01/29/18 03:00 Resp 16 01/29/18 03:00 BP 133/69 01/29/18 03:00 Pulse Ox 94 L 01/29/18 06:23 Weight - Most Recent: 256 lb I&O - Last 24 Hours: Intake & Output 01/28/18 01/29/18 01/29/18 22:59 06:59 14:59 Intake Total 1302 447 Output Total 1730 400 300 Balance -428 47 -300 [place] Results Last 24 Hours: Microbiology 01/26/18 01:55 Streptococcus pneumoniae Antigen (M - Final Urine 01/26/18 01:45 Aerobic Blood Culture - Preliminary Blood - Venous - Lab Draw NO GROWTH AFTER 3 DAYS Anaerobic Blood Culture - Preliminary NO GROWTH AFTER 3 DAYS 01/26/18 01:40 Aerobic Blood Culture - Preliminary Blood - Venous NO GROWTH AFTER 3 DAYS Anaerobic Blood Culture - Final 01/26/18 01:55 Urine Culture - Final Urine, Catheterized Klebsiella Pneumoniae 01/26/18 09:52 Gram Stain - Final Sputum - Expectorated Sputum Culture - Final Niharika Albicans Med Orders - Current: Current Medications Acetaminophen (Tylenol) 650 mg PO Q6H PRN PRN Reason: Pain (mild 1-3) Last Admin: 01/26/18 08:28 Dose: 650 mg Hydrocodone Bitart/Acetaminophen ([place] 325-10 Mg) 1 tab PO TID@0700,1300,1900 [facility] Last Admin: 01/29/18 06:09 Dose: Not Given Albuterol (Proventil Neb Soln) 2.5 mg NEB Q4H PRN PRN Reason: Shortness of Breath Last Admin: 01/27/18 18:28 Dose: 2.5 mg Bisacodyl (Dulcolax) 5 mg PO DAILY PRN PRN Reason: Constipation Cholecalciferol (Vitamin D3) 2,000 units PO DAILY [facility] Last Admin: 01/28/18 08:35 Dose: 2,000 units Cyanocobalamin (Vitamin B12) 1,000 mcg PO DAILY [facility] Last Admin: 01/28/18 08:35 Dose: 1,000 mcg Docusate Sodium (Colace) 100 mg PO BID [facility] Last Admin: 01/28/18 20:09 Dose: Not Given Enoxaparin Sodium (Lovenox) 40 mg SUBCUT BID [facility] Last Admin: 01/28/18 20:09 Dose: 40 mg Fluoxetine HCl (Prozac) 10 mg PO DAILY [facility] Last Admin: 01/28/18 08:37 Dose: 10 mg Furosemide (Lasix) 40 mg PO DAILY [facility] Last Admin: 01/28/18 08:36 Dose: 40 mg Gabapentin (Neurontin) 300 mg PO TID [facility] Last Admin: 01/28/18 20:11 Dose: 300 mg Guaifenesin (Mucinex) 1,200 mg PO BID [facility] Last Admin: 01/28/18 20:09 Dose: 1,200 mg Guaifenesin/Phenylephrine HCl (Robitussin Dm) 5 ml PO QID PRN PRN Reason: Cough Sodium Chloride (Normal Saline) 1,000 mls @ 15 mls/hr IV ASDIRECTED [facility] Last Admin: 01/28/18 18:12 Dose: 15 mls/hr Promethazine HCl 12.5 mg/ (Sodium Chloride) 50.5 mls @ 100 mls/hr IV Q6H PRN PRN Reason: Nausea/Vomiting Levofloxacin/Dextrose 750 mg/ (Premix) 150 mls @ 100 mls/hr IV Q48H [facility] Last Admin: 01/28/18 02:40 Dose: 100 mls/hr Levothyroxine Sodium (Synthroid) 88 mcg PO ACBRK [facility] Last Admin: 01/29/18 06:08 Dose: 88 mcg Lorazepam (Ativan) 0.5 mg PO TID [facility] Last Admin: 01/28/18 20:10 Dose: Not Given Metoprolol Succinate (Toprol Xl) 50 mg PO DAILY [facility] Last Admin: 01/28/18 08:37 Dose: 50 mg Mometasone Furoate/Formoterol Fumar (Dulera 200-5 Mcg) 0 puff IH BID [facility] Last Admin: 01/28/18 20:36 Dose: 2 puff Ondansetron HCl (Zofran) 4 mg IV Q6H PRN PRN Reason: Nausea/Vomiting Oxycodone/Acetaminophen (Percocet 325-5 Mg) 1 tab PO Q4H PRN PRN Reason: Pain Last Admin: 01/27/18 02:49 Dose: 1 tab Oxycodone/Acetaminophen (Percocet 325-5 Mg) 1 tab PO BID [facility] Last Admin: 01/28/18 20:11 Dose: 1 tab Roflumilast 500 Mcg (Ptom) 500 each PO DAILY [facility] Last Admin: 01/28/18 08:42 Dose: Not Given Umeclidinium [place] (1 Puff Ptom) 1 each INH DAILY [facility] Last Admin: 01/28/18 08:59 Dose: 1 each Albuterol/Ipratropium 1 Puff * *Ptom 1 each INH QIDRT [facility] Last Admin: 01/29/18 06:23 Dose: 1 each Polyethylene Glycol (Miralax) 17 gm PO DAILY PRN PRN Reason: Constipation Potassium Chloride (Klor-Con M20) 20 meq PO DAILY [facility] Last Admin: 01/28/18 08:36 Dose: 20 meq Rosuvastatin Calcium (Crestor) 5 mg PO DAILY [facility] Last Admin: 01/28/18 08:38 Dose: 5 mg Saccharomyces Boulardii (Florastor) 250 mg PO TID@0700,1400,2100 [facility] Last Admin: 01/29/18 06:08 Dose: 250 mg Senna/Docusate Sodium (Senna Plus) 1 tab PO BID PRN PRN Reason: Constipation Temazepam (Restoril) 15 mg PO BEDTIME PRN PRN Reason: Sleep Last Admin: 01/28/18 21:39 Dose: 15 mg Discontinued Medications Hydrocodone Bitart/Acetaminophen ([place] 325-10 Mg) 1 tab PO TID [facility] Last Admin: 01/26/18 10:03 Dose: Not Given Albuterol/Ipratropium (Duoneb 3.0-0.5 Mg/3 Ml) 3 ml NEB ONETIME ONE Stop: 01/26/18 01:59 Last Admin: 01/26/18 02:05 Dose: 3 ml Albuterol/Ipratropium (Duoneb 3.0-0.5 Mg/3 Ml) 3 ml NEB Q4HRRT PRN PRN Reason: Shortness of Breath Last Admin: 01/26/18 17:38 Dose: 3 ml Bumetanide (Bumex) 0.5 mg IVPUSH ONETIME ONE Stop: 01/26/18 17:51 Last Admin: 01/26/18 18:16 Dose: 0.5 mg Bumetanide (Bumex) 0.5 mg IVPUSH ONETIME ONE Stop: 01/27/18 16:43 Last Admin: 01/27/18 16:55 Dose: 0.5 mg Guaifenesin (Mucinex) 600 mg PO BID [facility] Last Admin: 01/26/18 09:40 Dose: 600 mg Ceftriaxone Sodium 2 gm/ (Sodium Chloride) 100 mls @ 100 mls/hr IV ONETIME ONE Stop: 01/26/18 02:57 Last Admin: 01/26/18 02:08 Dose: 100 mls/hr Levofloxacin/Dextrose 750 mg/ (Premix) 150 mls @ 100 mls/hr IV ONETIME ONE Stop: 01/26/18 03:27 Last Admin: 01/26/18 02:08 Dose: 100 mls/hr Piperacillin Sod/Tazobactam (Sod 4.5 gm/ Sodium Chloride) 100 mls @ 200 mls/hr IV ONETIME ONE Stop: 01/26/18 07:29 Last Admin: 01/26/18 07:58 Dose: 200 mls/hr Piperacillin Sod/Tazobactam (Sod 4.5 gm/ Sodium Chloride) 100 mls @ 25 mls/hr IV Q8H [facility] Last Admin: 01/28/18 15:32 Dose: 25 mls/hr Magnesium Sulfate/Dextrose 1 (gm/ Premix) 100 mls @ 100 mls/hr IV ONETIME ONE Stop: 01/26/18 08:07 Last Admin: 01/26/18 07:57 Dose: 100 mls/hr Methylprednisolone Sodium Succinate (Solu-Medrol) 60 mg IVPUSH TID@0700,1400, 2100 [facility] Last Admin: 01/27/18 13:38 Dose: 60 mg Methylprednisolone Sodium Succinate (Solu-Medrol) 125 mg IVPUSH ONETIME ONE Stop: 01/26/18 07:31 Last Admin: 01/26/18 07:59 Dose: 125 mg Methylprednisolone Sodium Succinate (Solu-Medrol) 60 mg IVPUSH BID [facility] Stop: 01/27/18 21:01 Last Admin: 01/27/18 21:21 Dose: 60 mg Mometasone Furoate/Formoterol Fumar (Dulera 200-5 Mcg) 2 puff IH BIDRT [facility] Last Admin: 01/26/18 08:15 Dose: 2 puff Morphine Sulfate (Morphine) 1 mg IVPUSH Q3H PRN PRN Reason: Other Stop: 01/27/18 06:50 Albuterol/Ipratropium 1 Puff * *Ptom 1 each INH QID [facility] Last Admin: 01/26/18 10:03 Dose: Not Given - Exam Quality Assessment: Supplemental Oxygen (Chronic ), DVT Prophylaxis General: Alert, Oriented, Cooperative, No Acute Distress HEENT: Pupils Equal, Pupils Reactive, EOMI, Mucous Membr. Moist/[place] Neck: Supple, Trachea Midline, No JVD Lungs: Normal Respiratory Effort, Decreased Breath Sounds Cardiovascular: Regular Rate, Regular Rhythm GI/Abdominal Exam: Normal Bowel Sounds, Soft, Non-Tender, No Distention (Female) Exam: Deferred Back Exam: Normal Inspection, Decreased Range of Motion Extremities: Normal Inspection, Normal Range of Motion, Non-Tender, No Pedal Edema, Normal Capillary Refill Peripheral Pulses: 3+: Radial (L), Radial (R), Dorsalis Pedis (L), Dorsalis Pedis (R) Skin: Warm, Dry, Intact Neurological: No New Focal Deficit Psy/Mental Status: Alert, Normal Affect, Normal Mood - Problem List & Annotations (1) Elevated C-reactive protein SNOMED Code(s): 699956105924294 Code(s): R79.82 - ELEVATED C-REACTIVE PROTEIN (CRP) Status: Acute Priority: High Current Visit: Yes (2) Hypoxemia SNOMED Code(s): 657043251 Code(s): R09.02 - HYPOXEMIA Status: Acute Priority: High Current Visit : Yes (3) Leukocytosis SNOMED Code(s): 509500983, 727619299 Code(s): D72.829 - ELEVATED WHITE BLOOD CELL COUNT, UNSPECIFIED Status: Acute Priority: High Current Visit: Yes Qualifiers: Leukocytosis type: bandemia Qualified Code(s): D72.825 - Bandemia (4) Pneumonia SNOMED Code(s): 964333975 Code(s): J18.9 - PNEUMONIA, UNSPECIFIED ORGANISM Status: Acute Priority: High Current Visit: Yes Qualifiers: Pneumonia type: due to unspecified organism Laterality: bilateral Lung location: unspecified part of lung Qualified Code(s): J18.9 - Pneumonia, unspecified organism (5) Thrombocytosis SNOMED Code(s): 5293301 Code(s): D47.3 - ESSENTIAL (HEMORRHAGIC) THROMBOCYTHEMIA Status: Chronic Priority: Medium Current Visit: Yes (6) COPD exacerbation SNOMED Code(s): 730551940644756 Code(s): J44.1 - CHRONIC OBSTRUCTIVE PULMONARY DISEASE W (ACUTE) EXACERBATION Status: Acute Priority: High Current Visit: Yes (7) Morbid obesity with BMI of 45.0-49.9, adult SNOMED Code(s): 495743251 Code(s): E66.01 - MORBID (SEVERE) OBESITY DUE TO EXCESS CALORIES; Z68.42 - BODY MASS INDEX (BMI) 45.0-49.9, ADULT Status: Acute Priority: High Current Visit: Yes - Problem List Review Problem List Initiated/Reviewed/Updated: Yes - Plan Plan:: Assessment/Plan: Acute: HCAP - She lives in [place] - Reports sick contact at the facility - Afebrile but had been coughing; feels congested but not able to get anything out - CXR shows bilateral opacification although no good quality; repeat CXR shows nothing acute - WBC is 37.83K--> 34.13-->31.51-->22.6 and CRP is 23.6--> 25-->12.9-->6.3 - Received IV Rocephin and Levaquin in ED - Continue IV Zosyn and Levaquin daily -> switch to PO levaquin Q48hrs - Decongestant/Expectorant, Serial CXR, IS and FV as directed - Sputum Cx heavy PMN, few yeast - Strep pneumonia Ag - negative - Blood Cx and Mycoplasma Ag were both negative COPD Exacerbation, Improved - Audible wheezing but able to speak w/o difficulty - IV Steroids, Bronchodilators, IV Magnesium and Supplemental O2 -> stop steroids - Continue above treatment but reduced steroids frequency -> discontinue Morbid Obesity with BMI of 46.5 - Dietary consult for weight management - Advised to lose weigh UA Pos for Klebsiella (Not UTI) - UA is negative to suggest UTI (not sure why culture was ordered) - She is asymptomatic - Has arita cather but to moirbid obesity and mobility issues given that she is getting diuretic -> discontinued - She requested to keep arita catheter in for now but d/c in AM -> discontinued Diarrhea - Reportedly started on admission - C. Diff negative - Imodium 4mg now then 2mg PRN - Likely 2/2 antibiotic use Irregular Echo - Echo obtained on 01/28/18 1. LVEF, by visual estimation is 50-55% 2. Mild concentric left ventricular hypertrophy 3. Pseudonormal (Grade 2) pattern of LV diastolic filling 4. Small pericardial effusion, no tamponade 5. Mild to moderate mitral valve regurgitation 6. Moderate to severe tricuspid regurgitation 7. Mild dilation of ascending aorta 8. The right ventricular systolic pressure is severely elevated at 72.5mmHg 9. Inferior vena cava is dilated with respiratory size variation less than 50%, consistent with elevated right atrial pressure 10. Possible PFO with left to right shunt 11. 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 She continues to improve. Continue current treatment Routine AM Labs Continue RT/PT/OT High Fall Risk Cut down frequency of IV steroids DVT/GI PPx SW/CM for D/c planning Encourage to use FV/IS as tolerated Additional orders as above Code status: 1 Likely discharge tomorrow 01/29/18 pending continued improvement.
[2018-01-29] MEDS: Cyanocobalamin (Vitamin B12) 1,000 MCG Tab PO SCH (08:35)
[2018-01-29] MEDS: FLUoxetine 10 MG Cap PO SCH (08:36)
[2018-01-29] MEDS: Metoprolol Succinate 50 MG Tab.ER PO SCH (08:36)
[2018-01-29] MEDS: guaiFENesin 600 MG Tab.ER PO SCH ×2 (08:36→20:20)
[2018-01-29] MEDS: Furosemide 40 MG Tab PO SCH (08:36)
[2018-01-29] MEDS: Potassium Chloride 20 MEQ Tab.ER PO SCH (08:36)
[2018-01-29] MEDS: LORazepam 0.5 MG Tab PO SCH ×3 (08:36→20:22)
[2018-01-29] MEDS: Cholecalciferol (Vitamin D3) 1,000 Unit Tab PO SCH (08:36)
[2018-01-29] MEDS: Rosuvastatin 10 MG Tab PO SCH (08:37)
[2018-01-29] MEDS: Docusate Sodium 100 MG Cap PO SCH ×2 (08:37→20:19)
[2018-01-29] MEDS: Enoxaparin 40 MG/0.4 ML Syringe SUBCUT SCH ×2 (08:38→20:22)
[2018-01-29] MEDS: Roflumilast 500 MCG **PTOM PO SCH (08:38)
[2018-01-29] MEDS: Gabapentin 300 MG Cap PO SCH ×3 (08:38→20:23)
[2018-01-29] MEDS: Formoterol/Mometasone 200-5 MCG 8.8 GM Inhaler IH SCH ×2 (08:56→20:27)
[2018-01-29] MEDS: UMECLIDINIUM BROMIDE INH SCH (08:57)
[2018-01-29] MEDS: Acetaminophen/oxyCODONE 325-5 MG Tab PO SCH ×2 (09:18→22:14)
[2018-01-29] MEDS ORDERED: Loperamide 2 MG Cap PO ONE (13:18)
[2018-01-29] MEDS ORDERED: Loperamide 2 MG Cap PO PRN (13:19)
[2018-01-30] MEDS ORDERED: Levofloxacin 750 MG Tab PO SCH (02:00)
[2018-01-30] MEDS: ALBUTEROL INH SCH ×2 (06:13→09:08)
[2018-01-30] MEDS: IPRATROPIUM INH SCH ×2 (06:13→09:08)
--- NOTE | 2018-01-30 06:25 | PCM.DCSUM1 ---
Discharge Summary - Hospital Course HPI Initial Comments: This is a 77 yo elderly white female with past medical hx/o Impaired Vision, HTN , HF Preserved EF 67% 09/19/2016, COPD, SOB on Exertion, OA/DJD, BLAYNE on CPAP, Chronic Back Pain, Hypothyroidism, B12 Deficiency, Peripheral Neuropathy, Chronic Pain Syndrome, Chronic Thrombocythemia, Migraines, Anxiety, Depression who comes in to the emergency department for evaluation of increasing shortness of breath that started a couple days ago. She lives in [place] and reports possible sick contact. Patient carries a history of chronic respiratory failure. She is normally on 3 L nasal cannula but on presentation she was on 6 L to maintain an O2 sat of 94%. According to the patient, she received initial treatment at the facility but her symptom did not improve. She actually got worse and reports increased wheezing and shortness of breath. Her initial workup in emergency department shows a CBC remarkable for WBC of 37.83, MCHC of 31.8, RDW of 16.7, Platelet count of 722, neutrophils of 78.5%, lymphocytes of 7.7%, and eosinophils of 0.3%. Her chemistry is significant for BUN of 19, creatinine of 1.3, glucose of 116, alkaline phosphatase of 160, CRP of 23.6, proBNP of 502, and albumin of 2.8. Her UDS is negative for UTI. Chest x -ray shows bilateral opacification but poor in quality. 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 She is full code. Diagnosis: Stroke: No - Discharge Data Discharge Date: 01/30/18 (Admit Date: 01/26/18) Discharge Disposition: Home, W Home Health Agency 06 Condition: Good - Discharge Diagnosis/Problem(s) (1) Elevated C-reactive protein SNOMED Code(s): 432342762579172 ICD Code: R79.82 - ELEVATED C-REACTIVE PROTEIN (CRP) Status: Acute Priority: High (2) Hypoxemia SNOMED Code(s): 882842696 ICD Code: R09.02 - HYPOXEMIA Status: Acute Priority: High (3) Leukocytosis SNOMED Code(s): 776185948, 349320155 ICD Code: D72.829 - ELEVATED WHITE BLOOD CELL COUNT, UNSPECIFIED Status: Acute Priority: High Qualifiers: Leukocytosis type: bandemia Qualified Code(s): D72.825 - Bandemia (4) Pneumonia SNOMED Code(s): 886118630 ICD Code: J18.9 - PNEUMONIA, UNSPECIFIED ORGANISM Status: Acute Priority : High Qualifiers: Pneumonia type: due to unspecified organism Laterality: bilateral Lung location: unspecified part of lung Qualified Code(s): J18.9 - Pneumonia, unspecified organism (5) Thrombocytosis SNOMED Code(s): 1932073 ICD Code: D47.3 - ESSENTIAL (HEMORRHAGIC) THROMBOCYTHEMIA Status: Chronic Priority: Medium (6) COPD exacerbation SNOMED Code(s): 485927789512524 ICD Code: J44.1 - CHRONIC OBSTRUCTIVE PULMONARY DISEASE W (ACUTE) EXACERBATION Status: Acute Priority: High (7) Morbid obesity with BMI of 45.0-49.9, adult SNOMED Code(s): 830671726 ICD Code: E66.01 - MORBID (SEVERE) OBESITY DUE TO EXCESS CALORIES; Z68.42 - BODY MASS INDEX (BMI) 45.0-49.9, ADULT Status: Acute Priority: High - Patient Summary/Data Consults: Consultations 01/26/18 06:48 Consult to Case Management [CONS] Routine Consult to Air Quality Engineer [CONS] Routine Consult to Spiritual Care [CONS] Routine OT Evaluation and Treatment [CONS] Routine PT Evaluation and Treatment [CONS] Routine Respiratory Care Assess and Treatment [CONS] Routine Labs Pending at D/C: None Recommended Follow-up Testing/Procedures: Follow-up with PCP within 7-10 days of discharge. Follow-up with cardiology due to irregular echo - ? PFO Hospital Course: Assessment/Plan: Acute: HCAP - She lives in [place] - Reports sick contact at the facility - Afebrile but had been coughing; feels congested but not able to get anything out - CXR shows bilateral opacification although no good quality; repeat CXR shows nothing acute - WBC is 37.83K--> 34.13-->31.51-->22.6 and CRP is 23.6--> 25-->12.9-->6.3 - Received IV Rocephin and Levaquin in ED - Continue IV Zosyn and Levaquin daily -> switch to PO levaquin Q48hrs - Decongestant/Expectorant, Serial CXR, IS and FV as directed - Sputum Cx heavy PMN, few yeast - Strep pneumonia Ag - negative - Blood Cx and Mycoplasma Ag were both negative COPD Exacerbation, Improved - Audible wheezing but able to speak w/o difficulty - IV Steroids, Bronchodilators, IV Magnesium and Supplemental O2 -> stop steroids - Continue above treatment but reduced steroids frequency -> discontinue Morbid Obesity with BMI of 46.5 - Dietary consult for weight management - Advised to lose weigh UA Pos for Klebsiella (Not UTI) - UA is negative to suggest UTI (not sure why culture was ordered) - She is asymptomatic - Has arita cather but to moirbid obesity and mobility issues given that she is getting diuretic -> discontinued - She requested to keep arita catheter in for now but d/c in AM -> discontinued Diarrhea - Reportedly started on admission - C. Diff negative - Imodium 4mg now then 2mg PRN - Likely 2/2 antibiotic use Irregular Echo - Echo obtained on 01/28/18 1. LVEF, by visual estimation is 50-55% 2. Mild concentric left ventricular hypertrophy 3. Pseudonormal (Grade 2) pattern of LV diastolic filling 4. Small pericardial effusion, no tamponade 5. Mild to moderate mitral valve regurgitation 6. Moderate to severe tricuspid regurgitation 7. Mild dilation of ascending aorta 8. The right ventricular systolic pressure is severely elevated at 72.5mmHg 9. Inferior vena cava is dilated with respiratory size variation less than 50%, consistent with elevated right atrial pressure 10. Possible PFO with left to right shunt 11. 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 She continues to improve. Continue current treatment Routine AM Labs Continue RT/PT/OT High Fall Risk Cut down frequency of IV steroids DVT/GI PPx SW/CM for D/c planning Encourage to use FV/IS as tolerated Additional orders as above Code status: 1 Overall Nancy did very well. She was diagnosed with HCAP and started on levaquin and rocephin in ED. This was switched to Levaqin and Zosyn. She was ultimately decreased to PO levaquin Q48hrs just prior to discharge. She will be discharged home on 3 more days (two total doses) of levaquin. She was utilizing IS and acapella here and was instructed to continue this until symptoms completely resolve. She was started on steroids while here and tapered prior to discharge. O2 was weaned down to her baseline amount, although we would increase oxygen to 4-5L with activity and she tolerated this well. UA culture was ordered although she was not having urinary symptoms and UA was not positive and this returned Klebsiella which was susceptible to Levaquin. She did report some diarrhea which started when placed on antibiotic. Imodium was given after her C. Diff returned negative. Her platelets were quite elevated although they did trend down today. This can be followed up with her PCP. Patients daughter reports she has had her spleen removed and normally has thrombocytosis. While here an echo was obtained and the results are above. Recommending cardiology consult as she will likely need further studies. She will be discharged on 3 more days Levaquin as noted, a probiotic, and she was started on 81mg ASA daily. She will be discharged to [place] [facility]. Based on the above listed conditions we feel she will benefit from Home Health with alf and PT. She is homebound due to her difficulty with ambulation and transportation. These services can be monitored and adjusted as deemed appropriate by Dr. Duarte and Alexus Pineda NP, who are the patients PCPs. - Patient Instructions Diet: Heart Healthy Diet Activity: As Tolerated Notify Provider of: Fever, Increased Pain, Nausea and/or Vomiting Other/Special Instructions: -Follow-up with primary care provider within 7-10 days of discharge. -Follow-up with cardiology regarding echo obtained while here. -Continue oxygen at normal 3L increase as needed with activity (has been 4-5L while here with activity and tolerated this well). -Continue PT. Start home health at discharge. -Take all medications as prescribed. -Finish antibiotic until it is gone. Even if you feel better. -Continue your incentive spirometry (clear/blue thing you inhale with) and your acapella (green device you blow in) until your symptoms completely resolve. -If symptoms worsen return to the Emergency room or contact your primary care provider. - Discharge Plan *PRESCRIPTION DRUG MONITORING PROGRAM REVIEWED*: No *COPY OF PRESCRIPTION DRUG MONITORING REPORT IN PATIENT [place]: No Prescriptions/Med Rec: Aspirin 81 mg PO DAILY #30 tab.chew levoFLOXacin [Levaquin] 750 mg PO Q48H #2 tablet Saccharomyces Boulardii [Florastor] 250 mg PO TID@0700,1400,2100 #30 cap Home Medications: Home Meds Budesonide/Formoterol Fumarate [Symbicort 160-4.5 Mcg Inhaler] 2 puff IH BID [History] Hydrocodone/Acetaminophen [Hydrocodon-Acetaminophn 10-325] 1 tab PO TID [History] Potassium Chloride 20 meq PO DAILY 08/23/16 [History] Ipratropium/Albuterol Sulfate [Combivent Respimat 20-100 Mcg] 1 puff INH QID [History] FLUoxetine [PROzac] 10 mg PO DAILY #30 cap 09/20/16 [Rx] Albuterol [Proventil Neb Soln] 3 ml INH QID PRN 07/03/17 [History] Cholecalciferol (Vitamin D3) [Vitamin D3] 2,000 unit PO DAILY 07/03/17 [History] Cyanocobalamin (Vitamin B-12) [Vitamin B-12] 1,000 mcg PO DAILY 07/03/17 [ History] Furosemide [Lasix] 40 mg PO DAILY 07/03/17 [History] Gabapentin [Neurontin] 300 mg PO TID 07/03/17 [History] LORazepam [Ativan] 0.5 mg PO TID 07/03/17 [History] Levothyroxine [Synthroid] 88 mcg PO DAILY 07/03/17 [History] Roflumilast [Daliresp] 500 mcg PO DAILY 07/03/17 [History] Rosuvastatin [Crestor] 5 mg PO DAILY 07/03/17 [History] Umeclidinium [place] [Incruse Ellipta] 1 puff INH DAILY 07/03/17 [History] Ibuprofen [Motrin] 800 mg PO BID PRN #0 07/11/17 [Rx] Docusate Sodium [Colace] 100 mg PO BID 01/25/18 [History] Metoprolol Succinate [Toprol Xl] 50 mg PO DAILY 01/25/18 [History] guaiFENesin [Mucinex] 600 mg PO BID 01/25/18 [History] guaiFENesin/Dextromethorphan [Tussin Dm Cough Syrup] 5 ml PO QID PRN 01/25/18 [ History] oxyCODONE HCl/Acetaminophen [Percocet 5-325 mg Tablet] 1 each PO BID 01/25/18 [ History] oxyCODONE HCl/Acetaminophen [Percocet 5-325 mg Tablet] 1 each PO Q4H PRN [History] Aspirin 81 mg PO DAILY #30 tab.chew 01/30/18 [Rx] Saccharomyces Boulardii [Florastor] 250 mg PO TID@0700,1400,2100 #30 cap [Rx] levoFLOXacin [Levaquin] 750 mg PO Q48H #2 tablet 01/30/18 [Rx] Patient Handouts: Chronic Obstructive Pulmonary Disease Exacerbation, Easy-to- Read, Obesity, Adult, [id number] Referrals: Alexus Pineda NP [Ordering Only Provider] - - Discharge Summary/Plan Comment DC Time >30 min.: Yes (45 mins ) - General Info Date of Service: 01/30/18 Admission Dx/Problem (Free Text: Admission Diagnosis/Problem Admission Diagnosis/Problem Pneumonia Subjective Update: In to see Nancy. She is sitting up in the chair. She reports she feels great. Minimal SOB. She is back to baseline O2. We discussed O2 use. Instructed to continue to use IS and Acapella until symptoms completely resolve. Discussed discharge plan. Labs and vital signs look good. She will be discharged today back to [place]. Functional Status: Reports: Pain Controlled, Tolerating Diet, Ambulating, Urinating, Incentive Spirometry, Other (acapella ). Denies: New Symptoms - Review of Systems General: Reports: Weakness (improving ). Denies: Fever, Fatigue, Malaise, Chills HEENT: Reports: No Symptoms Pulmonary: Reports: Shortness of Breath (at baseline ). Denies: Cough, Sputum, Wheezing Cardiovascular: Reports: Dyspnea on Exertion (at baseline ). Denies: Chest Pain Gastrointestinal: Reports: No Symptoms. Denies: Abdominal Pain, Constipation, Diarrhea, Nausea, Vomiting Genitourinary: Reports: No Symptoms Musculoskeletal: Reports: No Symptoms Skin: Reports: No Symptoms Neurological: Reports: No Symptoms. Denies: Confusion, Numbness, Tingling, Difficulty Walking, Change in Speech, Gait Disturbance Psychiatric: Reports: No Symptoms - Patient Data Vitals - Most Recent: Last Vital Signs Temp 97.9 F 01/30/18 03:00 Pulse 81 01/30/18 03:00 Resp 16 01/30/18 03:00 BP 123/64 01/30/18 03:00 Pulse Ox 92 L 01/30/18 06:13 Weight - Most Recent: 253 lb 4.8 oz I&O - Last 24 hours: Intake & Output 01/29/18 01/29/18 01/30/18 14:59 22:59 06:59 Intake Total 530 285 680 Output Total 700 200 350 Balance -170 85 330 Lab Results - Last 24 hrs: Laboratory Results - last 24 hr 01/29/18 01/29/18 01/29/18 Range/Units 10:05 10:05 10:13 WBC 22.60 H (3.98-10.04) K/mm3 RBC 4.30 (3.98-5.22) M/mm3 Hgb 12.5 (11.2-15.7) gm/L Hct 38.9 (34.1-44.9) % MCV 90.5 (79.4-94.8) fl MCH 29.1 (25.6-32.2) pg MCHC 32.1 L (32.2-35.5) g/dl RDW Std Deviation 60.8 H (36.4-46.3) fL Plt Count 922 H* (182-369) K/mm3 MPV 9.7 (9.4-12.3) fl Neut % (Auto) 66.1 (34.0-71.1) % Lymph % (Auto) 18.7 L (19.3-51.7) % [place] % (Auto) 11.8 (4.7-12.5) % Eos % (Auto) 0.5 L (0.7-5.8) Baso % (Auto) 0.4 (0.1-1.2) % Neut # (Auto) 14.93 H (1.56-6.13) K/mm3 Lymph # (Auto) 4.23 H (1.18-3.74) K/mm3 [place] # (Auto) 2.66 H (0.24-0.36) K/mm3 Eos # (Auto) 0.12 (0.04-0.36) K/mm3 Baso # (Auto) 0.09 H (0.01-0.08) K/mm3 Manual Slide Review Abnormal smear Sodium 141 (136-145) mEq/L Potassium 3.3 L (3.5-5.1) mEq/L Chloride 105 (98-107) mEq/L Carbon Dioxide 27 (21-32) mEq/L Anion Gap 12.3 (5-15) BUN 21 H (7-18) mg/dL Creatinine 1.3 H (0.55-1.02) mg/dL Est Cr Clr Drug Dosing 29.12 mL/min Estimated GFR (MDRD) 40 (>60) mL/min BUN/Creatinine Ratio 16.2 (14-18) Glucose 97 (83-115) mg/dL Calcium 10.3 H (8.5-10.1) mg/dL Magnesium 2.0 (1.8-2.4) mg/dl C-Reactive Protein 6.3 H* (<1.0) mg/dL C.difficile [id number] Presumptive negative C. difficile Tox (PCR) Negative CONNIE Results - Last 24 hrs: Microbiology 01/26/18 01:45 Aerobic Blood Culture - Preliminary Blood - Venous - Lab Draw NO GROWTH AFTER 4 DAYS Anaerobic Blood Culture - Preliminary NO GROWTH AFTER 4 DAYS 01/26/18 01:40 Aerobic Blood Culture - Preliminary Blood - Venous NO GROWTH AFTER 4 DAYS Anaerobic Blood Culture - Final 01/26/18 01:55 Streptococcus pneumoniae Antigen (M - Final Urine Med Orders - Current: Current Medications Acetaminophen (Tylenol) 650 mg PO Q6H PRN PRN Reason: Pain (mild 1-3) Last Admin: 01/26/18 08:28 Dose: 650 mg Hydrocodone Bitart/Acetaminophen ([place] 325-10 Mg) 1 tab PO TID@0700,1300,1900 RYAN Last Admin: 01/29/18 19:25 Dose: 1 tab Albuterol (Proventil Neb Soln) 2.5 mg NEB Q4H PRN PRN Reason: Shortness of Breath Last Admin: 01/27/18 18:28 Dose: 2.5 mg Aspirin (Aspirin) 81 mg PO DAILY [facility] Bisacodyl (Dulcolax) 5 mg PO DAILY PRN PRN Reason: Constipation Cholecalciferol (Vitamin D3) 2,000 units PO DAILY [facility] Last Admin: 01/29/18 08:36 Dose: 2,000 units Cyanocobalamin (Vitamin B12) 1,000 mcg PO DAILY [facility] Last Admin: 01/29/18 08:35 Dose: 1,000 mcg Docusate Sodium (Colace) 100 mg PO BID [facility] Last Admin: 01/29/18 20:19 Dose: Not Given Enoxaparin Sodium (Lovenox) 40 mg SUBCUT BID [facility] Last Admin: 01/29/18 20:22 Dose: 40 mg Fluoxetine HCl (Prozac) 10 mg PO DAILY [facility] Last Admin: 01/29/18 08:36 Dose: 10 mg Furosemide (Lasix) 40 mg PO DAILY [facility] Last Admin: 01/29/18 08:36 Dose: 40 mg Gabapentin (Neurontin) 300 mg PO TID [facility] Last Admin: 01/29/18 20:23 Dose: 300 mg Guaifenesin (Mucinex) 1,200 mg PO BID [facility] Last Admin: 01/29/18 20:20 Dose: 1,200 mg Guaifenesin/Phenylephrine HCl (Robitussin Dm) 5 ml PO QID PRN PRN Reason: Cough Promethazine HCl 12.5 mg/ (Sodium Chloride) 50.5 mls @ 100 mls/hr IV Q6H PRN PRN Reason: Nausea/Vomiting Levofloxacin (Levaquin) 750 mg PO Q48H [facility] Last Admin: 01/30/18 01:45 Dose: 750 mg Levothyroxine Sodium (Synthroid) 88 mcg PO ACBRK [facility] Last Admin: 01/29/18 06:08 Dose: 88 mcg Loperamide HCl (Imodium) 2 mg PO Q6H PRN PRN Reason: Diarrhea Lorazepam (Ativan) 0.5 mg PO TID [facility] Last Admin: 01/29/18 20:22 Dose: 0.5 mg Metoprolol Succinate (Toprol Xl) 50 mg PO DAILY [facility] Last Admin: 01/29/18 08:36 Dose: 50 mg Mometasone Furoate/Formoterol Fumar (Dulera 200-5 Mcg) 0 puff IH BID [facility] Last Admin: 01/29/18 20:27 Dose: 2 puff Ondansetron HCl (Zofran) 4 mg IV Q6H PRN PRN Reason: Nausea/Vomiting Oxycodone/Acetaminophen (Percocet 325-5 Mg) 1 tab PO Q4H PRN PRN Reason: Pain Last Admin: 01/27/18 02:49 Dose: 1 tab Oxycodone/Acetaminophen (Percocet 325-5 Mg) 1 tab PO BID [facility] Last Admin: 01/29/18 22:14 Dose: 1 tab Roflumilast 500 Mcg (Ptom) 500 each PO DAILY [facility] Last Admin: 01/29/18 08:38 Dose: Not Given Umeclidinium [place] (1 Puff Ptom) 1 each INH DAILY [facility] Last Admin: 01/29/18 08:57 Dose: 1 each Albuterol/Ipratropium 1 Puff * *Ptom 1 each INH QIDRT [facility] Last Admin: 01/30/18 06:13 Dose: 1 each Polyethylene Glycol (Miralax) 17 gm PO DAILY PRN PRN Reason: Constipation Potassium Chloride (Klor-Con M20) 20 meq PO DAILY [facility] Last Admin: 01/29/18 08:36 Dose: 20 meq Rosuvastatin Calcium (Crestor) 5 mg PO DAILY [facility] Last Admin: 01/29/18 08:37 Dose: 5 mg Saccharomyces Boulardii (Florastor) 250 mg PO TID@0700,1400,2100 [facility] Last Admin: 01/29/18 20:19 Dose: 250 mg Senna/Docusate Sodium (Senna Plus) 1 tab PO BID PRN PRN Reason: Constipation Temazepam (Restoril) 15 mg PO BEDTIME PRN PRN Reason: Sleep Last Admin: 01/28/18 21:39 Dose: 15 mg Discontinued Medications Hydrocodone Bitart/Acetaminophen ([place] 325-10 Mg) 1 tab PO TID [facility] Last Admin: 01/26/18 10:03 Dose: Not Given Albuterol/Ipratropium (Duoneb 3.0-0.5 Mg/3 Ml) 3 ml NEB ONETIME ONE Stop: 01/26/18 01:59 Last Admin: 01/26/18 02:05 Dose: 3 ml Albuterol/Ipratropium (Duoneb 3.0-0.5 Mg/3 Ml) 3 ml NEB Q4HRRT PRN PRN Reason: Shortness of Breath Last Admin: 01/26/18 17:38 Dose: 3 ml Bumetanide (Bumex) 0.5 mg IVPUSH ONETIME ONE Stop: 01/26/18 17:51 Last Admin: 01/26/18 18:16 Dose: 0.5 mg Bumetanide (Bumex) 0.5 mg IVPUSH ONETIME ONE Stop: 01/27/18 16:43 Last Admin: 01/27/18 16:55 Dose: 0.5 mg Guaifenesin (Mucinex) 600 mg PO BID [facility] Last Admin: 01/26/18 09:40 Dose: 600 mg Ceftriaxone Sodium 2 gm/ (Sodium Chloride) 100 mls @ 100 mls/hr IV ONETIME ONE Stop: 01/26/18 02:57 Last Admin: 01/26/18 02:08 Dose: 100 mls/hr Levofloxacin/Dextrose 750 mg/ (Premix) 150 mls @ 100 mls/hr IV ONETIME ONE Stop: 01/26/18 03:27 Last Admin: 01/26/18 02:08 Dose: 100 mls/hr Sodium Chloride (Normal Saline) 1,000 mls @ 15 mls/hr IV ASDIRECTED [facility] Last Admin: 01/28/18 18:12 Dose: 15 mls/hr Levofloxacin/Dextrose 750 mg/ (Premix) 150 mls @ 100 mls/hr IV Q48H [facility] Last Admin: 01/28/18 02:40 Dose: 100 mls/hr Piperacillin Sod/Tazobactam (Sod 4.5 gm/ Sodium Chloride) 100 mls @ 200 mls/hr IV ONETIME ONE Stop: 01/26/18 07:29 Last Admin: 01/26/18 07:58 Dose: 200 mls/hr Piperacillin Sod/Tazobactam (Sod 4.5 gm/ Sodium Chloride) 100 mls @ 25 mls/hr IV Q8H [facility] Last Admin: 01/28/18 15:32 Dose: 25 mls/hr Magnesium Sulfate/Dextrose 1 (gm/ Premix) 100 mls @ 100 mls/hr IV ONETIME ONE Stop: 01/26/18 08:07 Last Admin: 01/26/18 07:57 Dose: 100 mls/hr Loperamide HCl (Imodium) 4 mg PO ONETIME ONE Stop: 01/29/18 13:19 Last Admin: 01/29/18 14:18 Dose: 4 mg Methylprednisolone Sodium Succinate (Solu-Medrol) 60 mg IVPUSH TID@0700,1400, 2100 [facility] Last Admin: 01/27/18 13:38 Dose: 60 mg Methylprednisolone Sodium Succinate (Solu-Medrol) 125 mg IVPUSH ONETIME ONE Stop: 01/26/18 07:31 Last Admin: 01/26/18 07:59 Dose: 125 mg Methylprednisolone Sodium Succinate (Solu-Medrol) 60 mg IVPUSH BID [facility] Stop: 01/27/18 21:01 Last Admin: 01/27/18 21:21 Dose: 60 mg Mometasone Furoate/Formoterol Fumar (Dulera 200-5 Mcg) 2 puff IH BIDRT [facility] Last Admin: 01/26/18 08:15 Dose: 2 puff Morphine Sulfate (Morphine) 1 mg IVPUSH Q3H PRN PRN Reason: Other Stop: 01/27/18 06:50 Albuterol/Ipratropium 1 Puff * *Ptom 1 each INH QID [facility] Last Admin: 01/26/18 10:03 Dose: Not Given - Exam Quality Assessment: Reports: Supplemental Oxygen (weaned to baseline ), DVT Prophylaxis General: Reports: Alert, Oriented, Cooperative, No Acute Distress HEENT: Reports: Pupils Equal, Pupils Reactive, EOMI, Mucous Membr. Moist/[place] Neck: Reports: Supple, Trachea Midline, No JVD Lungs: Reports: Clear to Auscultation, Normal Respiratory Effort, Decreased Breath Sounds Cardiovascular: Reports: Regular Rate, Regular Rhythm GI/Abdominal Exam: Normal Bowel Sounds, Soft, Non-Tender, No Organomegaly, No Distention, No Abnormal Bruit, No Mass, Pelvis Stable (Female) Exam: Deferred Rectal (Female) Exam: Deferred Back Exam: Reports: Normal Inspection, Full Range of Motion Extremities: Normal Inspection, Normal Range of Motion, Non-Tender, No Pedal Edema, Normal Capillary Refill Skin: Reports: Warm, Dry, Intact Neurological: Reports: No New Focal Deficit Psy/Mental Status: Reports: Alert, Normal Affect, Normal Mood
[2018-01-30] MEDS: Saccharomyces Boulardii (Probiotic) 250 MG Cap PO SCH (06:31)
[2018-01-30] MEDS: Levothyroxine 88 MCG Tab PO SCH (06:31)
[2018-01-30] MEDS: Acetaminophen/HYDROcodone 325-10 MG Tab PO SCH (06:31)
[2018-01-30] MEDS: Rosuvastatin 10 MG Tab PO SCH (08:02)
[2018-01-30] MEDS: Docusate Sodium 100 MG Cap PO SCH ×2 (08:02→08:08)
[2018-01-30] MEDS: guaiFENesin 600 MG Tab.ER PO SCH (08:02)
[2018-01-30] MEDS: FLUoxetine 10 MG Cap PO SCH (08:02)
[2018-01-30] MEDS: Furosemide 40 MG Tab PO SCH (08:02)
[2018-01-30] MEDS: LORazepam 0.5 MG Tab PO SCH (08:02)
[2018-01-30] MEDS: Potassium Chloride 20 MEQ Tab.ER PO SCH (08:02)
[2018-01-30] MEDS: Acetaminophen/oxyCODONE 325-5 MG Tab PO SCH (08:03)
[2018-01-30] MEDS: Cholecalciferol (Vitamin D3) 1,000 Unit Tab PO SCH (08:03)
[2018-01-30] MEDS: Cyanocobalamin (Vitamin B12) 1,000 MCG Tab PO SCH (08:03)
[2018-01-30] MEDS: Metoprolol Succinate 50 MG Tab.ER PO SCH (08:03)
[2018-01-30 08:04] VITALS: BP 135/71
[2018-01-30] MEDS: Enoxaparin 40 MG/0.4 ML Syringe SUBCUT SCH (08:04)
[2018-01-30] MEDS: Gabapentin 300 MG Cap PO SCH (08:09)
[2018-01-30] MEDS ORDERED: Aspirin 81 MG Tab.Chew PO SCH (09:00)
[2018-01-30] MEDS: Formoterol/Mometasone 200-5 MCG 8.8 GM Inhaler IH SCH (09:08)
[2018-01-30] MEDS: UMECLIDINIUM BROMIDE INH SCH (09:08)
== END 2018-01-30 11:12 | disposition home health service (06) | DRG 194 ==
LOC: JD.ED 23:38 → JD.ICU 01-26 02:42
PROVIDERS: ADMIT Internal Medicine; ATTEND Internal Medicine
DX: J18.9 Pneumonia, unspecified organism (principal); J44.0 Chronic obstructive pulmonary disease with (acute) lower respiratory infection; R09.02 Hypoxemia; I50.32 Chronic diastolic (congestive) heart failure; I50.9 Heart failure, unspecified; J44.1 Chronic obstructive pulmonary disease with (acute) exacerbation; Z68.42 Body mass index [BMI] 45.0-49.9, adult; J96.11 Chronic respiratory failure with hypoxia; K52.1 Toxic gastroenteritis and colitis; D47.3 Essential (hemorrhagic) thrombocythemia; E66.01 Morbid (severe) obesity due to excess calories; I11.0 Hypertensive heart disease with heart failure; M19.90 Unspecified osteoarthritis, unspecified site; F41.9 Anxiety disorder, unspecified; G89.29 Other chronic pain; F32.9 Major depressive disorder, single episode, unspecified; E03.9 Hypothyroidism, unspecified; E53.8 Deficiency of other specified B group vitamins; H54.7 Unspecified visual loss; K57.90 Diverticulosis of intestine, part unspecified, without perforation or abscess without bleeding; M54.9 Dorsalgia, unspecified; G43.909 Migraine, unspecified, not intractable, without status migrainosus; R06.02 Shortness of breath; R06.2 Wheezing; D72.829 Elevated white blood cell count, unspecified; G47.33 Obstructive sleep apnea (adult) (pediatric); G89.4 Chronic pain syndrome; G62.9 Polyneuropathy, unspecified; Y95 Nosocomial condition; T36.95XA Adverse effect of unspecified systemic antibiotic, initial encounter; Z88.1 Allergy status to other antibiotic agents; Z88.8 Allergy status to other drugs, medicaments and biological substances; Z99.81 Dependence on supplemental oxygen; Z79.899 Other long term (current) drug therapy; Z87.891 Personal history of nicotine dependence
CPT/HCPCS: 36415; 51702; 71046; 80053; 81001; 83605; 83880; 84484; 85025; 86140; 87040 ×2; 87086; 87088; 87186; 87899; 93005; 94640; 96365; 96368; 99285; J0696; J1956; J7030; 80048; 83735; 86738; 87070; 87205; 87493; 87641; 93010; 93306; 94664; 94668; 97110-GP; 97116-GP; 97162-GP; 97165-GO; 97530-GO; A9270-GY; J1650; J2543; J2920; J2930; J3475; J3490; J7040; J7620-GY

== ENCOUNTER 2019-10-06 10:11 | Emergency (ER) | payer MEDICARE, MEDICAID ==
[2019-10-06 10:30] VITALS: BP 129/74; PULSE 90
[2019-10-06] MEDS ORDERED: Albuterol/Ipratropium 3.0-0.5 MG/3 ML Neb Soln NEB ONE (10:55)
--- NOTE | 2019-10-06 11:05 | EDM.PDOC ---
ED HPI GENERAL MEDICAL PROBLEM - General Chief Complaint: Respiratory Problem Stated Complaint: SOB/LOW O2 Time Seen by Provider: 10/06/19 10:33 Source of Information: Reports: Patient, RN Notes Reviewed - History of Present Illness INITIAL COMMENTS - FREE TEXT/NARRATIVE: 79 yr old female went from [facility] for evaluation of possible hypoxia. Her sats are reported to have been in the "60's and 70's" at the [facility] this AM. Patient states she have been mildly short of breath this last week or so but has not been and does not feel severely short of breath at this time. She does have hx of COPD, and CHF. She is on a diurietic in addition to other meds. Legs not any more swollen than usual. No recent fever , chills, cough or chest pain. She does have a nebulizer but has not been taking recent neb treatments. She states I take "all of those other meds", does not see the need to do nebs in addition. She is on O2 3 L NC chronically. Uses CPAP at night. - Related Data Allergies Allergy/AdvReac Type Severity Reaction Status Date / Time doxycycline Allergy Severe Cannot Verified 10/06/19 10:31 Remember tiotropium Allergy Severe Cannot Verified 10/06/19 10:31 [From Spiriva with Remember HandiHaler] tramadol [From Ultracet] Allergy Severe Cannot Verified 10/06/19 10:31 Remember Home Meds: Home Meds Budesonide/Formoterol Fumarate [Symbicort 160-4.5 Mcg Inhaler] 2 puff IH BID [History] Potassium Chloride 20 meq PO DAILY 08/23/16 [History] Ipratropium/Albuterol Sulfate [Combivent Respimat 20-100 Mcg] 1 puff INH QID [History] FLUoxetine [PROzac] 10 mg PO DAILY #30 cap 09/20/16 [Rx] Albuterol [Proventil Neb Soln] 3 ml INH QID PRN 07/03/17 [History] Cholecalciferol (Vitamin D3) [Vitamin D3] 2,000 unit PO DAILY 07/03/17 [History] Cyanocobalamin (Vitamin B-12) [Vitamin B-12] 1,000 mcg SL DAILY 07/03/17 [ History] Furosemide [Lasix] 40 mg PO DAILY 07/03/17 [History] Gabapentin [Neurontin] 300 mg PO TID 07/03/17 [History] LORazepam [Ativan] 0.5 mg PO TID 07/03/17 [History] Levothyroxine [Synthroid] 88 mcg PO DAILY 07/03/17 [History] Roflumilast [Daliresp] 500 mcg PO DAILY 07/03/17 [History] Rosuvastatin [Crestor] 5 mg PO DAILY 07/03/17 [History] Umeclidinium [place] [Incruse Ellipta] 1 puff INH DAILY 07/03/17 [History] Ibuprofen [Motrin] 800 mg PO BID PRN #0 07/11/17 [Rx] Docusate Sodium [Colace] 100 mg PO BID 01/25/18 [History] Metoprolol Succinate [Toprol Xl] 50 mg PO DAILY 01/25/18 [History] guaiFENesin/Dextromethorphan [Tussin Dm Cough Syrup] 5 ml PO QID PRN 01/25/18 [ History] oxyCODONE HCl/Acetaminophen [Percocet 5-325 mg Tablet] 1 each PO BID PRN [History] Aspirin 81 mg PO DAILY #30 tab.chew 01/30/18 [Rx] Calcium Carbonate [Tums] 200 mg PO ASDIRECTED PRN 10/06/19 [History] Capsaicin [Zostrix 0.025% Crm] 1 appful TOP QID PRN 10/06/19 [History] Morphine Sulfate [Morphine Sulfate ER] 15 mg PO BID 10/06/19 [History] Past Medical History HEENT History: Reports: Impaired Vision, Other (See Below) Other HEENT History: wears glasses Cardiovascular History: Reports: Heart Failure, Hypertension, SOB on Exertion Respiratory History: Reports: Asthma, COPD, Sleep Apnea, SOB Gastrointestinal History: Reports: Chronic Constipation, Diverticulosis Genitourinary History: Reports: None Musculoskeletal History: Reports: Arthritis, Back Pain, Chronic, Osteoporosis Neurological History: Reports: Migraines Psychiatric History: Reports: Anxiety, Depression Endocrine/Metabolic History: Reports: Hypothyroidism, Obesity/BMI 30+ Hematologic History: Reports: B12 Deficiency Immunologic History: Reports: None Dermatologic History: Reports: Other (See Below) Other Dermatologic History: dry skin - Infectious Disease History Infectious Disease History: Reports: Shingles - Past Surgical History Head Surgeries/Procedures: Reports: None Respiratory Surgical History: Reports: None GI Surgical History: Reports: Hernia, Abdominal, Hernia, Inguinal, Other (See Below) Other GI Surgeries/Procedures: colectomy Endocrine Surgical History: Reports: Thyroidectomy Neurological Surgical History: Reports: Lumbar Spine Dermatological Surgical History: Reports: None Social & Family History - Family History Family Medical History: Noncontributory - Tobacco Use Smoking Status *Q: Never Smoker - Caffeine Use Caffeine Use: Reports: None - Recreational Drug Use Recreational Drug Use: No - Living Situation & Occupation Living situation: Reports: Alone Occupation: Retired ED ROS GENERAL - Review of Systems Review Of Systems: See Below Constitutional: Denies: Fever, Chills, Diaphoresis HEENT: Reports: No Symptoms Respiratory: Reports: Shortness of Breath. Denies: Cough Cardiovascular: Denies: Chest Pain GI/Abdominal: Denies: Abdominal Pain, Nausea, Vomiting Musculoskeletal: Reports: No Symptoms Skin: Reports: No Symptoms Neurological: Reports: No Symptoms ED EXAM, GENERAL - Physical Exam Exam: See Below General Appearance: Alert, No Apparent Distress Eye Exam: Bilateral Eye: PERRL Throat/Mouth: Normal Inspection Head: Atraumatic Neck: Supple, Other (no JVD) Respiratory/Chest: No Respiratory Distress, Lungs Clear, Normal Breath Sounds Cardiovascular: Extra Beats GI/Abdominal: Soft, Non-Tender. No: Guarding Extremities: Normal Inspection, Normal Range of Motion. No: Pedal Edema, Leg Pain, Increased Warmth, Redness Neurological: Alert, Oriented, No Motor/Sensory Deficits Skin Exam: Warm, Dry, Normal Color, No Rash EKG INTERPRETATION EKG Date: 10/06/19 Rhythm: Other (ventricular bigeminy and frequent PVC's at time of EKG) [place]: Normal P-Wave: Present QRS: Normal ST-T: Normal Course - Vital Signs Last Recorded V/S: Last Vital Signs Temp 97.3 F 10/06/19 10:26 Pulse 90 10/06/19 10:26 Resp 17 10/06/19 10:26 BP 129/74 10/06/19 10:26 Pulse Ox 90 L 10/06/19 11:02 - Orders/Labs/Meds Orders: Active Orders 24 hr Category Date Time Status EKG 12 Lead [EKG Documentation Completion] [RC] STAT Care 10/06/19 10:55 Active Oxygen Therapy [RC] ASDIRECTED Care 10/06/19 10:55 Active RT Aerosol Therapy [RC] ASDIRECTED Care 10/06/19 10:55 Active Chest 1V Frontal [CR] Stat Exams 10/06/19 10:54 Taken Labs: Laboratory Tests 10/06/19 10/06/19 10/06/19 Range/Units 11:05 11:05 11:05 WBC 16.30 H (3.98-10.04) K/mm3 RBC 4.85 (3.98-5.22) M/mm3 Hgb 11.9 (11.2-15.7) gm/dl Hct 39.1 (34.1-44.9) % MCV 80.6 D (79.4-94.8) fl MCH 24.5 L (25.6-32.2) pg MCHC 30.4 L (32.2-35.5) g/dl RDW Std Deviation 61.0 H (36.4-46.3) fL Plt Count 1158 H* D (182-369) K/mm3 MPV 10.7 (9.4-12.3) fl Neut % (Auto) 69.4 (34.0-71.1) % Lymph % (Auto) 15.3 L (19.3-51.7) % [place] % (Auto) 11.0 (4.7-12.5) % Eos % (Auto) 3.0 (0.7-5.8) Baso % (Auto) 1.0 (0.1-1.2) % Neut # (Auto) 11.30 H (1.56-6.13) K/mm3 Lymph # (Auto) 2.50 (1.18-3.74) K/mm3 [place] # (Auto) 1.79 H (0.24-0.36) K/mm3 Eos # (Auto) 0.49 H (0.04-0.36) K/mm3 Baso # (Auto) 0.17 H (0.01-0.08) K/mm3 Manual Slide Review Abnormal smear Sodium 142 (136-145) mEq/L Potassium 4.4 (3.5-5.1) mEq/L Chloride 104 (98-107) mEq/L Carbon Dioxide 30 (21-32) mEq/L Anion Gap 12.4 (5-15) BUN 11 (7-18) mg/dL Creatinine 1.1 H (0.55-1.02) mg/dL Est Cr Clr Drug Dosing 31.81 mL/min Estimated GFR (MDRD) 48 (>60) mL/min BUN/Creatinine Ratio 10.0 L (14-18) Glucose 103 (83-115) mg/dL Calcium 10.0 (8.5-10.1) mg/dL Total Bilirubin 0.4 (0.2-1.0) mg/dL AST 26 (15-37) U/L ALT 22 (14-59) U/L Alkaline Phosphatase 106 (46-116) U/L NT-Pro-B Natriuret Pep 525 H (0-450) pg/mL Total Protein 8.0 (6.4-8.2) g/dl Albumin 2.5 L (3.4-5.0) g/dl Globulin 5.5 gm/dL Albumin/Globulin Ratio 0.5 L (1-2) Meds: Medications Discontinued Medications Generic Name Dose Route Start Last Admin Trade Name Freq PRN Reason Stop Dose Admin Albuterol/Ipratropium 3 ml 10/06/19 10:55 10/06/19 11:00 Duoneb 3.0-0.5 Mg/3 Ml NEB 10/06/19 10:56 3 ml ONETIME ONE Administration - Re-Assessments/Exams Free Text/Narrative Re-Assessment/Exam: 10/06/19 12:12CXR was stable, BNP relatively nl, plts elevated but have also been chronically elevated in the past. We did a neb treatment and she felt her breathing improved with that. Sats have been running 89 to 92 %, 91 to 92 % after the neb treatment at time of reexam. Departure - Departure Time of Disposition: 11:56 Disposition: Home, Self-Care 01 Condition: Fair Clinical Impression: Dyspnea, Thrombocytosis COPD (chronic obstructive pulmonary disease) Qualifiers: COPD type: unspecified COPD Qualified Code(s): J44.9 - Chronic obstructive pulmonary disease, unspecified - Discharge Information Instructions: Chronic Obstructive Pulmonary Disease Exacerbation, [id number] Referrals: Alexus Pineda NP [Primary Care Provider] - Forms: ED Department Discharge Additional Instructions: Continue current medications as prescribed. Continue home oxygen at 3 liters. Use your nebulizer 2 or 3 times daily to further help your breathing. Follow up clinic as needed. Return to ED as needed if symptoms worsening in any way. Sepsis Event Note - Evaluation Sepsis Screening Result: No Definite Risk - Focused Exam Vital Signs: Vital Signs Temp Pulse Resp BP Pulse Ox Pulse Ox 10/06/19 11:02 90 L 10/06/19 10:55 90 L 10/06/19 10:26 97.3 F 90 17 129/74 90 L Date Exam was Performed: 10/06/19 Time Exam was Performed: 12:11 - My Orders Last 24 Hours: My Active Orders 10/06/19 10:54 Chest 1V Frontal [CR] Stat 10/06/19 10:55 EKG 12 Lead [EKG Documentation Completion] [RC] STAT Oxygen Therapy [RC] ASDIRECTED RT Aerosol Therapy [RC] ASDIRECTED - Assessment/Plan Last 24 Hours: My Active Orders 10/06/19 10:54 Chest 1V Frontal [CR] Stat 10/06/19 10:55 EKG 12 Lead [EKG Documentation Completion] [RC] STAT Oxygen Therapy [RC] ASDIRECTED RT Aerosol Therapy [RC] ASDIRECTED
--- NOTE | 2019-10-06 13:22 | CR ---
Chest: Portable view of the chest was obtained. Comparison: Prior chest x-ray of 01/28/18. Heart is enlarged. Chronic increased lung markings are seen. Lungs otherwise are clear with no acute parenchymal change. Bony structures are grossly intact. Impression: 1. Stable chest x-ray. Nothing acute is seen from previous study. Diagnostic code #2 This report was dictated in MDT
== END 2019-10-06 12:15 | disposition home or self-care (01) ==
LOC: JD.ED 10:11
DX: J44.9 Chronic obstructive pulmonary disease, unspecified (principal); D47.3 Essential (hemorrhagic) thrombocythemia; I11.0 Hypertensive heart disease with heart failure; I50.9 Heart failure, unspecified; M19.90 Unspecified osteoarthritis, unspecified site; F41.9 Anxiety disorder, unspecified; F32.9 Major depressive disorder, single episode, unspecified; E03.9 Hypothyroidism, unspecified; E66.9 Obesity, unspecified; Z68.42 Body mass index [BMI] 45.0-49.9, adult; R00.8 Other abnormalities of heart beat; I49.3 Ventricular premature depolarization; Z88.1 Allergy status to other antibiotic agents; Z88.8 Allergy status to other drugs, medicaments and biological substances; Z88.5 Allergy status to narcotic agent; Z79.899 Other long term (current) drug therapy; Z79.82 Long term (current) use of aspirin
CPT/HCPCS: 36415; 71045; 71045-26; 80053; 83880; 85025; 93005; 93010; 94640; 99284; 99285-25; J7620-GY

== ENCOUNTER 2019-11-05 20:15 | Emergency (ER) | payer MEDICARE, MEDICAID ==
[2019-11-05 20:30] VITALS: BP 134/63; PULSE 84
--- NOTE | 2019-11-05 20:55 | EDM.PDOC ---
ED HPI GENERAL MEDICAL PROBLEM - General Chief Complaint: Skin Complaint Stated Complaint: LEG SWELLING LEFT Time Seen by Provider: 11/05/19 20:30 Source of Information: Reports: Patient History Limitations: Reports: No Limitations - History of Present Illness INITIAL COMMENTS - FREE TEXT/NARRATIVE: Mrs. Dillon is a very pleasant 79-year-old woman with a past medical history significant for obesity, diastolic congestive heart failure, obstructive sleep apnea, and chronic pain, who now presents the ED stating that she has had a small area of some redness to her anteromedial left leg for the past 2 weeks. It is only mildly painful. She does not recall any injury to the area. She has not had this evaluated by her PCP, and states that the only reason she came to the ED now is because her daughter and a nurse at [place] old her to. The patient denies recent fever, chills, sore throat, ear pain, nasal or sinus congestion, cough, dyspnea, chest pain, palpitations, nausea, vomiting, constipation, diarrhea, abdominal pain, urinary symptoms, recent weight gain or weight loss, recent bloody bowel movements or black bowel movements, recent joint aches, headaches, or rashes. Here in the ED, the patient is found to be hemodynamically stable, afebrile, saturating 91% on 3 L of oxygen per nasal cannula. The patient's PCP is Alexus Pineda NP. - Related Data Allergies Allergy/AdvReac Type Severity Reaction Status Date / Time doxycycline Allergy Severe Cannot Verified 11/05/19 21:20 Remember tiotropium Allergy Severe Cannot Verified 11/05/19 21:20 [From Spiriva with Remember HandiHaler] tramadol [From Ultracet] Allergy Severe Cannot Verified 11/05/19 21:20 Remember Home Meds: Home Meds Budesonide/Formoterol Fumarate [Symbicort 160-4.5 Mcg Inhaler] 2 puff IH BID [History] Potassium Chloride 20 meq PO DAILY 08/23/16 [History] Ipratropium/Albuterol Sulfate [Combivent Respimat 20-100 Mcg] 1 puff INH QID [History] FLUoxetine [PROzac] 10 mg PO DAILY #30 cap 09/20/16 [Rx] Albuterol [Proventil Neb Soln] 3 ml INH QID PRN 07/03/17 [History] Cholecalciferol (Vitamin D3) [Vitamin D3] 2,000 unit PO DAILY 07/03/17 [History] Cyanocobalamin (Vitamin B-12) [Vitamin B-12] 1,000 mcg SL DAILY 07/03/17 [ History] Furosemide [Lasix] 40 mg PO DAILY 07/03/17 [History] Gabapentin [Neurontin] 300 mg PO TID 07/03/17 [History] LORazepam [Ativan] 0.5 mg PO TID 07/03/17 [History] Levothyroxine [Synthroid] 88 mcg PO DAILY 07/03/17 [History] Roflumilast [Daliresp] 500 mcg PO DAILY 07/03/17 [History] Rosuvastatin [Crestor] 5 mg PO DAILY 07/03/17 [History] Umeclidinium [place] [Incruse Ellipta] 1 puff INH DAILY 07/03/17 [History] Ibuprofen [Motrin] 800 mg PO BID PRN #0 07/11/17 [Rx] Docusate Sodium [Colace] 100 mg PO BID 01/25/18 [History] Metoprolol Succinate [Toprol Xl] 50 mg PO DAILY 01/25/18 [History] guaiFENesin/Dextromethorphan [Tussin Dm Cough Syrup] 5 ml PO QID PRN 01/25/18 [ History] oxyCODONE HCl/Acetaminophen [Percocet 5-325 mg Tablet] 1 each PO BID PRN [History] Aspirin 81 mg PO DAILY #30 tab.chew 01/30/18 [Rx] Calcium Carbonate [Tums] 200 mg PO ASDIRECTED PRN 10/06/19 [History] Capsaicin [Zostrix 0.025% Crm] 1 appful TOP QID PRN 10/06/19 [History] Morphine Sulfate [Morphine Sulfate ER] 15 mg PO BID 10/06/19 [History] Past Medical History HEENT History: Reports: Impaired Vision (wears glasses) Cardiovascular History: Reports: Heart Failure (Diastolic. LVEF 67% 09/19/2016), High Cholesterol, Hypertension Respiratory History: Reports: COPD (on 3L O2 continuously), Sleep Apnea ( nightly CPAP with O2) Gastrointestinal History: Reports: Diverticulosis (diverticulitis) Musculoskeletal History: Reports: Fracture (left humerus), Osteoarthritis Neurological History: Reports: Neuropathy, Peripheral Psychiatric History: Reports: Anxiety, Depression Endocrine/Metabolic History: Reports: Hypothyroidism, Obesity/BMI 30+ Hematologic History: Reports: B12 Deficiency - Infectious Disease History Infectious Disease History: Reports: Shingles - Past Surgical History HEENT Surgical History: Reports: Cataract Surgery (bilateral), Oral Surgery ( wisdom teeth extraction) GI Surgical History: Reports: Colon (Hemicolectomy for diverticulitis), Hernia, Abdominal (x 2 or 3), Other (See Below) (Splenectomy) Female Surgical History: Reports: Tubal Ligation Neurological Surgical History: Reports: Lumbar Spine (fusion) Social & Family History - Family History Family Medical History: Noncontributory - Tobacco Use Smoking Status *Q: Former Smoker Years of Tobacco use: 40 Packs/Tins Daily: 1 Month/Year Tobacco Last Used: Quit around 1999 - Caffeine Use Caffeine Use: Reports: None - Alcohol Use Alcohol Use History: No - Recreational Drug Use Recreational Drug Use: No - Living Situation & Occupation Living situation: Reports: , Assisted Living ([place]) Occupation: Retired ED ROS GENERAL - Review of Systems Review Of Systems: Comprehensive ROS is negative, except as noted in HPI. Musculoskeletal: Reports: Back Pain (chronic) ED EXAM, SKIN/RASH Exam: See Below Exam Limited By: No Limitations General Appearance: Alert, WD/WN, No Apparent Distress Extremities: Normal Range of Motion, Normal Capillary Refill, Other (There is an approximately 6 cm x 3.5 cm area of subtle erythema to the mid anteromedial left leg. The area is indurated and mildly tender. Very subtle calor. No other visible or palpable abnormalities to the left leg. Neurovascular status of the left lower extremity is intact.) Course - Vital Signs Last Recorded V/S: Last Vital Signs Temp 36.2 C 11/05/19 20:28 Pulse 84 11/05/19 20:28 Resp 16 11/05/19 20:28 BP 134/63 11/05/19 20:28 Pulse Ox - Re-Assessments/Exams Free Text/Narrative Re-Assessment/Exam: 11/05/19 20:49 The subtle area of erythema to the anteromedial aspect of the patient's left leg appears to be due to superficial thrombophlebitis. I offered to order a Doppler ultrasound to evaluate for a DVT, but the patient declined. I will therefore discharge her home with the recommendation that she apply a heating pad or warm compress to the area several times a day, and follow-up with her PCP at the next available appointment. She can continue to take her ibuprofen, and she should remain ambulatory. Departure - Departure Time of Disposition: 20:53 Disposition: Home, Self-Care 01 Condition: Good Clinical Impression: Superficial thrombophlebitis of left leg - Discharge Information *PRESCRIPTION DRUG MONITORING PROGRAM REVIEWED*: Not Applicable *COPY OF PRESCRIPTION DRUG MONITORING REPORT IN PATIENT [place]: Not Applicable Instructions: Thrombophlebitis Referrals: Alexus Pineda NP [Primary Care Provider] - Forms: ED Department Discharge Additional Instructions: You were seen in the emergency room for a mildly painful patch of redness to your left leg for the past couple of weeks. Based on your history and physical examination, you have superficial thrombophlebitis = inflammation of a superficial vein. We recommend that you apply a heating pad or warm compress to the area for 15 minutes, 5 times a day, for the next week or so, until the condition has resolved. You may continue to take your [id number] ibuprofen. Is important that you continue to stay ambulatory. Follow-up with your PCP, Alexus Pineda NP, at the next available appointment. If any other problems, please do not hesitate to return to the ER. Sepsis Event Note - Evaluation Sepsis Screening Result: No Definite Risk - Focused Exam Vital Signs: Vital Signs Temp Pulse Resp BP 11/05/19 20:28 36.2 C 84 16 134/63 Date Exam was Performed: 11/06/19 Time Exam was Performed: 00:06
== END 2019-11-05 21:15 | disposition home or self-care (01) ==
LOC: JD.ED 20:15
DX: I80.02 Phlebitis and thrombophlebitis of superficial vessels of left lower extremity (principal); I11.0 Hypertensive heart disease with heart failure; I50.9 Heart failure, unspecified; E78.00 Pure hypercholesterolemia, unspecified; J44.9 Chronic obstructive pulmonary disease, unspecified; Z99.81 Dependence on supplemental oxygen; F41.9 Anxiety disorder, unspecified; F32.9 Major depressive disorder, single episode, unspecified; E03.9 Hypothyroidism, unspecified; E66.9 Obesity, unspecified; G62.9 Polyneuropathy, unspecified; M19.90 Unspecified osteoarthritis, unspecified site; Z68.42 Body mass index [BMI] 45.0-49.9, adult; Z88.1 Allergy status to other antibiotic agents; Z88.6 Allergy status to analgesic agent; Z79.82 Long term (current) use of aspirin; Z79.899 Other long term (current) drug therapy; Z87.891 Personal history of nicotine dependence
CPT/HCPCS: 99282; 99283

== ENCOUNTER 2020-01-27 10:17 | Emergency (ER) | payer MEDICARE, MEDICAID ==
[2020-01-27 10:32] VITALS: BP 118/59; PULSE 73
--- NOTE | 2020-01-27 11:03 | EDM.PDOC ---
ED HPI GENERAL MEDICAL PROBLEM - General Chief Complaint: Lower Extremity Injury/Pain Stated Complaint: LEG PAIN AND SOB Time Seen by Provider: 01/27/20 10:39 Source of Information: Reports: Patient, [place] Records ( records) History Limitations: Reports: No Limitations - History of Present Illness INITIAL COMMENTS - FREE TEXT/NARRATIVE: The patient presents from for left leg pain and that it gives out. She said last night her left leg gave out and she fell getting off the toilet last night. She has some left thigh pain now. She said for weeks her left leg has been giving out. She does have a walker that she uses. [place] said she was more short of breath. She is needing more oxygen. She has no fever, chills, cough, congestion, runny nose, chest pain, abdominal pain, nausea or vomiting. She does not think she is more short of breath and is not interested in me working her up with x-rays and labs. She was okay with me doing an x-ray of her leg. Onset: Sudden Duration: Day(s): (Last night) Location: Reports: Lower Extremity, Left (thigh) Quality: Reports: Sharp Severity: Mild Improves with: Reports: Immobilization Worsens with: Reports: Movement Context: Reports: Trauma (She feel last night) Associated Symptoms: Reports: No Other Symptoms Left Leg Pain Score (Numeric/FACES): 9 - Related Data Allergies Allergy/AdvReac Type Severity Reaction Status Date / Time doxycycline Allergy Severe Cannot Verified 01/27/20 10:32 Remember tiotropium Allergy Severe Cannot Verified 01/27/20 10:32 [From Spiriva with Remember HandiHaler] tramadol [From Ultracet] Allergy Severe Cannot Verified 01/27/20 10:32 Remember Home Meds: Home Meds Budesonide/Formoterol Fumarate [Symbicort 160-4.5 Mcg Inhaler] 2 puff IH BID 08/23/16 [History] Potassium Chloride 10 meq PO DAILY 08/23/16 [History] Ipratropium/Albuterol Sulfate [Combivent Respimat 20-100 Mcg] 1 puff INH QID 09/17/16 [History] FLUoxetine [PROzac] 10 mg PO DAILY #30 cap 09/20/16 [Rx] Albuterol [Proventil Neb Soln] 1 vial INH QID PRN 07/03/17 [History] Cholecalciferol (Vitamin D3) [Vitamin D3] 2,000 unit PO DAILY 07/03/17 [History] Cyanocobalamin (Vitamin B-12) [Vitamin B-12] 1,000 mcg SL DAILY 07/03/17 [History] Furosemide [Lasix] 80 mg PO DAILY 07/03/17 [History] Gabapentin [Neurontin] 300 mg PO TID 07/03/17 [History] LORazepam [Ativan] 0.5 mg PO TID 07/03/17 [History] Levothyroxine [Synthroid] 88 mcg PO DAILY 07/03/17 [History] Roflumilast [Daliresp] 500 mcg PO DAILY 07/03/17 [History] Rosuvastatin [Crestor] 5 mg PO DAILY 07/03/17 [History] Umeclidinium Seanor [Incruse Ellipta] 1 puff INH DAILY 07/03/17 [History] Ibuprofen [Motrin] 800 mg PO BID PRN #0 07/11/17 [Rx] Docusate Sodium [Colace] 100 mg PO BID 01/25/18 [History] Metoprolol Succinate [Toprol Xl] 50 mg PO DAILY 01/25/18 [History] guaiFENesin/Dextromethorphan [Tussin Dm Cough Syrup] 5 ml PO QID PRN 01/25/18 [History] oxyCODONE HCl/Acetaminophen [Percocet 5-325 mg Tablet] 1 each PO BID PRN 01/25/18 [History] Aspirin 81 mg PO DAILY #30 tab.chew 01/30/18 [Rx] Calcium Carbonate [Tums] 200 mg PO ASDIRECTED PRN 10/06/19 [History] Capsaicin [Zostrix 0.025% Crm] 1 appful TOP QID PRN 10/06/19 [History] Morphine Sulfate [Morphine Sulfate ER] 15 mg PO BID 10/06/19 [History] Hydroxyurea [Siklos] 1,000 mg PO DAILY 01/27/20 [History] Past Medical History HEENT History: Reports: Impaired Vision Other HEENT History: wears glasses Cardiovascular History: Reports: Heart Failure, High Cholesterol, Hypertension Respiratory History: Reports: COPD, Sleep Apnea Gastrointestinal History: Reports: Diverticulosis Genitourinary History: Reports: None Musculoskeletal History: Reports: Fracture, Osteoarthritis Neurological History: Reports: Neuropathy, Peripheral Psychiatric History: Reports: Anxiety, Depression Endocrine/Metabolic History: Reports: Hypothyroidism, Obesity/BMI 30+ Hematologic History: Reports: B12 Deficiency Immunologic History: Reports: None Dermatologic History: Reports: Other (See Below) Other Dermatologic History: dry skin - Infectious Disease History Infectious Disease History: Reports: Shingles - Past Surgical History Head Surgeries/Procedures: Reports: None HEENT Surgical History: Reports: Cataract Surgery, Oral Surgery GI Surgical History: Reports: Colon, Hernia, Abdominal, Other (See Below) Female Surgical History: Reports: Tubal Ligation Neurological Surgical History: Reports: Lumbar Spine Dermatological Surgical History: Reports: None Social & Family History - Family History Family Medical History: Noncontributory - Tobacco Use Smoking Status *Q: Former Smoker Used Tobacco, but Quit: Yes Month/Year Tobacco Last Used: 1999 - Caffeine Use Caffeine Use: Reports: Coffee, Soda, Tea - Recreational Drug Use Recreational Drug Use: No - Living Situation & Occupation Living situation: Reports: , Assisted Living ([place]) Occupation: Retired Review of Systems - Review of Systems Review Of Systems: See Below Constitutional: Reports: No Symptoms Eyes: Reports: No Symptoms Ears: Reports: No Symptoms Nose: Reports: No Symptoms Mouth/Throat: Reports: No Symptoms Respiratory: Reports: No Symptoms Cardiovascular: Reports: No Symptoms GI/Abdominal: Reports: No Symptoms Genitourinary: Reports: No Symptoms Musculoskeletal: Reports: Other (Left lower leg) ED EXAM, GENERAL - Physical Exam Exam: See Below Exam Limited By: No Limitations General Appearance: Alert, No Apparent Distress Ears: Normal External Exam Nose: Normal Inspection Head: Atraumatic, Normocephalic Neck: Normal Inspection Respiratory/Chest: No Respiratory Distress, Decreased Breath Sounds Cardiovascular: Regular Rate, Rhythm, No Edema, No Murmur GI/Abdominal: Soft, Non-Tender, No Organomegaly, No Mass Extremities: Other (Pain upon palpation to the left lateral thigh) Course - Vital Signs Last Recorded V/S: Last Vital Signs Temp 97.8 F 01/27/20 10:27 Pulse 73 01/27/20 10:27 Resp 21 H 01/27/20 10:27 BP 118/59 L 01/27/20 10:27 Pulse Ox 82 L 01/27/20 10:27 - Orders/Labs/Meds Orders: Active Orders 24 hr Category Date Time Status Femur Min 2V Lt [CR] Stat Exams 01/27/20 10:49 Taken - Re-Assessments/Exams Free Text/Narrative Re-Assessment/Exam: 01/27/20 11:04 I wanted to do a CXR and labs for her shortness of breath but the patient refused. She was okay with me doing an x-ray of her left leg. 01/27/20 11:44 Mild arthritis to the left hip. No other acute findings. I asked her again if I could do a CXR and labs and she politely refused. I will discharge her home with an order for PT. Departure - Departure Time of Disposition: 11:50 Disposition: Home, Self-Care 01 Condition: Good Clinical Impression: Fall Qualifiers: Encounter type: initial encounter Qualified Code(s): W19.XXXA - Unspecified fall, initial encounter Contusion of left thigh Qualifiers: Encounter type: initial encounter Qualified Code(s): S70.12XA - Contusion of left thigh, initial encounter - Discharge Information *PRESCRIPTION DRUG MONITORING PROGRAM REVIEWED*: Not Applicable *COPY OF PRESCRIPTION DRUG MONITORING REPORT IN PATIENT [place]: Not Applicable Referrals: Alexus Pineda NP [Primary Care Provider] - Forms: ED Department Discharge Additional Instructions: Use your walker whenever your are up. I have ordered an evaluation by physical therapy. Please return if you are worse. Sepsis Event Note (ED) - Evaluation Sepsis Screening Result: No Definite Risk - Focused Exam Vital Signs: Vital Signs Temp Pulse Resp BP Pulse Ox 01/27/20 10:27 97.8 F 73 21 H 118/59 L 82 L - My Orders Last 24 Hours: My Active Orders 01/27/20 10:49 Femur Min 2V Lt [CR] Stat - Assessment/Plan Last 24 Hours: My Active Orders 01/27/20 10:49 Femur Min 2V Lt [CR] Stat
--- NOTE | 2020-01-27 12:16 | CR ---
Left femur: AP and lateral views left femur were obtained. Moderate medial joint space narrowing is seen within the left knee. Joint space within the left hip appears preserved. No discrete fracture or other bony abnormality is seen. There appears to be an abdominal wall hernia with bowel gas being seen overlying a portion of the left hip. Impression: 1. Abdominal wall hernia containing bowel with bowel overlapping the left hip. 2. Medial joint space narrowing. 3. Left femur study is otherwise unremarkable. Diagnostic code #3 This report was dictated in MDT
== END 2020-01-27 12:05 | disposition home or self-care (01) ==
LOC: JD.ED 10:17
DX: S70.12XA Contusion of left thigh, initial encounter (principal); I11.0 Hypertensive heart disease with heart failure; I50.9 Heart failure, unspecified; E78.00 Pure hypercholesterolemia, unspecified; J44.9 Chronic obstructive pulmonary disease, unspecified; M19.90 Unspecified osteoarthritis, unspecified site; F41.9 Anxiety disorder, unspecified; F32.9 Major depressive disorder, single episode, unspecified; E03.9 Hypothyroidism, unspecified; E66.9 Obesity, unspecified; Z68.41 Body mass index [BMI] 40.0-44.9, adult; Z87.891 Personal history of nicotine dependence; Z88.8 Allergy status to other drugs, medicaments and biological substances; Z88.1 Allergy status to other antibiotic agents; Z79.899 Other long term (current) drug therapy; Z79.82 Long term (current) use of aspirin; W18.11XA Fall from or off toilet without subsequent striking against object, initial encounter
CPT/HCPCS: 73552-26-LT; 73552-LT; 99282; 99284-25

== ENCOUNTER 2020-02-20 20:15 | Emergency (ER) | payer MEDICARE, MEDICAID ==
[2020-02-20 20:27] VITALS: BP 120/57; PULSE 84
--- NOTE | 2020-02-20 21:37 | EDM.PDOC ---
ED HPI GENERAL MEDICAL PROBLEM - General Chief Complaint: Respiratory Problem Stated Complaint: [facility] Time Seen by Provider: 02/20/20 21:13 Source of Information: Reports: Patient History Limitations: Reports: No Limitations - History of Present Illness INITIAL COMMENTS - FREE TEXT/NARRATIVE: Mrs. Dillon is a very pleasant 79-year-old woman who is now brought to the ED from [facility] via EMS with a complaint of 2 days of generalized weakness and rattly cough, occasional dyspnea, increased confusion, and a decreased oxygen saturation. No recent fever. Several residents at [facility] have tested positive for the SARS-CoV-2 virus. Here in the ED, the patient is found to be hemodynamically stable, afebrile, saturating 76% on room air, but 93% on 3 L of oxygen per nasal cannula, which she takes continuously, with 4 L when exerting herself. Other than the above symptoms, the patient denies having a recent fever, chills, sore throat, ear pain, nasal or sinus congestion, chest pain, palpitations, nausea, vomiting, constipation, diarrhea, abdominal pain, urinary symptoms, recent weight gain or weight loss, recent bloody bowel movements or black bowel movements, recent joint aches, headaches, or rashes. The patient's PCP is Alexus Pineda NP. - Related Data Allergies Allergy/AdvReac Type Severity Reaction Status Date / Time doxycycline Allergy Severe Cannot Verified 02/20/20 21:05 Remember tiotropium Allergy Severe Cannot Verified 02/20/20 21:05 [From Spiriva with Remember HandiHaler] tramadol [From Ultracet] Allergy Severe Cannot Verified 02/20/20 21:05 Remember Home Meds: Home Meds Budesonide/Formoterol Fumarate [Symbicort 160-4.5 Mcg Inhaler] 2 puff IH BID 08/23/16 [History] Potassium Chloride 10 meq PO DAILY 08/23/16 [History] Ipratropium/Albuterol Sulfate [Combivent Respimat 20-100 Mcg] 1 puff INH QID 09/17/16 [History] FLUoxetine [PROzac] 10 mg PO DAILY #30 cap 09/20/16 [Rx] Albuterol [Proventil Neb Soln] 1 vial INH QID PRN 07/03/17 [History] Cholecalciferol (Vitamin D3) [Vitamin D3] 2,000 unit PO DAILY 07/03/17 [History] Cyanocobalamin (Vitamin B-12) [Vitamin B-12] 1,000 mcg SL DAILY 07/03/17 [History] Furosemide [Lasix] 80 mg PO DAILY 07/03/17 [History] Gabapentin [Neurontin] 300 mg PO TID 07/03/17 [History] LORazepam [Ativan] 0.5 mg PO TID 07/03/17 [History] Levothyroxine [Synthroid] 88 mcg PO DAILY 07/03/17 [History] Roflumilast [Daliresp] 500 mcg PO DAILY 07/03/17 [History] Rosuvastatin [Crestor] 5 mg PO DAILY 07/03/17 [History] Umeclidinium [place] [Incruse Ellipta] 1 puff INH DAILY 07/03/17 [History] Ibuprofen [Motrin] 800 mg PO BID PRN #0 07/11/17 [Rx] Docusate Sodium [Colace] 100 mg PO BID 01/25/18 [History] Metoprolol Succinate [Toprol Xl] 50 mg PO DAILY 01/25/18 [History] guaiFENesin/Dextromethorphan [Tussin Dm Cough Syrup] 5 ml PO QID PRN 01/25/18 [History] oxyCODONE HCl/Acetaminophen [Percocet 5-325 mg Tablet] 1 each PO BID PRN 01/25/18 [History] Aspirin 81 mg PO DAILY #30 tab.chew 01/30/18 [Rx] Calcium Carbonate [Tums] 200 mg PO ASDIRECTED PRN 10/06/19 [History] Capsaicin [Zostrix 0.025% Crm] 1 appful TOP QID PRN 10/06/19 [History] Morphine Sulfate [Morphine Sulfate ER] 15 mg PO BID 10/06/19 [History] Hydroxyurea [Siklos] 1,000 mg PO DAILY 01/27/20 [History] Rivaroxaban [Xarelto] 1 tab PO Q12H #42 tab 02/20/20 [Rx] Past Medical History HEENT History: Reports: Impaired Vision (wears glasses) Cardiovascular History: Reports: Heart Failure (Diastolic. LVEF 67% 09/19/2016), High Cholesterol, Hypertension Respiratory History: Reports: COPD (on 3 L O2 continuously, 4 L with exertion), Sleep Apnea (nightly CPAP with O2) Gastrointestinal History: Reports: Diverticulosis (diverticulitis) Musculoskeletal History: Reports: Fracture (left humerus), Osteoarthritis Neurological History: Reports: Neuropathy, Peripheral Psychiatric History: Reports: Anxiety, Depression Endocrine/Metabolic History: Reports: Hypothyroidism, Obesity/BMI 30+ Hematologic History: Reports: B12 Deficiency - Infectious Disease History Infectious Disease History: Reports: Shingles - Past Surgical History HEENT Surgical History: Reports: Cataract Surgery (bilateral), Oral Surgery (dental extractions) GI Surgical History: Reports: Colon (hemicolectomy for diverticulitis), Hernia, Abdominal (x 2 or 3), Other (See Below) (Splenectomy) Female Surgical History: Reports: Tubal Ligation Neurological Surgical History: Reports: Lumbar Spine (fusion) Social & Family History - Family History Family Medical History: Noncontributory - Tobacco Use Smoking Status *Q: Former Smoker Years of Tobacco use: 40 Packs/Tins Daily: 1 Month/Year Tobacco Last Used: Quit around 1999 - Caffeine Use Caffeine Use: Reports: Coffee - Alcohol Use Alcohol Use History: No - Recreational Drug Use Recreational Drug Use: No - Living Situation & Occupation Living situation: Reports: , Assisted Living ([facility]) Occupation: Retired ED ROS GENERAL - Review of Systems Review Of Systems: Comprehensive ROS is negative, except as noted in HPI. ED EXAM, GENERAL - Physical Exam Exam: See Below Exam Limited By: No Limitations General Appearance: Alert, WD/WN, No Apparent Distress Eye Exam: Bilateral Eye: EOMI, Normal Inspection Ears: Normal External Exam, Hearing Grossly Normal Nose: Normal Inspection Throat/Mouth: Normal Inspection, Normal Lips, Normal Voice, No Airway Compromise Head: Atraumatic, Normocephalic Neck: Normal Inspection, Full Range of Motion Respiratory/Chest: No Respiratory Distress, Lungs Clear, Normal Breath Sounds, No Accessory Muscle Use. No: Decreased Breath Sounds, Crackles, Rhonchi, Wheezing, Stridor, Prolonged Expiration Cardiovascular: Normal Peripheral Pulses, Regular Rate, Rhythm, No Gallop, No JVD, No Murmur, No Rub Peripheral Pulses: 2+: Radial (L), Radial (R) GI/Abdominal: Normal Bowel Sounds, Soft, Non-Tender, No Organomegaly, No Distention, No Abnormal Bruit, No Mass (Female) Exam: Deferred Rectal (Female) Exam: Deferred Back Exam: Normal Inspection, Full Range of Motion, NT Extremities: Normal Inspection, Normal Range of Motion, Normal Capillary Refill, Other (2+ pitting edema pretibially bilaterally) Neurological: Alert, Oriented, Normal Cognition, No Motor/Sensory Deficits Psychiatric: Normal Affect Skin Exam: Warm, Dry, Intact, Normal Color, No Rash EKG INTERPRETATION EKG Date: 02/20/20 Time: 20:38 Rhythm: NSR (with 3 PVCs) Rate (Beats/Min): 85 Wesley: Normal P-Wave: Enlarged (LAE) QRS: Normal (Late transition) ST-T: Normal QT: Normal Comparison: Change From Previous EKG (Was in ventricular bigeminy 10/06/2019) Course - Vital Signs Last Recorded V/S: Last Vital Signs Temp 36.8 C 02/20/20 20:21 Pulse 84 02/20/20 20:21 Resp 20 02/20/20 20:21 BP 120/57 L 02/20/20 20:21 Pulse Ox 96 02/20/20 21:00 - Orders/Labs/Meds Orders: Active Orders 24 hr Category Date Time Status CULTURE BLOOD [BC] Stat Lab 02/20/20 20:53 Received CULTURE BLOOD [BC] Stat Lab 02/20/20 21:16 Received Blood Culture x2 Reflex Set [OM.PC] Stat Oth 02/20/20 20:23 Ordered Labs: Laboratory Tests 02/20/20 02/20/20 02/20/20 Range/Units 20:51 20:53 20:53 WBC 9.27 (3.98-10.04) K/mm3 RBC 4.57 (3.98-5.22) M/mm3 Hgb 11.8 (11.2-15.7) gm/dl Hct 38.7 (34.1-44.9) % MCV 84.7 D (79.4-94.8) fl MCH 25.8 (25.6-32.2) pg MCHC 30.5 L (32.2-35.5) g/dl RDW Std Deviation 79.7 H (36.4-46.3) fL Plt Count 997 H* D (182-369) K/mm3 MPV 10.4 (9.4-12.3) fl Neutrophils % (Manual) 70 H (40-60) % Band Neutrophils % 0 (0-10) % Lymphocytes % (Manual) 18 L (20-40) % Atypical Lymphs % 0 % Monocytes % (Manual) 11 H (2-10) % Eosinophils % (Manual) 0 L (0.7-5.8) % Basophils % (Manual) 1 (0.1-1.2) Platelet Estimate Increased Plt Morphology Comment See note Hypochromasia 1+ slight Poikilocytosis 2+ moderate Anisocytosis 2+ Target Cells Few Ovalocytes 1+ slight [place] Cells Few RBC Morph Comment Not Reportable PT (9.7-11.7) SECONDS INR APTT (22-31) SECONDS D-Dimer, Quantitative (0.19-0.50) mg/L Puncture Site ABG pH (7.35-7.45) ABG pCO2 (35.0-45.0) mmHg ABG pO2 (80.0-100.0) mmHg ABG HCO3 (22.0-26.0) meq/L ABG O2 Saturation (96.0-97.0) % ABG Base Excess (-2-2.0) Edgar Test O2 Delivery Device Oxygen Flow Rate Sodium (136-145) mEq/L Potassium (3.5-5.1) mEq/L Chloride (98-107) mEq/L Carbon Dioxide (21-32) mEq/L Anion Gap (5-15) BUN (7-18) mg/dL Creatinine (0.55-1.02) mg/dL Est Cr Clr Drug Dosing Estimated GFR (MDRD) (>60) mL/min BUN/Creatinine Ratio (14-18) Glucose (83-115) mg/dL Lactic Acid (0.4-2.0) mmol/L Calcium (8.5-10.1) mg/dL Magnesium (1.8-2.4) mg/dl Ferritin (8-252) ng/ml Total Bilirubin (0.2-1.0) mg/dL AST (15-37) U/L ALT (14-59) U/L Alkaline Phosphatase (46-116) U/L Lactate Dehydrogenase (81-234) U/L Troponin I (0.00-0.056) ng/mL C-Reactive Protein 0.8 (<1.0) mg/dL NT-Pro-B Natriuret Pep (0-450) pg/mL Total Protein (6.4-8.2) g/dl Albumin (3.4-5.0) g/dl Globulin gm/dL Albumin/Globulin Ratio (1-2) SARS-CoV-2 RNA (JONATHON) Positive H (NEGATIVE) 02/20/20 02/20/20 02/20/20 Range/Units 21:05 21:53 21:53 WBC (3.98-10.04) K/mm3 RBC (3.98-5.22) M/mm3 Hgb (11.2-15.7) gm/dl Hct (34.1-44.9) % MCV (79.4-94.8) fl MCH (25.6-32.2) pg MCHC (32.2-35.5) g/dl RDW Std Deviation (36.4-46.3) fL Plt Count (182-369) K/mm3 MPV (9.4-12.3) fl Neutrophils % (Manual) (40-60) % Band Neutrophils % (0-10) % Lymphocytes % (Manual) (20-40) % Atypical Lymphs % % Monocytes % (Manual) (2-10) % Eosinophils % (Manual) (0.7-5.8) % Basophils % (Manual) (0.1-1.2) Platelet Estimate Plt Morphology Comment Hypochromasia Poikilocytosis Anisocytosis Target Cells Ovalocytes April Cells RBC Morph Comment PT 11.5 (9.7-11.7) SECONDS INR 1.08 APTT 26 (22-31) SECONDS D-Dimer, Quantitative 7.67 H (0.19-0.50) mg/L Puncture Site Lt radial ABG pH 7.40 (7.35-7.45) ABG pCO2 49.5 H (35.0-45.0) mmHg ABG pO2 93.0 (80.0-100.0) mmHg ABG HCO3 30.2 H (22.0-26.0) meq/L ABG O2 Saturation 96.6 (96.0-97.0) % ABG Base Excess 4.9 H (-2-2.0) Edgar Test Positive O2 Delivery Device Simple mask Oxygen Flow Rate 8.0 Sodium 140 (136-145) mEq/L Potassium 3.6 (3.5-5.1) mEq/L Chloride 102 (98-107) mEq/L Carbon Dioxide 30 (21-32) mEq/L Anion Gap 11.6 (5-15) BUN 23 H (7-18) mg/dL Creatinine 1.6 H (0.55-1.02) mg/dL Est Cr Clr Drug Dosing TNP Estimated GFR (MDRD) 31 (>60) mL/min BUN/Creatinine Ratio 14.4 (14-18) Glucose 110 (83-115) mg/dL Lactic Acid (0.4-2.0) mmol/L Calcium 9.6 (8.5-10.1) mg/dL Magnesium 2.0 (1.8-2.4) mg/dl Ferritin (8-252) ng/ml Total Bilirubin 0.3 (0.2-1.0) mg/dL AST 24 (15-37) U/L ALT 16 (14-59) U/L Alkaline Phosphatase 96 (46-116) U/L Lactate Dehydrogenase 191 (81-234) U/L Troponin I < 0.017 (0.00-0.056) ng/mL C-Reactive Protein (<1.0) mg/dL NT-Pro-B Natriuret Pep (0-450) pg/mL Total Protein 7.5 (6.4-8.2) g/dl Albumin 2.8 L (3.4-5.0) g/dl Globulin 4.7 gm/dL Albumin/Globulin Ratio 0.6 L (1-2) SARS-CoV-2 RNA (JONATHON) (NEGATIVE) 02/20/20 02/20/20 02/20/20 Range/Units 21:53 21:53 21:53 WBC (3.98-10.04) K/mm3 RBC (3.98-5.22) M/mm3 Hgb (11.2-15.7) gm/dl Hct (34.1-44.9) % MCV (79.4-94.8) fl MCH (25.6-32.2) pg MCHC (32.2-35.5) g/dl RDW Std Deviation (36.4-46.3) fL Plt Count (182-369) K/mm3 MPV (9.4-12.3) fl Neutrophils % (Manual) (40-60) % Band Neutrophils % (0-10) % Lymphocytes % (Manual) (20-40) % Atypical Lymphs % % Monocytes % (Manual) (2-10) % Eosinophils % (Manual) (0.7-5.8) % Basophils % (Manual) (0.1-1.2) Platelet Estimate Plt Morphology Comment Hypochromasia Poikilocytosis Anisocytosis Target Cells Ovalocytes [place] Cells RBC Morph Comment PT (9.7-11.7) SECONDS INR APTT (22-31) SECONDS D-Dimer, Quantitative (0.19-0.50) mg/L Puncture Site ABG pH (7.35-7.45) ABG pCO2 (35.0-45.0) mmHg ABG pO2 (80.0-100.0) mmHg ABG HCO3 (22.0-26.0) meq/L ABG O2 Saturation (96.0-97.0) % ABG Base Excess (-2-2.0) Edgar Test O2 Delivery Device Oxygen Flow Rate Sodium (136-145) mEq/L Potassium (3.5-5.1) mEq/L Chloride (98-107) mEq/L Carbon Dioxide (21-32) mEq/L Anion Gap (5-15) BUN (7-18) mg/dL Creatinine (0.55-1.02) mg/dL Est Cr Clr Drug Dosing Estimated GFR (MDRD) (>60) mL/min BUN/Creatinine Ratio (14-18) Glucose (83-115) mg/dL Lactic Acid 0.7 (0.4-2.0) mmol/L Calcium (8.5-10.1) mg/dL Magnesium (1.8-2.4) mg/dl Ferritin 24 (8-252) ng/ml Total Bilirubin (0.2-1.0) mg/dL AST (15-37) U/L ALT (14-59) U/L Alkaline Phosphatase (46-116) U/L Lactate Dehydrogenase (81-234) U/L Troponin I (0.00-0.056) ng/mL C-Reactive Protein (<1.0) mg/dL NT-Pro-B Natriuret Pep 1994 H (0-450) pg/mL Total Protein (6.4-8.2) g/dl Albumin (3.4-5.0) g/dl Globulin gm/dL Albumin/Globulin Ratio (1-2) SARS-CoV-2 RNA (JONATHON) (NEGATIVE) Meds: Medications Discontinued Medications Generic Name Dose Route Start Last Admin Trade Name Elisa PRN Reason Stop Dose Admin Sodium Chloride 1,000 mls @ 100 mls/hr 02/20/20 22:30 Normal Saline IV ASDIRECTED RYAN Sodium Chloride 1,000 mls @ 75 mls/hr 02/20/20 22:30 02/20/20 22:36 Normal Saline IV 75 mls/hr ASDIRECTED RYAN Administration Iopamidol 100 ml 02/20/20 23:09 02/21/20 00:11 Isovue-370 (76%) IVPUSH 02/20/20 23:10 100 ml ONETIME ONE Administration Rivaroxaban 15 mg 02/20/20 23:41 Xarelto PO 02/20/20 23:42 ONETIME STA - Re-Assessments/Exams Free Text/Narrative Re-Assessment/Exam: 02/20/20 21:34 As above, the patient is brought from [facility] by EMS for 2 days of increased weakness, a rattly cough, occasional dyspnea, confusion, and decreased SPO2. We are aware that there have been several cases of COVID-19 at [facility]. A work-up has been ordered that includes blood work, 2 sets of blood cultures, an ABG, a portable chest x-ray, an ED, and a swab for the SARS-CoV-2 virus. 02/20/20 22:17 Portable chest x-ray is read by Dr. Suggs as: 1. Cardiomegaly and mild chronic pulmonary vascular congestion. 2. Nothing acute is definitely appreciated on portable chest x-ray. The patient's CBC is remarkable for platelets elevated at 997,000, and is otherwise unremarkable. Her ABG represents a mixed respiratory acidosis and metabolic alkalosis. Her lactic acid level is within normal limits at 0.7. Her CRP is within normal limits at 0.8. Her D-dimer is substantially elevated at 7.67. Her coags are all within normal limits. The remainder of her work-up is still pending. Based on the above, I have ordered a CT angiogram of the chest to rule out a PE, along with a small amount of IV fluid. 02/20/20 22:45 The patient's CMP is remarkable for a BUN/Cr modestly elevated at 23/1.6, with the remainder of her CMP being unremarkable. Her magnesium level is within normal limits at 2.0. Her troponin is undetectably low. Her BNP is elevated at 1994. Her ferritin is within normal limits at 24. Her LDH is within normal limits at 191. Her swab for the SARS-CoV-2 virus has returned positive. Reviewing prior labs, I see that the patient's BUN/Cr was 11/1.1 on 10/06/2019, and her BNP 525 on 10/06/2019. 02/20/20 23:32 CT angiogram of the chest is read by [facility] as: 1. Pulmonary arteries are enlarged, suggestive of pulmonary arterial hypertension. No evidence of pulmonary embolism within the main or lobar pulmonary arteries. There are apparent filling defects with subsegmental pulmonary artery branches bilaterally, right greater than left, favor subsegmental pulmonary emboli rather than artifact from contrast bolus timing. 2. Mild centrilobular lung emphysema. Small airways disease. Small area of consolidation within the posterior left lower lobe with atelectatic component, superimposed airspace disease cannot be excluded. Based on the above, I will start the patient on Xarelto. She is already on oxygen, and does not appear to require any more than she is ordinarily on. Provided [facility] will accept her, we can safely return her to [facility]. 02/20/20 23:52 Test results discussed with the patient. She is okay with returning to [facility]. I will write a prescription for Xarelto 15 mg po BID x 21 days, but by that time, she will need to follow-up with her PCP to determine if they want to continue her on Xarelto, versus some other anticoagulant. Departure - Departure Time of Disposition: 23:53 Disposition: Home, Self-Care 01 Condition: Good Clinical Impression: Pulmonary embolus, COVID-19, Acute on chronic renal insufficiency - Discharge Information *PRESCRIPTION DRUG MONITORING PROGRAM REVIEWED*: Not Applicable *COPY OF PRESCRIPTION DRUG MONITORING REPORT IN PATIENT [place]: Not Applicable Prescriptions: Rivaroxaban [Xarelto] 1 tab PO Q12H #42 tab Instructions: COVID-19, Pulmonary Embolism, Chronic Kidney Disease, Adult, [id number] Referrals: Alexus Pineda NP [Primary Care Provider] - Forms: ED Department Discharge Additional Instructions: You were seen in the emergency room for 2 days of worsening weakness, occasional shortness of breath, increased confusion, 2 days of a rattly cough, and decreased oxygen saturations. Work-up in the ER included blood work, 2 sets of blood cultures, an arterial blood gas, a chest x-ray, a CT angiogram of your chest, an ECG, and a swab for the SARS-CoV-2 virus. Your work-up found that you are positive for the novel coronavirus, and that you have a blood clot in your lungs, known as a pulmonary embolus. Your kidney fun ction, which is chronically impaired, is somewhat worse than usual. Your platelets, which are chronically elevated, are still elevated. You have mild chronic congestive heart failure. The remainder of your work-up was unremarkable. Based on your history, physical exam, and ER tests, while you are positive for the coronavirus, it appears to be mild at this time, and is not likely the cause of your symptoms. Your pulmonary embolus is more likely to be the cause of your symptoms. Because you are positive for the coronavirus, it is very important that you quarantine yourself is much as possible until you tested negative, which may be a few months. You have been started on the anticoagulant Xarelto, and a prescription for Xarelto has been sent to the [facility] located in the [employer] store. Take 1 tablet of Xarelto every 12 hours, starting tomorrow morning, 02/21/2020, as prescribed. The prescription is for a 3-week course. At that time, you are supposed to swi tch to a higher dose but only once a day. Before that time, you will need to meet with your PCP, Alexus Pineda NP, to determine if she wants you to stay on Xarelto or switch to a different anticoagulant. We recommend that you NOT take ibuprofen while on Xarelto, as this can increase the risk of your developing a stomach ulcer. If any other problems, please do not hesitate to return to the ER. Sepsis Event Note (ED) - Evaluation Sepsis Screening Result: No Definite Risk - Focused Exam Vital Signs: Vital Signs Temp Pulse Resp BP Pulse Ox Pulse Ox 02/20/20 21:00 96 02/20/20 20:27 94 L 02/20/20 20:21 36.8 C 84 20 120/57 L 76 L
--- NOTE | 2020-02-20 21:46 | CR ---
Chest: Portable view of the chest was obtained. Comparison: Prior chest x-ray of 10/06/19. Heart is enlarged. Lung markings are increased most likely due to chronic pulmonary vascular congestion which appear fairly stable. I do not see any definite acute change. Bony structures are grossly intact. Impression: 1. Cardiomegaly and mild chronic pulmonary vascular congestion. 2. Nothing acute is definitely appreciated on portable chest x-ray. Diagnostic code #2 This report was dictated in MDT
[2020-02-20] MEDS ORDERED: Sodium Chloride 0.9% 1,000 ML IV SCH ×2 (22:30)
[2020-02-20] MEDS ORDERED: Iopamidol 755 Mg/ML 100 ML Bottle IVPUSH ONE (23:09)
[2020-02-20] MEDS ORDERED: Rivaroxaban 15 MG Tab PO STA (23:41)
--- NOTE | 2020-02-21 06:29 | CT ---
CT chest Technique: Multiple axial sections through the chest were obtained. Intravenous contrast was not utilized. Findings: Very minimal filling defects are seen within the distal pulmonary artery on the right side. Small distal pulmonary emboli are suspected. No other filling defects of pulmonary embolism is seen. Heart is enlarged. Aorta shows diffuse atherosclerotic calcification without aneurysm. Mediastinum and hilar regions show no adenopathy or mass. Visualized upper abdominal structures shows no discrete abnormality. Pleural thickening noted within the left lung base. Slight increased lung markings are seen believed to represent chronic change. No acute parenchymal change is seen within the chest. Pulmonary arteries are slightly prominent believed to be chronic. Impression: 1. Probable small pulmonary emboli within the right lower lobe. 2. Other findings as noted above believed to be chronic. Diagnostic code #3 This report was dictated in MDT I agree with preliminary report from jeremiah, finalized on 02/21/20, 12:30 AM Central Daylight Time
== END 2020-02-21 01:16 | disposition home or self-care (01) ==
LOC: JD.ED 20:15
DX: U07.1 COVID-19 (principal); I26.99 Other pulmonary embolism without acute cor pulmonale; I13.0 Hypertensive heart and chronic kidney disease with heart failure and stage 1 through stage 4 chronic kidney disease, or unspecified chronic kidney disease; I50.9 Heart failure, unspecified; N18.9 Chronic kidney disease, unspecified; E78.00 Pure hypercholesterolemia, unspecified; J44.9 Chronic obstructive pulmonary disease, unspecified; G62.9 Polyneuropathy, unspecified; M19.90 Unspecified osteoarthritis, unspecified site; F41.9 Anxiety disorder, unspecified; F32.9 Major depressive disorder, single episode, unspecified; E03.9 Hypothyroidism, unspecified; E66.9 Obesity, unspecified; Z87.891 Personal history of nicotine dependence; Z88.1 Allergy status to other antibiotic agents; Z88.5 Allergy status to narcotic agent; Z88.8 Allergy status to other drugs, medicaments and biological substances; Z79.899 Other long term (current) drug therapy; Z79.82 Long term (current) use of aspirin; I50.30 Unspecified diastolic (congestive) heart failure
CPT/HCPCS: 36415; 36600; 51702; 71045; 71275; 80053; 82728; 82803; 83605; 83615; 83735; 83880; 84484; 85007; 85025; 85027; 85379; 85610; 85730; 86140; 87040; 93005; 94640; 96360; 96361; 96374; 96375; 99285; A9270; J1100; J1940; J7030; J7042; Q9967; U0002; 93010; 99284; J7620-GY

== ENCOUNTER 2020-02-21 13:08 | Emergency (ER) | payer MEDICARE, MEDICAID ==
[2020-02-21 13:26] VITALS: BP 136/63; PULSE 78
--- NOTE | 2020-02-21 13:33 | EDM.PDOC ---
ED HPI GENERAL MEDICAL PROBLEM - General Chief Complaint: Respiratory Problem Stated Complaint: [facility] Time Seen by Provider: 02/21/20 13:33 Source of Information: Reports: Patient History Limitations: Reports: No Limitations - History of Present Illness INITIAL COMMENTS - FREE TEXT/NARRATIVE: 79-year-old female reports back to the emergency room by [facility] from [facility] where she resides. She was seen through the ED last evening by Dr. Ch with a complaint of 2 days of generalized weakness and rattly cough. Associated dyspnea, increased confusion and a decreased oxygen saturation. No identified fever. Of note several residents at [facility] have tested positive for the COVID-19 virus. In the ED she was found to be hemodynamically stable afebrile saturating at 76% on room air but 93% on 3 L of oxygen per nasal cannula which she takes continuously with 4 L when she is exerting herself. Other than the above symptoms the patient denies having a recent fever chills or sore throat. She returns today feeling worse. She states she has lost her sense of taste and smell and has not been able to eat today. Feeling weaker and more short of breath. Due to an elevated d-dimer last evening at 7.67 the patient underwent a CT pulmonary angiogram which did suggest a small subsegmental pulmonary embolism in the right lower lobe CT also showed the aorta shows diffuse atherosclerotic calcification without aneurysm. Mediastinum and hilar regions showed no adenopathy or mass. Visualized upper abdominal structures showed no discrete abnormality. Pleural thickening noted within the left lung base. Slight increased lung markings are seen believed to represent chronic change no acute parenchymal changes seen within the chest. Pulmonary arteries were noted to be slightly prominent believed to be chronic from mild pulmonary hypertension. Patient has chronic COPD and oxygen dependency. Evaluation in the ED today. Temperature is 36.3 although she does feel warmer than this to palpation. Lips and tongue are dry and coated. Heart rate is 78 and sinus. Respiratory to 16 and O2 sats of 91% on 4 L by nasal cannula. Blood pressure was 136/63. Examination reveals coarse crackles in both posterior lung bases. The occasional expiratory wheeze was appreciated posterior lung mehta on forced expiration. He has very minimal bilateral dependent edema in her lower extremities. Benign abdominal exam. Review of lab test done last night revealed a white count of 9.27 with 70% neutrophils and no bands cells reported. Hemoglobin slightly low at 11.8 with hematocrit of 38.7. Platelet count is elevated at 997,000 which appears to be a chronic issue for her i.e. essential thrombocythemia C-reactive protein was 0.8. Lactic acid was 0.7. PT was 11.5 with an INR of 1.08 PTT is 26 ABGs revealed a pH of 7.40 with a PCO2 elevated at 49.5 and a PO2 of 93 with a bicarb of 32 this was on simple mask at 8 L/min. Chemistry was normal other than slightly elevated creatinine at 1.6 GFR is 31 i.e. significant stage III renal insufficiency. LDH was 191 troponin I was less than 0.017. COVID-19 test was positive. Serum ferritin was normal at 24. BNP was elevated at [address] last evening. X-ray and CT of the chest did not reveal any definitive viral pneumonia. She was placed on Xarelto 15 mg twice daily and sent back to [facility] for convalescence. Note status is full code or code level 1. Onset: Gradual Onset Date: 02/18/20 (Nodule increased weakness and shortness of breath over the last 3 days. Decreased appetite today and increased dyspnea.) Onset Time: 14:02 Duration: Day(s):, Getting Worse Location: Reports: Chest, Other (Nearly shortness of breath. Generalized myalgia. Dyspnea.) Quality: Reports: Other (Shortness of breath) Severity: Moderate (Patient has chronic COPD and is on oxygen at 3 L by nasal cannula at all times and 4 L when she is up and about exerting herself.) Improves with: Reports: Other (Reports dyspnea at rest today in spite of oxygen at about 4L/min by nasal cannula.) Worsens with: Reports: Movement Context: Reports: Sick Contact (Any patients at [facility] have been diagnosed with COVID-19 positivity in the last week to 10 days.). Denies: Activity, Exercise, Lifting Associated Symptoms: Reports: Cough, Fever/Chills, Loss of Appetite, Malaise, Shortness of Breath, Weakness. Denies: Confusion, Chest Pain, cough w sputum, Diaphoresis, Headaches, Nausea/Vomiting, Rash, Seizure, Syncope Treatments [employer]: Reports: Acetaminophen - Related Data Allergies Allergy/AdvReac Type Severity Reaction Status Date / Time doxycycline Allergy Severe Cannot Verified 02/20/20 21:05 Remember tiotropium Allergy Severe Cannot Verified 02/20/20 21:05 [From Spiriva with Remember HandiHaler] tramadol [From Ultracet] Allergy Severe Cannot Verified 02/20/20 21:05 Remember Home Meds: Home Meds Budesonide/Formoterol Fumarate [Symbicort 160-4.5 Mcg Inhaler] 2 puff IH BID 08/23/16 [History] Potassium Chloride 10 meq PO DAILY 08/23/16 [History] Ipratropium/Albuterol Sulfate [Combivent Respimat 20-100 Mcg] 1 puff INH QID 09/17/16 [History] FLUoxetine [PROzac] 10 mg PO DAILY #30 cap 09/20/16 [Rx] Albuterol [Proventil Neb Soln] 1 vial INH QID PRN 07/03/17 [History] Cholecalciferol (Vitamin D3) [Vitamin D3] 2,000 unit PO DAILY 07/03/17 [History] Cyanocobalamin (Vitamin B-12) [Vitamin B-12] 1,000 mcg SL DAILY 07/03/17 [History] Furosemide [Lasix] 80 mg PO DAILY 07/03/17 [History] Gabapentin [Neurontin] 300 mg PO TID 07/03/17 [History] LORazepam [Ativan] 0.5 mg PO TID 07/03/17 [History] Levothyroxine [Synthroid] 88 mcg PO DAILY 07/03/17 [History] Roflumilast [Daliresp] 500 mcg PO DAILY 07/03/17 [History] Rosuvastatin [Crestor] 5 mg PO DAILY 07/03/17 [History] Umeclidinium [place] [Incruse Ellipta] 1 puff INH DAILY 07/03/17 [History] Ibuprofen [Motrin] 800 mg PO BID PRN #0 07/11/17 [Rx] Docusate Sodium [Colace] 100 mg PO BID 01/25/18 [History] Metoprolol Succinate [Toprol Xl] 50 mg PO DAILY 01/25/18 [History] guaiFENesin/Dextromethorphan [Tussin Dm Cough Syrup] 5 ml PO QID PRN 01/25/18 [History] oxyCODONE HCl/Acetaminophen [Percocet 5-325 mg Tablet] 1 each PO BID PRN 01/25/18 [History] Aspirin 81 mg PO DAILY #30 tab.chew 01/30/18 [Rx] Calcium Carbonate [Tums] 200 mg PO ASDIRECTED PRN 10/06/19 [History] Capsaicin [Zostrix 0.025% Crm] 1 appful TOP QID PRN 10/06/19 [History] Morphine Sulfate [Morphine Sulfate ER] 15 mg PO BID 10/06/19 [History] Hydroxyurea [Siklos] 1,000 mg PO DAILY 01/27/20 [History] Rivaroxaban [Xarelto] 1 tab PO Q12H #42 tab 02/20/20 [Rx] Past Medical History HEENT History: Reports: Impaired Vision (wears glasses) Other HEENT History: wears glasses Cardiovascular History: Reports: Heart Failure (Diastolic. LVEF 67% 09/19/2016), High Cholesterol, Hypertension Respiratory History: Reports: COPD (on 3 L O2 continuously, 4 L with exertion), Sleep Apnea (nightly CPAP with O2) Gastrointestinal History: Reports: Diverticulosis (diverticulitis) Genitourinary History: Reports: None Musculoskeletal History: Reports: Fracture (left humerus), Osteoarthritis Neurological History: Reports: Neuropathy, Peripheral Psychiatric History: Reports: Anxiety, Depression Endocrine/Metabolic History: Reports: Hypothyroidism, Obesity/BMI 30+ Hematologic History: Reports: B12 Deficiency Immunologic History: Reports: None Dermatologic History: Reports: Other (See Below) Other Dermatologic History: dry skin - Infectious Disease History Infectious Disease History: Reports: Shingles - Past Surgical History HEENT Surgical History: Reports: Cataract Surgery (bilateral), Oral Surgery (dental extractions) GI Surgical History: Reports: Colon (hemicolectomy for diverticulitis), Hernia, Abdominal (x 2 or 3), Other (See Below) (Splenectomy) Female Surgical History: Reports: Tubal Ligation Neurological Surgical History: Reports: Lumbar Spine (fusion) Social & Family History - Family History Family Medical History: Noncontributory - Caffeine Use Caffeine Use: Reports: Coffee - Living Situation & Occupation Living situation: Reports: , Assisted Living ([facility]) Occupation: Retired ED ROS GENERAL - Review of Systems Review Of Systems: See Below Constitutional: Reports: Fever, Malaise, Weakness, Fatigue, Decreased Appetite. Denies: Chills HEENT: Reports: Glasses Respiratory: Reports: Shortness of Breath, Wheezing, Cough. Denies: Pleuritic Chest Pain, Sputum, Hemoptysis, Other (Dry cough) Cardiovascular: Reports: Dyspnea on Exertion (Always have some mild edema of her lower extremities. Chronically. She is oxygen dependent COPD), Edema. Denies: Chest Pain, Blood Pressure Problem, Claudication, Lightheadedness, Orthopnea Endocrine: Reports: Fatigue GI/Abdominal: Reports: Constipation (Intermittent problems with constipation), Decreased Appetite. Denies: Diarrhea, Nausea, Vomiting : Reports: Frequency, Incontinence (Some stress incontinence.) Musculoskeletal: Reports: Back Pain, Joint Pain (His hips low back neck and shoulders at times) Skin: Reports: No Symptoms Neurological: Reports: Confusion, Difficulty Walking (Unable to walk due to weakness and dyspnea.), Weakness. Denies: Dizziness (Portably more confused by nursing staff but the patient was alert and gave me all the appropriate answers.), Headache, Numbness, Syncope, Tingling Psychiatric: Reports: Anxiety Hematologic/Lymphatic: Reports: No Symptoms Immunologic: Reports: No Symptoms ED EXAM, GENERAL - Physical Exam Exam: See Below Exam Limited By: Physical Impairment (Very weak speech due to lethargy. Hardly able to understand her. Lips and tongue are very dry.) General Appearance: Lethargic, Mild Distress Eye Exam: Bilateral Eye: Other (She has some crusting of both upper eyelids.) Ears: Normal TMs ( The conjunctiva are otherwise clear.) Throat/Mouth: Other (Tongue and lips are both dry and coated.) Head: Atraumatic, Normocephalic, Other Neck: Normal Inspection (Lowered signs of any head or facial trauma.), Limited Range of Motion (But is on range of motion laterally.), Tender Lateral. No: Carotid Bruit, Lymphadenopathy (L) (Tender bilateral cervical spine.), Lymphadenopathy (R) Respiratory/Chest: Respiratory Distress (O2 sats are 91% on 4 L. No tachypnea), Decreased Breath Sounds, Rales (Decreased breath sounds to the lower 25% lung mehta bilaterally.), Other (Chest wall tenderness on palpation of the ribs in the midclavicular line ribs 2-5 bilaterally.). No: Lungs Clear, Normal Breath Sounds Cardiovascular: Regular Rate, Rhythm, No Gallop, No Murmur, No Rub, Other. No: Normal Peripheral Pulses, No Edema Peripheral Pulses: 1+: Posterior Tibial (L), Posterior Tibial (R) (She has 1+ edema both lower extremities.), Dorsalis Pedis (L), Dorsalis Pedis (R) GI/Abdominal: Normal Bowel Sounds, Soft, Non-Tender, No Organomegaly, No Distention, No Mass, Pelvis Stable. No: Distended (She has not distended or tympanitic to percussion percussion to suggest aerophagia.) Back Exam: Normal Inspection, Other (Required a good deal of assistance to help her sit up in bed.) Extremities: Pedal Edema (Trace pitting edema 1+ both lower extremities to the mid tib-fib.), Other (Dense of arthritis both knees with limited external and internal rotation of both hips.) Neurological: Alert, Oriented, CN II-XII Intact, Normal Cognition Psychiatric: Flat Affect Skin Exam: Warm, Dry, Intact, Normal Color, No Rash Course - Vital Signs Last Recorded V/S: Last Vital Signs Temp 36.3 C 02/21/20 13:20 Pulse 78 02/21/20 13:20 Resp 16 02/21/20 13:20 BP 136/63 02/21/20 13:20 Pulse Ox 91 L 02/21/20 15:44 - Orders/Labs/Meds Orders: Active Orders 24 hr Category Date Time Status Insert Trevizo Catheter [Insert Urinary Catheter] [OM.PC] Care 02/21/20 14:00 Ordered Q24H Oxygen Therapy [RC] ASDIRECTED Care 02/21/20 13:49 Active RT Aerosol Therapy [RC] ASDIRECTED Care 02/21/20 15:44 Active Urinary Catheter Assessment [RC] ASDIRECTED Care 02/21/20 13:46 Active Chest 1V Frontal [CR] Stat Exams 02/21/20 13:44 Taken Albuterol/Ipratropium [DuoNeb 3.0-0.5 MG/3 ML] Med 02/21/20 15:44 Active 3 ml NEB Q4H PRN Dextrose 5%-0.9% NaCl [Dextrose 5%-Normal Saline] 1,000 Med 02/21/20 13:45 Active ml IV ASDIRECTED Medication Orders Albuterol/Ipratropium (Duoneb 3.0-0.5 Mg/3 Ml) 3 ml NEB Q4H PRN PRN Reason: Shortness Of Breath/wheezing Last Admin: 02/21/20 15:59 Dose: 3 ml Documented by: GENARO Dextrose/Sodium Chloride (Dextrose 5%-Normal Saline) 1,000 mls @ 75 mls/hr IV ASDIRECTED RYAN Last Admin: 02/21/20 13:59 Dose: 75 mls/hr Documented by: WENDY Labs: Laboratory Tests 02/21/20 02/21/20 02/21/20 Range/Units 13:18 13:18 13:18 WBC 8.68 (3.98-10.04) K/mm3 RBC 4.57 (3.98-5.22) M/mm3 Hgb 11.9 (11.2-15.7) gm/dl Hct 39.0 (34.1-44.9) % MCV 85.3 (79.4-94.8) fl MCH 26.0 (25.6-32.2) pg MCHC 30.5 L (32.2-35.5) g/dl RDW Std Deviation 80.8 H (36.4-46.3) fL Plt Count 937 H* (182-369) K/mm3 MPV 10.2 (9.4-12.3) fl Neut % (Auto) 56.0 (34.0-71.1) % Lymph % (Auto) 24.7 (19.3-51.7) % [place] % (Auto) 18.4 H (4.7-12.5) % Eos % (Auto) 0 L (0.7-5.8) Baso % (Auto) 0.6 (0.1-1.2) % Neut # (Auto) 4.86 (1.56-6.13) K/mm3 Lymph # (Auto) 2.14 (1.18-3.74) K/mm3 [place] # (Auto) 1.60 H (0.24-0.36) K/mm3 Eos # (Auto) 0.00 L (0.04-0.36) K/mm3 Baso # (Auto) 0.05 (0.01-0.08) K/mm3 Manual Slide Review Abnormal smear Puncture Site ABG pH (7.35-7.45) ABG pCO2 (35.0-45.0) mmHg ABG pO2 (80.0-100.0) mmHg ABG HCO3 (22.0-26.0) meq/L ABG O2 Saturation (96.0-97.0) % ABG Base Excess (-2-2.0) A-a Gradient mmHg O2 Delivery Device Oxygen Flow Rate FiO2 (21.00-100.00) % Sodium 142 (136-145) mEq/L Potassium 3.4 L (3.5-5.1) mEq/L Chloride 104 (98-107) mEq/L Carbon Dioxide 32 (21-32) mEq/L Anion Gap 9.4 (5-15) BUN 22 H (7-18) mg/dL Creatinine 1.5 H (0.55-1.02) mg/dL Est Cr Clr Drug Dosing TNP Estimated GFR (MDRD) 34 (>60) mL/min BUN/Creatinine Ratio 14.7 (14-18) Glucose 109 (83-115) mg/dL Calcium 10.0 (8.5-10.1) mg/dL Ferritin (8-252) ng/ml Total Bilirubin 0.4 (0.2-1.0) mg/dL AST 38 H (15-37) U/L ALT 23 (14-59) U/L Alkaline Phosphatase 94 (46-116) U/L Troponin I 0.024 (0.00-0.056) ng/mL NT-Pro-B Natriuret Pep 2410 H (0-450) pg/mL Total Protein 7.7 (6.4-8.2) g/dl Albumin 2.9 L (3.4-5.0) g/dl Globulin 4.8 gm/dL Albumin/Globulin Ratio 0.6 L (1-2) 02/21/20 02/21/20 Range/Units 13:18 15:20 WBC (3.98-10.04) K/mm3 RBC (3.98-5.22) M/mm3 Hgb (11.2-15.7) gm/dl Hct (34.1-44.9) % MCV (79.4-94.8) fl MCH (25.6-32.2) pg MCHC (32.2-35.5) g/dl RDW Std Deviation (36.4-46.3) fL Plt Count (182-369) K/mm3 MPV (9.4-12.3) fl Neut % (Auto) (34.0-71.1) % Lymph % (Auto) (19.3-51.7) % [place] % (Auto) (4.7-12.5) % Eos % (Auto) (0.7-5.8) Baso % (Auto) (0.1-1.2) % Neut # (Auto) (1.56-6.13) K/mm3 Lymph # (Auto) (1.18-3.74) K/mm3 [place] # (Auto) (0.24-0.36) K/mm3 Eos # (Auto) (0.04-0.36) K/mm3 Baso # (Auto) (0.01-0.08) K/mm3 Manual Slide Review Puncture Site Lt radial ABG pH 7.43 (7.35-7.45) ABG pCO2 46.5 H (35.0-45.0) mmHg ABG pO2 64.0 L (80.0-100.0) mmHg ABG HCO3 30.6 H (22.0-26.0) meq/L ABG O2 Saturation 90.7 L (96.0-97.0) % ABG Base Excess 6.0 H (-2-2.0) A-a Gradient 163 mmHg O2 Delivery Device Nasal cannula Oxygen Flow Rate 5.0 FiO2 40.00 (21.00-100.00) % Sodium (136-145) mEq/L Potassium (3.5-5.1) mEq/L Chloride (98-107) mEq/L Carbon Dioxide (21-32) mEq/L Anion Gap (5-15) BUN (7-18) mg/dL Creatinine (0.55-1.02) mg/dL Est Cr Clr Drug Dosing Estimated GFR (MDRD) (>60) mL/min BUN/Creatinine Ratio (14-18) Glucose (83-115) mg/dL Calcium (8.5-10.1) mg/dL Ferritin 30 (8-252) ng/ml Total Bilirubin (0.2-1.0) mg/dL AST (15-37) U/L ALT (14-59) U/L Alkaline Phosphatase (46-116) U/L Troponin I (0.00-0.056) ng/mL NT-Pro-B Natriuret Pep (0-450) pg/mL Total Protein (6.4-8.2) g/dl Albumin (3.4-5.0) g/dl Globulin gm/dL Albumin/Globulin Ratio (1-2) Meds: Medications Generic Name Dose Route Start Last Admin Trade Name Freq PRN Reason Stop Dose Admin Albuterol/Ipratropium 3 ml 02/21/20 15:44 02/21/20 15:59 Duoneb 3.0-0.5 Mg/3 Ml NEB 3 ml Q4H PRN Administration Shortness Of Breath/wheezing Dextrose/Sodium Chloride 1,000 mls @ 75 mls/hr 02/21/20 13:45 02/21/20 13:59 Dextrose 5%-Normal Saline IV 75 mls/hr ASDIRECTED RYAN Administration Discontinued Medications Generic Name Dose Route Start Last Admin Trade Name Freq PRN Reason Stop Dose Admin Acetaminophen 650 mg 02/21/20 13:47 02/21/20 13:59 Tylenol PO 02/21/20 13:48 650 mg ONETIME ONE Administration Dexamethasone 4 mg 02/21/20 15:44 02/21/20 16:22 Dexamethasone IV 02/21/20 15:45 4 mg ONETIME ONE Administration Furosemide 40 mg 02/21/20 13:46 02/21/20 13:58 Lasix IVPUSH 02/21/20 13:47 40 mg NOW ONE Administration - Radiology Interpretation Free Text/Narrative:: 79-year-old female presents to the ED within 24 hours of being seen in the ED last evening. She lives in [facility] home where several patients riojas ve come down with COVID-19 viral illness. She proved to be positive for COVID- 19 last evening on examination. She has chronic COPD and is maintained on oxygen at 3 L/min at all times in 4 L on exertion. She had a markedly elevated d-dimer at 7.[address] pulmonary angiogram was performed. This suggested a small pulmonary embolism in a subsegmental branch in the right lower lobe. She was thus started on Xarelto 15 mg twice daily. She returns to the ED today feeling worse. She is lethargic has not ate or drank. Sats are 91% on 4 L. BP and heart rate are maintained. Respiratory rate was 16/min. She clinically is in heart failure with mild crackles in both bases. Plan she will be started on IV D5 normal saline at 75 mils per hour since she has not ate or drank today. She will be given Lasix 40 mg IV bolus now. Her med list suggest that she takes 80 mg once daily every morning. BNP last night was elevated at 1993. She will have a repeat chest x-ray today. She will have some repeat labs as well. Currently our hospital is on diversion as well as [facility] in [place] last evening. I am unsure about [facility] status in [place]. [facility] is an assisted living program and she would need full assistance to eat to bathe and do her aids of daily living. She has comorbidities of COPD with oxygen dependency, hypertension and congestive heart failure. She would probably benefit from hospitalization but at this time a hospital bed may not be available. I will wait for her labs to come back and discuss with physicians in [place]. - Re-Assessments/Exams Free Text/Narrative Re-Assessment/Exam: 02/21/20 14:50 Labs reveal a total white count of 8.68 with 56% neutrophils on the auto differential. Hemoglobin is 11.9 with hematocrit of 39.0. Platelet count is elevated at 937,000. This is a chronic problem for her. Sodium 142 with a potassium of 3.4. Chloride is 104 with a bicarb of 32. Anion gap is 9.4. BUN is 22 with a creatinine of 1.5 and a GFR of 34 i.e. stage III chronic kidney disease. Glucose 109 with a calcium of 10.0. Serum ferritin is normal at 30 total bilirubin 0.4 AST minimally elevated at 38. ALT is normal at 23 with an alk phos days of 94. Troponin I is less than 0.024. BNP is 2410. This is elevated from last evening. Total protein 7.7 with an albumin fraction of 2. 9. This x-ray done portably is essentially unchanged from the one done last evening. Moderate cardiomegaly. Tortuous thoracic aorta with calcification of the aortic arch. Prominence of the right pulmonary artery. No pleural effusion no pulmonary infiltrates evident. ABGs have not yet been done. 02/21/20 15:36 8 ABGs reveal a pH of 7.43. PCO2 is 46.5 PO2 is 64 with a bicarb of 30.6. O2 sats are 98.7% on 5 L by nasal cannula. She will be given a DuoNeb treatment. She will also be given dexamethasone 4 mg IV. 02/21/20 16:00 I have discussed the case with 1 call nurse Joni at [facility] in [place] and there is a bed available. Patient's care has been accepted by Dr. Jean chun. The bed or room that she will be going to is currently being cleaned and they will call back when the room is available. She will be transported to that facility per ground ambulance. I have spoken with her daughter who lives here in [place] as well. 02/21/20 17:45 bed apparently has now become available and the ambulance has been summoned to transport the patient to [facility] in [place]. Pressure is currently 146/55. Heart rate is 89 and sinus sats are 97% on 5 L. She has diuresed approximately 800 mils of urine after 40 mg of Lasix IV. Departure - Departure Time of Disposition: 17:46 Disposition: DC/Tfer to Acute Hospital 02 Condition: Serious Clinical Impression: COPD exacerbation, COVID-19 virus detected, Idiopathic thrombocythemia, Chronic renal insufficiency, stage III (moderate) CHF exacerbation Qualifiers: Heart failure type: unspecified Qualified Code(s): I50.9 - Heart failure, unspecified - Discharge Information *PRESCRIPTION DRUG MONITORING PROGRAM REVIEWED*: Not Applicable *COPY OF PRESCRIPTION DRUG MONITORING REPORT IN PATIENT [place]: Not Applicable Referrals: PCP,None [Ordering Only Provider] - Forms: ED Department Discharge Additional Instructions: Patient's condition appears to have deteriorated since diagnosis of COVID-19 illness yesterday. She has been ill for 2 days prior to confirm diagnosis. CT done last evening because of markedly elevated d-dimer suggested a few pulmonary emboli in right lower lobe of the lung. This that he was not of great accuracy due to contrast spread throughout the pulmonary arterial system. Patient started on Xarelto 15 mg twice daily. She returned to the ED today due to increasing fatigue weakness and shortness of breath. She has maintained on oxygen at 3 to 4 L at all times due to end-stage COPD. She required oxygen at 5 L/min to maintain sats of 91 to 92%. She has a component of congestive heart failure which appears to have worsened over the last few days. She responded well to Lasix 40 mg given intravenously with diuresis of nearly 800 mils of urine. O2 sats improved to 97% after diuresis. Sepsis Event Note (ED) - Evaluation Sepsis Screening Result: No Definite Risk - Focused Exam Vital Signs: Vital Signs Temp Pulse Resp BP Pulse Ox Pulse Ox 02/21/20 15:44 91 L 02/21/20 13:20 36.3 C 78 16 136/63 91 L - My Orders Last 24 Hours: My Active Orders 02/21/20 13:44 Chest 1V Frontal [CR] Stat 02/21/20 13:45 Dextrose 5%-0.9% NaCl [Dextrose 5%-Normal Saline] 1,000 ml IV ASDIRECTED 02/21/20 13:46 Urinary Catheter Assessment [RC] ASDIRECTED 02/21/20 13:49 Oxygen Therapy [RC] ASDIRECTED 02/21/20 14:00 Insert Trevizo Catheter [Insert Urinary Catheter] [OM.PC] Q24H 02/21/20 15:44 RT Aerosol Therapy [RC] ASDIRECTED Albuterol/Ipratropium [DuoNeb 3.0-0.5 MG/3 ML] 3 ml NEB Q4H PRN - Assessment/Plan Last 24 Hours: My Active Orders 02/21/20 13:44 Chest 1V Frontal [CR] Stat 02/21/20 13:45 Dextrose 5%-0.9% NaCl [Dextrose 5%-Normal Saline] 1,000 ml IV ASDIRECTED 02/21/20 13:46 Urinary Catheter Assessment [RC] ASDIRECTED 02/21/20 13:49 Oxygen Therapy [RC] ASDIRECTED 02/21/20 14:00 Insert Trevizo Catheter [Insert Urinary Catheter] [OM.PC] Q24H 02/21/20 15:44 RT Aerosol Therapy [RC] ASDIRECTED Albuterol/Ipratropium [DuoNeb 3.0-0.5 MG/3 ML] 3 ml NEB Q4H PRN
[2020-02-21] MEDS ORDERED: Dextrose 5%-0.9% NaCl 1,000 ML IV SCH (13:45)
[2020-02-21] MEDS ORDERED: Furosemide 40 MG/4 ML VIAL IVPUSH ONE (13:46)
[2020-02-21] MEDS ORDERED: Acetaminophen 325 MG Tab PO ONE (13:47)
[2020-02-21] MEDS ORDERED: Dexamethasone 4 MG/ML 5 ML MDV IV ONE (15:44)
[2020-02-21] MEDS ORDERED: Albuterol/Ipratropium 3.0-0.5 MG/3 ML Neb Soln NEB PRN (15:44)
--- NOTE | 2020-02-22 11:26 | CR ---
Chest: Portable view of the chest was obtained. Comparison: Prior chest x-ray of 02/20/20. Findings: Heart is enlarged. Pulmonary vessels are slightly increased which appears stable. Lungs otherwise are clear. Bony structures are grossly intact. Impression: 1. Heart is mildly enlarged. 2. Slight increased pulmonary vessels possibly due to mild chronic pulmonary vascular congestion. 3. No acute parenchymal change is appreciated at this time. Diagnostic code #3 Study was dictated in MDT
== END 2020-02-21 18:52 ==
LOC: JD.ED 13:08
DX: U07.1 COVID-19 (principal); J44.1 Chronic obstructive pulmonary disease with (acute) exacerbation; D69.3 Immune thrombocytopenic purpura; I13.0 Hypertensive heart and chronic kidney disease with heart failure and stage 1 through stage 4 chronic kidney disease, or unspecified chronic kidney disease; N18.3 Chronic kidney disease, stage 3 (moderate); I50.30 Unspecified diastolic (congestive) heart failure; M19.90 Unspecified osteoarthritis, unspecified site; F41.9 Anxiety disorder, unspecified; F32.9 Major depressive disorder, single episode, unspecified; E03.9 Hypothyroidism, unspecified; E66.9 Obesity, unspecified; Z88.1 Allergy status to other antibiotic agents; Z88.8 Allergy status to other drugs, medicaments and biological substances; Z88.5 Allergy status to narcotic agent; Z79.899 Other long term (current) drug therapy; Z79.82 Long term (current) use of aspirin
CPT/HCPCS: 36415; 36600; 51702; 71045; 80053; 82728; 82803; 83880; 84484; 85025; 94640; 96361; 96374; 96375; 99285; A9270; J1100; J1940; J7042; J7620-GY